=== PATIENT | male | born 1955 | race Caucasian/White ===

== ENCOUNTER 2017-12-04 11:06 | Emergency (ER) | payer OTHER ==
[2017-12-04 11:39] LABS: ADD MAN DIFF? NO
[2017-12-04 11:42] LABS: BASO % 1 % (0-3); EOS % 1 % (0-3); HEMATOCRIT 47.6 % (39.0-53.0); HEMOGLOBIN 16.3 g/dL (13.0-17.5); LYMPH # 1.1 x10^3/uL (1.0-4.8); LYMPH % 22 % (24-48); MEAN CORPUSCULAR HEMOGLOBIN 33 pg (25-35); MEAN CORPUSCULAR HGB CONC 34 g/dL (31-37); MEAN CORPUSCULAR VOLUME 95 fL (79-100); MONO # 0.4 x10^3/uL (0.0-1.1); MONO % 7 % (0-9); NEUT # 3.7 x10^3uL (1.8-7.7); NEUT % 70 % (31-73); PLATELET COUNT 193 x10^3/uL (140-400); RED BLOOD COUNT 5.01 x10^6/uL (4.30-5.70); RED CELL DISTRIBUTION WIDTH 13.4 % (11.5-14.5); WHITE BLOOD COUNT 5.3 x10^3/uL (4.0-11.0)
[2017-12-04 11:57] LABS: ANION GAP 8 (6-14); BLOOD UREA NITROGEN 10 mg/dL (8-26); CALCIUM 8.6 mg/dL (8.5-10.1); CARBON DIOXIDE 28 mmol/L (21-32); CHLORIDE 102 mmol/L (98-107); CREATININE 0.8 mg/dL (0.7-1.3); GFR 98.3; GLUCOSE 266 mg/dL (70-99); POTASSIUM 4.3 mmol/L (3.5-5.1); SODIUM 138 mmol/L (136-145)
[2017-12-04 12:11] LABS: TROPONINI < 0.017 ng/mL (0.000-0.055)
[2017-12-04 12:13] LABS: THYROID STIM HORMONE (TSH) 1.137 uIU/mL (0.358-3.74)
[2017-12-04] MEDS: IV NORMAL SALINE 1000ML BAG 1,000 ML IV (12:34)
[2017-12-04 14:24] LABS: BILIRUBIN,URINE NEGATIVE (NEG); CLARITY,URINE CLEAR; COLOR,URINE YELLOW; GLUCOSE,URINE >=1000 mg/dL (NEG); NITRITE,URINE NEGATIVE (NEG); PH,URINE 6.5; PROTEIN,URINE NEGATIVE (NEG-TRACE); UROBILINOGEN,URINE 0.2 mg/dL (0.2 mg/dL)
[2017-12-04 14:45] LABS: BACTERIA,URINE 0 /HPF (0-FEW); RBC,URINE 0 /HPF (0-2); SQUAMOUS EPITHELIAL CELL,UR FEW /LPF
[2017-12-05 03:15] LABS: HEMOGLOBIN A1C 9.2 % (4.8-5.6)
== END 2017-12-04 15:20 | disposition home or self-care (01) ==
LOC: ER 11:06
DX: R73.9 Hyperglycemia, unspecified (principal); I10 Essential (primary) hypertension; F17.200 Nicotine dependence, unspecified, uncomplicated
CPT/HCPCS: 36415; 80048; 81001; 83036; 84443; 84484; 85025; 93005; 99285-25; J7030

== ENCOUNTER 2019-06-12 09:55 | Inpatient (IN) | payer OTHER ==
[~2019-06-12] VITALS: Ht 177.8 cm; Wt 90.7 kg
[2019-06-12] MEDS ORDERED: LIDOCAINE 1%/EPI 1:100,000 20 ML VIAL. INJ ONE (10:15)
--- NOTE | 2019-06-12 10:18 | PHYS DOC ---
Past Medical History Past Medical History: Other Additional Past Medical Histor: BORDERLINE DM Past Surgical History: Appendectomy, Other Additional Past Surgical Histo: R ANKLE ORIF,R FINGERS AMPUTATION Alcohol Use: Rarely Drug Use: None Adult General Chief Complaint Chief Complaint: ABSCESS HPI HPI Patient is a 64-year-old male, with a past history of MRSA infections, who presents to the emergency department for evaluation of an increasing size abscess in his right medial thigh, which has developed over the past week. He states he has had MRSA infection similar to this in the past. He went to urgent care this past Thursday, and was placed on Bactrim, but the abscess continued to enlarge. He has had a small amount of bloody drainage. He reports having some subjective fevers but has not checked his temperature. The area is painful to palpation. There are no other alleviating or exacerbating factors to his symptoms. Review of Systems Review of Systems Constitutional: Denies lethargy or chills [] Eyes: Denies change in visual acuity, redness, or eye pain [] HENT: Denies nasal congestion or sore throat [] Respiratory: Denies cough or shortness of breath [] GI: Denies abdominal pain, nausea, vomiting, bloody stools or diarrhea [] : Denies dysuria or hematuria [] Musculoskeletal: Denies back pain or joint pain [] Integument: Denies rash or skin lesions [] Neurologic: Denies headache, focal weakness or sensory changes [] Endocrine: Denies polyuria or polydipsia [] All other systems were reviewed and found to be within normal limits, except as documented in this note. Current Medications Current Medications Current Medications Medications (Trade) Dose Ordered Sig/Ivon Start Time Stop Time Status Last Admin Dose Admin Lidocaine/ Epinephrine (LIDOCAINE 1%-EPI 1:100,000 Multi-Dose) 20 ml 1X ONCE 06/12/19 10:15 06/12/19 10:16 DC 06/12/19 10:29 20 ML Sodium Bicarbonate (Sodium Bicarb Adult 8.4% Syr) 50 meq 1X ONCE 06/12/19 10:30 06/12/19 10:31 DC 06/12/19 10:35 50 MEQ Vancomycin HCl 250 ml @ 250 mls/hr 1X ONCE 06/12/19 10:45 06/12/19 11:44 Allergies Allergies Allergies Coded Allergies Type Severity Reaction Last Updated Verified No Known Drug Allergies 12/04/17 No Physical Exam Physical Exam PHYSICAL EXAM: CONSTITUTIONAL: Well developed, well nourished HEAD: normocephalic, atraumatic EENT: PERRL, EOMI. Conjunctivae normal color, sclerae non-icteric; moist mucous membranes. NECK: Supple, non-tender; no meningismus. LUNGS: Lungs CTA, breathing even and unlabored. Normal air movement. HEART: Regular rate and rhythm, no murmur CHEST: No deformity; non-tender ABDOMEN: The abdomen is soft, and non-tender, no masses or bruits. EXTREM: Normal ROM; no deformity, no calf tenderness. Normal pulses palpable in all extremities. There is no pedal edema. SKIN: There is a large cutaneous abscess on the right medial thigh, proximally, with a small amount of eschar in the center, without active drainage. There is erythema overlying the skin of the lesion without significant surrounding erythema. The area does not involve the scrotum or the perineum. No other rash; no diaphoresis NEURO: Alert; normal speech and cognition; CN's grossly intact; strength grossly intact without focal deficit. BACK: No CVA TTP. Current Patient Data Vital Signs Vital Signs Date Time Temp Pulse Resp B/P (MAP) Pulse Ox O2 Delivery O2 Flow Rate FiO2 06/12/19 10:00 98.4 97 14 176/115 (135) 93 Room Air 98.4 Lab Values Laboratory Tests Test 06/12/19 10:50 White Blood Count 10.2 x10^3/uL (4.0-11.0) Red Blood Count 5.01 x10^6/uL (4.30-5.70) Hemoglobin 16.1 g/dL (13.0-17.5) Hematocrit 46.5 % (39.0-53.0) Mean Corpuscular Volume 93 fL (79-100) Mean Corpuscular Hemoglobin 32 pg (25-35) Mean Corpuscular Hemoglobin Concent 35 g/dL (31-37) Red Cell Distribution Width 11.8 % (11.5-14.5) Platelet Count 316 x10^3/uL (140-400) Neutrophils (%) (Auto) 80 % (31-73) H Lymphocytes (%) (Auto) 12 % (24-48) L Monocytes (%) (Auto) 8 % (0-9) Eosinophils (%) (Auto) 0 % (0-3) Basophils (%) (Auto) 1 % (0-3) Neutrophils # (Auto) 8.2 x10^3/uL (1.8-7.7) H Lymphocytes # (Auto) 1.2 x10^3/uL (1.0-4.8) Monocytes # (Auto) 0.8 x10^3/uL (0.0-1.1) Eosinophils # (Auto) 0.0 x10^3/uL (0.0-0.7) Basophils # (Auto) 0.0 x10^3/uL (0.0-0.2) Sodium Level 132 mmol/L (136-145) L Potassium Level 3.8 mmol/L (3.5-5.1) Chloride Level 94 mmol/L (98-107) L Carbon Dioxide Level 26 mmol/L (21-32) Anion Gap 12 (6-14) Blood Urea Nitrogen 19 mg/dL (8-26) Creatinine 0.9 mg/dL (0.7-1.3) Estimated GFR (Cockcroft-Gault) 85.2 Glucose Level 295 mg/dL (70-99) H Calcium Level 9.5 mg/dL (8.5-10.1) Laboratory Tests 06/12/19 10:50 Laboratory Tests 06/12/19 10:50 EKG EKG [] Radiology/Procedures Radiology/Procedures [] Course & Med Decision Making Course & Med Decision Making Pertinent Labs and Imaging studies reviewed. (See chart for details) [] 11:20 AM: Post drainage, there still remained a fair amount of fluctuance and firmness in the area, as well as cellulitis. This is likely reactive, although I cannot exclude another potentially smaller associated fluid pocket. The patient will be admitted to the hospitalist for IV antibiotics, given that he has failed outpatient oral treatment, and possible surgical consultation will be obtained. INCISION AND DRAINAGE PROCEDURE NOTE: The abscess located on the right groin was prepped with Betadine, anesthetized with 1% lidocaine with lidocaine and buffered with bicarbonate, and incised with #11 blade, in the most fluctuant area of the abscess. A small amount of pus was obtained from the wound, the wound was probed with a blunt forceps and packed with gauze packing. A wound culture was obtained. The patient tolerated procedure well. Wound care instructions were discussed with the patient. Dragon Disclaimer Dragon Disclaimer This electronic medical record was generated, in whole or in part, using a voice recognition dictation system. Departure Departure Impression: Primary Impression: Groin abscess Additional Impression: Cellulitis Disposition: 09 ADMITTED INPATIENT Admitting Physician: BRITTNEE Condition: STABLE Referrals: NO PCP (PCP) Problem Qualifiers MARILIN MUHAMMAD MD Jun 12, 2019 10:18
[2019-06-12] MEDS ORDERED: SODIUM BICARB ADULT 8.4% 50 MEQ/50 ML DISP.SYRIN. ONE (10:19)
[2019-06-12] MEDS ORDERED: SODIUM BICARB ADULT 8.4% 50 MEQ/50 ML DISP.SYRIN. SQ ONE (10:30)
[2019-06-12] MEDS ORDERED: VANCOMYCIN 1GM IVPB FOR OMNI 250 ML IV ONE (10:45)
[2019-06-12 11:15] LABS: BASO % 1 % (0-3); EOS % 0 % (0-3); HEMATOCRIT 46.5 % (39.0-53.0); HEMOGLOBIN 16.1 g/dL (13.0-17.5); LYMPH # 1.2 x10^3/uL (1.0-4.8); LYMPH % 12 % (24-48); MEAN CORPUSCULAR HEMOGLOBIN 32 pg (25-35); MEAN CORPUSCULAR HGB CONC 35 g/dL (31-37); MEAN CORPUSCULAR VOLUME 93 fL (79-100); MONO # 0.8 x10^3/uL (0.0-1.1); MONO % 8 % (0-9); NEUT # 8.2 x10^3/uL (1.8-7.7); NEUT % 80 % (31-73); PLATELET COUNT 316 x10^3/uL (140-400); RED BLOOD COUNT 5.01 x10^6/uL (4.30-5.70); RED CELL DISTRIBUTION WIDTH 11.8 % (11.5-14.5); WHITE BLOOD COUNT 10.2 x10^3/uL (4.0-11.0)
[2019-06-12 11:23] LABS: CALCIUM 9.5 mg/dL (8.5-10.1); CREATININE 0.9 mg/dL (0.7-1.3); GFR 85.2; POTASSIUM 3.8 mmol/L (3.5-5.1)
--- NOTE | 2019-06-12 11:34 | PDOC1 ---
History and Physical Date of Admission Date of Admission DATE: 06/12/19 TIME: 11:33 Identification/Chief Complaint Chief Complaint seen in er ., 64-year-old male, with a past history of MRSA infections, who presents to the emergency department for evaluation of an increasing size abscess in his right medial thigh, which has developed over the past week. He states he has had MRSA infection similar to this in the past. He went to urgent care this past Thursday, and was placed on Bactrim, but the abscess continued to enlarge. reports having some subjective fevers glucose high at 295 in er Past Medical History Past Medical History Past Medical History Past Medical History: Other Additional Past Medical Histor: BORDERLINE DM Past Surgical History: Appendectomy, Other Additional Past Surgical Histo: R ANKLE ORIF,R FINGERS AMPUTATION Alcohol Use: Rarely Drug Use: None Endocrine: Diabetes Family History Family History: High Cholestrol, Hypertension Social History Smoke: <1 pack per day ALCOHOL: other (2 beers a day) Drugs: None Current Problem List Problem List Problems Medical Problems: (1) Cellulitis Status: Acute (2) Groin abscess Status: Acute Current Medications Current Medications Current Medications Lidocaine/ Epinephrine (LIDOCAINE 1%-EPI 1:100,000 Multi-Dose) 20 ml 1X ONCE INJ Last administered on 06/12/19at 10:29; Start 06/12/19 at 10:15; Stop 06/12/19 at 10:16; Status DC Sodium Bicarbonate (Sodium Bicarb Adult 8.4% Syr) 50 meq STK-MED ONCE .ROUTE ; Start 06/12/19 at 10:19; Stop 06/12/19 at 10:19; Status DC Sodium Bicarbonate (Sodium Bicarb Adult 8.4% Syr) 50 meq 1X ONCE SQ Last administered on 06/12/19at 10:35; Start 06/12/19 at 10:30; Stop 06/12/19 at 10:31; Status DC Vancomycin HCl 250 ml @ 250 mls/hr 1X ONCE IV ; Start 06/12/19 at 10:45; Stop 06/12/19 at 11:44 Allergies Allergies: Coded Allergies: No Known Drug Allergies (Unverified , 12/04/17) ROS Review of System Review of Systems Review of Systems Constitutional: Denies lethargy or chills [] Eyes: Denies change in visual acuity, redness, or eye pain [] HENT: Denies nasal congestion or sore throat [] Respiratory: Denies cough or shortness of breath [] GI: Denies abdominal pain, nausea, vomiting, bloody stools or diarrhea [] : Denies dysuria or hematuria [] Musculoskeletal: Denies back pain or joint pain [] Integument: right groin skin lesion [] Neurologic: Denies headache, focal weakness or sensory changes [] Endocrine: Denies polyuria or polydipsia [] 14 pt systems were reviewed and found to be within normal limits, except as documented General: YES: Fatigue ALLERGY AND IMMUNOLOGY: No: Hives, Insect Bite Sensitivity, Itchy/Watery Eyes, Nasal Congestion, Post Nasal Drip, Seasonal Allergies, Other Hematological and Lymphatic: No: Bleeding Problems, Blood Clots, Blood Transfusions, Brusing, Night Sweats, Pallor, Swollen Lymph Nodes, Other Genitourinary: YES Frequency, YES Urgency Skin: Yes Skin Lesion Changes Physical Exam Physical Exam Physical Exam Physical Exam PHYSICAL EXAM: CONSTITUTIONAL: Well developed, well nourished HEAD: normocephalic, atraumatic EENT: PERRL, EOMI. Conjunctivae normal color, sclerae non-icteric; moist mucous membranes. NECK: Supple, non-tender; no meningismus. LUNGS: Lungs CTA, breathing even and unlabored. Normal air movement. HEART: Regular rate and rhythm, no murmur CHEST: No deformity; non-tender ABDOMEN: The abdomen is soft, and non-tender, no masses or bruits. EXTREM: Normal ROM; no deformity, no calf tenderness. Normal pulses palpable in all extremities. There is no pedal edema. SKIN: There is a large cutaneous abscess on the right medial thigh, proximally, with a small amount of eschar in the center, without active drainage. There is erythema overlying the skin of the lesion without significant surrounding erythema. The area does not involve the scrotum or the perineum. No other rash; no diaphoresis NEURO: Alert; normal speech and cognition; CN's grossly intact; strength grossly intact without focal deficit. BACK: No CVA TTP. General: Alert, Oriented X3, Cooperative, No acute distress HEENT: Atraumatic, PERRLA, EOMI, Mucous membr. moist/pink Lungs: Clear to auscultation, Normal air movement Heart: RRR, no thrills Abdomen: Normal bowel sounds, Soft Rectal Exam: not examined PELVIC: Examination not indicated Extremities: No cyanosis Neuro: Normal speech, Cranial nerves 3-12 NL Psych/Mental Status: Mental status NL, Mood NL Vitals Vitals Vital Signs Date Time Temp Pulse Resp B/P (MAP) Pulse Ox O2 Delivery O2 Flow Rate FiO2 06/12/19 10:00 98.4 97 14 176/115 (135) 93 Room Air 98.4 Labs Labs Laboratory Tests Test 06/12/19 10:50 White Blood Count 10.2 x10^3/uL (4.0-11.0) Red Blood Count 5.01 x10^6/uL (4.30-5.70) Hemoglobin 16.1 g/dL (13.0-17.5) Hematocrit 46.5 % (39.0-53.0) Mean Corpuscular Volume 93 fL (79-100) Mean Corpuscular Hemoglobin 32 pg (25-35) Mean Corpuscular Hemoglobin Concent 35 g/dL (31-37) Red Cell Distribution Width 11.8 % (11.5-14.5) Platelet Count 316 x10^3/uL (140-400) Neutrophils (%) (Auto) 80 % (31-73) Lymphocytes (%) (Auto) 12 % (24-48) Monocytes (%) (Auto) 8 % (0-9) Eosinophils (%) (Auto) 0 % (0-3) Basophils (%) (Auto) 1 % (0-3) Neutrophils # (Auto) 8.2 x10^3/uL (1.8-7.7) Lymphocytes # (Auto) 1.2 x10^3/uL (1.0-4.8) Monocytes # (Auto) 0.8 x10^3/uL (0.0-1.1) Eosinophils # (Auto) 0.0 x10^3/uL (0.0-0.7) Basophils # (Auto) 0.0 x10^3/uL (0.0-0.2) Sodium Level 132 mmol/L (136-145) Potassium Level 3.8 mmol/L (3.5-5.1) Chloride Level 94 mmol/L (98-107) Carbon Dioxide Level 26 mmol/L (21-32) Anion Gap 12 (6-14) Blood Urea Nitrogen 19 mg/dL (8-26) Creatinine 0.9 mg/dL (0.7-1.3) Estimated GFR (Cockcroft-Gault) 85.2 Glucose Level 295 mg/dL (70-99) Calcium Level 9.5 mg/dL (8.5-10.1) Laboratory Tests Test 06/12/19 10:50 White Blood Count 10.2 x10^3/uL (4.0-11.0) Red Blood Count 5.01 x10^6/uL (4.30-5.70) Hemoglobin 16.1 g/dL (13.0-17.5) Hematocrit 46.5 % (39.0-53.0) Mean Corpuscular Volume 93 fL (79-100) Mean Corpuscular Hemoglobin 32 pg (25-35) Mean Corpuscular Hemoglobin Concent 35 g/dL (31-37) Red Cell Distribution Width 11.8 % (11.5-14.5) Platelet Count 316 x10^3/uL (140-400) Neutrophils (%) (Auto) 80 % (31-73) Lymphocytes (%) (Auto) 12 % (24-48) Monocytes (%) (Auto) 8 % (0-9) Eosinophils (%) (Auto) 0 % (0-3) Basophils (%) (Auto) 1 % (0-3) Neutrophils # (Auto) 8.2 x10^3/uL (1.8-7.7) Lymphocytes # (Auto) 1.2 x10^3/uL (1.0-4.8) Monocytes # (Auto) 0.8 x10^3/uL (0.0-1.1) Eosinophils # (Auto) 0.0 x10^3/uL (0.0-0.7) Basophils # (Auto) 0.0 x10^3/uL (0.0-0.2) Sodium Level 132 mmol/L (136-145) Potassium Level 3.8 mmol/L (3.5-5.1) Chloride Level 94 mmol/L (98-107) Carbon Dioxide Level 26 mmol/L (21-32) Anion Gap 12 (6-14) Blood Urea Nitrogen 19 mg/dL (8-26) Creatinine 0.9 mg/dL (0.7-1.3) Estimated GFR (Cockcroft-Gault) 85.2 Glucose Level 295 mg/dL (70-99) Calcium Level 9.5 mg/dL (8.5-10.1) VTE Prophylaxis Ordered VTE Prophylaxis Devices: No VTE Pharmacological Prophylaxi: Yes Assessment/Plan Assessment/Plan Impression: Groin abscess, deep, complicated hx MRSA diabetes Cellulitis uncontrolled hypertension obesity ADMITTED BLOOD CULT SS INSULIN CONSULT GEN SURGERY CONSULT ID dvt prophylaxis iv vanc bp control blood culture NICK HANSEN MD Jun 12, 2019 11:33
[2019-06-12] MEDS ORDERED: IV NORMAL SALINE 1000ML BAG 1,000 ML IV ONE (11:45)
[2019-06-12] MEDS ORDERED: DEXTROSE 50% 25 GM / 50ML DISP.SYRIN. IV PRN (12:30)
[2019-06-12] MEDS ORDERED: 0.9 % SODIUM CHLORIDE 10 ML DISP.SYRIN. IV PRN (12:30)
[2019-06-12] MEDS ORDERED: MAG HYDROX/ALUMINUM HYD/SIMETH 30 ML ORAL.SUSP PO PRN (12:30)
[2019-06-12] MEDS ORDERED: ALBUTEROL SULFATE 2.5 MG/3 ML NEBU. NEB PRN (12:30)
[2019-06-12] MEDS ORDERED: ACETAMINOPHEN 325 MG TABLET. PO PRN (12:30)
[2019-06-12] MEDS ORDERED: DOCUSATE SODIUM 100 MG CAPSULE. PO PRN (12:30)
[2019-06-12] MEDS ORDERED: ONDANSETRON PF 4 MG/2 ML VIAL. IV PRN (12:30)
[2019-06-12] MEDS ORDERED: guaiFENesin ORAL 200 MG/10 ML LIQUID. PO PRN (12:30)
[2019-06-12] MEDS ORDERED: LORazepam 0.5 MG TABLET PO PRN (12:30)
[2019-06-12] MEDS ORDERED: ZOLPIDEM 5 MG TABLET. PO PRN (12:30)
[2019-06-12] MEDS ORDERED: VANCOMYCIN 2 GM in IV NORMAL SALINE 500ML BAG 500 ML IV ONE (13:00)
--- NOTE | 2019-06-12 13:29 | PDOC ---
Infectious Disease Note Vital Sign Vital Signs Vital Signs Date Time Temp Pulse Resp B/P (MAP) Pulse Ox O2 Delivery O2 Flow Rate FiO2 06/12/19 12:15 90 18 161/83 (109) 90 Room Air 06/12/19 10:00 98.4 98.4 Labs Lab Laboratory Tests Test 06/12/19 10:50 White Blood Count 10.2 x10^3/uL (4.0-11.0) Red Blood Count 5.01 x10^6/uL (4.30-5.70) Hemoglobin 16.1 g/dL (13.0-17.5) Hematocrit 46.5 % (39.0-53.0) Mean Corpuscular Volume 93 fL (79-100) Mean Corpuscular Hemoglobin 32 pg (25-35) Mean Corpuscular Hemoglobin Concent 35 g/dL (31-37) Red Cell Distribution Width 11.8 % (11.5-14.5) Platelet Count 316 x10^3/uL (140-400) Neutrophils (%) (Auto) 80 % (31-73) Lymphocytes (%) (Auto) 12 % (24-48) Monocytes (%) (Auto) 8 % (0-9) Eosinophils (%) (Auto) 0 % (0-3) Basophils (%) (Auto) 1 % (0-3) Neutrophils # (Auto) 8.2 x10^3/uL (1.8-7.7) Lymphocytes # (Auto) 1.2 x10^3/uL (1.0-4.8) Monocytes # (Auto) 0.8 x10^3/uL (0.0-1.1) Eosinophils # (Auto) 0.0 x10^3/uL (0.0-0.7) Basophils # (Auto) 0.0 x10^3/uL (0.0-0.2) Sodium Level 132 mmol/L (136-145) Potassium Level 3.8 mmol/L (3.5-5.1) Chloride Level 94 mmol/L (98-107) Carbon Dioxide Level 26 mmol/L (21-32) Anion Gap 12 (6-14) Blood Urea Nitrogen 19 mg/dL (8-26) Creatinine 0.9 mg/dL (0.7-1.3) Estimated GFR (Cockcroft-Gault) 85.2 Glucose Level 295 mg/dL (70-99) Calcium Level 9.5 mg/dL (8.5-10.1) Objective Assessment Soft tissue abscess right thigh s/p I and D in ER, 06/12. -Failed OP Bactrim h/o MRSA STSI Diabetes Obesity Hypertension Plan Plan of Care Continue vancomycin and add Zosyn f/u cultures results Await gen surgery eval D/w nursing Thank you Attending Co-Sign The patient was seen and interviewed as well as examined at the bedside. The chart was reviewed. The case was discussed. Agree with the plan of care. CHIP CHAPIN APRN Jun 12, 2019 13:29 JEN JACK MD Jun 12, 2019 13:30
--- NOTE | 2019-06-12 13:38 | NUR ---
Dr Melo answering service was called regarding routine new consult of right thigh abscess
[2019-06-12 13:41] VITALS: BP 186/91
--- NOTE | 2019-06-12 14:11 | CONS ---
DATE OF CONSULTATION: 06/12/2019 REQUESTING PHYSICIAN: Hugo Vizcarra MD REASON FOR CONSULTATION: Abscess. HISTORY OF PRESENT ILLNESS: This patient is a 64-year-old male with past medical history of obesity, diabetes, and previous history of methicillin-resistant Staphylococcus aureus soft tissue skin infection. About a week ago, he developed some redness, swelling, and pain of right inner thigh. He was [facility] by [facility] and prescribed Bactrim for abscess. The area worsened. He had fever, nausea, and vomiting prompting a visit to the emergency room. He underwent a bedside incision and drainage. Culture was sent. He is currently on vancomycin. General Surgery has been consulted. PAST MEDICAL HISTORY: Obesity, diabetes, and hypertension. 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 FAMILY HISTORY: High cholesterol and hypertension. SOCIAL HISTORY: The patient lives at home. He is a current smoker. He drinks alcohol. He has a dog. ALLERGIES: No known drug allergies. MEDICATIONS: Vancomycin, metformin, Colace, and clonidine. Other medications are available and have been reviewed on the SEP. REVIEW OF SYSTEMS: Per HPI; otherwise, all other review of systems negative. PHYSICAL EXAMINATION: VITAL SIGNS: Temperature is 98.4, blood pressure 161/83, heart rate 90, respiratory rate 18, pulse oximetry 90% on room air, and BMI 28. GENERAL: The patient is propped up in bed, alert, in no apparent distress. HEENT: Pupils are equally round. Oral cavity: Pharynx pink and moist. NECK: Supple. LUNGS: Clear to auscultation. HEART: S1 and S2. ABDOMEN: Obese, soft, and nontender with bowel sounds present. EXTREMITIES: No gross edema or cyanosis. SKIN: Warm to touch. No signs of rash. He has a fairly large area of induration with some fluctuance and redness on the right inner thigh with packing in place. NEUROLOGIC: Alert and oriented x3. LABORATORY DATA: WBC 2.2, hemoglobin 16.1, platelets 316,000; creatinine 0.8, BUN 19, sodium 132, potassium 3.8. Aerobic culture with gram stain is pending. IMAGING: None performed. IMPRESSION: 1. Soft tissue abscess, right thigh, status post incision and drainage in the emergency room on 06/12/2019. 2. 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 3. Diabetes. 4. Obesity. 5. Hypertension. PLAN: Continue the vancomycin per Pharmacy protocol and add Zosyn; additional antibiotic modifications pending culture results and clinical response to treatment. General Surgery has evaluated. We will continue to follow. Thank you, Dr. Vizcarra, for asking us to participate in this patient's care. Should you have further questions or concerns, please call. The patient is seen and examined and plan of care implemented by Dr. Boris Jack. BORIS JACK MD DR: EDGAR/radha JOB#: [id number] / [id number]
[2019-06-12 15:00] VITALS: BP 159/74
[2019-06-12] MEDS: VANCOMYCIN PER PHARMACY MC PRN (15:53)
--- NOTE | 2019-06-12 15:54 | NUR ---
Pharmacy Vancomycin Dosing Note S:Consulted to monitor and dose vancomycin started 06/12/19. O:FAREED LOCKHART is a 64 year old M with Abscess . Height: 5 feet, 10 inches Weight: 89.184602 kg [place] Body Weight: 73.00 Adjusted Body Weight: 79.72 Dosing Weight: Actual Other Antibiotics: ZOSYN 06/12 - LABS: Last BUN: 19 Last Creatinine: 0.9 Creatinine Clearance: 94 mL/min Last WBC: 10.2 Last Procalcitonin: - Tmax (past 24 hours): 98.4 Microbiology: 06/12 PENDING I/O: Drug Levels: Last level: on at Last dose given 06/12/19 at 1300 Vancomycin Dosing: Loading Dose: 2000 mg x1 Dosing Weight: Actual Target Trough: 10-20 A: Based on: WEIGHT, CRCL~94, SEVERITY OF INFECTION (ABSCESS), P: 1. INITIATE Vancomycin 1250 mg IV q12h AFTER 2000 MG LOADING DOSE 2. Follow up Trough level on 06/14/19 at 0030 3. Pharmacy will continue to monitor, follow and adjust therapy as needed. JAMEEL VELÁSQUEZ [facility], 06/12/19 [id number]
[2019-06-12] MEDS: LISINOPRIL 10 MG TABLET PO SCH (16:17)
[2019-06-12] MEDS: IV NORMAL SALINE 1000ML BAG 1,000 ML IV SCH ×2 (16:17→22:14)
[2019-06-12] MEDS: PIPERACILLIN/TAZOBACTAM 3.375 GM in IV NORMAL SALINE 50ML 50 ML IV SCH (16:18)
[2019-06-12] MEDS: ENOXAPARIN 40 MG/0.4 ML SYRINGE. SQ SCH (16:18)
[2019-06-12] MEDS: NICOTINE 21MG PATCH. TD SCH (16:19)
[2019-06-12] MEDS ORDERED: HYDROmorphone 2 MG/ML VIAL IV PRN (16:45)
[2019-06-12] MEDS: INSULIN LISPRO 300 UNITS/3 ML VIAL. SQ SCH (17:21)
[2019-06-12 19:00] VITALS: BP 130/86
[2019-06-12] MEDS: HYDROcodone/APAP 5/325MG 1 TAB TABLET PO PRN (19:35)
[2019-06-12 23:00] VITALS: BP 114/60
[2019-06-13] MEDS: PIPERACILLIN/TAZOBACTAM 3.375 GM in IV NORMAL SALINE 50ML 50 ML IV SCH ×4 (00:36→18:11)
[2019-06-13 01:06] LABS: HEMOGLOBIN A1C 10.3 % (4.8-5.6)
[2019-06-13] MEDS: VANCOMYCIN 1.25 GM in IV NORMAL SALINE 250ML 250 ML IV SCH ×2 (01:45→14:33)
[2019-06-13 03:00] VITALS: BP 143/59
[2019-06-13 05:02] LABS: BASO % 1 % (0-3); EOS # 0.1 x10^3/uL (0.0-0.7); EOS % 1 % (0-3); HEMATOCRIT 40.9 % (39.0-53.0); HEMOGLOBIN 14.1 g/dL (13.0-17.5); LYMPH # 1.1 x10^3/uL (1.0-4.8); LYMPH % 14 % (24-48); MEAN CORPUSCULAR HEMOGLOBIN 32 pg (25-35); MEAN CORPUSCULAR HGB CONC 34 g/dL (31-37); MEAN CORPUSCULAR VOLUME 93 fL (79-100); MONO # 0.9 x10^3/uL (0.0-1.1); MONO % 11 % (0-9); NEUT % 74 % (31-73); PLATELET COUNT 282 x10^3/uL (140-400); RED BLOOD COUNT 4.38 x10^6/uL (4.30-5.70); RED CELL DISTRIBUTION WIDTH 11.9 % (11.5-14.5); WHITE BLOOD COUNT 8.1 x10^3/uL (4.0-11.0)
[2019-06-13 05:50] LABS: CALCIUM 8.4 mg/dL (8.5-10.1); CREATININE 0.8 mg/dL (0.7-1.3); GFR 97.6; POTASSIUM 3.9 mmol/L (3.5-5.1)
[2019-06-13 05:58] LABS: ALBUMIN 2.1 g/dL (3.4-5.0); ALBUMIN/GLOBULIN RATIO 0.5 (1.0-1.7); TOTAL BILIRUBIN 0.4 mg/dL (0.2-1.0); TOTAL PROTEIN 6.4 g/dL (6.4-8.2)
[2019-06-13 07:00] VITALS: BP 124/61
[2019-06-13] MEDS: INSULIN LISPRO 300 UNITS/3 ML VIAL. SQ SCH ×3 (07:32→17:31)
[2019-06-13] MEDS: LISINOPRIL 10 MG TABLET PO SCH (08:00)
[2019-06-13] MEDS: metFORMIN XR 500 MG TAB.ER.24H PO SCH (08:00)
[2019-06-13] MEDS: NICOTINE 21MG PATCH. TD SCH (08:40)
[2019-06-13] MEDS: IV NORMAL SALINE 1000ML BAG 1,000 ML IV SCH ×2 (09:32→20:44)
--- NOTE | 2019-06-13 09:40 | NUR ---
IP: Pt has a hx of mrsa abscesses in 2008. Pt currently with recurrent abscesses. Culture pending. Pt to be in contact precautions until wound cultures verified. Recommend Nozin/CHG decolonization.
--- NOTE | 2019-06-13 09:48 | NUR ---
SW following for discharge planning. Discussed with RN, pt is from home, up adlib. RN advised no SW needs at this time. SW will continue to follow for any discharge planning needs.
[2019-06-13 11:00] VITALS: BP 140/61
--- NOTE | 2019-06-13 12:31 | PDOC ---
Infectious Disease Note Subjective: Subjective Pt has pain and swelling rt groin No fever or chills no n/v/d/abdo pain or sob no gu symptoms Vital Signs: Vital Signs Vital Signs Date Time Temp Pulse Resp B/P (MAP) Pulse Ox O2 Delivery O2 Flow Rate FiO2 06/13/19 11:00 97.7 63 16 140/61 (87) 95 Room Air 97.7 Physical Exam: PHYSICAL EXAM GENERAL: The patient is propped up in bed, alert, in no apparent distress.nontoxic appearing HEENT: Pupils are equally round. Oral cavity: Pharynx pink and moist. NECK: Supple. LUNGS: Clear to auscultation. HEART: S1 and S2. ABDOMEN: Obese, soft, and nontender with bowel sounds present. EXTREMITIES: No gross edema or cyanosis. SKIN: Warm to touch. No signs of rash. He has a fairly large area of induration with some fluctuance and redness on the right inner thigh with packing in place. NEUROLOGIC: Alert and oriented x3. Medications: Inpatient Meds: Current Medications Medications (Trade) Dose Ordered Sig/Ivon Start Time Stop Time Status Last Admin Dose Admin Acetaminophen (Tylenol) 650 mg PRN Q4HRS PRN 06/12/19 12:30 Acetaminophen/ Hydrocodone Bitart (Lortab 5/325) 2 tab PRN Q4HRS PRN 06/12/19 17:00 Al Hydroxide/Mg Hydroxide (Mylanta Plus Xs) 30 ml PRN DAILY PRN 06/12/19 12:30 Albuterol Sulfate (Ventolin Neb Soln) 2.5 mg PRN Q4HRS PRN 06/12/19 12:30 Clonidine HCl (Catapres) 0.1 mg PRN Q6HRS PRN 06/12/19 12:30 Dextrose (Dextrose 50%-Water Syringe) 12.5 gm PRN Q15MIN PRN 06/12/19 12:30 Docusate Sodium (Colace) 100 mg PRN BID PRN 06/12/19 12:30 Enoxaparin Sodium (Lovenox 40mg Syringe) 40 mg Q24H 06/12/19 13:00 06/12/19 16:18 40 MG Guaifenesin (Robitussin) 200 mg PRN Q4HRS PRN 06/12/19 12:30 Hydromorphone HCl (Dilaudid) 1 mg PRN Q3HRS PRN 06/12/19 16:45 Insulin Human Lispro (HumaLOG) 0-5 UNITS TIDWMEALS 06/12/19 17:00 06/12/19 17:21 5 UNITS Lactobacillus Rhamnosus (Culturelle) 1 cap BID 06/13/19 21:00 Lidocaine/ Epinephrine (LIDOCAINE 1%-EPI 1:100,000 Multi-Dose) 20 ml 1X ONCE 06/12/19 10:15 06/12/19 10:16 DC 06/12/19 10:29 20 ML Lisinopril (Prinivil) 10 mg DAILY08 06/12/19 12:30 06/12/19 16:17 10 MG Lorazepam (Ativan) 0.5 mg PRN Q4HRS PRN 06/12/19 12:30 Metformin HCl (Glucophage Xr) 500 mg DAILYWBKFT 06/13/19 08:00 Nicotine (Nicoderm Cq 21mg) 1 patch DAILY 06/12/19 15:30 06/13/19 08:40 1 PATCH Ondansetron HCl (Zofran) 4 mg PRN Q4HRS PRN 06/12/19 12:30 06/13/19 02:34 4 MG Piperacillin Sod/ Tazobactam Sod 3.375 gm/Sodium Chloride 50 ml @ 100 mls/hr Q6HRS 06/12/19 14:00 06/13/19 06:01 100 MLS/HR Sodium Bicarbonate (Sodium Bicarb Adult 8.4% Syr) 50 meq 1X ONCE 06/12/19 10:30 06/12/19 10:31 DC 06/12/19 10:35 50 MEQ Sodium Chloride 1,000 ml @ 100 mls/hr Q10H 06/12/19 12:18 06/13/19 09:32 100 MLS/HR Sodium Chloride (Normal Saline Flush) 3 ml QSHIFT PRN 06/12/19 12:30 Vancomycin HCl (Vanco Per Pharmacy) 1 each PRN DAILY PRN 06/12/19 12:30 06/12/19 15:53 1 EACH Vancomycin HCl (Vancomycin Trough Level) 1 each 1X ONCE 06/14/19 00:30 06/14/19 00:31 Vancomycin HCl 1.25 gm/Sodium Chloride 250 ml @ 167 mls/hr Q12H 06/13/19 01:00 06/13/19 01:45 167 MLS/HR Vancomycin HCl 2 gm/Sodium Chloride 500 ml @ 250 mls/hr 1X ONCE 06/12/19 13:00 06/12/19 14:59 DC 06/12/19 13:09 250 MLS/HR Zolpidem Tartrate (Ambien) 5 mg PRN QHS PRN 06/12/19 12:30 Labs: Lab Laboratory Tests Test 06/12/19 16:53 06/12/19 20:21 06/13/19 04:15 06/13/19 07:26 Glucose (Fingerstick) 310 mg/dL (70-99) 267 mg/dL (70-99) 244 mg/dL (70-99) White Blood Count 8.1 x10^3/uL (4.0-11.0) Red Blood Count 4.38 x10^6/uL (4.30-5.70) Hemoglobin 14.1 g/dL (13.0-17.5) Hematocrit 40.9 % (39.0-53.0) Mean Corpuscular Volume 93 fL (79-100) Mean Corpuscular Hemoglobin 32 pg (25-35) Mean Corpuscular Hemoglobin Concent 34 g/dL (31-37) Red Cell Distribution Width 11.9 % (11.5-14.5) Platelet Count 282 x10^3/uL (140-400) Neutrophils (%) (Auto) 74 % (31-73) Lymphocytes (%) (Auto) 14 % (24-48) Monocytes (%) (Auto) 11 % (0-9) Eosinophils (%) (Auto) 1 % (0-3) Basophils (%) (Auto) 1 % (0-3) Neutrophils # (Auto) 6.0 x10^3/uL (1.8-7.7) Lymphocytes # (Auto) 1.1 x10^3/uL (1.0-4.8) Monocytes # (Auto) 0.9 x10^3/uL (0.0-1.1) Eosinophils # (Auto) 0.1 x10^3/uL (0.0-0.7) Basophils # (Auto) 0.0 x10^3/uL (0.0-0.2) Sodium Level 135 mmol/L (136-145) Potassium Level 3.9 mmol/L (3.5-5.1) Chloride Level 98 mmol/L (98-107) Carbon Dioxide Level 29 mmol/L (21-32) Anion Gap 8 (6-14) Blood Urea Nitrogen 13 mg/dL (8-26) Creatinine 0.8 mg/dL (0.7-1.3) Estimated GFR (Cockcroft-Gault) 97.6 BUN/Creatinine Ratio 16 (6-20) Glucose Level 247 mg/dL (70-99) Calcium Level 8.4 mg/dL (8.5-10.1) Total Bilirubin 0.4 mg/dL (0.2-1.0) Aspartate Amino Transf (AST/SGOT) 16 U/L (15-37) Alanine Aminotransferase (ALT/SGPT) 26 U/L (16-63) Alkaline Phosphatase 66 U/L (46-116) Total Protein 6.4 g/dL (6.4-8.2) Albumin 2.1 g/dL (3.4-5.0) Albumin/Globulin Ratio 0.5 (1.0-1.7) Test 06/13/19 11:14 Glucose (Fingerstick) 232 mg/dL (70-99) Objective: Assessment: 1. Soft tissue abscess, right thigh, status post incision and drainage in the emergency room on 06/12/2019. Cult neg so far 2. 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 3. Diabetes. 4. Obesity. 5. Hypertension. Plan: Plan of Care Continue vancomycin and Zosyn f/u cultures results monitor renal func closely Gen surgery consulted D/W [employer] Gen surgery awaiting I and D D/w nursing GABINO JACK MD Jun 13, 2019 12:31
--- NOTE | 2019-06-13 13:12 | PDOC ---
PROGRESS NOTES Chief Complaint Chief Complaint Groin abscess, deep, complicated hx MRSA diabetes 2, poor control, A1c 10.3 Cellulitis uncontrolled hypertension obesity, BMI 28 History of Present Illness History of Present Illness SS INSULIN, increase to high dose, glargine 10 x1 wound care to follow CONSULT ID - broad abx dvt prophylaxis iv vanc Vitals Vitals Vital Signs Date Time Temp Pulse Resp B/P (MAP) Pulse Ox O2 Delivery O2 Flow Rate FiO2 06/13/19 11:00 97.7 63 16 140/61 (87) 95 Room Air 97.7 Physical Exam Physical Exam GENERAL: The patient is propped up in bed, alert, in no apparent distress.nontoxic appearing HEENT: Pupils are equally round. Oral cavity: Pharynx pink and moist. NECK: Supple. LUNGS: Clear to auscultation. HEART: S1 and S2. ABDOMEN: Obese, soft, and nontender with bowel sounds present. EXTREMITIES: No gross edema or cyanosis. SKIN: Warm to touch. No signs of rash. He has a fairly large area of induration with some fluctuance and redness on the right inner thigh with packing in place. NEUROLOGIC: Alert and oriented x3. General: Alert, Oriented X3, Cooperative, No acute distress Abdomen: Normal bowel sounds, Soft Extremities: No cyanosis Labs LABS Laboratory Tests Test 06/12/19 16:53 06/12/19 20:21 06/13/19 04:15 06/13/19 07:26 Glucose (Fingerstick) 310 mg/dL (70-99) 267 mg/dL (70-99) 244 mg/dL (70-99) White Blood Count 8.1 x10^3/uL (4.0-11.0) Red Blood Count 4.38 x10^6/uL (4.30-5.70) Hemoglobin 14.1 g/dL (13.0-17.5) Hematocrit 40.9 % (39.0-53.0) Mean Corpuscular Volume 93 fL (79-100) Mean Corpuscular Hemoglobin 32 pg (25-35) Mean Corpuscular Hemoglobin Concent 34 g/dL (31-37) Red Cell Distribution Width 11.9 % (11.5-14.5) Platelet Count 282 x10^3/uL (140-400) Neutrophils (%) (Auto) 74 % (31-73) Lymphocytes (%) (Auto) 14 % (24-48) Monocytes (%) (Auto) 11 % (0-9) Eosinophils (%) (Auto) 1 % (0-3) Basophils (%) (Auto) 1 % (0-3) Neutrophils # (Auto) 6.0 x10^3/uL (1.8-7.7) Lymphocytes # (Auto) 1.1 x10^3/uL (1.0-4.8) Monocytes # (Auto) 0.9 x10^3/uL (0.0-1.1) Eosinophils # (Auto) 0.1 x10^3/uL (0.0-0.7) Basophils # (Auto) 0.0 x10^3/uL (0.0-0.2) Sodium Level 135 mmol/L (136-145) Potassium Level 3.9 mmol/L (3.5-5.1) Chloride Level 98 mmol/L (98-107) Carbon Dioxide Level 29 mmol/L (21-32) Anion Gap 8 (6-14) Blood Urea Nitrogen 13 mg/dL (8-26) Creatinine 0.8 mg/dL (0.7-1.3) Estimated GFR (Cockcroft-Gault) 97.6 BUN/Creatinine Ratio 16 (6-20) Glucose Level 247 mg/dL (70-99) Calcium Level 8.4 mg/dL (8.5-10.1) Total Bilirubin 0.4 mg/dL (0.2-1.0) Aspartate Amino Transf (AST/SGOT) 16 U/L (15-37) Alanine Aminotransferase (ALT/SGPT) 26 U/L (16-63) Alkaline Phosphatase 66 U/L (46-116) Total Protein 6.4 g/dL (6.4-8.2) Albumin 2.1 g/dL (3.4-5.0) Albumin/Globulin Ratio 0.5 (1.0-1.7) Test 06/13/19 11:14 Glucose (Fingerstick) 232 mg/dL (70-99) Review of Systems Review of Systems pain better, still swollen Assessment and Plan Assessmemt and Plan Problems Medical Problems: (1) Cellulitis Status: Acute (2) Groin abscess Status: Acute Comment Review of Relevant I have reviewed the following items kellee (where applicable) has been applied. Labs Laboratory Tests Test 06/12/19 10:41 06/12/19 10:50 06/12/19 16:53 06/12/19 20:21 Hemoglobin A1c 10.3 % (4.8-5.6) White Blood Count 10.2 x10^3/uL (4.0-11.0) Red Blood Count 5.01 x10^6/uL (4.30-5.70) Hemoglobin 16.1 g/dL (13.0-17.5) Hematocrit 46.5 % (39.0-53.0) Mean Corpuscular Volume 93 fL (79-100) Mean Corpuscular Hemoglobin 32 pg (25-35) Mean Corpuscular Hemoglobin Concent 35 g/dL (31-37) Red Cell Distribution Width 11.8 % (11.5-14.5) Platelet Count 316 x10^3/uL (140-400) Neutrophils (%) (Auto) 80 % (31-73) Lymphocytes (%) (Auto) 12 % (24-48) Monocytes (%) (Auto) 8 % (0-9) Eosinophils (%) (Auto) 0 % (0-3) Basophils (%) (Auto) 1 % (0-3) Neutrophils # (Auto) 8.2 x10^3/uL (1.8-7.7) Lymphocytes # (Auto) 1.2 x10^3/uL (1.0-4.8) Monocytes # (Auto) 0.8 x10^3/uL (0.0-1.1) Eosinophils # (Auto) 0.0 x10^3/uL (0.0-0.7) Basophils # (Auto) 0.0 x10^3/uL (0.0-0.2) Sodium Level 132 mmol/L (136-145) Potassium Level 3.8 mmol/L (3.5-5.1) Chloride Level 94 mmol/L (98-107) Carbon Dioxide Level 26 mmol/L (21-32) Anion Gap 12 (6-14) Blood Urea Nitrogen 19 mg/dL (8-26) Creatinine 0.9 mg/dL (0.7-1.3) Estimated GFR (Cockcroft-Gault) 85.2 Glucose Level 295 mg/dL (70-99) Calcium Level 9.5 mg/dL (8.5-10.1) Glucose (Fingerstick) 310 mg/dL (70-99) 267 mg/dL (70-99) Test 06/13/19 04:15 06/13/19 07:26 06/13/19 11:14 White Blood Count 8.1 x10^3/uL (4.0-11.0) Red Blood Count 4.38 x10^6/uL (4.30-5.70) Hemoglobin 14.1 g/dL (13.0-17.5) Hematocrit 40.9 % (39.0-53.0) Mean Corpuscular Volume 93 fL (79-100) Mean Corpuscular Hemoglobin 32 pg (25-35) Mean Corpuscular Hemoglobin Concent 34 g/dL (31-37) Red Cell Distribution Width 11.9 % (11.5-14.5) Platelet Count 282 x10^3/uL (140-400) Neutrophils (%) (Auto) 74 % (31-73) Lymphocytes (%) (Auto) 14 % (24-48) Monocytes (%) (Auto) 11 % (0-9) Eosinophils (%) (Auto) 1 % (0-3) Basophils (%) (Auto) 1 % (0-3) Neutrophils # (Auto) 6.0 x10^3/uL (1.8-7.7) Lymphocytes # (Auto) 1.1 x10^3/uL (1.0-4.8) Monocytes # (Auto) 0.9 x10^3/uL (0.0-1.1) Eosinophils # (Auto) 0.1 x10^3/uL (0.0-0.7) Basophils # (Auto) 0.0 x10^3/uL (0.0-0.2) Sodium Level 135 mmol/L (136-145) Potassium Level 3.9 mmol/L (3.5-5.1) Chloride Level 98 mmol/L (98-107) Carbon Dioxide Level 29 mmol/L (21-32) Anion Gap 8 (6-14) Blood Urea Nitrogen 13 mg/dL (8-26) Creatinine 0.8 mg/dL (0.7-1.3) Estimated GFR (Cockcroft-Gault) 97.6 BUN/Creatinine Ratio 16 (6-20) Glucose Level 247 mg/dL (70-99) Calcium Level 8.4 mg/dL (8.5-10.1) Total Bilirubin 0.4 mg/dL (0.2-1.0) Aspartate Amino Transf (AST/SGOT) 16 U/L (15-37) Alanine Aminotransferase (ALT/SGPT) 26 U/L (16-63) Alkaline Phosphatase 66 U/L (46-116) Total Protein 6.4 g/dL (6.4-8.2) Albumin 2.1 g/dL (3.4-5.0) Albumin/Globulin Ratio 0.5 (1.0-1.7) Glucose (Fingerstick) 244 mg/dL (70-99) 232 mg/dL (70-99) Laboratory Tests Test 06/12/19 16:53 06/12/19 20:21 06/13/19 04:15 06/13/19 07:26 Glucose (Fingerstick) 310 mg/dL (70-99) 267 mg/dL (70-99) 244 mg/dL (70-99) White Blood Count 8.1 x10^3/uL (4.0-11.0) Red Blood Count 4.38 x10^6/uL (4.30-5.70) Hemoglobin 14.1 g/dL (13.0-17.5) Hematocrit 40.9 % (39.0-53.0) Mean Corpuscular Volume 93 fL (79-100) Mean Corpuscular Hemoglobin 32 pg (25-35) Mean Corpuscular Hemoglobin Concent 34 g/dL (31-37) Red Cell Distribution Width 11.9 % (11.5-14.5) Platelet Count 282 x10^3/uL (140-400) Neutrophils (%) (Auto) 74 % (31-73) Lymphocytes (%) (Auto) 14 % (24-48) Monocytes (%) (Auto) 11 % (0-9) Eosinophils (%) (Auto) 1 % (0-3) Basophils (%) (Auto) 1 % (0-3) Neutrophils # (Auto) 6.0 x10^3/uL (1.8-7.7) Lymphocytes # (Auto) 1.1 x10^3/uL (1.0-4.8) Monocytes # (Auto) 0.9 x10^3/uL (0.0-1.1) Eosinophils # (Auto) 0.1 x10^3/uL (0.0-0.7) Basophils # (Auto) 0.0 x10^3/uL (0.0-0.2) Sodium Level 135 mmol/L (136-145) Potassium Level 3.9 mmol/L (3.5-5.1) Chloride Level 98 mmol/L (98-107) Carbon Dioxide Level 29 mmol/L (21-32) Anion Gap 8 (6-14) Blood Urea Nitrogen 13 mg/dL (8-26) Creatinine 0.8 mg/dL (0.7-1.3) Estimated GFR (Cockcroft-Gault) 97.6 BUN/Creatinine Ratio 16 (6-20) Glucose Level 247 mg/dL (70-99) Calcium Level 8.4 mg/dL (8.5-10.1) Total Bilirubin 0.4 mg/dL (0.2-1.0) Aspartate Amino Transf (AST/SGOT) 16 U/L (15-37) Alanine Aminotransferase (ALT/SGPT) 26 U/L (16-63) Alkaline Phosphatase 66 U/L (46-116) Total Protein 6.4 g/dL (6.4-8.2) Albumin 2.1 g/dL (3.4-5.0) Albumin/Globulin Ratio 0.5 (1.0-1.7) Test 06/13/19 11:14 Glucose (Fingerstick) 232 mg/dL (70-99) Medications Current Medications Lidocaine/ Epinephrine (LIDOCAINE 1%-EPI 1:100,000 Multi-Dose) 20 ml 1X ONCE INJ Last administered on 06/12/19at 10:29; Start 06/12/19 at 10:15; Stop 06/12/19 at 10:16; Status DC Sodium Bicarbonate (Sodium Bicarb Adult 8.4% Syr) 50 meq STK-MED ONCE .ROUTE ; Start 06/12/19 at 10:19; Stop 06/12/19 at 10:19; Status DC Sodium Bicarbonate (Sodium Bicarb Adult 8.4% Syr) 50 meq 1X ONCE SQ Last administered on 06/12/19at 10:35; Start 06/12/19 at 10:30; Stop 06/12/19 at 10:31; Status DC Vancomycin HCl 250 ml @ 250 mls/hr 1X ONCE IV Last administered on 06/12/19at 11:48; Start 06/12/19 at 10:45; Stop 06/12/19 at 11:44; Status DC Sodium Chloride 1,000 ml @ 1,000 mls/hr 1X ONCE IV Last administered on 06/12/19at 11:45; Start 06/12/19 at 11:45; Stop 06/12/19 at 12:44; Status DC Vancomycin HCl (Vanco Per Pharmacy) 1 each PRN DAILY PRN MC SEE COMMENTS Last administered on 06/12/19at 15:53; Start 06/12/19 at 12:30 Insulin Human Lispro (HumaLOG) 0-5 UNITS TIDWMEALS SQ Last administered on 06/12/19at 17:21; Start 06/12/19 at 17:00 Dextrose (Dextrose 50%-Water Syringe) 12.5 gm PRN Q15MIN PRN IV SEE COMMENTS; Start 06/12/19 at 12:30 Vancomycin HCl 2 gm/Sodium Chloride 500 ml @ 250 mls/hr 1X ONCE IV Last administered on 06/12/19at 13:09; Start 06/12/19 at 13:00; Stop 06/12/19 at 14:59; Status DC Sodium Chloride (Normal Saline Flush) 3 ml QSHIFT PRN IV AFTER MEDS AND BLOOD DRAWS; Start 06/12/19 at 12:30 Sodium Chloride 1,000 ml @ 100 mls/hr Q10H IV Last administered on 06/13/19at 09:32; Start 06/12/19 at 12:18 Ondansetron HCl (Zofran) 4 mg PRN Q4HRS PRN IV NAUSEA/VOMITING Last administered on 06/13/19at 02:34; Start 06/12/19 at 12:30 Zolpidem Tartrate (Ambien) 5 mg PRN QHS PRN PO INSOMNIA; Start 06/12/19 at 12:30 Acetaminophen (Tylenol) 650 mg PRN Q4HRS PRN PO TEMP OVER 100.4F OR MILD PAIN; Start 06/12/19 at 12:30 Al Hydroxide/Mg Hydroxide (Mylanta Plus Xs) 30 ml PRN DAILY PRN PO HEARTBURN / GAS; Start 06/12/19 at 12:30 Clonidine HCl (Catapres) 0.1 mg PRN Q6HRS PRN PO SBP>160 OR DBP>90; Start 06/12/19 at 12:30 Docusate Sodium (Colace) 100 mg PRN BID PRN PO CONSTIPATION; Start 06/12/19 at 12:30 Albuterol Sulfate (Ventolin Neb Soln) 2.5 mg PRN Q4HRS PRN NEB SHORTNESS OF BREATH; Start 06/12/19 at 12:30 Guaifenesin (Robitussin) 200 mg PRN Q4HRS PRN PO COUGH; Start 06/12/19 at 12:30 Lorazepam (Ativan) 0.5 mg PRN Q4HRS PRN PO ANXIETY / AGITATION; Start 06/12/19 at 12:30 Enoxaparin Sodium (Lovenox 40mg Syringe) 40 mg Q24H SQ Last administered on 06/12/19at 16:18; Start 06/12/19 at 13:00 Metformin HCl (Glucophage Xr) 500 mg DAILYWBKFT PO ; Start 06/13/19 at 08:00 Lisinopril (Prinivil) 10 mg DAILY08 PO Last administered on 06/12/19at 16:17; Start 06/12/19 at 12:30 Piperacillin Sod/ Tazobactam Sod 3.375 gm/Sodium Chloride 50 ml @ 100 mls/hr Q6HRS IV Last administered on 06/13/19at 12:31; Start 06/12/19 at 14:00 Nicotine (Nicoderm Cq 21mg) 1 patch DAILY TD Last administered on 06/13/19at 08:40; Start 06/12/19 at 15:30 Vancomycin HCl 1.25 gm/Sodium Chloride 250 ml @ 167 mls/hr Q12H IV Last administered on 06/13/19at 01:45; Start 06/13/19 at 01:00 Vancomycin HCl (Vancomycin Trough Level) 1 each 1X ONCE MC ; Start 06/14/19 at 00:30; Stop 06/14/19 at 00:31 Hydromorphone HCl (Dilaudid) 1 mg PRN Q3HRS PRN IV SEVERE PAIN 7-10; Start 06/12/19 at 16:45 Acetaminophen/ Hydrocodone Bitart (Lortab 5/325) 1 tab PRN Q4HRS PRN PO MODERATE PAIN Last administered on 06/12/19at 19:35; Start 06/12/19 at 17:00 Acetaminophen/ Hydrocodone Bitart (Lortab 5/325) 2 tab PRN Q4HRS PRN PO SEVERE PAIN; Start 06/12/19 at 17:00 Lactobacillus Rhamnosus (Culturelle) 1 cap BID PO ; Start 06/13/19 at 21:00 Vitals/I & O Vital Sign - Last 24 Hours 06/12/19 06/12/19 06/12/19 06/12/19 13:41 15:00 16:17 19:00 Temp 98.7 97.9 98.3 98.7 97.9 98.3 Pulse 78 85 72 101 Resp 16 16 16 B/P (MAP) 186/91 (122) 159/74 (102) 159/76 130/86 (101) Pulse Ox 96 95 91 O2 Delivery Room Air Room Air Room Air 06/12/19 06/12/19 06/12/19 06/12/19 19:35 19:46 20:35 23:00 Temp 98.2 98.2 Pulse 70 Resp 16 B/P (MAP) 114/60 (78) Pulse Ox 95 O2 Delivery Room Air Room Air Room Air Room Air 06/13/19 06/13/19 06/13/19 06/13/19 03:00 07:00 08:00 11:00 Temp 98.0 98.2 97.7 98.0 98.2 97.7 Pulse 64 62 63 Resp 16 16 16 B/P (MAP) 143/59 (87) 124/61 (82) 140/61 (87) Pulse Ox 94 93 95 O2 Delivery Room Air Room Air Room Air Room Air Intake and Output 06/12/19 06/12/19 06/13/19 15:00 23:00 07:00 Intake Total 250 ml 800 ml Balance 250 ml 800 ml LENNOX OWUSU MD Jun 13, 2019 13:12
[2019-06-13] MEDS ORDERED: DEXTROSE 50% 25 GM / 50ML DISP.SYRIN. IV PRN (13:15)
--- NOTE | 2019-06-13 13:17 | PDOC2 ---
JENNIE JACKSON RACECOURSE BARRIER ATTENDANT 06/13/19 1317: CONSULT Date of Consult Date of Consult DATE: 06/13/19 TIME: 13:12 Reason for Consult Reason for Consult: thigh abscess Referring Physician Referring Physician: ER Identification/Chief Complaint Chief Complaint thigh abscess Source Source: Chart review, Patient History of Present Illness Reason for Visit: Admitted with abscess to right thigh/groin for 1 week, treated with oral abx, no improvement, I&D in ER last night, wound draining Hx of wounds require I&D Past Medical History Endocrine: Diabetes Past Surgical History Past Surgical History: Other (wound I&Ds) Family History Family History: High Cholestrol, Hypertension Social History 2 packs per day ALCOHOL: other (12-15 beers per week) Drugs: None Lives: Alone Current Problem List Problem List Problems Medical Problems: (1) Cellulitis Status: Acute (2) Groin abscess Status: Acute Current Medications Current Medications Current Medications Lidocaine/ Epinephrine (LIDOCAINE 1%-EPI 1:100,000 Multi-Dose) 20 ml 1X ONCE INJ Last administered on 06/12/19at 10:29; Start 06/12/19 at 10:15; Stop 06/12/19 at 10:16; Status DC Sodium Bicarbonate (Sodium Bicarb Adult 8.4% Syr) 50 meq STK-MED ONCE .ROUTE ; Start 06/12/19 at 10:19; Stop 06/12/19 at 10:19; Status DC Sodium Bicarbonate (Sodium Bicarb Adult 8.4% Syr) 50 meq 1X ONCE SQ Last administered on 06/12/19at 10:35; Start 06/12/19 at 10:30; Stop 06/12/19 at 10:31; Status DC Vancomycin HCl 250 ml @ 250 mls/hr 1X ONCE IV Last administered on 06/12/19at 11:48; Start 06/12/19 at 10:45; Stop 06/12/19 at 11:44; Status DC Sodium Chloride 1,000 ml @ 1,000 mls/hr 1X ONCE IV Last administered on 06/12/19at 11:45; Start 06/12/19 at 11:45; Stop 06/12/19 at 12:44; Status DC Vancomycin HCl (Vanco Per Pharmacy) 1 each PRN DAILY PRN MC SEE COMMENTS Last administered on 06/12/19at 15:53; Start 06/12/19 at 12:30 Insulin Human Lispro (HumaLOG) 0-5 UNITS TIDWMEALS SQ Last administered on 06/12/19at 17:21; Start 06/12/19 at 17:00; Stop 06/13/19 at 13:09; Status DC Dextrose (Dextrose 50%-Water Syringe) 12.5 gm PRN Q15MIN PRN IV SEE COMMENTS; Start 06/12/19 at 12:30 Vancomycin HCl 2 gm/Sodium Chloride 500 ml @ 250 mls/hr 1X ONCE IV Last administered on 06/12/19at 13:09; Start 06/12/19 at 13:00; Stop 06/12/19 at 14:59; Status DC Sodium Chloride (Normal Saline Flush) 3 ml QSHIFT PRN IV AFTER MEDS AND BLOOD DRAWS; Start 06/12/19 at 12:30 Sodium Chloride 1,000 ml @ 100 mls/hr Q10H IV Last administered on 06/13/19at 09:32; Start 06/12/19 at 12:18 Ondansetron HCl (Zofran) 4 mg PRN Q4HRS PRN IV NAUSEA/VOMITING Last administe red on 06/13/19at 02:34; Start 06/12/19 at 12:30 Zolpidem Tartrate (Ambien) 5 mg PRN QHS PRN PO INSOMNIA; Start 06/12/19 at 12:3 0 Acetaminophen (Tylenol) 650 mg PRN Q4HRS PRN PO TEMP OVER 100.4F OR MILD PAIN; Start 06/12/19 at 12:30 Al Hydroxide/Mg Hydroxide (Mylanta Plus Xs) 30 ml PRN DAILY PRN PO HEARTBURN / GAS; Start 06/12/19 at 12:30 Clonidine HCl (Catapres) 0.1 mg PRN Q6HRS PRN PO SBP>160 OR DBP>90; Start 06/12/19 at 12:30 Docusate Sodium (Colace) 100 mg PRN BID PRN PO CONSTIPATION; Start 06/12/19 at 12:30 Albuterol Sulfate (Ventolin Neb Soln) 2.5 mg PRN Q4HRS PRN NEB SHORTNESS OF BREATH; Start 06/12/19 at 12:30 Guaifenesin (Robitussin) 200 mg PRN Q4HRS PRN PO COUGH; Start 06/12/19 at 12:30 Lorazepam (Ativan) 0.5 mg PRN Q4HRS PRN PO ANXIETY / AGITATION; Start 06/12/19 at 12:30 Enoxaparin Sodium (Lovenox 40mg Syringe) 40 mg Q24H SQ Last administered on 06/12/19at 16:18; Start 06/12/19 at 13:00 Metformin HCl (Glucophage Xr) 500 mg DAILYWBKFT PO ; Start 06/13/19 at 08:00 Lisinopril (Prinivil) 10 mg DAILY08 PO Last administered on 06/12/19at 16:17; Start 06/12/19 at 12:30 Piperacillin Sod/ Tazobactam Sod 3.375 gm/Sodium Chloride 50 ml @ 100 mls/hr Q6HRS IV Last administered on 06/13/19at 12:31; Start 06/12/19 at 14:00 Nicotine (Nicoderm Cq 21mg) 1 patch DAILY TD Last administered on 06/13/19at 08:40; Start 06/12/19 at 15:30 Vancomycin HCl 1.25 gm/Sodium Chloride 250 ml @ 167 mls/hr Q12H IV Last administered on 06/13/19at 01:45; Start 06/13/19 at 01:00 Vancomycin HCl (Vancomycin Trough Level) 1 each 1X ONCE MC ; Start 06/14/19 at 00:30; Stop 06/14/19 at 00:31 Hydromorphone HCl (Dilaudid) 1 mg PRN Q3HRS PRN IV SEVERE PAIN 7-10; Start 06/12/19 at 16:45 Acetaminophen/ Hydrocodone Bitart (Lortab 5/325) 1 tab PRN Q4HRS PRN PO MODERATE PAIN Last administered on 06/12/19at 19:35; Start 06/12/19 at 17:00 Acetaminophen/ Hydrocodone Bitart (Lortab 5/325) 2 tab PRN Q4HRS PRN PO SEVERE PAIN; Start 06/12/19 at 17:00 Lactobacillus Rhamnosus (Culturelle) 1 cap BID PO ; Start 06/13/19 at 21:00 Insulin Human Lispro (HumaLOG) 0-9 UNITS TIDWMEALS SQ ; Start 06/13/19 at 17:00 Dextrose (Dextrose 50%-Water Syringe) 12.5 gm PRN Q15MIN PRN IV SEE COMMENTS; Start 06/13/19 at 13:15 Insulin Glargine (Lantus Syringe) 10 unit 1X ONCE SQ ; Start 06/13/19 at 14:00; Stop 06/13/19 at 14:01 Allergies Allergies: Coded Allergies: No Known Drug Allergies (Unverified , 12/04/17) ROS General: YES: Chills; No: Other (fevers ) PSYCHOLOGICAL ROS: No: Anxiety, Depression Eyes: No Blurry vision, No Double vision HEENT: No: Heacaches Hematological and Lymphatic: No: Bleeding Problems, Blood Clots Respiratory: No: Cough, SOB with excertion Cardiovascular: No Chest Pain, No Palpitations Gastrointestinal: No Nausea Genitourinary: No Dysuria, No Hematuria Musculoskeletal: No Joint Pain, No Muscle Pain Neurological: No Impaired Coord/balance, No Numbness/Tingling Skin: Yes Other (see hpi) Physical Exam General: Alert, Oriented X3, Cooperative, No acute distress HEENT: PERRLA, Mucous membr. moist/pink Lungs: Clear to auscultation, Normal air movement Heart: Regular rate, Normal S1, Normal S2, No murmurs Abdomen: Soft, No tenderness Extremities: No clubbing, No cyanosis Skin: Other (right groin with cellulitis, fluctunace, drainage, some necrotic tissue) Neuro: Normal speech, Sensation intact Psych/Mental Status: Mental status NL, Mood NL MUSCULOSKELETAL: No deformity, No swelling Vitals VITALS Vital Signs Date Time Temp Pulse Resp B/P (MAP) Pulse Ox O2 Delivery O2 Flow Rate FiO2 06/13/19 11:00 97.7 63 16 140/61 (87) 95 Room Air 97.7 Labs Labs Laboratory Tests Test 06/12/19 10:41 06/12/19 10:50 06/12/19 16:53 06/12/19 20:21 Hemoglobin A1c 10.3 % (4.8-5.6) White Blood Count 10.2 x10^3/uL (4.0-11.0) Red Blood Count 5.01 x10^6/uL (4.30-5.70) Hemoglobin 16.1 g/dL (13.0-17.5) Hematocrit 46.5 % (39.0-53.0) Mean Corpuscular Volume 93 fL (79-100) Mean Corpuscular Hemoglobin 32 pg (25-35) Mean Corpuscular Hemoglobin Concent 35 g/dL (31-37) Red Cell Distribution Width 11.8 % (11.5-14.5) Platelet Count 316 x10^3/uL (140-400) Neutrophils (%) (Auto) 80 % (31-73) Lymphocytes (%) (Auto) 12 % (24-48) Monocytes (%) (Auto) 8 % (0-9) Eosinophils (%) (Auto) 0 % (0-3) Basophils (%) (Auto) 1 % (0-3) Neutrophils # (Auto) 8.2 x10^3/uL (1.8-7.7) Lymphocytes # (Auto) 1.2 x10^3/uL (1.0-4.8) Monocytes # (Auto) 0.8 x10^3/uL (0.0-1.1) Eosinophils # (Auto) 0.0 x10^3/uL (0.0-0.7) Basophils # (Auto) 0.0 x10^3/uL (0.0-0.2) Sodium Level 132 mmol/L (136-145) Potassium Level 3.8 mmol/L (3.5-5.1) Chloride Level 94 mmol/L (98-107) Carbon Dioxide Level 26 mmol/L (21-32) Anion Gap 12 (6-14) Blood Urea Nitrogen 19 mg/dL (8-26) Creatinine 0.9 mg/dL (0.7-1.3) Estimated GFR (Cockcroft-Gault) 85.2 Glucose Level 295 mg/dL (70-99) Calcium Level 9.5 mg/dL (8.5-10.1) Glucose (Fingerstick) 310 mg/dL (70-99) 267 mg/dL (70-99) Test 06/13/19 04:15 06/13/19 07:26 06/13/19 11:14 White Blood Count 8.1 x10^3/uL (4.0-11.0) Red Blood Count 4.38 x10^6/uL (4.30-5.70) Hemoglobin 14.1 g/dL (13.0-17.5) Hematocrit 40.9 % (39.0-53.0) Mean Corpuscular Volume 93 fL (79-100) Mean Corpuscular Hemoglobin 32 pg (25-35) Mean Corpuscular Hemoglobin Concent 34 g/dL (31-37) Red Cell Distribution Width 11.9 % (11.5-14.5) Platelet Count 282 x10^3/uL (140-400) Neutrophils (%) (Auto) 74 % (31-73) Lymphocytes (%) (Auto) 14 % (24-48) Monocytes (%) (Auto) 11 % (0-9) Eosinophils (%) (Auto) 1 % (0-3) Basophils (%) (Auto) 1 % (0-3) Neutrophils # (Auto) 6.0 x10^3/uL (1.8-7.7) Lymphocytes # (Auto) 1.1 x10^3/uL (1.0-4.8) Monocytes # (Auto) 0.9 x10^3/uL (0.0-1.1) Eosinophils # (Auto) 0.1 x10^3/uL (0.0-0.7) Basophils # (Auto) 0.0 x10^3/uL (0.0-0.2) Sodium Level 135 mmol/L (136-145) Potassium Level 3.9 mmol/L (3.5-5.1) Chloride Level 98 mmol/L (98-107) Carbon Dioxide Level 29 mmol/L (21-32) Anion Gap 8 (6-14) Blood Urea Nitrogen 13 mg/dL (8-26) Creatinine 0.8 mg/dL (0.7-1.3) Estimated GFR (Cockcroft-Gault) 97.6 BUN/Creatinine Ratio 16 (6-20) Glucose Level 247 mg/dL (70-99) Calcium Level 8.4 mg/dL (8.5-10.1) Total Bilirubin 0.4 mg/dL (0.2-1.0) Aspartate Amino Transf (AST/SGOT) 16 U/L (15-37) Alanine Aminotransferase (ALT/SGPT) 26 U/L (16-63) Alkaline Phosphatase 66 U/L (46-116) Total Protein 6.4 g/dL (6.4-8.2) Albumin 2.1 g/dL (3.4-5.0) Albumin/Globulin Ratio 0.5 (1.0-1.7) Glucose (Fingerstick) 244 mg/dL (70-99) 232 mg/dL (70-99) Laboratory Tests Test 06/12/19 16:53 06/12/19 20:21 06/13/19 04:15 06/13/19 07:26 Glucose (Fingerstick) 310 mg/dL (70-99) 267 mg/dL (70-99) 244 mg/dL (70-99) White Blood Count 8.1 x10^3/uL (4.0-11.0) Red Blood Count 4.38 x10^6/uL (4.30-5.70) Hemoglobin 14.1 g/dL (13.0-17.5) Hematocrit 40.9 % (39.0-53.0) Mean Corpuscular Volume 93 fL (79-100) Mean Corpuscular Hemoglobin 32 pg (25-35) Mean Corpuscular Hemoglobin Concent 34 g/dL (31-37) Red Cell Distribution Width 11.9 % (11.5-14.5) Platelet Count 282 x10^3/uL (140-400) Neutrophils (%) (Auto) 74 % (31-73) Lymphocytes (%) (Auto) 14 % (24-48) Monocytes (%) (Auto) 11 % (0-9) Eosinophils (%) (Auto) 1 % (0-3) Basophils (%) (Auto) 1 % (0-3) Neutrophils # (Auto) 6.0 x10^3/uL (1.8-7.7) Lymphocytes # (Auto) 1.1 x10^3/uL (1.0-4.8) Monocytes # (Auto) 0.9 x10^3/uL (0.0-1.1) Eosinophils # (Auto) 0.1 x10^3/uL (0.0-0.7) Basophils # (Auto) 0.0 x10^3/uL (0.0-0.2) Sodium Level 135 mmol/L (136-145) Potassium Level 3.9 mmol/L (3.5-5.1) Chloride Level 98 mmol/L (98-107) Carbon Dioxide Level 29 mmol/L (21-32) Anion Gap 8 (6-14) Blood Urea Nitrogen 13 mg/dL (8-26) Creatinine 0.8 mg/dL (0.7-1.3) Estimated GFR (Cockcroft-Gault) 97.6 BUN/Creatinine Ratio 16 (6-20) Glucose Level 247 mg/dL (70-99) Calcium Level 8.4 mg/dL (8.5-10.1) Total Bilirubin 0.4 mg/dL (0.2-1.0) Aspartate Amino Transf (AST/SGOT) 16 U/L (15-37) Alanine Aminotransferase (ALT/SGPT) 26 U/L (16-63) Alkaline Phosphatase 66 U/L (46-116) Total Protein 6.4 g/dL (6.4-8.2) Albumin 2.1 g/dL (3.4-5.0) Albumin/Globulin Ratio 0.5 (1.0-1.7) Test 06/13/19 11:14 Glucose (Fingerstick) 232 mg/dL (70-99) Assessment/Plan Assessment/Plan thigh/groin abscess--abx, wound care NPO after MN--if not improved, I&D tomorrow AIME JIN MD 06/13/19 1714: CONSULT Assessment/Plan Assessment/Plan Agree with above JENNIE JACKSON APRN Jun 13, 2019 13:17 AIME JIN MD Jun 13, 2019 17:14
[2019-06-13] MEDS: VANCOMYCIN PER PHARMACY MC PRN (13:57)
[2019-06-13] MEDS ORDERED: INSULIN GLARGINE SYRINGE. SQ ONE (14:00)
[2019-06-13] MEDS: HYDROcodone/APAP 5/325MG 1 TAB TABLET PO PRN (14:31)
[2019-06-13] MEDS: ENOXAPARIN 40 MG/0.4 ML SYRINGE. SQ SCH (14:31)
[2019-06-13 15:00] VITALS: BP 144/46
--- NOTE | 2019-06-13 16:52 | NUR ---
Wound Care: Pt wound dressing had been changed and wound packed by JOSE Boudreaux per Jennifer Brewer APRN. Plans for OR I&D 06/14/19. Will check chart for further orders.
[2019-06-13 19:00] VITALS: BP 144/60
[2019-06-13] MEDS: LACTOBACILLUS RHAMNOSUS GG 1 CAPSULE. PO SCH (20:43)
[2019-06-13 23:00] VITALS: BP 146/56
[2019-06-14] VITALS (12 sets, daily range): BP systolic 110–179; BP diastolic 46–88
[2019-06-14] MEDS: PIPERACILLIN/TAZOBACTAM 3.375 GM in IV NORMAL SALINE 50ML 50 ML IV SCH ×4 (00:05→17:37)
[2019-06-14 00:59] LABS: VANC TR 12.5 mcg/mL (10.0-20.0)
[2019-06-14] MEDS: VANCOMYCIN 1.25 GM in IV NORMAL SALINE 250ML 250 ML IV SCH ×2 (01:09→13:05)
[2019-06-14] MEDS: VANCOMYCIN PER PHARMACY MC PRN ×2 (03:24→12:53)
--- NOTE | 2019-06-14 03:25 | NUR ---
Pharmacy Vancomycin Dosing Note S: Consulted to monitor and dose vancomycin started 06/12/19. O: FAREED LOCKHART is a 64 year old M with Abscess / CELLULITIS Other Antibiotics: ZOSYN 06/12 - LABS: Last BUN: 13 Last Creatinine: 0.8 Creatinine Clearance: >100 mL/min Last WBC: 8.1 Last Procalcitonin: - Tmax (past 24 hours): 98.2 Microbiology: 06/12 PENDING I/O: 1050/- Drug Levels: Last Trough level: 12.5 on 06/14/19 at 0030 Last dose given 06/13/19 at 1430 Vancomycin Dosing: Dosing Weight: Actual Target Trough: 10-20 A: Based on: Trough, Actual Wt and CrCl P: 1. 06/14/19 0100 Continue Vancomycin 1250 mg IV q12h 2. Follow up Trough level in 5 to 7 days as needed 3. Pharmacy will continue to monitor, follow and adjust therapy as needed. GRACIE SERVIN RPH, 06/14/19 0325 Signed: 06/14/19 at 0327 by GRACIE SERVIN RPH PHA
[2019-06-14] MEDS: IV NORMAL SALINE 1000ML BAG 1,000 ML IV SCH ×2 (04:18→12:09)
[2019-06-14 06:47] LABS: BASO # 0.1 x10^3/uL (0.0-0.2); BASO % 1 % (0-3); EOS # 0.2 x10^3/uL (0.0-0.7); EOS % 2 % (0-3); HEMATOCRIT 43.6 % (39.0-53.0); LYMPH # 1.4 x10^3/uL (1.0-4.8); LYMPH % 17 % (24-48); MEAN CORPUSCULAR HEMOGLOBIN 32 pg (25-35); MEAN CORPUSCULAR HGB CONC 34 g/dL (31-37); MEAN CORPUSCULAR VOLUME 94 fL (79-100); MONO # 0.7 x10^3/uL (0.0-1.1); MONO % 8 % (0-9); NEUT # 6.1 x10^3/uL (1.8-7.7); NEUT % 72 % (31-73); PLATELET COUNT 342 x10^3/uL (140-400); RED BLOOD COUNT 4.64 x10^6/uL (4.30-5.70); RED CELL DISTRIBUTION WIDTH 12.1 % (11.5-14.5); WHITE BLOOD COUNT 8.4 x10^3/uL (4.0-11.0)
[2019-06-14 07:10] LABS: ALBUMIN 2.4 g/dL (3.4-5.0); ALBUMIN/GLOBULIN RATIO 0.5 (1.0-1.7); CREATININE 0.8 mg/dL (0.7-1.3); GFR 97.6; POTASSIUM 3.8 mmol/L (3.5-5.1); TOTAL BILIRUBIN 0.4 mg/dL (0.2-1.0); TOTAL PROTEIN 7.1 g/dL (6.4-8.2)
[2019-06-14] MEDS: metFORMIN XR 500 MG TAB.ER.24H PO SCH (07:16)
[2019-06-14] MEDS: LACTOBACILLUS RHAMNOSUS GG 1 CAPSULE. PO SCH ×2 (07:16→20:57)
--- NOTE | 2019-06-14 07:22 | PDOC ---
Infectious Disease Note Subjective: Subjective Pt has pain and swelling rt groin No fever or chills no n/v/d/abdo pain or sob no gu symptoms Vital Signs: Vital Signs Vital Signs Date Time Temp Pulse Resp B/P (MAP) Pulse Ox O2 Delivery O2 Flow Rate FiO2 06/14/19 03:00 97.5 56 18 127/46 (73) 96 Room Air 97.5 Physical Exam: PHYSICAL EXAM GENERAL: The patient is propped up in bed, alert, in no apparent distress.nontoxic appearing HEENT: Pupils are equally round. Oral cavity: Pharynx pink and moist. NECK: Supple. LUNGS: Clear to auscultation. HEART: S1 and S2. ABDOMEN: Obese, soft, and nontender with bowel sounds present. EXTREMITIES: No gross edema or cyanosis. SKIN: Warm to touch. No signs of rash. He has a fairly large area of induration with some fluctuance and redness on the right inner thigh with packing in place. NEUROLOGIC: Alert and oriented x3. Medications: Inpatient Meds: Current Medications Medications (Trade) Dose Ordered Sig/Ivon Start Time Stop Time Status Last Admin Dose Admin Acetaminophen (Tylenol) 650 mg PRN Q4HRS PRN 06/12/19 12:30 Acetaminophen/ Hydrocodone Bitart (Lortab 5/325) 2 tab PRN Q4HRS PRN 06/12/19 17:00 06/13/19 14:31 2 TAB Al Hydroxide/Mg Hydroxide (Mylanta Plus Xs) 30 ml PRN DAILY PRN 06/12/19 12:30 Albuterol Sulfate (Ventolin Neb Soln) 2.5 mg PRN Q4HRS PRN 06/12/19 12:30 Clonidine HCl (Catapres) 0.1 mg PRN Q6HRS PRN 06/12/19 12:30 Dextrose (Dextrose 50%-Water Syringe) 12.5 gm PRN Q15MIN PRN 06/13/19 13:15 Docusate Sodium (Colace) 100 mg PRN BID PRN 06/12/19 12:30 Enoxaparin Sodium (Lovenox 40mg Syringe) 40 mg Q24H 06/12/19 13:00 06/13/19 14:31 40 MG Guaifenesin (Robitussin) 200 mg PRN Q4HRS PRN 06/12/19 12:30 Hydromorphone HCl (Dilaudid) 1 mg PRN Q3HRS PRN 06/12/19 16:45 Insulin Glargine (Lantus Syringe) 10 unit 1X ONCE 06/13/19 14:00 06/13/19 14:01 DC 06/13/19 14:39 10 UNIT Insulin Human Lispro (HumaLOG) 0-9 UNITS TIDWMEALS 06/13/19 17:00 06/13/19 17:31 7 UNITS Lactobacillus Rhamnosus (Culturelle) 1 cap BID 06/13/19 21:00 06/13/19 20:43 1 CAP Lidocaine/ Epinephrine (LIDOCAINE 1%-EPI 1:100,000 Multi-Dose) 20 ml 1X ONCE 06/12/19 10:15 06/12/19 10:16 DC 06/12/19 10:29 20 ML Lisinopril (Prinivil) 10 mg DAILY08 06/12/19 12:30 06/12/19 16:17 10 MG Lorazepam (Ativan) 0.5 mg PRN Q4HRS PRN 06/12/19 12:30 Metformin HCl (Glucophage Xr) 500 mg DAILYWBKFT 06/13/19 08:00 Nicotine (Nicoderm Cq 21mg) 1 patch DAILY 06/12/19 15:30 06/13/19 08:40 1 PATCH Ondansetron HCl (Zofran) 4 mg PRN Q4HRS PRN 06/12/19 12:30 06/13/19 02:34 4 MG Piperacillin Sod/ Tazobactam Sod 3.375 gm/Sodium Chloride 50 ml @ 100 mls/hr Q6HRS 06/12/19 14:00 06/14/19 05:40 100 MLS/HR Sodium Bicarbonate (Sodium Bicarb Adult 8.4% Syr) 50 meq 1X ONCE 06/12/19 10:30 06/12/19 10:31 DC 06/12/19 10:35 50 MEQ Sodium Chloride 1,000 ml @ 100 mls/hr Q10H 06/12/19 12:18 06/13/19 20:44 100 MLS/HR Sodium Chloride (Normal Saline Flush) 3 ml QSHIFT PRN 06/12/19 12:30 Vancomycin HCl (Vanco Per Pharmacy) 1 each PRN DAILY PRN 06/12/19 12:30 06/14/19 03:24 1 EACH Vancomycin HCl (Vancomycin Trough Level) 1 each 1X ONCE 06/15/19 08:30 06/15/19 08:31 Cancel Vancomycin HCl 1.25 gm/Sodium Chloride 250 ml @ 167 mls/hr Q12H 06/14/19 13:00 Vancomycin HCl 2 gm/Sodium Chloride 500 ml @ 250 mls/hr 1X ONCE 06/12/19 13:00 06/12/19 14:59 DC 06/12/19 13:09 250 MLS/HR Zolpidem Tartrate (Ambien) 5 mg PRN QHS PRN 06/12/19 12:30 Labs: Lab Laboratory Tests Test 06/13/19 07:26 06/13/19 11:14 06/13/19 16:52 06/13/19 20:29 Glucose (Fingerstick) 244 mg/dL (70-99) 232 mg/dL (70-99) 256 mg/dL (70-99) 203 mg/dL (70-99) Test 06/14/19 00:25 06/14/19 06:00 Vancomycin Level Trough 12.5 mcg/mL (10.0-20.0) Vancomycin Last Dose Date [id number] Vancomycin Last Dose Time 1300 White Blood Count 8.4 x10^3/uL (4.0-11.0) Red Blood Count 4.64 x10^6/uL (4.30-5.70) Hemoglobin 15.0 g/dL (13.0-17.5) Hematocrit 43.6 % (39.0-53.0) Mean Corpuscular Volume 94 fL (79-100) Mean Corpuscular Hemoglobin 32 pg (25-35) Mean Corpuscular Hemoglobin Concent 34 g/dL (31-37) Red Cell Distribution Width 12.1 % (11.5-14.5) Platelet Count 342 x10^3/uL (140-400) Neutrophils (%) (Auto) 72 % (31-73) Lymphocytes (%) (Auto) 17 % (24-48) Monocytes (%) (Auto) 8 % (0-9) Eosinophils (%) (Auto) 2 % (0-3) Basophils (%) (Auto) 1 % (0-3) Neutrophils # (Auto) 6.1 x10^3/uL (1.8-7.7) Lymphocytes # (Auto) 1.4 x10^3/uL (1.0-4.8) Monocytes # (Auto) 0.7 x10^3/uL (0.0-1.1) Eosinophils # (Auto) 0.2 x10^3/uL (0.0-0.7) Basophils # (Auto) 0.1 x10^3/uL (0.0-0.2) Sodium Level 138 mmol/L (136-145) Potassium Level 3.8 mmol/L (3.5-5.1) Chloride Level 102 mmol/L (98-107) Carbon Dioxide Level 29 mmol/L (21-32) Anion Gap 7 (6-14) Blood Urea Nitrogen 7 mg/dL (8-26) Creatinine 0.8 mg/dL (0.7-1.3) Estimated GFR (Cockcroft-Gault) 97.6 BUN/Creatinine Ratio 9 (6-20) Glucose Level 199 mg/dL (70-99) Calcium Level 9.0 mg/dL (8.5-10.1) Total Bilirubin 0.4 mg/dL (0.2-1.0) Aspartate Amino Transf (AST/SGOT) 16 U/L (15-37) Alanine Aminotransferase (ALT/SGPT) 27 U/L (16-63) Alkaline Phosphatase 64 U/L (46-116) Total Protein 7.1 g/dL (6.4-8.2) Albumin 2.4 g/dL (3.4-5.0) Albumin/Globulin Ratio 0.5 (1.0-1.7) Objective: Assessment: 1. Soft tissue abscess, right thigh, status post incision and drainage in the emergency room on 06/12/2019. Cult neg so far 2. 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 3. Diabetes. 4. Obesity. 5. Hypertension. Plan: Plan of Care Continue vancomycin and Zosyn f/u cultures results monitor renal func closely Awaiting GABINO Garcia MD Jun 14, 2019 07:22
[2019-06-14] MEDS: INSULIN LISPRO 300 UNITS/3 ML VIAL. SQ SCH ×3 (07:33→17:00)
[2019-06-14] MEDS: LISINOPRIL 10 MG TABLET PO SCH (08:00)
--- NOTE | 2019-06-14 08:22 | PDOC ---
JENNIE JACKSON ERP PROGRAMMER 06/14/19 0822: SURGICAL PROGRESS NOTE Subjective wound is drainage still with pain Vital Signs Vital Signs Date Time Temp Pulse Resp B/P (MAP) Pulse Ox O2 Delivery O2 Flow Rate FiO2 06/14/19 07:00 98.0 57 14 138/56 (83) 95 Room Air 98.0 I&O Intake and Output 06/14/19 07:00 # Voids 3 General: Alert, Oriented X3, Cooperative Skin: Other (right groin--still with erythema, edema and some fluctunance, small amount of surrounding tissue necrosis ) Labs Laboratory Tests Test 06/12/19 10:41 06/12/19 10:50 06/12/19 16:53 06/12/19 20:21 Hemoglobin A1c 10.3 % (4.8-5.6) White Blood Count 10.2 x10^3/uL (4.0-11.0) Red Blood Count 5.01 x10^6/uL (4.30-5.70) Hemoglobin 16.1 g/dL (13.0-17.5) Hematocrit 46.5 % (39.0-53.0) Mean Corpuscular Volume 93 fL (79-100) Mean Corpuscular Hemoglobin 32 pg (25-35) Mean Corpuscular Hemoglobin Concent 35 g/dL (31-37) Red Cell Distribution Width 11.8 % (11.5-14.5) Platelet Count 316 x10^3/uL (140-400) Neutrophils (%) (Auto) 80 % (31-73) Lymphocytes (%) (Auto) 12 % (24-48) Monocytes (%) (Auto) 8 % (0-9) Eosinophils (%) (Auto) 0 % (0-3) Basophils (%) (Auto) 1 % (0-3) Neutrophils # (Auto) 8.2 x10^3/uL (1.8-7.7) Lymphocytes # (Auto) 1.2 x10^3/uL (1.0-4.8) Monocytes # (Auto) 0.8 x10^3/uL (0.0-1.1) Eosinophils # (Auto) 0.0 x10^3/uL (0.0-0.7) Basophils # (Auto) 0.0 x10^3/uL (0.0-0.2) Sodium Level 132 mmol/L (136-145) Potassium Level 3.8 mmol/L (3.5-5.1) Chloride Level 94 mmol/L (98-107) Carbon Dioxide Level 26 mmol/L (21-32) Anion Gap 12 (6-14) Blood Urea Nitrogen 19 mg/dL (8-26) Creatinine 0.9 mg/dL (0.7-1.3) Estimated GFR (Cockcroft-Gault) 85.2 Glucose Level 295 mg/dL (70-99) Calcium Level 9.5 mg/dL (8.5-10.1) Glucose (Fingerstick) 310 mg/dL (70-99) 267 mg/dL (70-99) Test 06/13/19 04:15 06/13/19 07:26 06/13/19 11:14 06/13/19 16:52 White Blood Count 8.1 x10^3/uL (4.0-11.0) Red Blood Count 4.38 x10^6/uL (4.30-5.70) Hemoglobin 14.1 g/dL (13.0-17.5) Hematocrit 40.9 % (39.0-53.0) Mean Corpuscular Volume 93 fL (79-100) Mean Corpuscular Hemoglobin 32 pg (25-35) Mean Corpuscular Hemoglobin Concent 34 g/dL (31-37) Red Cell Distribution Width 11.9 % (11.5-14.5) Platelet Count 282 x10^3/uL (140-400) Neutrophils (%) (Auto) 74 % (31-73) Lymphocytes (%) (Auto) 14 % (24-48) Monocytes (%) (Auto) 11 % (0-9) Eosinophils (%) (Auto) 1 % (0-3) Basophils (%) (Auto) 1 % (0-3) Neutrophils # (Auto) 6.0 x10^3/uL (1.8-7.7) Lymphocytes # (Auto) 1.1 x10^3/uL (1.0-4.8) Monocytes # (Auto) 0.9 x10^3/uL (0.0-1.1) Eosinophils # (Auto) 0.1 x10^3/uL (0.0-0.7) Basophils # (Auto) 0.0 x10^3/uL (0.0-0.2) Sodium Level 135 mmol/L (136-145) Potassium Level 3.9 mmol/L (3.5-5.1) Chloride Level 98 mmol/L (98-107) Carbon Dioxide Level 29 mmol/L (21-32) Anion Gap 8 (6-14) Blood Urea Nitrogen 13 mg/dL (8-26) Creatinine 0.8 mg/dL (0.7-1.3) Estimated GFR (Cockcroft-Gault) 97.6 BUN/Creatinine Ratio 16 (6-20) Glucose Level 247 mg/dL (70-99) Calcium Level 8.4 mg/dL (8.5-10.1) Total Bilirubin 0.4 mg/dL (0.2-1.0) Aspartate Amino Transf (AST/SGOT) 16 U/L (15-37) Alanine Aminotransferase (ALT/SGPT) 26 U/L (16-63) Alkaline Phosphatase 66 U/L (46-116) Total Protein 6.4 g/dL (6.4-8.2) Albumin 2.1 g/dL (3.4-5.0) Albumin/Globulin Ratio 0.5 (1.0-1.7) Glucose (Fingerstick) 244 mg/dL (70-99) 232 mg/dL (70-99) 256 mg/dL (70-99) Test 06/13/19 20:29 06/14/19 00:25 06/14/19 06:00 06/14/19 07:15 Glucose (Fingerstick) 203 mg/dL (70-99) 176 mg/dL (70-99) Vancomycin Level Trough 12.5 mcg/mL (10.0-20.0) Vancomycin Last Dose Date [id number] Vancomycin Last Dose Time 1300 White Blood Count 8.4 x10^3/uL (4.0-11.0) Red Blood Count 4.64 x10^6/uL (4.30-5.70) Hemoglobin 15.0 g/dL (13.0-17.5) Hematocrit 43.6 % (39.0-53.0) Mean Corpuscular Volume 94 fL (79-100) Mean Corpuscular Hemoglobin 32 pg (25-35) Mean Corpuscular Hemoglobin Concent 34 g/dL (31-37) Red Cell Distribution Width 12.1 % (11.5-14.5) Platelet Count 342 x10^3/uL (140-400) Neutrophils (%) (Auto) 72 % (31-73) Lymphocytes (%) (Auto) 17 % (24-48) Monocytes (%) (Auto) 8 % (0-9) Eosinophils (%) (Auto) 2 % (0-3) Basophils (%) (Auto) 1 % (0-3) Neutrophils # (Auto) 6.1 x10^3/uL (1.8-7.7) Lymphocytes # (Auto) 1.4 x10^3/uL (1.0-4.8) Monocytes # (Auto) 0.7 x10^3/uL (0.0-1.1) Eosinophils # (Auto) 0.2 x10^3/uL (0.0-0.7) Basophils # (Auto) 0.1 x10^3/uL (0.0-0.2) Sodium Level 138 mmol/L (136-145) Potassium Level 3.8 mmol/L (3.5-5.1) Chloride Level 102 mmol/L (98-107) Carbon Dioxide Level 29 mmol/L (21-32) Anion Gap 7 (6-14) Blood Urea Nitrogen 7 mg/dL (8-26) Creatinine 0.8 mg/dL (0.7-1.3) Estimated GFR (Cockcroft-Gault) 97.6 BUN/Creatinine Ratio 9 (6-20) Glucose Level 199 mg/dL (70-99) Calcium Level 9.0 mg/dL (8.5-10.1) Total Bilirubin 0.4 mg/dL (0.2-1.0) Aspartate Amino Transf (AST/SGOT) 16 U/L (15-37) Alanine Aminotransferase (ALT/SGPT) 27 U/L (16-63) Alkaline Phosphatase 64 U/L (46-116) Total Protein 7.1 g/dL (6.4-8.2) Albumin 2.4 g/dL (3.4-5.0) Albumin/Globulin Ratio 0.5 (1.0-1.7) Laboratory Tests Test 06/13/19 11:14 06/13/19 16:52 06/13/19 20:29 06/14/19 00:25 Glucose (Fingerstick) 232 mg/dL (70-99) 256 mg/dL (70-99) 203 mg/dL (70-99) Vancomycin Level Trough 12.5 mcg/mL (10.0-20.0) Vancomycin Last Dose Date [id number] Vancomycin Last Dose Time 1300 Test 06/14/19 06:00 06/14/19 07:15 White Blood Count 8.4 x10^3/uL (4.0-11.0) Red Blood Count 4.64 x10^6/uL (4.30-5.70) Hemoglobin 15.0 g/dL (13.0-17.5) Hematocrit 43.6 % (39.0-53.0) Mean Corpuscular Volume 94 fL (79-100) Mean Corpuscular Hemoglobin 32 pg (25-35) Mean Corpuscular Hemoglobin Concent 34 g/dL (31-37) Red Cell Distribution Width 12.1 % (11.5-14.5) Platelet Count 342 x10^3/uL (140-400) Neutrophils (%) (Auto) 72 % (31-73) Lymphocytes (%) (Auto) 17 % (24-48) Monocytes (%) (Auto) 8 % (0-9) Eosinophils (%) (Auto) 2 % (0-3) Basophils (%) (Auto) 1 % (0-3) Neutrophils # (Auto) 6.1 x10^3/uL (1.8-7.7) Lymphocytes # (Auto) 1.4 x10^3/uL (1.0-4.8) Monocytes # (Auto) 0.7 x10^3/uL (0.0-1.1) Eosinophils # (Auto) 0.2 x10^3/uL (0.0-0.7) Basophils # (Auto) 0.1 x10^3/uL (0.0-0.2) Sodium Level 138 mmol/L (136-145) Potassium Level 3.8 mmol/L (3.5-5.1) Chloride Level 102 mmol/L (98-107) Carbon Dioxide Level 29 mmol/L (21-32) Anion Gap 7 (6-14) Blood Urea Nitrogen 7 mg/dL (8-26) Creatinine 0.8 mg/dL (0.7-1.3) Estimated GFR (Cockcroft-Gault) 97.6 BUN/Creatinine Ratio 9 (6-20) Glucose Level 199 mg/dL (70-99) Calcium Level 9.0 mg/dL (8.5-10.1) Total Bilirubin 0.4 mg/dL (0.2-1.0) Aspartate Amino Transf (AST/SGOT) 16 U/L (15-37) Alanine Aminotransferase (ALT/SGPT) 27 U/L (16-63) Alkaline Phosphatase 64 U/L (46-116) Total Protein 7.1 g/dL (6.4-8.2) Albumin 2.4 g/dL (3.4-5.0) Albumin/Globulin Ratio 0.5 (1.0-1.7) Glucose (Fingerstick) 176 mg/dL (70-99) Problem List Problems Medical Problems: (1) Cellulitis Status: Acute (2) Groin abscess Status: Acute Assessment/Plan abscess will review with Dr Simms--may still need additional operative I&D AIME SIMMS MD 06/14/19 1226: SURGICAL PROGRESS NOTE Assessment/Plan Pt seen and examined, agree that will benefit from operative drainage; pt consented, NPO, will schedule today in OR JENNIE JACKSON APRN Jun 14, 2019 08:22 AIME SIMMS MD Jun 14, 2019 12:26
--- NOTE | 2019-06-14 09:36 | PDOC ---
PROGRESS NOTES Chief Complaint Chief Complaint IMPRESSION Groin abscess, deep, complicated hx MRSA diabetes 2, poor control, A1c 10.3 Cellulitis uncontrolled hypertension obesity, BMI 28 AEROBIC RES 1 Preliminary Comment Beta hemolytic Streptococcus, group B History of Present Illness History of Present Illness SS INSULIN, increase to high dose, glargine 10 x1 wound care to follow CONSULT ID - broad abx dvt prophylaxis iv vanc Vitals Vitals Vital Signs Date Time Temp Pulse Resp B/P (MAP) Pulse Ox O2 Delivery O2 Flow Rate FiO2 06/14/19 07:00 98.0 57 14 138/56 (83) 95 Room Air 98.0 Physical Exam Physical Exam GENERAL: The patient is propped up in bed, alert, in no apparent distress.nontoxic appearing HEENT: Pupils are equally round. Oral cavity: Pharynx pink and moist. NECK: Supple. LUNGS: Clear to auscultation. HEART: S1 and S2. ABDOMEN: Obese, soft, and nontender with bowel sounds present. EXTREMITIES: No gross edema or cyanosis. SKIN: Warm to touch. No signs of rash. He has a fairly large area of induration with some fluctuance and redness on the right inner thigh with packing in place. NEUROLOGIC: Alert and oriented x3. General: Alert, Oriented X3, Cooperative Heart: Regular rate, Normal S1, Normal S2, No murmurs Abdomen: Soft, No tenderness Extremities: No clubbing, No cyanosis Skin: Other (right groin--still with erythema, edema and some fluctunance, small amount of surrounding tissue necrosis ) Labs LABS SPDESC: WOUND ORDERED: AEROBIC CULT GS COMMENTS: GROIN WOUND Procedure Result AEROBIC CULTURE Preliminary Preliminary report AEROBIC RES 1 Preliminary Comment Beta hemolytic Streptococcus, group B 4+ Penicillin and ampicillin are drugs of choice for treatment of beta-hemolytic streptococcal infections. Susceptibility testing of penicillins and other beta-lactam agents approved by the FDA for treatment of beta-hemolytic streptococcal infections need not be performed routinely because nonsusceptible isolates are extremely rare in any beta-hemolytic streptococcus and have not been reported for Streptococcus pyogenes (group A). (CLSI) Performed at: [address] [place] [id number] Chipper: JORGE LUIS Andino MD, Phone: [phone] GRAM STAIN Final Final report GRAM STAIN RESULT 1 Final Comment Few white blood cells. GRAM STAIN RESULT 2 Final Comment Gram positive cocci in pairs and chains. Few seen Performed at: [address], [place], [place] [id number] Chipper: JORGE LUIS Andino MD, Phone: [phone] Laboratory Tests Test 06/13/19 11:14 06/13/19 16:52 06/13/19 20:29 06/14/19 00:25 Glucose (Fingerstick) 232 mg/dL (70-99) 256 mg/dL (70-99) 203 mg/dL (70-99) Vancomycin Level Trough 12.5 mcg/mL (10.0-20.0) Vancomycin Last Dose Date Vancomycin Last Dose Time 1300 Test 06/14/19 06:00 06/14/19 07:15 White Blood Count 8.4 x10^3/uL (4.0-11.0) Red Blood Count 4.64 x10^6/uL (4.30-5.70) Hemoglobin 15.0 g/dL (13.0-17.5) Hematocrit 43.6 % (39.0-53.0) Mean Corpuscular Volume 94 fL (79-100) Mean Corpuscular Hemoglobin 32 pg (25-35) Mean Corpuscular Hemoglobin Concent 34 g/dL (31-37) Red Cell Distribution Width 12.1 % (11.5-14.5) Platelet Count 342 x10^3/uL (140-400) Neutrophils (%) (Auto) 72 % (31-73) Lymphocytes (%) (Auto) 17 % (24-48) Monocytes (%) (Auto) 8 % (0-9) Eosinophils (%) (Auto) 2 % (0-3) Basophils (%) (Auto) 1 % (0-3) Neutrophils # (Auto) 6.1 x10^3/uL (1.8-7.7) Lymphocytes # (Auto) 1.4 x10^3/uL (1.0-4.8) Monocytes # (Auto) 0.7 x10^3/uL (0.0-1.1) Eosinophils # (Auto) 0.2 x10^3/uL (0.0-0.7) Basophils # (Auto) 0.1 x10^3/uL (0.0-0.2) Sodium Level 138 mmol/L (136-145) Potassium Level 3.8 mmol/L (3.5-5.1) Chloride Level 102 mmol/L (98-107) Carbon Dioxide Level 29 mmol/L (21-32) Anion Gap 7 (6-14) Blood Urea Nitrogen 7 mg/dL (8-26) Creatinine 0.8 mg/dL (0.7-1.3) Estimated GFR (Cockcroft-Gault) 97.6 BUN/Creatinine Ratio 9 (6-20) Glucose Level 199 mg/dL (70-99) Calcium Level 9.0 mg/dL (8.5-10.1) Total Bilirubin 0.4 mg/dL (0.2-1.0) Aspartate Amino Transf (AST/SGOT) 16 U/L (15-37) Alanine Aminotransferase (ALT/SGPT) 27 U/L (16-63) Alkaline Phosphatase 64 U/L (46-116) Total Protein 7.1 g/dL (6.4-8.2) Albumin 2.4 g/dL (3.4-5.0) Albumin/Globulin Ratio 0.5 (1.0-1.7) Glucose (Fingerstick) 176 mg/dL (70-99) Assessment and Plan Assessmemt and Plan Problems Medical Problems: (1) Cellulitis Status: Acute (2) Groin abscess Status: Acute Comment Review of Relevant I have reviewed the following items kellee (where applicable) has been applied. Labs Laboratory Tests Test 06/12/19 10:41 06/12/19 10:50 06/12/19 16:53 06/12/19 20:21 Hemoglobin A1c 10.3 % (4.8-5.6) White Blood Count 10.2 x10^3/uL (4.0-11.0) Red Blood Count 5.01 x10^6/uL (4.30-5.70) Hemoglobin 16.1 g/dL (13.0-17.5) Hematocrit 46.5 % (39.0-53.0) Mean Corpuscular Volume 93 fL (79-100) Mean Corpuscular Hemoglobin 32 pg (25-35) Mean Corpuscular Hemoglobin Concent 35 g/dL (31-37) Red Cell Distribution Width 11.8 % (11.5-14.5) Platelet Count 316 x10^3/uL (140-400) Neutrophils (%) (Auto) 80 % (31-73) Lymphocytes (%) (Auto) 12 % (24-48) Monocytes (%) (Auto) 8 % (0-9) Eosinophils (%) (Auto) 0 % (0-3) Basophils (%) (Auto) 1 % (0-3) Neutrophils # (Auto) 8.2 x10^3/uL (1.8-7.7) Lymphocytes # (Auto) 1.2 x10^3/uL (1.0-4.8) Monocytes # (Auto) 0.8 x10^3/uL (0.0-1.1) Eosinophils # (Auto) 0.0 x10^3/uL (0.0-0.7) Basophils # (Auto) 0.0 x10^3/uL (0.0-0.2) Sodium Level 132 mmol/L (136-145) Potassium Level 3.8 mmol/L (3.5-5.1) Chloride Level 94 mmol/L (98-107) Carbon Dioxide Level 26 mmol/L (21-32) Anion Gap 12 (6-14) Blood Urea Nitrogen 19 mg/dL (8-26) Creatinine 0.9 mg/dL (0.7-1.3) Estimated GFR (Cockcroft-Gault) 85.2 Glucose Level 295 mg/dL (70-99) Calcium Level 9.5 mg/dL (8.5-10.1) Glucose (Fingerstick) 310 mg/dL (70-99) 267 mg/dL (70-99) Test 06/13/19 04:15 06/13/19 07:26 06/13/19 11:14 06/13/19 16:52 White Blood Count 8.1 x10^3/uL (4.0-11.0) Red Blood Count 4.38 x10^6/uL (4.30-5.70) Hemoglobin 14.1 g/dL (13.0-17.5) Hematocrit 40.9 % (39.0-53.0) Mean Corpuscular Volume 93 fL (79-100) Mean Corpuscular Hemoglobin 32 pg (25-35) Mean Corpuscular Hemoglobin Concent 34 g/dL (31-37) Red Cell Distribution Width 11.9 % (11.5-14.5) Platelet Count 282 x10^3/uL (140-400) Neutrophils (%) (Auto) 74 % (31-73) Lymphocytes (%) (Auto) 14 % (24-48) Monocytes (%) (Auto) 11 % (0-9) Eosinophils (%) (Auto) 1 % (0-3) Basophils (%) (Auto) 1 % (0-3) Neutrophils # (Auto) 6.0 x10^3/uL (1.8-7.7) Lymphocytes # (Auto) 1.1 x10^3/uL (1.0-4.8) Monocytes # (Auto) 0.9 x10^3/uL (0.0-1.1) Eosinophils # (Auto) 0.1 x10^3/uL (0.0-0.7) Basophils # (Auto) 0.0 x10^3/uL (0.0-0.2) Sodium Level 135 mmol/L (136-145) Potassium Level 3.9 mmol/L (3.5-5.1) Chloride Level 98 mmol/L (98-107) Carbon Dioxide Level 29 mmol/L (21-32) Anion Gap 8 (6-14) Blood Urea Nitrogen 13 mg/dL (8-26) Creatinine 0.8 mg/dL (0.7-1.3) Estimated GFR (Cockcroft-Gault) 97.6 BUN/Creatinine Ratio 16 (6-20) Glucose Level 247 mg/dL (70-99) Calcium Level 8.4 mg/dL (8.5-10.1) Total Bilirubin 0.4 mg/dL (0.2-1.0) Aspartate Amino Transf (AST/SGOT) 16 U/L (15-37) Alanine Aminotransferase (ALT/SGPT) 26 U/L (16-63) Alkaline Phosphatase 66 U/L (46-116) Total Protein 6.4 g/dL (6.4-8.2) Albumin 2.1 g/dL (3.4-5.0) Albumin/Globulin Ratio 0.5 (1.0-1.7) Glucose (Fingerstick) 244 mg/dL (70-99) 232 mg/dL (70-99) 256 mg/dL (70-99) Test 06/13/19 20:29 06/14/19 00:25 06/14/19 06:00 06/14/19 07:15 Glucose (Fingerstick) 203 mg/dL (70-99) 176 mg/dL (70-99) Vancomycin Level Trough 12.5 mcg/mL (10.0-20.0) Vancomycin Last Dose Date [id number] Vancomycin Last Dose Time 1300 White Blood Count 8.4 x10^3/uL (4.0-11.0) Red Blood Count 4.64 x10^6/uL (4.30-5.70) Hemoglobin 15.0 g/dL (13.0-17.5) Hematocrit 43.6 % (39.0-53.0) Mean Corpuscular Volume 94 fL (79-100) Mean Corpuscular Hemoglobin 32 pg (25-35) Mean Corpuscular Hemoglobin Concent 34 g/dL (31-37) Red Cell Distribution Width 12.1 % (11.5-14.5) Platelet Count 342 x10^3/uL (140-400) Neutrophils (%) (Auto) 72 % (31-73) Lymphocytes (%) (Auto) 17 % (24-48) Monocytes (%) (Auto) 8 % (0-9) Eosinophils (%) (Auto) 2 % (0-3) Basophils (%) (Auto) 1 % (0-3) Neutrophils # (Auto) 6.1 x10^3/uL (1.8-7.7) Lymphocytes # (Auto) 1.4 x10^3/uL (1.0-4.8) Monocytes # (Auto) 0.7 x10^3/uL (0.0-1.1) Eosinophils # (Auto) 0.2 x10^3/uL (0.0-0.7) Basophils # (Auto) 0.1 x10^3/uL (0.0-0.2) Sodium Level 138 mmol/L (136-145) Potassium Level 3.8 mmol/L (3.5-5.1) Chloride Level 102 mmol/L (98-107) Carbon Dioxide Level 29 mmol/L (21-32) Anion Gap 7 (6-14) Blood Urea Nitrogen 7 mg/dL (8-26) Creatinine 0.8 mg/dL (0.7-1.3) Estimated GFR (Cockcroft-Gault) 97.6 BUN/Creatinine Ratio 9 (6-20) Glucose Level 199 mg/dL (70-99) Calcium Level 9.0 mg/dL (8.5-10.1) Total Bilirubin 0.4 mg/dL (0.2-1.0) Aspartate Amino Transf (AST/SGOT) 16 U/L (15-37) Alanine Aminotransferase (ALT/SGPT) 27 U/L (16-63) Alkaline Phosphatase 64 U/L (46-116) Total Protein 7.1 g/dL (6.4-8.2) Albumin 2.4 g/dL (3.4-5.0) Albumin/Globulin Ratio 0.5 (1.0-1.7) Laboratory Tests Test 06/13/19 11:14 06/13/19 16:52 06/13/19 20:29 06/14/19 00:25 Glucose (Fingerstick) 232 mg/dL (70-99) 256 mg/dL (70-99) 203 mg/dL (70-99) Vancomycin Level Trough 12.5 mcg/mL (10.0-20.0) Vancomycin Last Dose Date [id number] Vancomycin Last Dose Time 1300 Test 06/14/19 06:00 06/14/19 07:15 White Blood Count 8.4 x10^3/uL (4.0-11.0) Red Blood Count 4.64 x10^6/uL (4.30-5.70) Hemoglobin 15.0 g/dL (13.0-17.5) Hematocrit 43.6 % (39.0-53.0) Mean Corpuscular Volume 94 fL (79-100) Mean Corpuscular Hemoglobin 32 pg (25-35) Mean Corpuscular Hemoglobin Concent 34 g/dL (31-37) Red Cell Distribution Width 12.1 % (11.5-14.5) Platelet Count 342 x10^3/uL (140-400) Neutrophils (%) (Auto) 72 % (31-73) Lymphocytes (%) (Auto) 17 % (24-48) Monocytes (%) (Auto) 8 % (0-9) Eosinophils (%) (Auto) 2 % (0-3) Basophils (%) (Auto) 1 % (0-3) Neutrophils # (Auto) 6.1 x10^3/uL (1.8-7.7) Lymphocytes # (Auto) 1.4 x10^3/uL (1.0-4.8) Monocytes # (Auto) 0.7 x10^3/uL (0.0-1.1) Eosinophils # (Auto) 0.2 x10^3/uL (0.0-0.7) Basophils # (Auto) 0.1 x10^3/uL (0.0-0.2) Sodium Level 138 mmol/L (136-145) Potassium Level 3.8 mmol/L (3.5-5.1) Chloride Level 102 mmol/L (98-107) Carbon Dioxide Level 29 mmol/L (21-32) Anion Gap 7 (6-14) Blood Urea Nitrogen 7 mg/dL (8-26) Creatinine 0.8 mg/dL (0.7-1.3) Estimated GFR (Cockcroft-Gault) 97.6 BUN/Creatinine Ratio 9 (6-20) Glucose Level 199 mg/dL (70-99) Calcium Level 9.0 mg/dL (8.5-10.1) Total Bilirubin 0.4 mg/dL (0.2-1.0) Aspartate Amino Transf (AST/SGOT) 16 U/L (15-37) Alanine Aminotransferase (ALT/SGPT) 27 U/L (16-63) Alkaline Phosphatase 64 U/L (46-116) Total Protein 7.1 g/dL (6.4-8.2) Albumin 2.4 g/dL (3.4-5.0) Albumin/Globulin Ratio 0.5 (1.0-1.7) Glucose (Fingerstick) 176 mg/dL (70-99) Microbiology 06/12/19 Blood Culture - Preliminary, Resulted NO GROWTH AFTER 1 DAY 06/12/19 Aerobic Culture, Resulted Pending 06/12/19 Aerobic Culture Result 1 (YUMI), Resulted Pending 06/12/19 Gram Stain - Final, Resulted 06/12/19 Gram Stain Result 1 (YUMI) - Final, Resulted 06/12/19 Gram Stain Result 2 (YUMI) - Final, Resulted Medications Current Medications Lidocaine/ Epinephrine (LIDOCAINE 1%-EPI 1:100,000 Multi-Dose) 20 ml 1X ONCE INJ Last administered on 06/12/19at 10:29; Start 06/12/19 at 10:15; Stop 06/12/19 at 10:16; Status DC Sodium Bicarbonate (Sodium Bicarb Adult 8.4% Syr) 50 meq STK-MED ONCE .ROUTE ; Start 06/12/19 at 10:19; Stop 06/12/19 at 10:19; Status DC Sodium Bicarbonate (Sodium Bicarb Adult 8.4% Syr) 50 meq 1X ONCE SQ Last administered on 06/12/19at 10:35; Start 06/12/19 at 10:30; Stop 06/12/19 at 10:31; Status DC Vancomycin HCl 250 ml @ 250 mls/hr 1X ONCE IV Last administered on 06/12/19at 11:48; Start 06/12/19 at 10:45; Stop 06/12/19 at 11:44; Status DC Sodium Chloride 1,000 ml @ 1,000 mls/hr 1X ONCE IV Last administered on 06/12/19at 11:45; Start 06/12/19 at 11:45; Stop 06/12/19 at 12:44; Status DC Vancomycin HCl (Vanco Per Pharmacy) 1 each PRN DAILY PRN MC SEE COMMENTS Last administered on 06/14/19at 03:24; Start 06/12/19 at 12:30 Insulin Human Lispro (HumaLOG) 0-5 UNITS TIDWMEALS SQ Last administered on 06/12/19at 17:21; Start 06/12/19 at 17:00; Stop 06/13/19 at 13:09; Status DC Dextrose (Dextrose 50%-Water Syringe) 12.5 gm PRN Q15MIN PRN IV SEE COMMENTS; Start 06/12/19 at 12:30; Stop 06/13/19 at 13:43; Status DC Vancomycin HCl 2 gm/Sodium Chloride 500 ml @ 250 mls/hr 1X ONCE IV Last administered on 06/12/19at 13:09; Start 06/12/19 at 13:00; Stop 06/12/19 at 14:59; Status DC Sodium Chloride (Normal Saline Flush) 3 ml QSHIFT PRN IV AFTER MEDS AND BLOOD DRAWS; Start 06/12/19 at 12:30 Sodium Chloride 1,000 ml @ 100 mls/hr Q10H IV Last administered on 06/13/19at 20:44; Start 06/12/19 at 12:18 Ondansetron HCl (Zofran) 4 mg PRN Q4HRS PRN IV NAUSEA/VOMITING Last administered on 06/13/19at 02:34; Start 06/12/19 at 12:30 Zolpidem Tartrate (Ambien) 5 mg PRN QHS PRN PO INSOMNIA; Start 06/12/19 at 12:30 Acetaminophen (Tylenol) 650 mg PRN Q4HRS PRN PO TEMP OVER 100.4F OR MILD PAIN; Start 06/12/19 at 12:30 Al Hydroxide/Mg Hydroxide (Mylanta Plus Xs) 30 ml PRN DAILY PRN PO HEARTBURN / GAS; Start 06/12/19 at 12:30 Clonidine HCl (Catapres) 0.1 mg PRN Q6HRS PRN PO SBP>160 OR DBP>90; Start 06/12/19 at 12:30 Docusate Sodium (Colace) 100 mg PRN BID PRN PO CONSTIPATION; Start 06/12/19 at 12:30 Albuterol Sulfate (Ventolin Neb Soln) 2.5 mg PRN Q4HRS PRN NEB SHORTNESS OF BREATH; Start 06/12/19 at 12:30 Guaifenesin (Robitussin) 200 mg PRN Q4HRS PRN PO COUGH; Start 06/12/19 at 12:30 Lorazepam (Ativan) 0.5 mg PRN Q4HRS PRN PO ANXIETY / AGITATION; Start 06/12/19 at 12:30 Enoxaparin Sodium (Lovenox 40mg Syringe) 40 mg Q24H SQ Last administered on 06/13/19at 14:31; Start 06/12/19 at 13:00 Metformin HCl (Glucophage Xr) 500 mg DAILYWBKFT PO ; Start 06/13/19 at 08:00 Lisinopril (Prinivil) 10 mg DAILY08 PO Last administered on 06/12/19at 16:17; Start 06/12/19 at 12:30 Piperacillin Sod/ Tazobactam Sod 3.375 gm/Sodium Chloride 50 ml @ 100 mls/hr Q6HRS IV Last administered on 06/14/19at 05:40; Start 06/12/19 at 14:00 Nicotine (Nicoderm Cq 21mg) 1 patch DAILY TD Last administered on 06/13/19at 08:40; Start 06/12/19 at 15:30 Vancomycin HCl 1.25 gm/Sodium Chloride 250 ml @ 167 mls/hr Q12H IV Last administered on 06/14/19at 01:09; Start 06/13/19 at 01:00; Stop 06/14/19 at 02:48; Status DC Vancomycin HCl (Vancomycin Trough Level) 1 each 1X ONCE MC Last administered on 06/14/19at 00:30; Start 06/14/19 at 00:30; Stop 06/14/19 at 00:31; Status DC Hydromorphone HCl (Dilaudid) 1 mg PRN Q3HRS PRN IV SEVERE PAIN 7-10; Start 06/12/19 at 16:45 Acetaminophen/ Hydrocodone Bitart (Lortab 5/325) 1 tab PRN Q4HRS PRN PO MODERATE PAIN Last administered on 06/12/19at 19:35; Start 06/12/19 at 17:00 Acetaminophen/ Hydrocodone Bitart (Lortab 5/325) 2 tab PRN Q4HRS PRN PO SEVERE PAIN Last administered on 06/13/19at 14:31; Start 06/12/19 at 17:00 Lactobacillus Rhamnosus (Culturelle) 1 cap BID PO Last administered on 06/13/19at 20:43; Start 06/13/19 at 21:00 Insulin Human Lispro (HumaLOG) 0-9 UNITS TIDWMEALS SQ Last administered on 06/13/19at 17:31; Start 06/13/19 at 17:00 Dextrose (Dextrose 50%-Water Syringe) 12.5 gm PRN Q15MIN PRN IV SEE COMMENTS; Start 06/13/19 at 13:15 Insulin Glargine (Lantus Syringe) 10 unit 1X ONCE SQ Last administered on 06/13/19at 14:39; Start 06/13/19 at 14:00; Stop 06/13/19 at 14:01; Status DC Vancomycin HCl 1.25 gm/Sodium Chloride 250 ml @ 167 mls/hr Q12H IV ; Start 06/14/19 at 13:00 Vancomycin HCl (Vancomycin Trough Level) 1 each 1X ONCE MC ; Start 06/15/19 at 08:30; Stop 06/15/19 at 08:31; Status Cancel Vitals/I & O Vital Sign - Last 24 Hours 06/13/19 06/13/19 06/13/19 06/13/19 08:00 11:00 14:31 15:00 Temp 97.7 98.1 97.7 98.1 Pulse 63 71 Resp 16 16 18 B/P (MAP) 140/61 (87) 144/46 (78) Pulse Ox 95 94 O2 Delivery Room Air Room Air Room Air Room Air 06/13/19 06/13/19 06/13/19 06/13/19 16:53 19:00 19:45 23:00 Temp 97.5 97.7 97.5 97.7 Pulse 55 60 Resp 16 18 18 B/P (MAP) 144/60 (88) 146/56 (86) Pulse Ox 95 95 O2 Delivery Room Air Room Air Room Air Room Air 06/14/19 06/14/19 03:00 07:00 Temp 97.5 98.0 97.5 98.0 Pulse 56 57 Resp 18 14 B/P (MAP) 127/46 (73) 138/56 (83) Pulse Ox 96 95 O2 Delivery Room Air Room Air Intake and Output 06/13/19 06/14/19 06/14/19 17:00 01:00 09:00 Intake Total 500 ml Balance 500 ml NICK HANSEN MD Jun 14, 2019 09:36
--- NOTE | 2019-06-14 11:16 | NUR ---
SW following for discharge planning. Chart reviewed, discussed with RN. Pt currently NPO, possibly having an I&D today. Wound is draining, IV/ vanc/zosyn. SW will continue to follow for any discharge planning needs.
[2019-06-14] MEDS ORDERED: IV RINGERS,LACTATED 1000ML 1,000 ML IV SCH (12:40)
[2019-06-14] MEDS ORDERED: MORPHINE SULFATE 2 MG/ML VIAL. IV PRN (12:45)
[2019-06-14] MEDS ORDERED: HYDROmorphone 2 MG/ML VIAL IV PRN (12:45)
[2019-06-14] MEDS ORDERED: fentaNYL PF VIAL 100 MCG/2 ML VIAL IV PRN (12:45)
[2019-06-14] MEDS ORDERED: PROCHLORPERAZINE 10 MG/2 ML VIAL. IV PRN (12:45)
[2019-06-14] MEDS ORDERED: LIDOCAINE 1% PF 2 ML VIAL. ID PRN (12:45)
[2019-06-14] MEDS ORDERED: ONDANSETRON PF 4 MG/2 ML VIAL. IV PRN (12:45)
[2019-06-14] MEDS: ENOXAPARIN 40 MG/0.4 ML SYRINGE. SQ SCH (13:00)
[2019-06-14] MEDS ORDERED: LIDOCAINE 1%/EPI 1:100,000 20 ML VIAL. ONE (13:31)
[2019-06-14] MEDS ORDERED: fentaNYL PF VIAL 100 MCG/2 ML VIAL ONE ×2 (13:50→14:49)
[2019-06-14] MEDS ORDERED: ONDANSETRON PF 4 MG/2 ML VIAL. ONE (13:53)
[2019-06-14] MEDS ORDERED: LIDOCAINE 2% PF 5 ML VIAL. ONE (13:53)
[2019-06-14] MEDS ORDERED: PROPOFOL 20 ML IV ONE (13:53)
[2019-06-14] MEDS ORDERED: SEVOFLURANE 31 TO 60 MINUTES. IH ONE (14:52)
[2019-06-14] MEDS: fentaNYL PF VIAL 100 MCG/2 ML VIAL IV PRN ×2 (14:55→15:07)
[2019-06-14] MEDS: NICOTINE 21MG PATCH. TD SCH (15:50)
--- NOTE | 2019-06-14 16:46 | PDOC4 ---
Operative Note Operative Note Operative Note: Preoperative Diagnosis: Right groin abscess Postoperative Diagnosis: Same Procedure: Incision and drainage of right groin abscess Surgeon: Mendez Anesthesia: Gen. EBL: 10 mL Specimen: Cultures to microbiology Drains: None Complications: None Indication: The patient is a 64-year-old male who was admitted due to a right groin abscess. He will require an incision and drainage in the operating room. The risks of surgery were discussed which include bleeding, infection, recurrence, pain, scar tissue, anesthetic risk, potential need for additional surgery or procedure. He understands and would like to proceed. Description: The patient was taken to the operating room and placed supine on the operating table. Gen. anesthesia was performed. The right groin was prepped with Betadine and draped in a standard surgical manner. There was some devitalized skin in the midportion of a larger area of induration. With a scalpel an elliptical incision was made excising the devitalized skin. There was immediate return of purulent fluid and cultures were obtained and sent to microbiology. The incision was extended to facilitate drainage of the larger abscess cavity. The entire cavity was then fully drained. All loculations were freed up with digital manipulation. The entire wound cavity was irrigated with s terile saline. The wound was then packed with sterile gauze and a dressing was applied. The patient tolerated the procedure well and was sent to the recovery room in stable condition. At the end of the case all counts were correct. AIME JIN MD Jun 14, 2019 16:46
[2019-06-14] MEDS: HYDROcodone/APAP 5/325MG 1 TAB TABLET PO PRN (20:57)
[2019-06-15] MEDS: IV NORMAL SALINE 1000ML BAG 1,000 ML IV SCH ×3 (00:10→20:43)
[2019-06-15] MEDS: PIPERACILLIN/TAZOBACTAM 3.375 GM in IV NORMAL SALINE 50ML 50 ML IV SCH ×2 (00:15→06:18)
[2019-06-15] MEDS: VANCOMYCIN 1.25 GM in IV NORMAL SALINE 250ML 250 ML IV SCH (01:18)
[2019-06-15 03:00] VITALS: BP 150/94
[2019-06-15 06:29] LABS: GFR 32.1
[2019-06-15 06:38] LABS: CREATININE 2.1 mg/dL (0.7-1.3)
[2019-06-15 08:00] VITALS: BP 163/64
[2019-06-15] MEDS: LACTOBACILLUS RHAMNOSUS GG 1 CAPSULE. PO SCH ×2 (08:14→20:43)
[2019-06-15] MEDS: metFORMIN XR 500 MG TAB.ER.24H PO SCH (08:14)
[2019-06-15] MEDS: LISINOPRIL 10 MG TABLET PO SCH (08:14)
[2019-06-15] MEDS: NICOTINE 21MG PATCH. TD SCH (08:15)
[2019-06-15] MEDS: INSULIN LISPRO 300 UNITS/3 ML VIAL. SQ SCH ×3 (08:28→17:15)
--- NOTE | 2019-06-15 09:07 | PDOC ---
Infectious Disease Note Subjective: Subjective pt says feels better No fever or chills no n/v/d/abdo pain or sob no gu symptoms Vital Signs: Vital Signs Vital Signs Date Time Temp Pulse Resp B/P (MAP) Pulse Ox O2 Delivery O2 Flow Rate FiO2 06/15/19 08:14 64 163/66 06/15/19 08:00 97.9 17 93 97.9 06/15/19 03:00 Room Air 06/14/19 15:10 10 Physical Exam: PHYSICAL EXAM GENERAL: The patient is propped up in bed, alert, in no apparent distress.nontoxic appearing HEENT: Pupils are equally round. Oral cavity: Pharynx pink and moist. NECK: Supple. LUNGS: Clear to auscultation. HEART: S1 and S2. ABDOMEN: Obese, soft, and nontender with bowel sounds present. EXTREMITIES: No gross edema or cyanosis. SKIN: Warm to touch. No signs of rash. He has a fairly large area of induration with some fluctuance and redness on the right inner thigh with packing in place. NEUROLOGIC: Alert and oriented x3. Medications: Inpatient Meds: Current Medications Medications (Trade) Dose Ordered Sig/Ivon Start Time Stop Time Status Last Admin Dose Admin Acetaminophen (Tylenol) 650 mg PRN Q4HRS PRN 06/12/19 12:30 Acetaminophen/ Hydrocodone Bitart (Lortab 5/325) 2 tab PRN Q4HRS PRN 06/12/19 17:00 06/13/19 14:31 2 TAB Al Hydroxide/Mg Hydroxide (Mylanta Plus Xs) 30 ml PRN DAILY PRN 06/12/19 12:30 Albuterol Sulfate (Ventolin Neb Soln) 2.5 mg PRN Q4HRS PRN 06/12/19 12:30 Clonidine HCl (Catapres) 0.1 mg PRN Q6HRS PRN 06/12/19 12:30 Dextrose (Dextrose 50%-Water Syringe) 12.5 gm PRN Q15MIN PRN 06/13/19 13:15 Docusate Sodium (Colace) 100 mg PRN BID PRN 06/12/19 12:30 Enoxaparin Sodium (Lovenox 40mg Syringe) 40 mg Q24H 06/12/19 13:00 06/13/19 14:31 40 MG Fentanyl Citrate (Fentanyl 2ml Vial) 100 mcg STK-MED ONCE 06/14/19 14:49 06/14/19 14:50 DC Guaifenesin (Robitussin) 200 mg PRN Q4HRS PRN 06/12/19 12:30 Hydromorphone HCl (Dilaudid) 0.5 mg PRN Q10MIN PRN 06/14/19 12:45 06/14/19 19:05 DC Insulin Glargine (Lantus Syringe) 10 unit 1X ONCE 06/13/19 14:00 06/13/19 14:01 DC 06/13/19 14:39 10 UNIT Insulin Human Lispro (HumaLOG) 0-9 UNITS TIDWMEALS 06/13/19 17:00 06/15/19 08:28 4 UNITS Lactobacillus Rhamnosus (Culturelle) 1 cap BID 06/13/19 21:00 06/15/19 08:14 1 CAP Lidocaine HCl (Lidocaine Pf 2% Vial) 5 ml STK-MED ONCE 06/14/19 13:53 06/14/19 13:53 DC Lidocaine HCl (Xylocaine-Mpf 1% 2ml Vial) 2 ml PRN 1X PRN 06/14/19 12:45 06/14/19 19:05 DC Lidocaine/ Epinephrine (LIDOCAINE 1%-EPI 1:100,000 Multi-Dose) 20 ml STK-MED ONCE 06/14/19 13:31 06/14/19 13:31 DC Lisinopril (Prinivil) 10 mg DAILY08 06/12/19 12:30 06/15/19 08:14 10 MG Lorazepam (Ativan) 0.5 mg PRN Q4HRS PRN 06/12/19 12:30 Metformin HCl (Glucophage Xr) 500 mg DAILYWBKFT 06/13/19 08:00 06/15/19 08:14 500 MG Morphine Sulfate (Morphine Sulfate) 1 mg PRN Q10MIN PRN 06/14/19 12:45 06/14/19 19:05 DC Nicotine (Nicoderm Cq 21mg) 1 patch DAILY 06/12/19 15:30 06/15/19 08:15 1 PATCH Ondansetron HCl (Zofran) 4 mg STK-MED ONCE 06/14/19 13:53 06/14/19 13:53 DC Piperacillin Sod/ Tazobactam Sod 3.375 gm/Sodium Chloride 50 ml @ 100 mls/hr Q6HRS 06/12/19 14:00 06/15/19 06:18 100 MLS/HR Prochlorperazine Edisylate (Compazine) 5 mg PACU PRN PRN 06/14/19 12:45 06/14/19 19:05 DC Propofol 20 ml @ As Directed STK-MED ONCE 06/14/19 13:53 06/14/19 13:53 DC Ringer's Solution 1,000 ml @ 30 mls/hr Q24H 06/14/19 12:40 06/14/19 19:04 DC Sevoflurane (Ultane) 30 ml STK-MED ONCE 06/14/19 14:52 06/14/19 14:52 DC Sodium Bicarbonate (Sodium Bicarb Adult 8.4% Syr) 50 meq 1X ONCE 06/12/19 10:30 06/12/19 10:31 DC 06/12/19 10:35 50 MEQ Sodium Chloride 1,000 ml @ 100 mls/hr Q10H 06/12/19 12:18 06/14/19 12:09 100 MLS/HR Sodium Chloride (Normal Saline Flush) 3 ml QSHIFT PRN 06/12/19 12:30 Vancomycin HCl (Vanco Per Pharmacy) 1 each PRN DAILY PRN 06/12/19 12:30 06/14/19 12:53 1 EACH Vancomycin HCl (Vancomycin Trough Level) 1 each 1X ONCE 06/15/19 08:30 06/15/19 08:31 Cancel Vancomycin HCl 1.25 gm/Sodium Chloride 250 ml @ 167 mls/hr Q12H 06/14/19 13:00 06/15/19 01:18 167 MLS/HR Vancomycin HCl 2 gm/Sodium Chloride 500 ml @ 250 mls/hr 1X ONCE 06/12/19 13:00 06/12/19 14:59 DC 06/12/19 13:09 250 MLS/HR Zolpidem Tartrate (Ambien) 5 mg PRN QHS PRN 06/12/19 12:30 Labs: Lab Laboratory Tests Test 06/14/19 10:57 06/14/19 14:57 06/14/19 16:40 06/14/19 20:49 Glucose (Fingerstick) 167 mg/dL (70-99) 137 mg/dL (70-99) 160 mg/dL (70-99) 189 mg/dL (70-99) Test 06/15/19 06:00 06/15/19 07:41 Creatinine 2.1 mg/dL (0.7-1.3) Estimated GFR (Cockcroft-Gault) 32.1 Glucose (Fingerstick) 179 mg/dL (70-99) Objective: Assessment: 1. Rt Groin abscess status post incision and drainage in the emergency room on 06/12/2019. B hemolytic group B 06/14 S/P Surgical Incision and drainage of right groin abscess 2. 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 3. Diabetes. 4. Obesity. 5. Hypertension. 6. RAQUEL multifactorial, vanc trough was 12 on 06/14 Plan: Plan of Care Dc vancomycin and Zosyn start cefepime renal dosing, flagyl and zyvox f/u intraop cultures results monitor renal func closely encouraged po fluid intake local wound care GABINO JACK MD Jun 15, 2019 09:07
--- NOTE | 2019-06-15 09:36 | PDOC ---
PROGRESS NOTES Subjective Subjective feeling fine Objective Objective Vital Signs Date Time Temp Pulse Resp B/P (MAP) Pulse Ox O2 Delivery O2 Flow Rate FiO2 06/15/19 08:14 64 163/66 06/15/19 08:00 97.9 17 93 97.9 06/15/19 03:00 Room Air 06/14/19 15:10 10 Intake and Output 06/15/19 07:00 Intake Total 2230 ml Output Total 10 ml Balance 2220 ml Intake Oral 180 ml IV Total 2050 ml Output Estimated Blood Loss 10 ml # Voids 2 Physical Exam Physical Exam groin dressing in place Assessment Assessment Problems Medical Problems: (1) Cellulitis Status: Acute (2) Groin abscess Status: Acute Plan Plan of Care wound care team to see today Comment Review of Relevant I have reviewed the following items kellee (where applicable) has been applied. Labs Laboratory Tests Test 06/13/19 11:14 06/13/19 16:52 06/13/19 20:29 06/14/19 00:25 Glucose (Fingerstick) 232 mg/dL (70-99) 256 mg/dL (70-99) 203 mg/dL (70-99) Vancomycin Level Trough 12.5 mcg/mL (10.0-20.0) Vancomycin Last Dose Date [id number] Vancomycin Last Dose Time 1300 Test 06/14/19 06:00 06/14/19 07:15 06/14/19 10:57 06/14/19 14:57 White Blood Count 8.4 x10^3/uL (4.0-11.0) Red Blood Count 4.64 x10^6/uL (4.30-5.70) Hemoglobin 15.0 g/dL (13.0-17.5) Hematocrit 43.6 % (39.0-53.0) Mean Corpuscular Volume 94 fL (79-100) Mean Corpuscular Hemoglobin 32 pg (25-35) Mean Corpuscular Hemoglobin Concent 34 g/dL (31-37) Red Cell Distribution Width 12.1 % (11.5-14.5) Platelet Count 342 x10^3/uL (140-400) Neutrophils (%) (Auto) 72 % (31-73) Lymphocytes (%) (Auto) 17 % (24-48) Monocytes (%) (Auto) 8 % (0-9) Eosinophils (%) (Auto) 2 % (0-3) Basophils (%) (Auto) 1 % (0-3) Neutrophils # (Auto) 6.1 x10^3/uL (1.8-7.7) Lymphocytes # (Auto) 1.4 x10^3/uL (1.0-4.8) Monocytes # (Auto) 0.7 x10^3/uL (0.0-1.1) Eosinophils # (Auto) 0.2 x10^3/uL (0.0-0.7) Basophils # (Auto) 0.1 x10^3/uL (0.0-0.2) Sodium Level 138 mmol/L (136-145) Potassium Level 3.8 mmol/L (3.5-5.1) Chloride Level 102 mmol/L (98-107) Carbon Dioxide Level 29 mmol/L (21-32) Anion Gap 7 (6-14) Blood Urea Nitrogen 7 mg/dL (8-26) Creatinine 0.8 mg/dL (0.7-1.3) Estimated GFR (Cockcroft-Gault) 97.6 BUN/Creatinine Ratio 9 (6-20) Glucose Level 199 mg/dL (70-99) Calcium Level 9.0 mg/dL (8.5-10.1) Total Bilirubin 0.4 mg/dL (0.2-1.0) Aspartate Amino Transf (AST/SGOT) 16 U/L (15-37) Alanine Aminotransferase (ALT/SGPT) 27 U/L (16-63) Alkaline Phosphatase 64 U/L (46-116) Total Protein 7.1 g/dL (6.4-8.2) Albumin 2.4 g/dL (3.4-5.0) Albumin/Globulin Ratio 0.5 (1.0-1.7) Glucose (Fingerstick) 176 mg/dL (70-99) 167 mg/dL (70-99) 137 mg/dL (70-99) Test 06/14/19 16:40 06/14/19 20:49 06/15/19 06:00 06/15/19 07:41 Glucose (Fingerstick) 160 mg/dL (70-99) 189 mg/dL (70-99) 179 mg/dL (70-99) Creatinine 2.1 mg/dL (0.7-1.3) Estimated GFR (Cockcroft-Gault) 32.1 Laboratory Tests Test 06/14/19 10:57 06/14/19 14:57 06/14/19 16:40 06/14/19 20:49 Glucose (Fingerstick) 167 mg/dL (70-99) 137 mg/dL (70-99) 160 mg/dL (70-99) 189 mg/dL (70-99) Test 06/15/19 06:00 06/15/19 07:41 Creatinine 2.1 mg/dL (0.7-1.3) Estimated GFR (Cockcroft-Gault) 32.1 Glucose (Fingerstick) 179 mg/dL (70-99) Microbiology 06/12/19 Blood Culture - Preliminary, Resulted NO GROWTH AFTER 2 DAYS 06/12/19 Aerobic Culture - Final, Complete 06/12/19 Aerobic Culture Result 1 (YUMI) - Final, Complete 06/12/19 Gram Stain - Final, Complete 06/12/19 Gram Stain Result 1 (YUMI) - Final, Complete 06/12/19 Gram Stain Result 2 (YUMI) - Final, Complete Medications Current Medications Lidocaine/ Epinephrine (LIDOCAINE 1%-EPI 1:100,000 Multi-Dose) 20 ml 1X ONCE INJ Last administered on 06/12/19at 10:29; Start 06/12/19 at 10:15; Stop 06/12/19 at 10:16; Status DC Sodium Bicarbonate (Sodium Bicarb Adult 8.4% Syr) 50 meq STK-MED ONCE .ROUTE ; Start 06/12/19 at 10:19; Stop 06/12/19 at 10:19; Status DC Sodium Bicarbonate (Sodium Bicarb Adult 8.4% Syr) 50 meq 1X ONCE SQ Last administered on 06/12/19at 10:35; Start 06/12/19 at 10:30; Stop 06/12/19 at 10:31; Status DC Vancomycin HCl 250 ml @ 250 mls/hr 1X ONCE IV Last administered on 06/12/19at 11:48; Start 06/12/19 at 10:45; Stop 06/12/19 at 11:44; Status DC Sodium Chloride 1,000 ml @ 1,000 mls/hr 1X ONCE IV Last administered on 06/12/19at 11:45; Start 06/12/19 at 11:45; Stop 06/12/19 at 12:44; Status DC Vancomycin HCl (Vanco Per Pharmacy) 1 each PRN DAILY PRN MC SEE COMMENTS Last administered on 06/14/19at 12:53; Start 06/12/19 at 12:30; Stop 06/15/19 at 09:07; Status DC Insulin Human Lispro (HumaLOG) 0-5 UNITS TIDWMEALS SQ Last administered on 06/12/19at 17:21; Start 06/12/19 at 17:00; Stop 06/13/19 at 13:09; Status DC Dextrose (Dextrose 50%-Water Syringe) 12.5 gm PRN Q15MIN PRN IV SEE COMMENTS; Start 06/12/19 at 12:30; Stop 06/13/19 at 13:43; Status DC Vancomycin HCl 2 gm/Sodium Chloride 500 ml @ 250 mls/hr 1X ONCE IV Last administered on 06/12/19at 13:09; Start 06/12/19 at 13:00; Stop 06/12/19 at 14:59; Status DC Sodium Chloride (Normal Saline Flush) 3 ml QSHIFT PRN IV AFTER MEDS AND BLOOD DRAWS; Start 06/12/19 at 12:30 Sodium Chloride 1,000 ml @ 100 mls/hr Q10H IV Last administered on 06/14/19at 12:09; Start 06/12/19 at 12:18 Ondansetron HCl (Zofran) 4 mg PRN Q4HRS PRN IV NAUSEA/VOMITING Last administered on 06/13/19at 02:34; Start 06/12/19 at 12:30 Zolpidem Tartrate (Ambien) 5 mg PRN QHS PRN PO INSOMNIA; Start 06/12/19 at 12:30 Acetaminophen (Tylenol) 650 mg PRN Q4HRS PRN PO TEMP OVER 100.4F OR MILD PAIN; Start 06/12/19 at 12:30 Al Hydroxide/Mg Hydroxide (Mylanta Plus Xs) 30 ml PRN DAILY PRN PO HEARTBURN / GAS; Start 06/12/19 at 12:30 Clonidine HCl (Catapres) 0.1 mg PRN Q6HRS PRN PO SBP>160 OR DBP>90; Start 06/12/19 at 12:30 Docusate Sodium (Colace) 100 mg PRN BID PRN PO CONSTIPATION; Start 06/12/19 at 12:30 Albuterol Sulfate (Ventolin Neb Soln) 2.5 mg PRN Q4HRS PRN NEB SHORTNESS OF BREATH; Start 06/12/19 at 12:30 Guaifenesin (Robitussin) 200 mg PRN Q4HRS PRN PO COUGH; Start 06/12/19 at 12:30 Lorazepam (Ativan) 0.5 mg PRN Q4HRS PRN PO ANXIETY / AGITATION; Start 06/12/19 at 12:30 Enoxaparin Sodium (Lovenox 40mg Syringe) 40 mg Q24H SQ Last administered on 06/13/19at 14:31; Start 06/12/19 at 13:00 Metformin HCl (Glucophage Xr) 500 mg DAILYWBKFT PO Last administered on 06/15/19at 08:14; Start 06/13/19 at 08:00 Lisinopril (Prinivil) 10 mg DAILY08 PO Last administered on 06/15/19at 08:14; Start 06/12/19 at 12:30 Piperacillin Sod/ Tazobactam Sod 3.375 gm/Sodium Chloride 50 ml @ 100 mls/hr Q6HRS IV Last administered on 06/15/19at 06:18; Start 06/12/19 at 14:00; Stop 06/15/19 at 09:07; Status DC Nicotine (Nicoderm Cq 21mg) 1 patch DAILY TD Last administered on 06/15/19at 08:15; Start 06/12/19 at 15:30 Vancomycin HCl 1.25 gm/Sodium Chloride 250 ml @ 167 mls/hr Q12H IV Last administered on 06/14/19at 01:09; Start 06/13/19 at 01:00; Stop 06/14/19 at 02:48; Status DC Vancomycin HCl (Vancomycin Trough Level) 1 each 1X ONCE MC Last administered on 06/14/19at 00:30; Start 06/14/19 at 00:30; Stop 06/14/19 at 00:31; Status DC Hydromorphone HCl (Dilaudid) 1 mg PRN Q3HRS PRN IV SEVERE PAIN 7-10; Start 06/12/19 at 16:45 Acetaminophen/ Hydrocodone Bitart (Lortab 5/325) 1 tab PRN Q4HRS PRN PO MODERATE PAIN Last administered on 06/14/19at 20:57; Start 06/12/19 at 17:00 Acetaminophen/ Hydrocodone Bitart (Lortab 5/325) 2 tab PRN Q4HRS PRN PO SEVERE PAIN Last administered on 06/13/19at 14:31; Start 06/12/19 at 17:00 Lactobacillus Rhamnosus (Culturelle) 1 cap BID PO Last administered on 06/15/19at 08:14; Start 06/13/19 at 21:00 Insulin Human Lispro (HumaLOG) 0-9 UNITS TIDWMEALS SQ Last administered on 06/15/19at 08:28; Start 06/13/19 at 17:00 Dextrose (Dextrose 50%-Water Syringe) 12.5 gm PRN Q15MIN PRN IV SEE COMMENTS; Start 06/13/19 at 13:15 Insulin Glargine (Lantus Syringe) 10 unit 1X ONCE SQ Last administered on 06/13/19at 14:39; Start 06/13/19 at 14:00; Stop 06/13/19 at 14:01; Status DC Vancomycin HCl 1.25 gm/Sodium Chloride 250 ml @ 167 mls/hr Q12H IV Last administered on 06/15/19at 01:18; Start 06/14/19 at 13:00; Stop 06/15/19 at 09:08; Status DC Vancomycin HCl (Vancomycin Trough Level) 1 each 1X ONCE MC ; Start 06/15/19 at 08:30; Stop 06/15/19 at 08:31; Status Cancel Ondansetron HCl (Zofran) 4 mg PRN Q6HRS PRN IV NAUSEA/VOMITING; Start 06/14/19 at 12:45; Stop 06/14/19 at 19:05; Status DC Fentanyl Citrate (Fentanyl 2ml Vial) 25 mcg PRN Q5MIN PRN IV MILD PAIN 1-3; Start 06/14/19 at 12:45; Stop 06/14/19 at 19:05; Status DC Fentanyl Citrate (Fentanyl 2ml Vial) 50 mcg PRN Q5MIN PRN IV MODERATE TO SEVERE PAIN Last administered on 06/14/19at 15:07; Start 06/14/19 at 12:45; Stop 06/14/19 at 19:05; Status DC Morphine Sulfate (Morphine Sulfate) 1 mg PRN Q10MIN PRN IV SEVERE PAIN 7-10; Start 06/14/19 at 12:45; Stop 06/14/19 at 19:05; Status DC Ringer's Solution 1,000 ml @ 30 mls/hr Q24H IV ; Start 06/14/19 at 12:40; Stop 06/14/19 at 19:04; Status DC Lidocaine HCl (Xylocaine-Mpf 1% 2ml Vial) 2 ml PRN 1X PRN ID PRIOR TO IV START; Start 06/14/19 at 12:45; Stop 06/14/19 at 19:05; Status DC Hydromorphone HCl (Dilaudid) 0.5 mg PRN Q10MIN PRN IV SEV PAIN, Second choice; Start 06/14/19 at 12:45; Stop 06/14/19 at 19:05; Status DC Prochlorperazine Edisylate (Compazine) 5 mg PACU PRN PRN IV NAUSEA, MRX1; Start 06/14/19 at 12:45; Stop 06/14/19 at 19:05; Status DC Lidocaine/ Epinephrine (LIDOCAINE 1%-EPI 1:100,000 Multi-Dose) 20 ml STK-MED ONCE .ROUTE ; Start 06/14/19 at 13:31; Stop 06/14/19 at 13:31; Status DC Fentanyl Citrate (Fentanyl 2ml Vial) 100 mcg STK-MED ONCE .ROUTE ; Start 06/14/19 at 13:50; Stop 06/14/19 at 13:50; Status DC Propofol 20 ml @ As Directed STK-MED ONCE IV ; Start 06/14/19 at 13:53; Stop 06/14/19 at 13:53; Status DC Lidocaine HCl (Lidocaine Pf 2% Vial) 5 ml STK-MED ONCE .ROUTE ; Start 06/14/19 at 13:53; Stop 06/14/19 at 13:53; Status DC Ondansetron HCl (Zofran) 4 mg STK-MED ONCE .ROUTE ; Start 06/14/19 at 13:53; Stop 06/14/19 at 13:53; Status DC Fentanyl Citrate (Fentanyl 2ml Vial) 100 mcg STK-MED ONCE .ROUTE ; Start 06/14/19 at 14:49; Stop 06/14/19 at 14:50; Status DC Sevoflurane (Ultane) 30 ml STK-MED ONCE IH ; Start 06/14/19 at 14:52; Stop 06/14/19 at 14:52; Status DC Cefepime HCl (Maxipime) 1 gm Q12HR IVP ; Start 06/15/19 at 10:00 Metronidazole (Flagyl) 500 mg Q12HR PO ; Start 06/15/19 at 10:00 Linezolid (Zyvox) 600 mg BID PO ; Start 06/15/19 at 10:00 Vitals/I & O Vital Sign - Last 24 Hours 06/14/19 06/14/19 06/14/19 06/14/19 11:00 12:54 14:25 14:30 Temp 97.9 98.5 98.1 97.9 98.5 98.1 Pulse 68 69 64 Resp 16 16 18 B/P (MAP) 120/59 (79) 187/87 168/75 Pulse Ox 97 97 100 O2 Delivery Room Air Room Air Simple Mask Mask O2 Flow Rate 10 10 06/14/19 06/14/19 06/14/19 06/14/19 14:40 14:55 14:55 15:07 Temp 98.1 98.1 98.1 98.1 Pulse 60 59 Resp 19 20 21 22 B/P (MAP) 105/88 156/76 Pulse Ox 100 94 94 O2 Delivery Room Air Room Air Room Air Room Air 06/14/19 06/14/19 06/14/19 06/14/19 15:10 15:25 15:40 15:45 Temp 98.1 98.1 98.2 98.1 98.1 98.2 Pulse 58 60 58 59 Resp 21 21 19 14 B/P (MAP) 154/82 166/71 135/73 150/65 (93) Pulse Ox 97 94 94 93 O2 Delivery Room Air Room Air Room Air Room Air O2 Flow Rate 10 06/14/19 06/14/19 06/14/19 06/14/19 16:00 16:15 16:30 16:45 Pulse 61 59 65 59 Resp 14 16 14 12 B/P (MAP) 141/69 (93) 157/70 (99) 168/78 (108) 162/69 (100) Pulse Ox 95 96 96 96 O2 Delivery Room Air Room Air Room Air Room Air 06/14/19 06/14/19 06/14/19 06/14/19 17:15 17:45 19:00 23:00 Temp 98.1 97.9 98.1 97.9 Pulse 75 65 68 58 Resp B/P (MAP) 110/88 (95) 158/65 (96) 179/76 (110) 140/56 (84) Pulse Ox 96 95 97 93 O2 Delivery Room Air Room Air Room Air Room Air 06/15/19 06/15/19 06/15/19 03:00 08:00 08:14 Temp 97.9 97.9 97.9 97.9 Pulse 71 64 64 Resp B/P (MAP) 150/94 (112) 163/64 (97) 163/66 Pulse Ox 96 93 O2 Delivery Room Air Intake and Output 06/14/19 06/14/19 06/15/19 15:00 23:00 07:00 Intake Total 800 ml 1130 ml 300 ml Output Total 10 ml Balance 790 ml 1130 ml 300 ml AIME JIN MD Jun 15, 2019 09:36
[2019-06-15 11:00] VITALS: BP 162/70
--- NOTE | 2019-06-15 11:13 | PDOC ---
PROGRESS NOTES Chief Complaint Chief Complaint IMPRESSION Groin abscess, deep, complicated hx MRSA diabetes 2, poor control, A1c 10.3 Cellulitis uncontrolled hypertension obesity, BMI 28 AEROBIC RES 1 Preliminary Comment Beta hemolytic Streptococcus, group B start cefepime renal dosing, flagyl and zyvox f/u intraop cultures History of Present Illness History of Present Illness SS INSULIN, increase to high dose, glargine 10 x1 wound care to follow CONSULT ID - broad abx dvt prophylaxis iv vanc Vitals Vitals Vital Signs Date Time Temp Pulse Resp B/P (MAP) Pulse Ox O2 Delivery O2 Flow Rate FiO2 06/15/19 08:14 64 163/66 06/15/19 08:00 97.9 17 93 97.9 06/15/19 03:00 Room Air 06/14/19 15:10 10 Physical Exam Physical Exam GENERAL: The patient is propped up in bed, alert, in no apparent distress.nontoxic appearing HEENT: Pupils are equally round. Oral cavity: Pharynx pink and moist. NECK: Supple. LUNGS: Clear to auscultation. HEART: S1 and S2. ABDOMEN: Obese, soft, and nontender with bowel sounds present. EXTREMITIES: No gross edema or cyanosis. SKIN: Warm to touch. No signs of rash. He has a fairly large area of induration with some fluctuance and redness on the right inner thigh with packing in place. NEUROLOGIC: Alert and oriented x3. General: Alert, Oriented X3, Cooperative Heart: Regular rate, Normal S1, Normal S2, No murmurs Lungs: Clear Abdomen: Soft, No tenderness Extremities: No clubbing, No cyanosis Skin: Other (right groin--still with erythema, edema and some fluctunance, small amount of surrounding tissue necrosis ) Labs LABS Laboratory Tests Test 06/14/19 14:57 06/14/19 16:40 06/14/19 20:49 06/15/19 06:00 Glucose (Fingerstick) 137 mg/dL (70-99) 160 mg/dL (70-99) 189 mg/dL (70-99) Creatinine 2.1 mg/dL (0.7-1.3) Estimated GFR (Cockcroft-Gault) 32.1 Test 06/15/19 07:41 Glucose (Fingerstick) 179 mg/dL (70-99) Assessment and Plan Assessmemt and Plan Problems Medical Problems: (1) Cellulitis Status: Acute (2) Groin abscess Status: Acute Comment Review of Relevant I have reviewed the following items kellee (where applicable) has been applied. Labs Laboratory Tests Test 06/13/19 11:14 06/13/19 16:52 06/13/19 20:29 06/14/19 00:25 Glucose (Fingerstick) 232 mg/dL (70-99) 256 mg/dL (70-99) 203 mg/dL (70-99) Vancomycin Level Trough 12.5 mcg/mL (10.0-20.0) Vancomycin Last Dose Date [id number] Vancomycin Last Dose Time 1300 Test 06/14/19 06:00 06/14/19 07:15 06/14/19 10:57 06/14/19 14:57 White Blood Count 8.4 x10^3/uL (4.0-11.0) Red Blood Count 4.64 x10^6/uL (4.30-5.70) Hemoglobin 15.0 g/dL (13.0-17.5) Hematocrit 43.6 % (39.0-53.0) Mean Corpuscular Volume 94 fL (79-100) Mean Corpuscular Hemoglobin 32 pg (25-35) Mean Corpuscular Hemoglobin Concent 34 g/dL (31-37) Red Cell Distribution Width 12.1 % (11.5-14.5) Platelet Count 342 x10^3/uL (140-400) Neutrophils (%) (Auto) 72 % (31-73) Lymphocytes (%) (Auto) 17 % (24-48) Monocytes (%) (Auto) 8 % (0-9) Eosinophils (%) (Auto) 2 % (0-3) Basophils (%) (Auto) 1 % (0-3) Neutrophils # (Auto) 6.1 x10^3/uL (1.8-7.7) Lymphocytes # (Auto) 1.4 x10^3/uL (1.0-4.8) Monocytes # (Auto) 0.7 x10^3/uL (0.0-1.1) Eosinophils # (Auto) 0.2 x10^3/uL (0.0-0.7) Basophils # (Auto) 0.1 x10^3/uL (0.0-0.2) Sodium Level 138 mmol/L (136-145) Potassium Level 3.8 mmol/L (3.5-5.1) Chloride Level 102 mmol/L (98-107) Carbon Dioxide Level 29 mmol/L (21-32) Anion Gap 7 (6-14) Blood Urea Nitrogen 7 mg/dL (8-26) Creatinine 0.8 mg/dL (0.7-1.3) Estimated GFR (Cockcroft-Gault) 97.6 BUN/Creatinine Ratio 9 (6-20) Glucose Level 199 mg/dL (70-99) Calcium Level 9.0 mg/dL (8.5-10.1) Total Bilirubin 0.4 mg/dL (0.2-1.0) Aspartate Amino Transf (AST/SGOT) 16 U/L (15-37) Alanine Aminotransferase (ALT/SGPT) 27 U/L (16-63) Alkaline Phosphatase 64 U/L (46-116) Total Protein 7.1 g/dL (6.4-8.2) Albumin 2.4 g/dL (3.4-5.0) Albumin/Globulin Ratio 0.5 (1.0-1.7) Glucose (Fingerstick) 176 mg/dL (70-99) 167 mg/dL (70-99) 137 mg/dL (70-99) Test 06/14/19 16:40 06/14/19 20:49 06/15/19 06:00 06/15/19 07:41 Glucose (Fingerstick) 160 mg/dL (70-99) 189 mg/dL (70-99) 179 mg/dL (70-99) Creatinine 2.1 mg/dL (0.7-1.3) Estimated GFR (Cockcroft-Gault) 32.1 Laboratory Tests Test 06/14/19 14:57 06/14/19 16:40 06/14/19 20:49 06/15/19 06:00 Glucose (Fingerstick) 137 mg/dL (70-99) 160 mg/dL (70-99) 189 mg/dL (70-99) Creatinine 2.1 mg/dL (0.7-1.3) Estimated GFR (Cockcroft-Gault) 32.1 Test 06/15/19 07:41 Glucose (Fingerstick) 179 mg/dL (70-99) Microbiology 06/12/19 Blood Culture - Preliminary, Resulted NO GROWTH AFTER 2 DAYS 06/12/19 Aerobic Culture - Final, Complete 06/12/19 Aerobic Culture Result 1 (YUMI) - Final, Complete 06/12/19 Gram Stain - Final, Complete 06/12/19 Gram Stain Result 1 (YUMI) - Final, Complete 06/12/19 Gram Stain Result 2 (YUMI) - Final, Complete Medications Current Medications Lidocaine/ Epinephrine (LIDOCAINE 1%-EPI 1:100,000 Multi-Dose) 20 ml 1X ONCE INJ Last administered on 06/12/19at 10:29; Start 06/12/19 at 10:15; Stop 06/12/19 at 10:16; Status DC Sodium Bicarbonate (Sodium Bicarb Adult 8.4% Syr) 50 meq STK-MED ONCE .ROUTE ; Start 06/12/19 at 10:19; Stop 06/12/19 at 10:19; Status DC Sodium Bicarbonate (Sodium Bicarb Adult 8.4% Syr) 50 meq 1X ONCE SQ Last administered on 06/12/19at 10:35; Start 06/12/19 at 10:30; Stop 06/12/19 at 10:31; Status DC Vancomycin HCl 250 ml @ 250 mls/hr 1X ONCE IV Last administered on 06/12/19at 11:48; Start 06/12/19 at 10:45; Stop 06/12/19 at 11:44; Status DC Sodium Chloride 1,000 ml @ 1,000 mls/hr 1X ONCE IV Last administered on 06/12/19at 11:45; Start 06/12/19 at 11:45; Stop 06/12/19 at 12:44; Status DC Vancomycin HCl (Vanco Per Pharmacy) 1 each PRN DAILY PRN MC SEE COMMENTS Last administered on 06/14/19at 12:53; Start 06/12/19 at 12:30; Stop 06/15/19 at 09:07; Status DC Insulin Human Lispro (HumaLOG) 0-5 UNITS TIDWMEALS SQ Last administered on 06/12/19at 17:21; Start 06/12/19 at 17:00; Stop 06/13/19 at 13:09; Status DC Dextrose (Dextrose 50%-Water Syringe) 12.5 gm PRN Q15MIN PRN IV SEE COMMENTS; Start 06/12/19 at 12:30; Stop 06/13/19 at 13:43; Status DC Vancomycin HCl 2 gm/Sodium Chloride 500 ml @ 250 mls/hr 1X ONCE IV Last administered on 06/12/19at 13:09; Start 06/12/19 at 13:00; Stop 06/12/19 at 14:59; Status DC Sodium Chloride (Normal Saline Flush) 3 ml QSHIFT PRN IV AFTER MEDS AND BLOOD DRAWS; Start 06/12/19 at 12:30 Sodium Chloride 1,000 ml @ 100 mls/hr Q10H IV Last administered on 06/14/19at 12:09; Start 06/12/19 at 12:18 Ondansetron HCl (Zofran) 4 mg PRN Q4HRS PRN IV NAUSEA/VOMITING Last administered on 06/13/19at 02:34; Start 06/12/19 at 12:30 Zolpidem Tartrate (Ambien) 5 mg PRN QHS PRN PO INSOMNIA; Start 06/12/19 at 12:30 Acetaminophen (Tylenol) 650 mg PRN Q4HRS PRN PO TEMP OVER 100.4F OR MILD PAIN; Start 06/12/19 at 12:30 Al Hydroxide/Mg Hydroxide (Mylanta Plus Xs) 30 ml PRN DAILY PRN PO HEARTBURN / GAS; Start 06/12/19 at 12:30 Clonidine HCl (Catapres) 0.1 mg PRN Q6HRS PRN PO SBP>160 OR DBP>90; Start 06/12/19 at 12:30 Docusate Sodium (Colace) 100 mg PRN BID PRN PO CONSTIPATION; Start 06/12/19 at 12:30 Albuterol Sulfate (Ventolin Neb Soln) 2.5 mg PRN Q4HRS PRN NEB SHORTNESS OF BREATH; Start 06/12/19 at 12:30 Guaifenesin (Robitussin) 200 mg PRN Q4HRS PRN PO COUGH; Start 06/12/19 at 12:30 Lorazepam (Ativan) 0.5 mg PRN Q4HRS PRN PO ANXIETY / AGITATION; Start 06/12/19 at 12:30 Enoxaparin Sodium (Lovenox 40mg Syringe) 40 mg Q24H SQ Last administered on 06/13/19at 14:31; Start 06/12/19 at 13:00 Metformin HCl (Glucophage Xr) 500 mg [id number] PO Last administered on 06/15/19 08:14; Start 06/13/19 at 08:00 Lisinopril (Prinivil) 10 mg DAILY08 PO Last administered on 06/15/19 08:14; Start 06/12/19 at 12:30 Piperacillin Sod/ Tazobactam Sod 3.375 gm/Sodium Chloride 50 ml @ 100 mls/hr Q6HRS IV Last administered on 06/15/19 06:18; Start 06/12/19 at 14:00; Stop 06/15/19 at 09:07; Status DC Nicotine (Nicoderm Cq 21mg) 1 patch DAILY TD Last administered on 06/15/19 08:15; Start 06/12/19 at 15:30 Vancomycin HCl 1.25 gm/Sodium Chloride 250 ml @ 167 mls/hr Q12H IV Last administered on 06/14/19 01:09; Start 06/13/19 at 01:00; Stop 06/14/19 at 02:48; Status DC Vancomycin HCl (Vancomycin Trough Level) 1 each 1X ONCE MC Last administered on 06/14/19 00:30; Start 06/14/19 at 00:30; Stop 06/14/19 at 00:31; Status DC Hydromorphone HCl (Dilaudid) 1 mg PRN Q3HRS PRN IV SEVERE PAIN 7-10; Start 06/12/19 at 16:45 Acetaminophen/ Hydrocodone Bitart (Lortab 5/325) 1 tab PRN Q4HRS PRN PO MODERA TE PAIN Last administered on 06/14/19 20:57; Start 06/12/19 at 17:00 Acetaminophen/ Hydrocodone Bitart (Lortab 5/325) 2 tab PRN Q4HRS PRN PO SEVERE PAIN Last administered on 06/13/19 14:31; Start 06/12/19 at 17:00 Lactobacillus Rhamnosus (Culturelle) 1 cap BID PO Last administered on 06/15/19 08:14; Start 06/13/19 at 21:00 Insulin Human Lispro (HumaLOG) 0-9 UNITS TIDWMEALS SQ Last administered on 06/15/19 08:28; Start 06/13/19 at 17:00 Dextrose (Dextrose 50%-Water Syringe) 12.5 gm PRN Q15MIN PRN IV SEE COMMENTS; Start 06/13/19 at 13:15 Insulin Glargine (Lantus Syringe) 10 unit 1X ONCE SQ Last administered on 06/13/19at 14:39; Start 06/13/19 at 14:00; Stop 06/13/19 at 14:01; Status DC Vancomycin HCl 1.25 gm/Sodium Chloride 250 ml @ 167 mls/hr Q12H IV Last administered on 06/15/19at 01:18; Start 06/14/19 at 13:00; Stop 06/15/19 at 09:08; Status DC Vancomycin HCl (Vancomycin Trough Level) 1 each 1X ONCE MC ; Start 06/15/19 at 08:30; Stop 06/15/19 at 08:31; Status Cancel Ondansetron HCl (Zofran) 4 mg PRN Q6HRS PRN IV NAUSEA/VOMITING; Start 06/14/19 at 12:45; Stop 06/14/19 at 19:05; Status DC Fentanyl Citrate (Fentanyl 2ml Vial) 25 mcg PRN Q5MIN PRN IV MILD PAIN 1-3; Start 06/14/19 at 12:45; Stop 06/14/19 at 19:05; Status DC Fentanyl Citrate (Fentanyl 2ml Vial) 50 mcg PRN Q5MIN PRN IV MODERATE TO SEVERE PAIN Last administered on 06/14/19at 15:07; Start 06/14/19 at 12:45; Stop 06/14/19 at 19:05; Status DC Morphine Sulfate (Morphine Sulfate) 1 mg PRN Q10MIN PRN IV SEVERE PAIN 7-10; Start 06/14/19 at 12:45; Stop 06/14/19 at 19:05; Status DC Ringer's Solution 1,000 ml @ 30 mls/hr Q24H IV ; Start 06/14/19 at 12:40; Stop 06/14/19 at 19:04; Status DC Lidocaine HCl (Xylocaine-Mpf 1% 2ml Vial) 2 ml PRN 1X PRN ID PRIOR TO IV START; Start 06/14/19 at 12:45; Stop 06/14/19 at 19:05; Status DC Hydromorphone HCl (Dilaudid) 0.5 mg PRN Q10MIN PRN IV SEV PAIN, Second choice; Start 06/14/19 at 12:45; Stop 06/14/19 at 19:05; Status DC Prochlorperazine Edisylate (Compazine) 5 mg PACU PRN PRN IV NAUSEA, MRX1; S tart 06/14/19 at 12:45; Stop 06/14/19 at 19:05; Status DC Lidocaine/ Epinephrine (LIDOCAINE 1%-EPI 1:100,000 Multi-Dose) 20 ml STK-MED ONCE .ROUTE ; Start 06/14/19 at 13:31; Stop 06/14/19 at 13:31; Status DC Fentanyl Citrate (Fentanyl 2ml Vial) 100 mcg STK-MED ONCE .ROUTE ; Start 06/14/19 at 13:50; Stop 06/14/19 at 13:50; Status DC Propofol 20 ml @ As Directed STK-MED ONCE IV ; Start 06/14/19 at 13:53; Stop 06/14/19 at 13:53; Status DC Lidocaine HCl (Lidocaine Pf 2% Vial) 5 ml STK-MED ONCE .ROUTE ; Start 06/14/19 at 13:53; Stop 06/14/19 at 13:53; Status DC Ondansetron HCl (Zofran) 4 mg STK-MED ONCE .ROUTE ; Start 06/14/19 at 13:53; Stop 06/14/19 at 13:53; Status DC Fentanyl Citrate (Fentanyl 2ml Vial) 100 mcg STK-MED ONCE .ROUTE ; Start 06/14/19 at 14:49; Stop 06/14/19 at 14:50; Status DC Sevoflurane (Ultane) 30 ml STK-MED ONCE IH ; Start 06/14/19 at 14:52; Stop 06/14/19 at 14:52; Status DC Cefepime HCl (Maxipime) 1 gm Q12HR IVP ; Start 06/15/19 at 10:00 Metronidazole (Flagyl) 500 mg Q12HR PO ; Start 06/15/19 at 10:00 Linezolid (Zyvox) 600 mg BID PO ; Start 06/15/19 at 10:00 Vitals/I & O Vital Sign - Last 24 Hours 12/3/19 12/3/19 12/3/19 12/3/19 12:54 14:25 14:30 14:40 Temp 98.5 98.1 98.1 98.5 98.1 98.1 Pulse 69 64 60 Resp 16 18 19 B/P (MAP) 187/87 168/75 105/88 Pulse Ox 97 100 100 O2 Delivery Room Air Simple Mask Mask Room Air O2 Flow Rate 10 10 06/14/19 06/14/19 06/14/19 06/14/19 14:55 14:55 15:07 15:10 Temp 98.1 98.1 98.1 98.1 Pulse 59 58 Resp 20 21 22 21 B/P (MAP) 156/76 154/82 Pulse Ox 94 94 97 O2 Delivery Room Air Room Air Room Air Room Air O2 Flow Rate 10 06/14/19 06/14/19 06/14/19 06/14/19 15:25 15:40 15:45 16:00 Temp 98.1 98.2 98.1 98.2 Pulse 60 58 59 61 Resp 21 19 14 14 B/P (MAP) 166/71 135/73 150/65 (93) 141/69 (93) Pulse Ox 94 94 93 95 O2 Delivery Room Air Room Air Room Air Room Air 06/14/19 06/14/19 06/14/19 06/14/19 16:15 16:30 16:45 17:15 Pulse 59 65 59 75 Resp 16 14 12 12 B/P (MAP) 157/70 (99) 168/78 (108) 162/69 (100) 110/88 (95) Pulse Ox 96 96 96 96 O2 Delivery Room Air Room Air Room Air Room Air 06/14/19 06/14/19 06/14/19 06/15/19 17:45 19:00 23:00 03:00 Temp 98.1 97.9 97.9 98.1 97.9 97.9 Pulse 65 68 58 71 Resp 12 18 18 18 B/P (MAP) 158/65 (96) 179/76 (110) 140/56 (84) 150/94 (112) Pulse Ox 95 97 93 96 O2 Delivery Room Air Room Air Room Air Room Air 06/15/19 06/15/19 08:00 08:14 Temp 97.9 97.9 Pulse 64 64 Resp 17 B/P (MAP) 163/64 (97) 163/66 Pulse Ox 93 Intake and Output 06/14/19 06/14/19 06/15/19 15:00 23:00 07:00 Intake Total 800 ml 1130 ml 300 ml Output Total 10 ml Balance 790 ml 1130 ml 300 ml NICK HANSEN MD Jun 15, 2019 11:13
[2019-06-15] MEDS: ENOXAPARIN 40 MG/0.4 ML SYRINGE. SQ SCH (12:21)
[2019-06-15] MEDS: CEFEPIME HCL IV Push 1 GM VIAL. IVP SCH ×2 (12:22→20:43)
[2019-06-15] MEDS: metroNIDAZOLE 500 MG TABLET PO SCH ×2 (12:24→20:43)
[2019-06-15] MEDS: LINEZOLID 600 MG TABLET PO SCH ×2 (12:25→20:43)
[2019-06-15 15:00] VITALS: BP 145/95
[2019-06-15] MEDS: HYDROcodone/APAP 5/325MG 1 TAB TABLET PO PRN (17:22)
--- NOTE | 2019-06-15 17:51 | NUR ---
Wound Care Pt seen for R groin abscess, s/p surgical I&D on 06/14/19. Pt given pain medication by JOSE Shaw, then surgical dressing soaked with saline wash to help loosen, prior to removing packing. All surgical packing removed, wound cleaned, measured and photographed. Wound bed beefy red, with significant undermining from 12-4, periwound bright red and indurated, no odor noted. Wound repacked with 1/4 strength Dakins solution soaked kerlix roll and covered with ABD and tape, pt tolerated well with moderate amount of pain. Spoke with pt re: daily dressing changes and if he had anyone to help him, pt stated his daughter is an RN and could help. With [employer] as pt's insurance, he would be out of network in the [facility] wound clinic. Will continue to follow for wound care needs.
[2019-06-15] MEDS: SODIUM HYPOCHLORITE 0.125% 473 ML BOTTLE. TP SCH (18:00)
[2019-06-15 19:28] VITALS: BP 151/58
[2019-06-15 22:53] VITALS: BP 154/62
[2019-06-16] VITALS (7 sets, daily range): BP systolic 134–182; BP diastolic 40–85
[2019-06-16 04:48] LABS: BASO % 0 % (0-3); EOS # 0.1 x10^3/uL (0.0-0.7); EOS % 1 % (0-3); HEMATOCRIT 41.2 % (39.0-53.0); LYMPH # 0.8 x10^3/uL (1.0-4.8); LYMPH % 8 % (24-48); MEAN CORPUSCULAR HEMOGLOBIN 32 pg (25-35); MEAN CORPUSCULAR HGB CONC 34 g/dL (31-37); MEAN CORPUSCULAR VOLUME 94 fL (79-100); MONO # 0.8 x10^3/uL (0.0-1.1); MONO % 8 % (0-9); NEUT # 8.3 x10^3/uL (1.8-7.7); NEUT % 83 % (31-73); PLATELET COUNT 323 x10^3/uL (140-400); RED BLOOD COUNT 4.37 x10^6/uL (4.30-5.70); RED CELL DISTRIBUTION WIDTH 12.3 % (11.5-14.5); WHITE BLOOD COUNT 10.1 x10^3/uL (4.0-11.0)
[2019-06-16 05:06] LABS: ALBUMIN 2.1 g/dL (3.4-5.0); ALBUMIN/GLOBULIN RATIO 0.5 (1.0-1.7); CALCIUM 8.5 mg/dL (8.5-10.1); CREATININE 2.9 mg/dL (0.7-1.3); GFR 22.1; POTASSIUM 3.5 mmol/L (3.5-5.1); TOTAL BILIRUBIN 0.3 mg/dL (0.2-1.0); TOTAL PROTEIN 6.5 g/dL (6.4-8.2)
[2019-06-16] MEDS: IV NORMAL SALINE 1000ML BAG 1,000 ML IV SCH ×2 (06:15→16:31)
--- NOTE | 2019-06-16 08:56 | PDOC ---
JENNIE JACKSON [employer] 06/16/19 0856: SURGICAL PROGRESS NOTE Subjective no complaints wants to go home Vital Signs Vital Signs Date Time Temp Pulse Resp B/P (MAP) Pulse Ox O2 Delivery O2 Flow Rate FiO2 06/16/19 07:00 98.1 79 16 182/85 (117) 99 Room Air 98.1 I&O Intake and Output 06/16/19 07:00 Intake Total 690 ml Balance 690 ml Intake Oral 690 ml # Voids 6 General: Alert, Oriented X3, Cooperative Extremities: Other (wound clean, packed) Labs Laboratory Tests Test 06/14/19 10:57 06/14/19 14:57 06/14/19 16:40 06/14/19 20:49 Glucose (Fingerstick) 167 mg/dL (70-99) 137 mg/dL (70-99) 160 mg/dL (70-99) 189 mg/dL (70-99) Test 06/15/19 06:00 06/15/19 07:41 06/15/19 11:46 06/15/19 16:34 Creatinine 2.1 mg/dL (0.7-1.3) Estimated GFR (Cockcroft-Gault) 32.1 Glucose (Fingerstick) 179 mg/dL (70-99) 226 mg/dL (70-99) 182 mg/dL (70-99) Test 06/15/19 20:38 06/16/19 04:05 06/16/19 07:25 Glucose (Fingerstick) 186 mg/dL (70-99) 186 mg/dL (70-99) White Blood Count 10.1 x10^3/uL (4.0-11.0) Red Blood Count 4.37 x10^6/uL (4.30-5.70) Hemoglobin 14.0 g/dL (13.0-17.5) Hematocrit 41.2 % (39.0-53.0) Mean Corpuscular Volume 94 fL (79-100) Mean Corpuscular Hemoglobin 32 pg (25-35) Mean Corpuscular Hemoglobin Concent 34 g/dL (31-37) Red Cell Distribution Width 12.3 % (11.5-14.5) Platelet Count 323 x10^3/uL (140-400) Neutrophils (%) (Auto) 83 % (31-73) Lymphocytes (%) (Auto) 8 % (24-48) Monocytes (%) (Auto) 8 % (0-9) Eosinophils (%) (Auto) 1 % (0-3) Basophils (%) (Auto) 0 % (0-3) Neutrophils # (Auto) 8.3 x10^3/uL (1.8-7.7) Lymphocytes # (Auto) 0.8 x10^3/uL (1.0-4.8) Monocytes # (Auto) 0.8 x10^3/uL (0.0-1.1) Eosinophils # (Auto) 0.1 x10^3/uL (0.0-0.7) Basophils # (Auto) 0.0 x10^3/uL (0.0-0.2) Sodium Level 139 mmol/L (136-145) Potassium Level 3.5 mmol/L (3.5-5.1) Chloride Level 105 mmol/L (98-107) Carbon Dioxide Level 21 mmol/L (21-32) Anion Gap 13 (6-14) Blood Urea Nitrogen 19 mg/dL (8-26) Creatinine 2.9 mg/dL (0.7-1.3) Estimated GFR (Cockcroft-Gault) 22.1 BUN/Creatinine Ratio 7 (6-20) Glucose Level 193 mg/dL (70-99) Calcium Level 8.5 mg/dL (8.5-10.1) Total Bilirubin 0.3 mg/dL (0.2-1.0) Aspartate Amino Transf (AST/SGOT) 28 U/L (15-37) Alanine Aminotransferase (ALT/SGPT) 27 U/L (16-63) Alkaline Phosphatase 53 U/L (46-116) Total Protein 6.5 g/dL (6.4-8.2) Albumin 2.1 g/dL (3.4-5.0) Albumin/Globulin Ratio 0.5 (1.0-1.7) Laboratory Tests Test 06/15/19 11:46 06/15/19 16:34 06/15/19 20:38 06/16/19 04:05 Glucose (Fingerstick) 226 mg/dL (70-99) 182 mg/dL (70-99) 186 mg/dL (70-99) White Blood Count 10.1 x10^3/uL (4.0-11.0) Red Blood Count 4.37 x10^6/uL (4.30-5.70) Hemoglobin 14.0 g/dL (13.0-17.5) Hematocrit 41.2 % (39.0-53.0) Mean Corpuscular Volume 94 fL (79-100) Mean Corpuscular Hemoglobin 32 pg (25-35) Mean Corpuscular Hemoglobin Concent 34 g/dL (31-37) Red Cell Distribution Width 12.3 % (11.5-14.5) Platelet Count 323 x10^3/uL (140-400) Neutrophils (%) (Auto) 83 % (31-73) Lymphocytes (%) (Auto) 8 % (24-48) Monocytes (%) (Auto) 8 % (0-9) Eosinophils (%) (Auto) 1 % (0-3) Basophils (%) (Auto) 0 % (0-3) Neutrophils # (Auto) 8.3 x10^3/uL (1.8-7.7) Lymphocytes # (Auto) 0.8 x10^3/uL (1.0-4.8) Monocytes # (Auto) 0.8 x10^3/uL (0.0-1.1) Eosinophils # (Auto) 0.1 x10^3/uL (0.0-0.7) Basophils # (Auto) 0.0 x10^3/uL (0.0-0.2) Sodium Level 139 mmol/L (136-145) Potassium Level 3.5 mmol/L (3.5-5.1) Chloride Level 105 mmol/L (98-107) Carbon Dioxide Level 21 mmol/L (21-32) Anion Gap 13 (6-14) Blood Urea Nitrogen 19 mg/dL (8-26) Creatinine 2.9 mg/dL (0.7-1.3) Estimated GFR (Cockcroft-Gault) 22.1 BUN/Creatinine Ratio 7 (6-20) Glucose Level 193 mg/dL (70-99) Calcium Level 8.5 mg/dL (8.5-10.1) Total Bilirubin 0.3 mg/dL (0.2-1.0) Aspartate Amino Transf (AST/SGOT) 28 U/L (15-37) Alanine Aminotransferase (ALT/SGPT) 27 U/L (16-63) Alkaline Phosphatase 53 U/L (46-116) Total Protein 6.5 g/dL (6.4-8.2) Albumin 2.1 g/dL (3.4-5.0) Albumin/Globulin Ratio 0.5 (1.0-1.7) Test 06/16/19 07:25 Glucose (Fingerstick) 186 mg/dL (70-99) Problem List Problems Medical Problems: (1) Cellulitis Status: Acute (2) Groin abscess Status: Acute Assessment/Plan continue wound care, abx dc when plan in place AIME JIN MD 06/16/19 1528: SURGICAL PROGRESS NOTE Assessment/Plan Agree with above JENNIE JACKSON APRN Jun 16, 2019 08:56 AIME JIN MD Jun 16, 2019 15:28
[2019-06-16] MEDS: metroNIDAZOLE 500 MG TABLET PO SCH ×2 (08:57→20:44)
[2019-06-16] MEDS: LINEZOLID 600 MG TABLET PO SCH ×2 (08:57→20:44)
[2019-06-16] MEDS: LACTOBACILLUS RHAMNOSUS GG 1 CAPSULE. PO SCH ×2 (08:57→20:44)
[2019-06-16] MEDS: LISINOPRIL 10 MG TABLET PO SCH (08:57)
[2019-06-16] MEDS: metFORMIN XR 500 MG TAB.ER.24H PO SCH (08:57)
[2019-06-16] MEDS: NICOTINE 21MG PATCH. TD SCH (08:57)
[2019-06-16] MEDS: CEFEPIME HCL IV Push 1 GM VIAL. IVP SCH ×2 (08:58→20:44)
[2019-06-16] MEDS: SODIUM HYPOCHLORITE 0.125% 473 ML BOTTLE. TP SCH (09:00)
[2019-06-16] MEDS: INSULIN LISPRO 300 UNITS/3 ML VIAL. SQ SCH ×3 (09:05→17:00)
--- NOTE | 2019-06-16 09:08 | PDOC ---
Infectious Disease Note Subjective: Subjective pt says feels better No fever or chills no n/v/d/abdo pain or sob no gu symptoms Vital Signs: Vital Signs Vital Signs Date Time Temp Pulse Resp B/P (MAP) Pulse Ox O2 Delivery O2 Flow Rate FiO2 06/16/19 08:57 79 182/85 06/16/19 07:00 98.1 16 99 Room Air 98.1 Physical Exam: PHYSICAL EXAM GENERAL: The patient is propped up in bed, alert, in no apparent distress.nontoxic appearing HEENT: Pupils are equally round. Oral cavity: Pharynx pink and moist. NECK: Supple. LUNGS: Clear to auscultation. HEART: S1 and S2. ABDOMEN: Obese, soft, and nontender with bowel sounds present. EXTREMITIES: No gross edema or cyanosis. SKIN: Warm to touch. No signs of rash. He has a fairly large area of induration with some fluctuance and redness on the right inner thigh with packing in place. NEUROLOGIC: Alert and oriented x3. Medications: Inpatient Meds: Current Medications Medications (Trade) Dose Ordered Sig/Ivon Start Time Stop Time Status Last Admin Dose Admin Acetaminophen (Tylenol) 650 mg PRN Q4HRS PRN 06/12/19 12:30 Acetaminophen/ Hydrocodone Bitart (Lortab 5/325) 2 tab PRN Q4HRS PRN 06/12/19 17:00 06/15/19 17:22 2 TAB Al Hydroxide/Mg Hydroxide (Mylanta Plus Xs) 30 ml PRN DAILY PRN 06/12/19 12:30 Albuterol Sulfate (Ventolin Neb Soln) 2.5 mg PRN Q4HRS PRN 06/12/19 12:30 Cefepime HCl (Maxipime) 1 gm Q12HR 06/15/19 10:00 06/16/19 08:58 1 GM Clonidine HCl (Catapres) 0.1 mg PRN Q6HRS PRN 06/12/19 12:30 Dextrose (Dextrose 50%-Water Syringe) 12.5 gm PRN Q15MIN PRN 06/13/19 13:15 Docusate Sodium (Colace) 100 mg PRN BID PRN 06/12/19 12:30 Enoxaparin Sodium (Lovenox 40mg Syringe) 40 mg Q24H 06/12/19 13:00 06/15/19 12:21 40 MG Fentanyl Citrate (Fentanyl 2ml Vial) 100 mcg STK-MED ONCE 06/14/19 14:49 06/14/19 14:50 DC Guaifenesin (Robitussin) 200 mg PRN Q4HRS PRN 06/12/19 12:30 Hydromorphone HCl (Dilaudid) 0.5 mg PRN Q10MIN PRN 06/14/19 12:45 06/14/19 19:05 DC Insulin Glargine (Lantus Syringe) 10 unit 1X ONCE 06/13/19 14:00 06/13/19 14:01 DC 06/13/19 14:39 10 UNIT Insulin Human Lispro (HumaLOG) 0-9 UNITS TIDWMEALS 06/13/19 17:00 06/16/19 09:05 4 UNITS Lactobacillus Rhamnosus (Culturelle) 1 cap BID 06/13/19 21:00 06/16/19 08:57 1 CAP Lidocaine HCl (Lidocaine Pf 2% Vial) 5 ml STK-MED ONCE 06/14/19 13:53 06/14/19 13:53 DC Lidocaine HCl (Xylocaine-Mpf 1% 2ml Vial) 2 ml PRN 1X PRN 06/14/19 12:45 06/14/19 19:05 DC Lidocaine/ Epinephrine (LIDOCAINE 1%-EPI 1:100,000 Multi-Dose) 20 ml STK-MED ONCE 06/14/19 13:31 06/14/19 13:31 DC Linezolid (Zyvox) 600 mg BID 06/15/19 10:00 06/16/19 08:57 600 MG Lisinopril (Prinivil) 10 mg DAILY08 06/12/19 12:30 06/16/19 08:57 10 MG Lorazepam (Ativan) 0.5 mg PRN Q4HRS PRN 06/12/19 12:30 Metformin HCl (Glucophage Xr) 500 mg DAILYWBKFT 06/13/19 08:00 06/16/19 08:57 500 MG Metronidazole (Flagyl) 500 mg Q12HR 06/15/19 10:00 06/16/19 08:57 500 MG Morphine Sulfate (Morphine Sulfate) 1 mg PRN Q10MIN PRN 06/14/19 12:45 06/14/19 19:05 DC Nicotine (Nicoderm Cq 21mg) 1 patch DAILY 06/12/19 15:30 06/16/19 08:57 1 PATCH Ondansetron HCl (Zofran) 4 mg STK-MED ONCE 06/14/19 13:53 06/14/19 13:53 DC Piperacillin Sod/ Tazobactam Sod 3.375 gm/Sodium Chloride 50 ml @ 100 mls/hr Q6HRS 06/12/19 14:00 06/15/19 09:07 DC 06/15/19 06:18 100 MLS/HR Prochlorperazine Edisylate (Compazine) 5 mg PACU PRN PRN 06/14/19 12:45 06/14/19 19:05 DC Propofol 20 ml @ As Directed STK-MED ONCE 06/14/19 13:53 06/14/19 13:53 DC Ringer's Solution 1,000 ml @ 30 mls/hr Q24H 06/14/19 12:40 06/14/19 19:04 DC Sevoflurane (Ultane) 30 ml STK-MED ONCE 06/14/19 14:52 06/14/19 14:52 DC Sodium Hypochlorite (Dakin'S 1/4 Strength) 1 emilee DAILY 06/15/19 18:00 Sodium Bicarbonate (Sodium Bicarb Adult 8.4% Syr) 50 meq 1X ONCE 06/12/19 10:30 06/12/19 10:31 DC 06/12/19 10:35 50 MEQ Sodium Chloride 1,000 ml @ 100 mls/hr Q10H 06/12/19 12:18 06/16/19 06:15 100 MLS/HR Sodium Chloride (Normal Saline Flush) 3 ml QSHIFT PRN 06/12/19 12:30 Vancomycin HCl (Vanco Per Pharmacy) 1 each PRN DAILY PRN 06/12/19 12:30 06/15/19 09:07 DC 06/14/19 12:53 1 EACH Vancomycin HCl (Vancomycin Trough Level) 1 each 1X ONCE 06/15/19 08:30 06/15/19 08:31 Cancel Vancomycin HCl 1.25 gm/Sodium Chloride 250 ml @ 167 mls/hr Q12H 06/14/19 13:00 06/15/19 09:08 DC 06/15/19 01:18 167 MLS/HR Vancomycin HCl 2 gm/Sodium Chloride 500 ml @ 250 mls/hr 1X ONCE 06/12/19 13:00 06/12/19 14:59 DC 06/12/19 13:09 250 MLS/HR Zolpidem Tartrate (Ambien) 5 mg PRN QHS PRN 06/12/19 12:30 Labs: Lab Laboratory Tests Test 06/15/19 11:46 06/15/19 16:34 06/15/19 20:38 06/16/19 04:05 Glucose (Fingerstick) 226 mg/dL (70-99) 182 mg/dL (70-99) 186 mg/dL (70-99) White Blood Count 10.1 x10^3/uL (4.0-11.0) Red Blood Count 4.37 x10^6/uL (4.30-5.70) Hemoglobin 14.0 g/dL (13.0-17.5) Hematocrit 41.2 % (39.0-53.0) Mean Corpuscular Volume 94 fL (79-100) Mean Corpuscular Hemoglobin 32 pg (25-35) Mean Corpuscular Hemoglobin Concent 34 g/dL (31-37) Red Cell Distribution Width 12.3 % (11.5-14.5) Platelet Count 323 x10^3/uL (140-400) Neutrophils (%) (Auto) 83 % (31-73) Lymphocytes (%) (Auto) 8 % (24-48) Monocytes (%) (Auto) 8 % (0-9) Eosinophils (%) (Auto) 1 % (0-3) Basophils (%) (Auto) 0 % (0-3) Neutrophils # (Auto) 8.3 x10^3/uL (1.8-7.7) Lymphocytes # (Auto) 0.8 x10^3/uL (1.0-4.8) Monocytes # (Auto) 0.8 x10^3/uL (0.0-1.1) Eosinophils # (Auto) 0.1 x10^3/uL (0.0-0.7) Basophils # (Auto) 0.0 x10^3/uL (0.0-0.2) Sodium Level 139 mmol/L (136-145) Potassium Level 3.5 mmol/L (3.5-5.1) Chloride Level 105 mmol/L (98-107) Carbon Dioxide Level 21 mmol/L (21-32) Anion Gap 13 (6-14) Blood Urea Nitrogen 19 mg/dL (8-26) Creatinine 2.9 mg/dL (0.7-1.3) Estimated GFR (Cockcroft-Gault) 22.1 BUN/Creatinine Ratio 7 (6-20) Glucose Level 193 mg/dL (70-99) Calcium Level 8.5 mg/dL (8.5-10.1) Total Bilirubin 0.3 mg/dL (0.2-1.0) Aspartate Amino Transf (AST/SGOT) 28 U/L (15-37) Alanine Aminotransferase (ALT/SGPT) 27 U/L (16-63) Alkaline Phosphatase 53 U/L (46-116) Total Protein 6.5 g/dL (6.4-8.2) Albumin 2.1 g/dL (3.4-5.0) Albumin/Globulin Ratio 0.5 (1.0-1.7) Test 06/16/19 07:25 Glucose (Fingerstick) 186 mg/dL (70-99) Objective: Assessment: 1. Rt Groin abscess status post incision and drainage in the emergency room on 06/12/2019. B hemolytic group B 06/14 S/P Surgical Incision and drainage of right groin abscess cult neg so far 2. 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 3. Diabetes. 4. Obesity. 5. Hypertension. 6. RAQUEL Plan: Plan of Care adjust dose of cefepime with renal func cont flagyl and zyvox off vanc and zosyn, last vanc trough 12 consult renal team f/u intraop cultures results monitor renal func closely cont local wound /vac care GABINO JACK MD Jun 16, 2019 09:08
--- NOTE | 2019-06-16 10:27 | PDOC2 ---
CONSULT Date of Consult Date of Consult DATE: 06/16/19 TIME: :19 Reason for Consult Reason for Consult: RAQUEL Identification/Chief Complaint Chief Complaint No complaints currently , wants to go home Source Source: Chart review, Patient History of Present Illness Reason for Visit: This patient is a 64-year-old male with past medical history of obesity, diabetes, and previous history of methicillin-resistant Staphylococcus aureus soft tissue skin infection, admitted on 06/12/2019 with c/o redness, swelling, and pain of right inner thigh 1 week prior to admission He was seen by [facility] and prescribed Bactrim for abscess. The area worsened and he was c/o fever, nausea, and vomiting and decided to come to ER He underwent a bedside incision and drainage initially S/P Surgical Incision and drainage of right groin abscess ON 06/14 . Currently denies any complaints. No F/C/N/V. Denies any urinary complaints, denies retention No past Hx of CKD , Cr was normal at presentation . Noted increase in Cr acutely since 06/15 . No LE edema PAST MEDICAL HISTORY: Obesity, diabetes, and hypertension. 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 Past Medical History Endocrine: Diabetes Past Surgical History Past Surgical History: Other (wound I&Ds) Family History Family History: High Cholestrol, Hypertension Social History 2 packs per day ALCOHOL: other (12-15 beers per week) Drugs: None Lives: Alone Current Problem List Problem List Problems Medical Problems: (1) Cellulitis Status: Acute (2) Groin abscess Status: Acute Current Medications Current Medications Current Medications Lidocaine/ Epinephrine (LIDOCAINE 1%-EPI 1:100,000 Multi-Dose) 20 ml 1X ONCE INJ Last administered on 06/12/19at 10:29; Start 06/12/19 at 10:15; Stop 06/12/19 at 10:16; Status DC Sodium Bicarbonate (Sodium Bicarb Adult 8.4% Syr) 50 meq STK-MED ONCE .ROUTE ; Start 06/12/19 at 10:19; Stop 06/12/19 at 10:19; Status DC Sodium Bicarbonate (Sodium Bicarb Adult 8.4% Syr) 50 meq 1X ONCE SQ Last admi nistered on 06/12/19at 10:35; Start 06/12/19 at 10:30; Stop 06/12/19 at 10:31; Status DC Vancomycin HCl 250 ml @ 250 mls/hr 1X ONCE IV Last administered on 06/12/19at 11:48; Start 06/12/19 at 10:45; Stop 06/12/19 at 11:44; Status DC Sodium Chloride 1,000 ml @ 1,000 mls/hr 1X ONCE IV Last administered on 06/12/19at 11:45; Start 06/12/19 at 11:45; Stop 06/12/19 at 12:44; Status DC Vancomycin HCl (Vanco Per Pharmacy) 1 each PRN DAILY PRN MC SEE COMMENTS Last administered on 06/14/19at 12:53; Start 06/12/19 at 12:30; Stop 06/15/19 at 09:07; Status DC Insulin Human Lispro (HumaLOG) 0-5 UNITS TIDWMEALS SQ Last administered on 06/12at 17:21; Start 06/12/19 at 17:00; Stop 06/13/19 at 13:09; Status DC Dextrose (Dextrose 50%-Water Syringe) 12.5 gm PRN Q15MIN PRN IV SEE COMMENTS; Start 06/12/19 at 12:30; Stop 06/13/19 at 13:43; Status DC Vancomycin HCl 2 gm/Sodium Chloride 500 ml @ 250 mls/hr 1X ONCE IV Last administered on 06/12/19at 13:09; Start 06/12/19 at 13:00; Stop 06/12/19 at 14:59; Status DC Sodium Chloride (Normal Saline Flush) 3 ml QSHIFT PRN IV AFTER MEDS AND BLOOD DRAWS; Start 06/12/19 at 12:30 Sodium Chloride 1,000 ml @ 100 mls/hr Q10H IV Last administered on 06/16/19at 06:15; Start 06/12/19 at 12:18 Ondansetron HCl (Zofran) 4 mg PRN Q4HRS PRN IV NAUSEA/VOMITING Last administered on 06/13/19at 02:34; Start 06/12/19 at 12:30 Zolpidem Tartrate (Ambien) 5 mg PRN QHS PRN PO INSOMNIA; Start 06/12/19 at 12:30 Acetaminophen (Tylenol) 650 mg PRN Q4HRS PRN PO TEMP OVER 100.4F OR MILD PAIN; Start 06/12/19 at 12:30 Al Hydroxide/Mg Hydroxide (Mylanta Plus Xs) 30 ml PRN DAILY PRN PO HEARTBURN / GAS; Start 06/12/19 at 12:30 Clonidine HCl (Catapres) 0.1 mg PRN Q6HRS PRN PO SBP>160 OR DBP>90; Start 06/12/19 at 12:30 Docusate Sodium (Colace) 100 mg PRN BID PRN PO CONSTIPATION; Start 06/12/19 at 12:30 Albuterol Sulfate (Ventolin Neb Soln) 2.5 mg PRN Q4HRS PRN NEB SHORTNESS OF LINETTE ATH; Start 06/12/19 at 12:30 Guaifenesin (Robitussin) 200 mg PRN Q4HRS PRN PO COUGH; Start 06/12/19 at 12:30 Lorazepam (Ativan) 0.5 mg PRN Q4HRS PRN PO ANXIETY / AGITATION; Start 06/12/19 at 12:30 Enoxaparin Sodium (Lovenox 40mg Syringe) 40 mg Q24H SQ Last administered on 06/15/19at 12:21; Start 06/12/19 at 13:00 Metformin HCl (Glucophage Xr) 500 mg DAILYWBKFT PO Last administered on 06/16/19at 08:57; Start 06/13/19 at 08:00 Lisinopril (Prinivil) 10 mg DAILY08 PO Last administered on 06/16/19at 08:57; Start 06/12/19 at 12:30 Piperacillin Sod/ Tazobactam Sod 3.375 gm/Sodium Chloride 50 ml @ 100 mls/hr Q6HRS IV Last administered on 06/15/19at 06:18; Start 06/12/19 at 14:00; Stop 06/15/19 at 09:07; Status DC Nicotine (Nicoderm Cq 21mg) 1 patch DAILY TD Last administered on 06/16/19at 08:57; Start 06/12/19 at 15:30 Vancomycin HCl 1.25 gm/Sodium Chloride 250 ml @ 167 mls/hr Q12H IV Last administered on 06/14/19at 01:09; Start 06/13/19 at 01:00; Stop 06/14/19 at 02:48; Status DC Vancomycin HCl (Vancomycin Trough Level) 1 each 1X ONCE MC Last administered on 06/14/19at 00:30; Start 06/14/19 at 00:30; Stop 06/14/19 at 00:31; Status DC Hydromorphone HCl (Dilaudid) 1 mg PRN Q3HRS PRN IV SEVERE PAIN 7-10; Start 06/12/19 at 16:45 Acetaminophen/ Hydrocodone Bitart (Lortab 5/325) 1 tab PRN Q4HRS PRN PO MODERATE PAIN Last administered on 06/14/19at 20:57; Start 06/12/19 at 17:00 Acetaminophen/ Hydrocodone Bitart (Lortab 5/325) 2 tab PRN Q4HRS PRN PO SEVERE PAIN Last administered on 06/15/19at 17:22; Start 06/12/19 at 17:00 Lactobacillus Rhamnosus (Culturelle) 1 cap BID PO Last administered on 06/16/19at 08:57; Start 06/13/19 at 21:00 Insulin Human Lispro (HumaLOG) 0-9 UNITS TIDWMEALS SQ Last administered on 06/16/19at 09:05; Start 06/13/19 at 17:00 Dextrose (Dextrose 50%-Water Syringe) 12.5 gm PRN Q15MIN PRN IV SEE COMMENTS; Start 06/13/19 at 13:15 Insulin Glargine (Lantus Syringe) 10 unit 1X ONCE SQ Last administered on 06/13/19at 14:39; Start 06/13/19 at 14:00; Stop 06/13/19 at 14:01; Status DC Vancomycin HCl 1.25 gm/Sodium Chloride 250 ml @ 167 mls/hr Q12H IV Last administered on 06/15/19at 01:18; Start 06/14/19 at 13:00; Stop 06/15/19 at 09:08; Status DC Vancomycin HCl (Vancomycin Trough Level) 1 each 1X ONCE MC ; Start 06/15/19 at 08:30; Stop 06/15/19 at 08:31; Status Cancel Ondansetron HCl (Zofran) 4 mg PRN Q6HRS PRN IV NAUSEA/VOMITING; Start 06/14/19 at 12:45; Stop 06/14/19 at 19:05; Status DC Fentanyl Citrate (Fentanyl 2ml Vial) 25 mcg PRN Q5MIN PRN IV MILD PAIN 1-3; Start 06/14/19 at 12:45; Stop 06/14/19 at 19:05; Status DC Fentanyl Citrate (Fentanyl 2ml Vial) 50 mcg PRN Q5MIN PRN IV MODERATE TO SEVERE PAIN Last administered on 06/14/19at 15:07; Start 06/14/19 at 12:45; Stop 06/14/19 at 19:05; Status DC Morphine Sulfate (Morphine Sulfate) 1 mg PRN Q10MIN PRN IV SEVERE PAIN 7-10; Start 06/14/19 at 12:45; Stop 06/14/19 at 19:05; Status DC Ringer's Solution 1,000 ml @ 30 mls/hr Q24H IV ; Start 06/14/19 at 12:40; Stop 06/14/19 at 19:04; Status DC Lidocaine HCl (Xylocaine-Mpf 1% 2ml Vial) 2 ml PRN 1X PRN ID PRIOR TO IV START; Start 06/14/19 at 12:45; Stop 06/14/19 at 19:05; Status DC Hydromorphone HCl (Dilaudid) 0.5 mg PRN Q10MIN PRN IV SEV PAIN, Second choice; Start 06/14/19 at 12:45; Stop 06/14/19 at 19:05; Status DC Prochlorperazine Edisylate (Compazine) 5 mg PACU PRN PRN IV NAUSEA, MRX1; Start 06/14/19 at 12:45; Stop 06/14/19 at 19:05; Status DC Lidocaine/ Epinephrine (LIDOCAINE 1%-EPI 1:100,000 Multi-Dose) 20 ml STK-MED ONCE .ROUTE ; Start 06/14/19 at 13:31; Stop 06/14/19 at 13:31; Status DC Fentanyl Citrate (Fentanyl 2ml Vial) 100 mcg STK-MED ONCE .ROUTE ; Start 06/14/19 at 13:50; Stop 06/14/19 at 13:50; Status DC Propofol 20 ml @ As Directed STK-MED ONCE IV ; Start 06/14/19 at 13:53; Stop 06/14/19 at 13:53; Status DC Lidocaine HCl (Lidocaine Pf 2% Vial) 5 ml STK-MED ONCE .ROUTE ; Start 06/14/19 at 13:53; Stop 06/14/19 at 13:53; Status DC Ondansetron HCl (Zofran) 4 mg STK-MED ONCE .ROUTE ; Start 06/14/19 at 13:53; Stop 06/14/19 at 13:53; Status DC Fentanyl Citrate (Fentanyl 2ml Vial) 100 mcg STK-MED ONCE .ROUTE ; Start 06/14/19 at 14:49; Stop 06/14/19 at 14:50; Status DC Sevoflurane (Ultane) 30 ml STK-MED ONCE IH ; Start 06/14/19 at 14:52; Stop 06/14/19 at 14:52; Status DC Cefepime HCl (Maxipime) 1 gm Q12HR IVP Last administered on 06/16/19at 08:58; Start 06/15/19 at 10:00 Metronidazole (Flagyl) 500 mg Q12HR PO Last administered on 06/16/19at 08:57; Start 06/15/19 at 10:00 Linezolid (Zyvox) 600 mg BID PO Last administered on 06/16/19at 08:57; Start 06/15/19 at 10:00 Sodium Hypochlorite (Dakin'S 1/4 Strength) 1 emilee DAILY TP ; Start 06/15/19 at 18:00 Allergies Allergies: Coded Allergies: No Known Drug Allergies (Unverified , 12/04/17) ROS Review of System Per HPI Physical Exam Physical Exam GENERAL: no apparent distress HEENT: Pupils are equally round. Oral cavity: Pharynx pink and moist. NECK: Supple. LUNGS: Clear to auscultation. HEART: S1 and S2. ABDOMEN: Obese, soft, and nontender with bowel sounds present. EXTREMITIES: No gross edema or cyanosis. SKIN: Warm to touch. No signs of rash. NEUROLOGIC: Alert and oriented x3 No Vivar, No CVA or SP tenderness . Vital Signs Vital Signs Date Time Temp Pulse Resp B/P (MAP) Pulse Ox O2 Delivery O2 Flow Rate FiO2 06/16/19 08:57 79 182/85 06/16/19 08:00 Room Air 06/16/19 07:00 98.1 16 99 98.1 Assessment & Plan RAQUEL --ATN vs AIN , Vanc was 12, Dced , Zosyn dced as well ,No Hypotension Check UA, Renal US with PVR,IVF, Supportive care, Strict I/O , Monitor , Daily labs Rt Groin abscess - status post incision and drainage in the emergency room on 06/12/2019. B hemolytic group B 06/14 S/P surgical drainage on 06/14 Diabetes- on Metformin Recommend DC Metformin - has RAQUEL Hypertension- BP Uncontrolled Antihypertensives to optimize BP Discussed with Pt at great length Labs Labs Laboratory Tests Test 06/14/19 10:57 06/14/19 14:57 06/14/19 16:40 06/14/19 20:49 Glucose (Fingerstick) 167 mg/dL (70-99) 137 mg/dL (70-99) 160 mg/dL (70-99) 189 mg/dL (70-99) Test 06/15/19 06:00 06/15/19 07:41 06/15/19 11:46 06/15/19 16:34 Creatinine 2.1 mg/dL (0.7-1.3) Estimated GFR (Cockcroft-Gault) 32.1 Glucose (Fingerstick) 179 mg/dL (70-99) 226 mg/dL (70-99) 182 mg/dL (70-99) Test 06/15/19 20:38 06/16/19 04:05 06/16/19 07:25 Glucose (Fingerstick) 186 mg/dL (70-99) 186 mg/dL (70-99) White Blood Count 10.1 x10^3/uL (4.0-11.0) Red Blood Count 4.37 x10^6/uL (4.30-5.70) Hemoglobin 14.0 g/dL (13.0-17.5) Hematocrit 41.2 % (39.0-53.0) Mean Corpuscular Volume 94 fL (79-100) Mean Corpuscular Hemoglobin 32 pg (25-35) Mean Corpuscular Hemoglobin Concent 34 g/dL (31-37) Red Cell Distribution Width 12.3 % (11.5-14.5) Platelet Count 323 x10^3/uL (140-400) Neutrophils (%) (Auto) 83 % (31-73) Lymphocytes (%) (Auto) 8 % (24-48) Monocytes (%) (Auto) 8 % (0-9) Eosinophils (%) (Auto) 1 % (0-3) Basophils (%) (Auto) 0 % (0-3) Neutrophils # (Auto) 8.3 x10^3/uL (1.8-7.7) Lymphocytes # (Auto) 0.8 x10^3/uL (1.0-4.8) Monocytes # (Auto) 0.8 x10^3/uL (0.0-1.1) Eosinophils # (Auto) 0.1 x10^3/uL (0.0-0.7) Basophils # (Auto) 0.0 x10^3/uL (0.0-0.2) Sodium Level 139 mmol/L (136-145) Potassium Level 3.5 mmol/L (3.5-5.1) Chloride Level 105 mmol/L (98-107) Carbon Dioxide Level 21 mmol/L (21-32) Anion Gap 13 (6-14) Blood Urea Nitrogen 19 mg/dL (8-26) Creatinine 2.9 mg/dL (0.7-1.3) Estimated GFR (Cockcroft-Gault) 22.1 BUN/Creatinine Ratio 7 (6-20) Glucose Level 193 mg/dL (70-99) Calcium Level 8.5 mg/dL (8.5-10.1) Total Bilirubin 0.3 mg/dL (0.2-1.0) Aspartate Amino Transf (AST/SGOT) 28 U/L (15-37) Alanine Aminotransferase (ALT/SGPT) 27 U/L (16-63) Alkaline Phosphatase 53 U/L (46-116) Total Protein 6.5 g/dL (6.4-8.2) Albumin 2.1 g/dL (3.4-5.0) Albumin/Globulin Ratio 0.5 (1.0-1.7) Laboratory Tests Test 06/15/19 11:46 06/15/19 16:34 06/15/19 20:38 06/16/19 04:05 Glucose (Fingerstick) 226 mg/dL (70-99) 182 mg/dL (70-99) 186 mg/dL (70-99) White Blood Count 10.1 x10^3/uL (4.0-11.0) Red Blood Count 4.37 x10^6/uL (4.30-5.70) Hemoglobin 14.0 g/dL (13.0-17.5) Hematocrit 41.2 % (39.0-53.0) Mean Corpuscular Volume 94 fL (79-100) Mean Corpuscular Hemoglobin 32 pg (25-35) Mean Corpuscular Hemoglobin Concent 34 g/dL (31-37) Red Cell Distribution Width 12.3 % (11.5-14.5) Platelet Count 323 x10^3/uL (140-400) Neutrophils (%) (Auto) 83 % (31-73) Lymphocytes (%) (Auto) 8 % (24-48) Monocytes (%) (Auto) 8 % (0-9) Eosinophils (%) (Auto) 1 % (0-3) Basophils (%) (Auto) 0 % (0-3) Neutrophils # (Auto) 8.3 x10^3/uL (1.8-7.7) Lymphocytes # (Auto) 0.8 x10^3/uL (1.0-4.8) Monocytes # (Auto) 0.8 x10^3/uL (0.0-1.1) Eosinophils # (Auto) 0.1 x10^3/uL (0.0-0.7) Basophils # (Auto) 0.0 x10^3/uL (0.0-0.2) Sodium Level 139 mmol/L (136-145) Potassium Level 3.5 mmol/L (3.5-5.1) Chloride Level 105 mmol/L (98-107) Carbon Dioxide Level 21 mmol/L (21-32) Anion Gap 13 (6-14) Blood Urea Nitrogen 19 mg/dL (8-26) Creatinine 2.9 mg/dL (0.7-1.3) Estimated GFR (Cockcroft-Gault) 22.1 BUN/Creatinine Ratio 7 (6-20) Glucose Level 193 mg/dL (70-99) Calcium Level 8.5 mg/dL (8.5-10.1) Total Bilirubin 0.3 mg/dL (0.2-1.0) Aspartate Amino Transf (AST/SGOT) 28 U/L (15-37) Alanine Aminotransferase (ALT/SGPT) 27 U/L (16-63) Alkaline Phosphatase 53 U/L (46-116) Total Protein 6.5 g/dL (6.4-8.2) Albumin 2.1 g/dL (3.4-5.0) Albumin/Globulin Ratio 0.5 (1.0-1.7) Test 06/16/19 07:25 Glucose (Fingerstick) 186 mg/dL (70-99) Review All relevant outside records, renal labs, imaging studies, telemetry/EKG's were reviewed. JANETT ESPINO MD Jun 16, 2019 10:27
--- NOTE | 2019-06-16 10:46 | PDOC ---
PROGRESS NOTES Chief Complaint Chief Complaint IMPRESSION Groin abscess, deep, complicated hx MRSA diabetes 2, poor control, A1c 10.3 Cellulitis uncontrolled hypertension obesity, BMI 28 acute renal injury AEROBIC RES 1 Preliminary Comment Beta hemolytic Streptococcus, group B f/u intraop cultures nephrology consult cont flagyl and zyvox History of Present Illness History of Present Illness SS INSULIN, increase to high dose, glargine 10 x1 wound care to follow CONSULT ID - broad abx dvt prophylaxis iv vanc d/c nephrology consulted Vitals Vitals Vital Signs Date Time Temp Pulse Resp B/P (MAP) Pulse Ox O2 Delivery O2 Flow Rate FiO2 06/16/19 08:57 79 182/85 06/16/19 08:00 Room Air 06/16/19 07:00 98.1 16 99 98.1 Physical Exam Physical Exam GENERAL: The patient is propped up in bed, alert, in no apparent distress.nontoxic appearing HEENT: Pupils are equally round. Oral cavity: Pharynx pink and moist. NECK: Supple. LUNGS: Clear to auscultation. HEART: S1 and S2. ABDOMEN: Obese, soft, and nontender with bowel sounds present. EXTREMITIES: No gross edema or cyanosis. SKIN: Warm to touch. No signs of rash. He has a fairly large area of induration with some fluctuance and redness on the right inner thigh with packing in place. NEUROLOGIC: Alert and oriented x3. General: Alert, Oriented X3, Cooperative, No acute distress Heart: Regular rate, Normal S1, Normal S2, No murmurs Lungs: Clear Abdomen: Normal bowel sounds, Soft, No tenderness Extremities: No cyanosis, Other (wound clean, packed) Skin: Other (right groin--still with erythema, edema and some fluctunance, small amount of surrounding tissue necrosis ) Labs LABS Laboratory Tests Test 06/15/19 11:46 06/15/19 16:34 06/15/19 20:38 06/16/19 04:05 Glucose (Fingerstick) 226 mg/dL (70-99) 182 mg/dL (70-99) 186 mg/dL (70-99) White Blood Count 10.1 x10^3/uL (4.0-11.0) Red Blood Count 4.37 x10^6/uL (4.30-5.70) Hemoglobin 14.0 g/dL (13.0-17.5) Hematocrit 41.2 % (39.0-53.0) Mean Corpuscular Volume 94 fL (79-100) Mean Corpuscular Hemoglobin 32 pg (25-35) Mean Corpuscular Hemoglobin Concent 34 g/dL (31-37) Red Cell Distribution Width 12.3 % (11.5-14.5) Platelet Count 323 x10^3/uL (140-400) Neutrophils (%) (Auto) 83 % (31-73) Lymphocytes (%) (Auto) 8 % (24-48) Monocytes (%) (Auto) 8 % (0-9) Eosinophils (%) (Auto) 1 % (0-3) Basophils (%) (Auto) 0 % (0-3) Neutrophils # (Auto) 8.3 x10^3/uL (1.8-7.7) Lymphocytes # (Auto) 0.8 x10^3/uL (1.0-4.8) Monocytes # (Auto) 0.8 x10^3/uL (0.0-1.1) Eosinophils # (Auto) 0.1 x10^3/uL (0.0-0.7) Basophils # (Auto) 0.0 x10^3/uL (0.0-0.2) Sodium Level 139 mmol/L (136-145) Potassium Level 3.5 mmol/L (3.5-5.1) Chloride Level 105 mmol/L (98-107) Carbon Dioxide Level 21 mmol/L (21-32) Anion Gap 13 (6-14) Blood Urea Nitrogen 19 mg/dL (8-26) Creatinine 2.9 mg/dL (0.7-1.3) Estimated GFR (Cockcroft-Gault) 22.1 BUN/Creatinine Ratio 7 (6-20) Glucose Level 193 mg/dL (70-99) Calcium Level 8.5 mg/dL (8.5-10.1) Total Bilirubin 0.3 mg/dL (0.2-1.0) Aspartate Amino Transf (AST/SGOT) 28 U/L (15-37) Alanine Aminotransferase (ALT/SGPT) 27 U/L (16-63) Alkaline Phosphatase 53 U/L (46-116) Total Protein 6.5 g/dL (6.4-8.2) Albumin 2.1 g/dL (3.4-5.0) Albumin/Globulin Ratio 0.5 (1.0-1.7) Test 06/16/19 07:25 Glucose (Fingerstick) 186 mg/dL (70-99) Assessment and Plan Assessmemt and Plan Problems Medical Problems: (1) Cellulitis Status: Acute (2) Groin abscess Status: Acute Comment Review of Relevant I have reviewed the following items kellee (where applicable) has been applied. Labs Laboratory Tests Test 06/14/19 10:57 06/14/19 14:57 06/14/19 16:40 06/14/19 20:49 Glucose (Fingerstick) 167 mg/dL (70-99) 137 mg/dL (70-99) 160 mg/dL (70-99) 189 mg/dL (70-99) Test 06/15/19 06:00 06/15/19 07:41 06/15/19 11:46 06/15/19 16:34 Creatinine 2.1 mg/dL (0.7-1.3) Estimated GFR (Cockcroft-Gault) 32.1 Glucose (Fingerstick) 179 mg/dL (70-99) 226 mg/dL (70-99) 182 mg/dL (70-99) Test 06/15/19 20:38 06/16/19 04:05 06/16/19 07:25 Glucose (Fingerstick) 186 mg/dL (70-99) 186 mg/dL (70-99) White Blood Count 10.1 x10^3/uL (4.0-11.0) Red Blood Count 4.37 x10^6/uL (4.30-5.70) Hemoglobin 14.0 g/dL (13.0-17.5) Hematocrit 41.2 % (39.0-53.0) Mean Corpuscular Volume 94 fL (79-100) Mean Corpuscular Hemoglobin 32 pg (25-35) Mean Corpuscular Hemoglobin Concent 34 g/dL (31-37) Red Cell Distribution Width 12.3 % (11.5-14.5) Platelet Count 323 x10^3/uL (140-400) Neutrophils (%) (Auto) 83 % (31-73) Lymphocytes (%) (Auto) 8 % (24-48) Monocytes (%) (Auto) 8 % (0-9) Eosinophils (%) (Auto) 1 % (0-3) Basophils (%) (Auto) 0 % (0-3) Neutrophils # (Auto) 8.3 x10^3/uL (1.8-7.7) Lymphocytes # (Auto) 0.8 x10^3/uL (1.0-4.8) Monocytes # (Auto) 0.8 x10^3/uL (0.0-1.1) Eosinophils # (Auto) 0.1 x10^3/uL (0.0-0.7) Basophils # (Auto) 0.0 x10^3/uL (0.0-0.2) Sodium Level 139 mmol/L (136-145) Potassium Level 3.5 mmol/L (3.5-5.1) Chloride Level 105 mmol/L (98-107) Carbon Dioxide Level 21 mmol/L (21-32) Anion Gap 13 (6-14) Blood Urea Nitrogen 19 mg/dL (8-26) Creatinine 2.9 mg/dL (0.7-1.3) Estimated GFR (Cockcroft-Gault) 22.1 BUN/Creatinine Ratio 7 (6-20) Glucose Level 193 mg/dL (70-99) Calcium Level 8.5 mg/dL (8.5-10.1) Total Bilirubin 0.3 mg/dL (0.2-1.0) Aspartate Amino Transf (AST/SGOT) 28 U/L (15-37) Alanine Aminotransferase (ALT/SGPT) 27 U/L (16-63) Alkaline Phosphatase 53 U/L (46-116) Total Protein 6.5 g/dL (6.4-8.2) Albumin 2.1 g/dL (3.4-5.0) Albumin/Globulin Ratio 0.5 (1.0-1.7) Laboratory Tests Test 06/15/19 11:46 06/15/19 16:34 06/15/19 20:38 06/16/19 04:05 Glucose (Fingerstick) 226 mg/dL (70-99) 182 mg/dL (70-99) 186 mg/dL (70-99) White Blood Count 10.1 x10^3/uL (4.0-11.0) Red Blood Count 4.37 x10^6/uL (4.30-5.70) Hemoglobin 14.0 g/dL (13.0-17.5) Hematocrit 41.2 % (39.0-53.0) Mean Corpuscular Volume 94 fL (79-100) Mean Corpuscular Hemoglobin 32 pg (25-35) Mean Corpuscular Hemoglobin Concent 34 g/dL (31-37) Red Cell Distribution Width 12.3 % (11.5-14.5) Platelet Count 323 x10^3/uL (140-400) Neutrophils (%) (Auto) 83 % (31-73) Lymphocytes (%) (Auto) 8 % (24-48) Monocytes (%) (Auto) 8 % (0-9) Eosinophils (%) (Auto) 1 % (0-3) Basophils (%) (Auto) 0 % (0-3) Neutrophils # (Auto) 8.3 x10^3/uL (1.8-7.7) Lymphocytes # (Auto) 0.8 x10^3/uL (1.0-4.8) Monocytes # (Auto) 0.8 x10^3/uL (0.0-1.1) Eosinophils # (Auto) 0.1 x10^3/uL (0.0-0.7) Basophils # (Auto) 0.0 x10^3/uL (0.0-0.2) Sodium Level 139 mmol/L (136-145) Potassium Level 3.5 mmol/L (3.5-5.1) Chloride Level 105 mmol/L (98-107) Carbon Dioxide Level 21 mmol/L (21-32) Anion Gap 13 (6-14) Blood Urea Nitrogen 19 mg/dL (8-26) Creatinine 2.9 mg/dL (0.7-1.3) Estimated GFR (Cockcroft-Gault) 22.1 BUN/Creatinine Ratio 7 (6-20) Glucose Level 193 mg/dL (70-99) Calcium Level 8.5 mg/dL (8.5-10.1) Total Bilirubin 0.3 mg/dL (0.2-1.0) Aspartate Amino Transf (AST/SGOT) 28 U/L (15-37) Alanine Aminotransferase (ALT/SGPT) 27 U/L (16-63) Alkaline Phosphatase 53 U/L (46-116) Total Protein 6.5 g/dL (6.4-8.2) Albumin 2.1 g/dL (3.4-5.0) Albumin/Globulin Ratio 0.5 (1.0-1.7) Test 06/16/19 07:25 Glucose (Fingerstick) 186 mg/dL (70-99) Microbiology 06/14/19 Anaerobic/Aerobic Culture, Resulted Pending 06/14/19 Anaerobic Culture Result 1 (YUMI), Resulted Pending 06/14/19 Aerobic Culture, Resulted Pending 06/14/19 Aerobic Culture Result 1 (YUMI), Resulted Pending 06/14/19 Gram Stain - Final, Resulted 06/14/19 Gram Stain Result 1 (YUMI) - Final, Resulted 06/14/19 Gram Stain Result 2 (YUMI) - Final, Resulted 06/12/19 Blood Culture - Preliminary, Resulted NO GROWTH AFTER 3 DAYS Medications Current Medications Lidocaine/ Epinephrine (LIDOCAINE 1%-EPI 1:100,000 Multi-Dose) 20 ml 1X ONCE INJ Last administered on 06/12/19at 10:29; Start 06/12/19 at 10:15; Stop 06/12/19 at 10:16; Status DC Sodium Bicarbonate (Sodium Bicarb Adult 8.4% Syr) 50 meq STK-MED ONCE .ROUTE ; Start 06/12/19 at 10:19; Stop 06/12/19 at 10:19; Status DC Sodium Bicarbonate (Sodium Bicarb Adult 8.4% Syr) 50 meq 1X ONCE SQ Last administered on 06/12/19at 10:35; Start 06/12/19 at 10:30; Stop 06/12/19 at 10:31; Status DC Vancomycin HCl 250 ml @ 250 mls/hr 1X ONCE IV Last administered on 06/12/19at 11:48; Start 06/12/19 at 10:45; Stop 06/12/19 at 11:44; Status DC Sodium Chloride 1,000 ml @ 1,000 mls/hr 1X ONCE IV Last administered on 06/12/19at 11:45; Start 06/12/19 at 11:45; Stop 06/12/19 at 12:44; Status DC Vancomycin HCl (Vanco Per Pharmacy) 1 each PRN DAILY PRN MC SEE COMMENTS Last administered on 06/14/19at 12:53; Start 06/12/19 at 12:30; Stop 06/15/19 at 09:07; Status DC Insulin Human Lispro (HumaLOG) 0-5 UNITS TIDWMEALS SQ Last administered on 06/12/19at 17:21; Start 06/12/19 at 17:00; Stop 06/13/19 at 13:09; Status DC Dextrose (Dextrose 50%-Water Syringe) 12.5 gm PRN Q15MIN PRN IV SEE COMMENTS; Start 06/12/19 at 12:30; Stop 06/13/19 at 13:43; Status DC Vancomycin HCl 2 gm/Sodium Chloride 500 ml @ 250 mls/hr 1X ONCE IV Last administered on 06/12/19at 13:09; Start 06/12/19 at 13:00; Stop 06/12/19 at 14:59; Status DC Sodium Chloride (Normal Saline Flush) 3 ml QSHIFT PRN IV AFTER MEDS AND BLOOD DRAWS; Start 06/12/19 at 12:30 Sodium Chloride 1,000 ml @ 100 mls/hr Q10H IV Last administered on 06/16/19at 06:15; Start 06/12/19 at 12:18 Ondansetron HCl (Zofran) 4 mg PRN Q4HRS PRN IV NAUSEA/VOMITING Last administered on 06/13/19at 02:34; Start 06/12/19 at 12:30 Zolpidem Tartrate (Ambien) 5 mg PRN QHS PRN PO INSOMNIA; Start 06/12/19 at 12:30 Acetaminophen (Tylenol) 650 mg PRN Q4HRS PRN PO TEMP OVER 100.4F OR MILD PAIN; Start 06/12/19 at 12:30 Al Hydroxide/Mg Hydroxide (Mylanta Plus Xs) 30 ml PRN DAILY PRN PO HEARTBURN / GAS; Start 06/12/19 at 12:30 Clonidine HCl (Catapres) 0.1 mg PRN Q6HRS PRN PO SBP>160 OR DBP>90; Start 06/12/19 at 12:30 Docusate Sodium (Colace) 100 mg PRN BID PRN PO CONSTIPATION; Start 06/12/19 at 12:30 Albuterol Sulfate (Ventolin Neb Soln) 2.5 mg PRN Q4HRS PRN NEB SHORTNESS OF BREATH; Start 06/12/19 at 12:30 Guaifenesin (Robitussin) 200 mg PRN Q4HRS PRN PO COUGH; Start 06/12/19 at 12:30 Lorazepam (Ativan) 0.5 mg PRN Q4HRS PRN PO ANXIETY / AGITATION; Start 06/12/19 at 12:30 Enoxaparin Sodium (Lovenox 40mg Syringe) 40 mg Q24H SQ Last administered on 06/15/19at 12:21; Start 06/12/19 at 13:00 Metformin HCl (Glucophage Xr) 500 mg [id number] PO Last administered on 06/16/19 08:57; Start 06/13/19 at 08:00 Lisinopril (Prinivil) 10 mg DAILY08 PO Last administered on 06/16/19 08:57; Start 06/12/19 at 12:30 Piperacillin Sod/ Tazobactam Sod 3.375 gm/Sodium Chloride 50 ml @ 100 mls/hr Q6HRS IV Last administered on 06/15/19at 06:18; Start 06/12/19 at 14:00; Stop 06/15/19 at 09:07; Status DC Nicotine (Nicoderm Cq 21mg) 1 patch DAILY TD Last administered on 06/16/19at 08:57; Start 06/12/19 at 15:30 Vancomycin HCl 1.25 gm/Sodium Chloride 250 ml @ 167 mls/hr Q12H IV Last administered on 06/14/19 01:09; Start 06/13/19 at 01:00; Stop 06/14/19 at 02:48; Status DC Vancomycin HCl (Vancomycin Trough Level) 1 each 1X ONCE MC Last administered on 06/14/19at 00:30; Start 06/14/19 at 00:30; Stop 06/14/19 at 00:31; Status DC Hydromorphone HCl (Dilaudid) 1 mg PRN Q3HRS PRN IV SEVERE PAIN 7-10; Start 06/12/19 at 16:45 Acetaminophen/ Hydrocodone Bitart (Lortab 5/325) 1 tab PRN Q4HRS PRN PO MODERATE PAIN Last administered on 06/14/19at 20:57; Start 06/12/19 at 17:00 Acetaminophen/ Hydrocodone Bitart (Lortab 5/325) 2 tab PRN Q4HRS PRN PO SEVERE PAIN Last administered on 06/15/19at 17:22; Start 06/12/19 at 17:00 Lactobacillus Rhamnosus (Culturelle) 1 cap BID PO Last administered on 06/16/19at 08:57; Start 06/13/19 at 21:00 Insulin Human Lispro (HumaLOG) 0-9 UNITS TIDWMEALS SQ Last administered on 06/16/19at 09:05; Start 06/13/19 at 17:00 Dextrose (Dextrose 50%-Water Syringe) 12.5 gm PRN Q15MIN PRN IV SEE COMMENTS; Start 06/13/19 at 13:15 Insulin Glargine (Lantus Syringe) 10 unit 1X ONCE SQ Last administered on 06/13/19at 14:39; Start 06/13/19 at 14:00; Stop 06/13/19 at 14:01; Status DC Vancomycin HCl 1.25 gm/Sodium Chloride 250 ml @ 167 mls/hr Q12H IV Last administered on 06/15/19at 01:18; Start 06/14/19 at 13:00; Stop 06/15/19 at 09:08; Status DC Vancomycin HCl (Vancomycin Trough Level) 1 each 1X ONCE MC ; Start 06/15/19 at 08:30; Stop 06/15/19 at 08:31; Status Cancel Ondansetron HCl (Zofran) 4 mg PRN Q6HRS PRN IV NAUSEA/VOMITING; Start 06/14/19 at 12:45; Stop 06/14/19 at 19:05; Status DC Fentanyl Citrate (Fentanyl 2ml Vial) 25 mcg PRN Q5MIN PRN IV MILD PAIN 1-3; Start 06/14/19 at 12:45; Stop 06/14/19 at 19:05; Status DC Fentanyl Citrate (Fentanyl 2ml Vial) 50 mcg PRN Q5MIN PRN IV MODERATE TO SEVERE PAIN Last administered on 06/14/19at 15:07; Start 06/14/19 at 12:45; Stop 06/14/19 at 19:05; Status DC Morphine Sulfate (Morphine Sulfate) 1 mg PRN Q10MIN PRN IV SEVERE PAIN 7-10; Start 06/14/19 at 12:45; Stop 06/14/19 at 19:05; Status DC Ringer's Solution 1,000 ml @ 30 mls/hr Q24H IV ; Start 06/14/19 at 12:40; Stop 06/14/19 at 19:04; Status DC Lidocaine HCl (Xylocaine-Mpf 1% 2ml Vial) 2 ml PRN 1X PRN ID PRIOR TO IV START; Start 06/14/19 at 12:45; Stop 06/14/19 at 19:05; Status DC Hydromorphone HCl (Dilaudid) 0.5 mg PRN Q10MIN PRN IV SEV PAIN, Second choice; Start 06/14/19 at 12:45; Stop 06/14/19 at 19:05; Status DC Prochlorperazine Edisylate (Compazine) 5 mg PACU PRN PRN IV NAUSEA, MRX1; Start 06/14/19 at 12:45; Stop 06/14/19 at 19:05; Status DC Lidocaine/ Epinephrine (LIDOCAINE 1%-EPI 1:100,000 Multi-Dose) 20 ml STK-MED ONCE .ROUTE ; Start 06/14/19 at 13:31; Stop 06/14/19 at 13:31; Status DC Fentanyl Citrate (Fentanyl 2ml Vial) 100 mcg STK-MED ONCE .ROUTE ; Start 06/14/19 at 13:50; Stop 06/14/19 at 13:50; Status DC Propofol 20 ml @ As Directed STK-MED ONCE IV ; Start 06/14/19 at 13:53; Stop 06/14/19 at 13:53; Status DC Lidocaine HCl (Lidocaine Pf 2% Vial) 5 ml STK-MED ONCE .ROUTE ; Start 06/14/19 at 13:53; Stop 06/14/19 at 13:53; Status DC Ondansetron HCl (Zofran) 4 mg STK-MED ONCE .ROUTE ; Start 06/14/19 at 13:53; Stop 06/14/19 at 13:53; Status DC Fentanyl Citrate (Fentanyl 2ml Vial) 100 mcg STK-MED ONCE .ROUTE ; Start 06/14/19 at 14:49; Stop 06/14/19 at 14:50; Status DC Sevoflurane (Ultane) 30 ml STK-MED ONCE IH ; Start 06/14/19 at 14:52; Stop 06/14/19 at 14:52; Status DC Cefepime HCl (Maxipime) 1 gm Q12HR IVP Last administered on 06/16/19at 08:58; Start 06/15/19 at 10:00 Metronidazole (Flagyl) 500 mg Q12HR PO Last administered on 06/16/19at 08:57; Start 06/15/19 at 10:00 Linezolid (Zyvox) 600 mg BID PO Last administered on 06/16/19at 08:57; Start 06/15/19 at 10:00 Sodium Hypochlorite (Dakin'S /4 Strength) 1 emilee DAILY TP ; Start 06/15/19 at 18:00 Vitals/I & O Vital Sign - Last 24 Hours 06/15/19 06/15/19 06/15/19 06/15/19 11:00 15:00 17:22 18:22 Temp 98.8 98.5 98.8 98.5 Pulse 68 65 Resp 16 16 22 20 B/P (MAP) 162/70 (100) 145/95 (112) Pulse Ox 96 96 96 O2 Delivery Room Air Room Air Room Air Room Air 06/15/19 06/15/19 06/15/19 06/16/19 19:28 19:30 22:53 02:23 Temp 97.9 97.7 97.9 97.9 97.7 97.9 Pulse 62 60 75 Resp 16 16 16 B/P (MAP) 151/58 (89) 154/62 (92) 151/40 (77) Pulse Ox 96 95 94 O2 Delivery Room Air Room Air Room Air Room Air 06/16/19 06/16/19 06/16/19 07:00 08:00 08:57 Temp 98.1 98.1 Pulse 79 79 Resp 16 B/P (MAP) 182/85 (117) 182/85 Pulse Ox 99 O2 Delivery Room Air Room Air Intake and Output 06/15/19 06/15/19 06/16/19 15:00 23:00 07:00 Intake Total 240 ml 450 ml Balance 240 ml 450 ml NICK HANSEN MD Jun 16, 2019 10:46
--- NOTE | 2019-06-16 13:29 | NUR ---
SS following for discharge planning. PT/OT recommended home independent. SS will continue to follow for discharge planning.
[2019-06-16] MEDS: ENOXAPARIN 40 MG/0.4 ML SYRINGE. SQ SCH (13:47)
--- NOTE | 2019-06-16 16:17 | EKG ---
[facility] [address] [place] [address] Test Date: 2019-06-16 Test Time: 16:13:50 Pat Name: FAREED LOCKHART Department: Room: 430 Gender: M [employer] Process Auditor: ZEN : [id number] Requested By: NICK HANSEN Order Number: [id number] Reading MD: Measurements Intervals [place] Rate: 67 P: MD: QRS: 27 QRSD: 90 T: 42 QT: 390 QTc: 415 Interpretive Statements ATRIAL FLUTTER ABNORMAL ECG RI6.02 Compared to ECG 12/04/2017 14:33:56 Sinus rhythm no longer present
--- NOTE | 2019-06-16 16:33 | RAD ---
EXAM: Renal sonogram. HISTORY: Renal insufficiency. TECHNIQUE: Sonographic imaging of the kidneys and bladder was performed. COMPARISON: None. FINDINGS: The kidneys are normal in size. There is a 2.6 cm simple appearing cyst within the superior left kidney. No solid renal lesion is seen. There is no hydronephrosis. There is urinary bladder wall thickening. The post void bladder residual residual is 44 cc. IMPRESSION: 1. 2.6 cm simple appearing left renal cyst. 2. Urinary bladder wall thickening. Correlate for cystitis or chronic outlet obstruction. There is a 44 cc post void bladder residual. Electronically signed by: Margie Enciso MD (06/16/2019 4:30 PM) [id number]
[2019-06-16] MEDS: cloNIDine HCL 0.1 MG TABLET PO PRN (17:36)
[2019-06-17] MEDS: IV NORMAL SALINE 1000ML BAG 1,000 ML IV SCH ×3 (02:25→22:15)
[2019-06-17 03:06] VITALS: BP 155/72
[2019-06-17 04:52] LABS: BASO % 1 % (0-3); EOS # 0.1 x10^3/uL (0.0-0.7); EOS % 1 % (0-3); HEMATOCRIT 39.2 % (39.0-53.0); HEMOGLOBIN 13.1 g/dL (13.0-17.5); LYMPH # 0.7 x10^3/uL (1.0-4.8); LYMPH % 9 % (24-48); MEAN CORPUSCULAR HEMOGLOBIN 31 pg (25-35); MEAN CORPUSCULAR HGB CONC 34 g/dL (31-37); MEAN CORPUSCULAR VOLUME 94 fL (79-100); MONO # 0.6 x10^3/uL (0.0-1.1); MONO % 7 % (0-9); NEUT # 6.7 x10^3/uL (1.8-7.7); NEUT % 82 % (31-73); PLATELET COUNT 322 x10^3/uL (140-400); RED BLOOD COUNT 4.19 x10^6/uL (4.30-5.70); RED CELL DISTRIBUTION WIDTH 12.5 % (11.5-14.5); WHITE BLOOD COUNT 8.2 x10^3/uL (4.0-11.0)
[2019-06-17 05:13] LABS: ALBUMIN 1.9 g/dL (3.4-5.0); ALBUMIN/GLOBULIN RATIO 0.5 (1.0-1.7); CALCIUM 8.4 mg/dL (8.5-10.1); CREATININE 3.2 mg/dL (0.7-1.3); GFR 19.7; PHOSPHORUS 3.5 mg/dL (2.6-4.7); POTASSIUM 4.4 mmol/L (3.5-5.1); TOTAL BILIRUBIN 0.2 mg/dL (0.2-1.0); TOTAL PROTEIN 6.1 g/dL (6.4-8.2)
[2019-06-17 07:00] VITALS: BP 178/74
[2019-06-17] MEDS: INSULIN LISPRO 300 UNITS/3 ML VIAL. SQ SCH ×3 (08:00→16:59)
[2019-06-17] MEDS: SODIUM HYPOCHLORITE 0.125% 473 ML BOTTLE. TP SCH (09:00)
--- NOTE | 2019-06-17 09:08 | PDOC ---
JENNIE JACKSON [employer] MANAGER 06/17/19 0908: SURGICAL PROGRESS NOTE Subjective resting no complaints Vital Signs Vital Signs Date Time Temp Pulse Resp B/P (MAP) Pulse Ox O2 Delivery O2 Flow Rate FiO2 06/17/19 03:06 98.4 58 18 155/72 (99) 96 Room Air 98.4 I&O Intake and Output 06/17/19 07:00 Intake Total 2720 ml Output Total 450 ml Balance 2270 ml Intake Oral 1720 ml IV Total 1000 ml Output Urine Total 450 ml # Voids 5 General: Alert, Oriented X3, Cooperative Skin: Other (groin wound clean, packed) Labs Laboratory Tests Test 06/15/19 11:46 06/15/19 16:34 06/15/19 20:38 06/16/19 04:05 Glucose (Fingerstick) 226 mg/dL (70-99) 182 mg/dL (70-99) 186 mg/dL (70-99) White Blood Count 10.1 x10^3/uL (4.0-11.0) Red Blood Count 4.37 x10^6/uL (4.30-5.70) Hemoglobin 14.0 g/dL (13.0-17.5) Hematocrit 41.2 % (39.0-53.0) Mean Corpuscular Volume 94 fL (79-100) Mean Corpuscular Hemoglobin 32 pg (25-35) Mean Corpuscular Hemoglobin Concent 34 g/dL (31-37) Red Cell Distribution Width 12.3 % (11.5-14.5) Platelet Count 323 x10^3/uL (140-400) Neutrophils (%) (Auto) 83 % (31-73) Lymphocytes (%) (Auto) 8 % (24-48) Monocytes (%) (Auto) 8 % (0-9) Eosinophils (%) (Auto) 1 % (0-3) Basophils (%) (Auto) 0 % (0-3) Neutrophils # (Auto) 8.3 x10^3/uL (1.8-7.7) Lymphocytes # (Auto) 0.8 x10^3/uL (1.0-4.8) Monocytes # (Auto) 0.8 x10^3/uL (0.0-1.1) Eosinophils # (Auto) 0.1 x10^3/uL (0.0-0.7) Basophils # (Auto) 0.0 x10^3/uL (0.0-0.2) Sodium Level 139 mmol/L (136-145) Potassium Level 3.5 mmol/L (3.5-5.1) Chloride Level 105 mmol/L (98-107) Carbon Dioxide Level 21 mmol/L (21-32) Anion Gap 13 (6-14) Blood Urea Nitrogen 19 mg/dL (8-26) Creatinine 2.9 mg/dL (0.7-1.3) Estimated GFR (Cockcroft-Gault) 22.1 BUN/Creatinine Ratio 7 (6-20) Glucose Level 193 mg/dL (70-99) Calcium Level 8.5 mg/dL (8.5-10.1) Total Bilirubin 0.3 mg/dL (0.2-1.0) Aspartate Amino Transf (AST/SGOT) 28 U/L (15-37) Alanine Aminotransferase (ALT/SGPT) 27 U/L (16-63) Alkaline Phosphatase 53 U/L (46-116) Total Protein 6.5 g/dL (6.4-8.2) Albumin 2.1 g/dL (3.4-5.0) Albumin/Globulin Ratio 0.5 (1.0-1.7) Test 06/16/19 07:25 06/16/19 10:55 06/16/19 17:06 06/16/19 20:55 Glucose (Fingerstick) 186 mg/dL (70-99) 191 mg/dL (70-99) 148 mg/dL (70-99) 194 mg/dL (70-99) Test 06/17/19 04:25 06/17/19 07:51 White Blood Count 8.2 x10^3/uL (4.0-11.0) Red Blood Count 4.19 x10^6/uL (4.30-5.70) Hemoglobin 13.1 g/dL (13.0-17.5) Hematocrit 39.2 % (39.0-53.0) Mean Corpuscular Volume 94 fL (79-100) Mean Corpuscular Hemoglobin 31 pg (25-35) Mean Corpuscular Hemoglobin Concent 34 g/dL (31-37) Red Cell Distribution Width 12.5 % (11.5-14.5) Platelet Count 322 x10^3/uL (140-400) Neutrophils (%) (Auto) 82 % (31-73) Lymphocytes (%) (Auto) 9 % (24-48) Monocytes (%) (Auto) 7 % (0-9) Eosinophils (%) (Auto) 1 % (0-3) Basophils (%) (Auto) 1 % (0-3) Neutrophils # (Auto) 6.7 x10^3/uL (1.8-7.7) Lymphocytes # (Auto) 0.7 x10^3/uL (1.0-4.8) Monocytes # (Auto) 0.6 x10^3/uL (0.0-1.1) Eosinophils # (Auto) 0.1 x10^3/uL (0.0-0.7) Basophils # (Auto) 0.0 x10^3/uL (0.0-0.2) Sodium Level 142 mmol/L (136-145) Potassium Level 4.4 mmol/L (3.5-5.1) Chloride Level 110 mmol/L (98-107) Carbon Dioxide Level 22 mmol/L (21-32) Anion Gap 10 (6-14) Blood Urea Nitrogen 21 mg/dL (8-26) Creatinine 3.2 mg/dL (0.7-1.3) Estimated GFR (Cockcroft-Gault) 19.7 BUN/Creatinine Ratio 7 (6-20) Glucose Level 175 mg/dL (70-99) Calcium Level 8.4 mg/dL (8.5-10.1) Phosphorus Level 3.5 mg/dL (2.6-4.7) Total Bilirubin 0.2 mg/dL (0.2-1.0) Aspartate Amino Transf (AST/SGOT) 21 U/L (15-37) Alanine Aminotransferase (ALT/SGPT) 25 U/L (16-63) Alkaline Phosphatase 46 U/L (46-116) Total Protein 6.1 g/dL (6.4-8.2) Albumin 1.9 g/dL (3.4-5.0) Albumin/Globulin Ratio 0.5 (1.0-1.7) Glucose (Fingerstick) 176 mg/dL (70-99) Laboratory Tests Test 12/5/19 10:55 06/16/19 17:06 06/16/19 20:55 06/17/19 04:25 Glucose (Fingerstick) 191 mg/dL (70-99) 148 mg/dL (70-99) 194 mg/dL (70-99) White Blood Count 8.2 x10^3/uL (4.0-11.0) Red Blood Count 4.19 x10^6/uL (4.30-5.70) Hemoglobin 13.1 g/dL (13.0-17.5) Hematocrit 39.2 % (39.0-53.0) Mean Corpuscular Volume 94 fL (79-100) Mean Corpuscular Hemoglobin 31 pg (25-35) Mean Corpuscular Hemoglobin Concent 34 g/dL (31-37) Red Cell Distribution Width 12.5 % (11.5-14.5) Platelet Count 322 x10^3/uL (140-400) Neutrophils (%) (Auto) 82 % (31-73) Lymphocytes (%) (Auto) 9 % (24-48) Monocytes (%) (Auto) 7 % (0-9) Eosinophils (%) (Auto) 1 % (0-3) Basophils (%) (Auto) 1 % (0-3) Neutrophils # (Auto) 6.7 x10^3/uL (1.8-7.7) Lymphocytes # (Auto) 0.7 x10^3/uL (1.0-4.8) Monocytes # (Auto) 0.6 x10^3/uL (0.0-1.1) Eosinophils # (Auto) 0.1 x10^3/uL (0.0-0.7) Basophils # (Auto) 0.0 x10^3/uL (0.0-0.2) Sodium Level 142 mmol/L (136-145) Potassium Level 4.4 mmol/L (3.5-5.1) Chloride Level 110 mmol/L (98-107) Carbon Dioxide Level 22 mmol/L (21-32) Anion Gap 10 (6-14) Blood Urea Nitrogen 21 mg/dL (8-26) Creatinine 3.2 mg/dL (0.7-1.3) Estimated GFR (Cockcroft-Gault) 19.7 BUN/Creatinine Ratio 7 (6-20) Glucose Level 175 mg/dL (70-99) Calcium Level 8.4 mg/dL (8.5-10.1) Phosphorus Level 3.5 mg/dL (2.6-4.7) Total Bilirubin 0.2 mg/dL (0.2-1.0) Aspartate Amino Transf (AST/SGOT) 21 U/L (15-37) Alanine Aminotransferase (ALT/SGPT) 25 U/L (16-63) Alkaline Phosphatase 46 U/L (46-116) Total Protein 6.1 g/dL (6.4-8.2) Albumin 1.9 g/dL (3.4-5.0) Albumin/Globulin Ratio 0.5 (1.0-1.7) Test 06/17/19 07:51 Glucose (Fingerstick) 176 mg/dL (70-99) Problem List Problems Medical Problems: (1) Cellulitis Status: Acute (2) Groin abscess Status: Acute Assessment/Plan continue wound care medical management, noted elevated cr will sign off, please call with questions AIME JIN MD 06/17/19 1116: SURGICAL PROGRESS NOTE Assessment/Plan agree with above JENNIE JACKSON [employer] Jun 17, 2019 09:08 AIME JIN MD Jun 17, 2019 11:16
--- NOTE | 2019-06-17 09:35 | PDOC ---
Infectious Disease Note Subjective: Subjective pt says feels better No fever or chills no n/v/d/abdo pain or sob no gu symptoms Vital Signs: Vital Signs Vital Signs Date Time Temp Pulse Resp B/P (MAP) Pulse Ox O2 Delivery O2 Flow Rate FiO2 06/17/19 07:00 97.8 54 16 178/74 (108) 95 Room Air 97.8 Physical Exam: PHYSICAL EXAM GENERAL: The patient is propped up in bed, alert, in no apparent distress.nontoxic appearing HEENT: Pupils are equally round. Oral cavity: Pharynx pink and moist. NECK: Supple. LUNGS: Clear to auscultation. HEART: S1 and S2. ABDOMEN: Obese, soft, and nontender with bowel sounds present. EXTREMITIES: No gross edema or cyanosis. SKIN: Warm to touch. No signs of rash. He has a fairly large area of induration with some fluctuance and redness on the right inner thigh with packing in place. NEUROLOGIC: Alert and oriented x3. Medications: Inpatient Meds: Current Medications Medications (Trade) Dose Ordered Sig/Ivon Start Time Stop Time Status Last Admin Dose Admin Acetaminophen (Tylenol) 650 mg PRN Q4HRS PRN 06/12/19 12:30 Acetaminophen/ Hydrocodone Bitart (Lortab 5/325) 2 tab PRN Q4HRS PRN 06/12/19 17:00 06/15/19 17:22 2 TAB Al Hydroxide/Mg Hydroxide (Mylanta Plus Xs) 30 ml PRN DAILY PRN 06/12/19 12:30 Albuterol Sulfate (Ventolin Neb Soln) 2.5 mg PRN Q4HRS PRN 06/12/19 12:30 Cefepime HCl (Maxipime) 1 gm Q12HR 06/15/19 10:00 06/16/19 20:44 1 GM Clonidine HCl (Catapres) 0.1 mg PRN Q6HRS PRN 06/12/19 12:30 06/16/19 17:36 0.1 MG Dextrose (Dextrose 50%-Water Syringe) 12.5 gm PRN Q15MIN PRN 06/13/19 13:15 Docusate Sodium (Colace) 100 mg PRN BID PRN 06/12/19 12:30 Enoxaparin Sodium (Lovenox 40mg Syringe) 40 mg Q24H 06/12/19 13:00 06/16/19 13:47 40 MG Fentanyl Citrate (Fentanyl 2ml Vial) 100 mcg STK-MED ONCE 06/14/19 14:49 06/14/19 14:50 DC Guaifenesin (Robitussin) 200 mg PRN Q4HRS PRN 06/12/19 12:30 Hydromorphone HCl (Dilaudid) 0.5 mg PRN Q10MIN PRN 06/14/19 12:45 06/14/19 19:05 DC Insulin Glargine (Lantus Syringe) 10 unit 1X ONCE 06/13/19 14:00 06/13/19 14:01 DC 06/13/19 14:39 10 UNIT Insulin Human Lispro (HumaLOG) 0-9 UNITS TIDWMEALS 06/13/19 17:00 06/16/19 12:31 4 UNITS Lactobacillus Rhamnosus (Culturelle) 1 cap BID 06/13/19 21:00 06/16/19 20:44 1 CAP Lidocaine HCl (Lidocaine Pf 2% Vial) 5 ml STK-MED ONCE 06/14/19 13:53 06/14/19 13:53 DC Lidocaine HCl (Xylocaine-Mpf 1% 2ml Vial) 2 ml PRN 1X PRN 06/14/19 12:45 06/14/19 19:05 DC Lidocaine/ Epinephrine (LIDOCAINE 1%-EPI 1:100,000 Multi-Dose) 20 ml STK-MED ONCE 06/14/19 13:31 06/14/19 13:31 DC Linezolid (Zyvox) 600 mg BID 06/15/19 10:00 06/16/19 20:44 600 MG Lisinopril (Prinivil) 10 mg DAILY08 06/12/19 12:30 06/16/19 08:57 10 MG Lorazepam (Ativan) 0.5 mg PRN Q4HRS PRN 06/12/19 12:30 Metformin HCl (Glucophage Xr) 500 mg DAILYWBKFT 06/13/19 08:00 06/16/19 08:57 500 MG Metronidazole (Flagyl) 500 mg Q12HR 06/15/19 10:00 06/16/19 20:44 500 MG Morphine Sulfate (Morphine Sulfate) 1 mg PRN Q10MIN PRN 06/14/19 12:45 06/14/19 19:05 DC Nicotine (Nicoderm Cq 21mg) 1 patch DAILY 06/12/19 15:30 06/16/19 08:57 1 PATCH Ondansetron HCl (Zofran) 4 mg STK-MED ONCE 06/14/19 13:53 06/14/19 13:53 DC Piperacillin Sod/ Tazobactam Sod 3.375 gm/Sodium Chloride 50 ml @ 100 mls/hr Q6HRS 06/12/19 14:00 06/15/19 09:07 DC 06/15/19 06:18 100 MLS/HR Prochlorperazine Edisylate (Compazine) 5 mg PACU PRN PRN 06/14/19 12:45 06/14/19 19:05 DC Propofol 20 ml @ As Directed STK-MED ONCE 06/14/19 13:53 06/14/19 13:53 DC Ringer's Solution 1,000 ml @ 30 mls/hr Q24H 06/14/19 12:40 06/14/19 19:04 DC Sevoflurane (Ultane) 30 ml STK-MED ONCE 06/14/19 14:52 06/14/19 14:52 DC Sodium Hypochlorite (Dakin'S 1/4 Strength) 1 emilee DAILY 06/15/19 18:00 06/16/19 09:00 1 EMILEE Sodium Bicarbonate (Sodium Bicarb Adult 8.4% Syr) 50 meq 1X ONCE 06/12/19 10:30 06/12/19 10:31 DC 06/12/19 10:35 50 MEQ Sodium Chloride 1,000 ml @ 100 mls/hr Q10H 06/12/19 12:18 06/17/19 02:25 100 MLS/HR Sodium Chloride (Normal Saline Flush) 3 ml QSHIFT PRN 06/12/19 12:30 Vancomycin HCl (Vanco Per Pharmacy) 1 each PRN DAILY PRN 06/12/19 12:30 06/15/19 09:07 DC 06/14/19 12:53 1 EACH Vancomycin HCl (Vancomycin Trough Level) 1 each 1X ONCE 06/15/19 08:30 06/15/19 08:31 Cancel Vancomycin HCl 1.25 gm/Sodium Chloride 250 ml @ 167 mls/hr Q12H 06/14/19 13:00 06/15/19 09:08 DC 06/15/19 01:18 167 MLS/HR Vancomycin HCl 2 gm/Sodium Chloride 500 ml @ 250 mls/hr 1X ONCE 06/12/19 13:00 06/12/19 14:59 DC 06/12/19 13:09 250 MLS/HR Zolpidem Tartrate (Ambien) 5 mg PRN QHS PRN 06/12/19 12:30 Labs: Lab Laboratory Tests Test 06/16/19 10:55 06/16/19 17:06 06/16/19 20:55 06/17/19 04:25 Glucose (Fingerstick) 191 mg/dL (70-99) 148 mg/dL (70-99) 194 mg/dL (70-99) White Blood Count 8.2 x10^3/uL (4.0-11.0) Red Blood Count 4.19 x10^6/uL (4.30-5.70) Hemoglobin 13.1 g/dL (13.0-17.5) Hematocrit 39.2 % (39.0-53.0) Mean Corpuscular Volume 94 fL (79-100) Mean Corpuscular Hemoglobin 31 pg (25-35) Mean Corpuscular Hemoglobin Concent 34 g/dL (31-37) Red Cell Distribution Width 12.5 % (11.5-14.5) Platelet Count 322 x10^3/uL (140-400) Neutrophils (%) (Auto) 82 % (31-73) Lymphocytes (%) (Auto) 9 % (24-48) Monocytes (%) (Auto) 7 % (0-9) Eosinophils (%) (Auto) 1 % (0-3) Basophils (%) (Auto) 1 % (0-3) Neutrophils # (Auto) 6.7 x10^3/uL (1.8-7.7) Lymphocytes # (Auto) 0.7 x10^3/uL (1.0-4.8) Monocytes # (Auto) 0.6 x10^3/uL (0.0-1.1) Eosinophils # (Auto) 0.1 x10^3/uL (0.0-0.7) Basophils # (Auto) 0.0 x10^3/uL (0.0-0.2) Sodium Level 142 mmol/L (136-145) Potassium Level 4.4 mmol/L (3.5-5.1) Chloride Level 110 mmol/L (98-107) Carbon Dioxide Level 22 mmol/L (21-32) Anion Gap 10 (6-14) Blood Urea Nitrogen 21 mg/dL (8-26) Creatinine 3.2 mg/dL (0.7-1.3) Estimated GFR (Cockcroft-Gault) 19.7 BUN/Creatinine Ratio 7 (6-20) Glucose Level 175 mg/dL (70-99) Calcium Level 8.4 mg/dL (8.5-10.1) Phosphorus Level 3.5 mg/dL (2.6-4.7) Total Bilirubin 0.2 mg/dL (0.2-1.0) Aspartate Amino Transf (AST/SGOT) 21 U/L (15-37) Alanine Aminotransferase (ALT/SGPT) 25 U/L (16-63) Alkaline Phosphatase 46 U/L (46-116) Total Protein 6.1 g/dL (6.4-8.2) Albumin 1.9 g/dL (3.4-5.0) Albumin/Globulin Ratio 0.5 (1.0-1.7) Test 06/17/19 07:51 Glucose (Fingerstick) 176 mg/dL (70-99) Objective: Assessment: 1. Rt Groin abscess status post incision and drainage in the emergency room on 06/12/2019. B hemolytic group B / S/P Surgical Incision and drainage of right groin abscess cult grp b strep 2. 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 3. Diabetes. 4. Obesity. 5. Hypertension. 6. RAQUEL creat worsening, ATN vs other Plan: Plan of Care start rocephin cont flagyl for now dc cefepime and zyvox d/w Dr Aguilar cont local wound /vac care awaiting further studies for renal GABINO JACK MD Jun 17, 2019 09:35
--- NOTE | 2019-06-17 10:07 | PDOC ---
PROGRESS NOTES Chief Complaint Chief Complaint IMPRESSION Groin abscess, deep, complicated hx MRSA diabetes 2, poor control, A1c 10.3 Cellulitis uncontrolled hypertension obesity, BMI 28 acute renal injury cr 3.2 06/17 AEROBIC RES 1 Preliminary Comment Beta hemolytic Streptococcus, group B f/u intraop cultures nephrology consult renal sono Urinary bladder wall thickening. Correlate for cystitis or chronic outlet obstruction. There is a 44 cc post void bladder residual. cont flagyl and zyvox 38 min pt exam, chart review, > 50% of time spent with exam, chart review, pt care coordination History of Present Illness History of Present Illness SS INSULIN, increase to high dose, glargine 10 x1 wound care to follow CONSULT ID - broad abx dvt prophylaxis iv vanc d/c nephrology consulted Vitals Vitals Vital Signs Date Time Temp Pulse Resp B/P (MAP) Pulse Ox O2 Delivery O2 Flow Rate FiO2 06/17/19 07:00 97.8 54 16 178/74 (108) 95 Room Air 97.8 Physical Exam Physical Exam GENERAL: The patient is propped up in bed, alert, in no apparent distress.nontoxic appearing HEENT: Pupils are equally round. Oral cavity: Pharynx pink and moist. NECK: Supple. LUNGS: Clear to auscultation. HEART: S1 and S2. ABDOMEN: Obese, soft, and nontender with bowel sounds present. EXTREMITIES: No gross edema or cyanosis. SKIN: Warm to touch. No signs of rash. He has a fairly large area of induration with some fluctuance and redness on the right inner thigh with packing in place. NEUROLOGIC: Alert and oriented x3. General: Alert, Oriented X3, Cooperative Heart: Regular rate, Normal S1, Normal S2, No murmurs Lungs: Clear Abdomen: Normal bowel sounds, Soft, No tenderness Extremities: No cyanosis, Other (wound clean, packed) Skin: Other (groin wound clean, packed) Labs LABS EXAM: Renal sonogram. HISTORY: Renal insufficiency. TECHNIQUE: Sonographic imaging of the kidneys and bladder was performed. COMPARISON: None. FINDINGS: The kidneys are normal in size. There is a 2.6 cm simple appearing cyst within the superior left kidney. No solid renal lesion is seen. There is no hydronephrosis. There is urinary bladder wall thickening. The post void bladder residual residual is 44 cc. IMPRESSION: 1. 2.6 cm simple appearing left renal cyst. 2. Urinary bladder wall thickening. Correlate for cystitis or chronic outlet obstruction. There is a 44 cc post void bladder residual. Electronically signed by: Margie Enciso MD (06/16/2019 4:30 PM) [place] [id number] DICTATED and SIGNED BY: MARGIE ENCISO MD DATE: 06/16/19 0074 Laboratory Tests Test 06/16/19 10:55 06/16/19 17:06 06/16/19 20:55 06/17/19 04:25 Glucose (Fingerstick) 191 mg/dL (70-99) 148 mg/dL (70-99) 194 mg/dL (70-99) White Blood Count 8.2 x10^3/uL (4.0-11.0) Red Blood Count 4.19 x10^6/uL (4.30-5.70) Hemoglobin 13.1 g/dL (13.0-17.5) Hematocrit 39.2 % (39.0-53.0) Mean Corpuscular Volume 94 fL (79-100) Mean Corpuscular Hemoglobin 31 pg (25-35) Mean Corpuscular Hemoglobin Concent 34 g/dL (31-37) Red Cell Distribution Width 12.5 % (11.5-14.5) Platelet Count 322 x10^3/uL (140-400) Neutrophils (%) (Auto) 82 % (31-73) Lymphocytes (%) (Auto) 9 % (24-48) Monocytes (%) (Auto) 7 % (0-9) Eosinophils (%) (Auto) 1 % (0-3) Basophils (%) (Auto) 1 % (0-3) Neutrophils # (Auto) 6.7 x10^3/uL (1.8-7.7) Lymphocytes # (Auto) 0.7 x10^3/uL (1.0-4.8) Monocytes # (Auto) 0.6 x10^3/uL (0.0-1.1) Eosinophils # (Auto) 0.1 x10^3/uL (0.0-0.7) Basophils # (Auto) 0.0 x10^3/uL (0.0-0.2) Sodium Level 142 mmol/L (136-145) Potassium Level 4.4 mmol/L (3.5-5.1) Chloride Level 110 mmol/L (98-107) Carbon Dioxide Level 22 mmol/L (21-32) Anion Gap 10 (6-14) Blood Urea Nitrogen 21 mg/dL (8-26) Creatinine 3.2 mg/dL (0.7-1.3) Estimated GFR (Cockcroft-Gault) 19.7 BUN/Creatinine Ratio 7 (6-20) Glucose Level 175 mg/dL (70-99) Calcium Level 8.4 mg/dL (8.5-10.1) Phosphorus Level 3.5 mg/dL (2.6-4.7) Total Bilirubin 0.2 mg/dL (0.2-1.0) Aspartate Amino Transf (AST/SGOT) 21 U/L (15-37) Alanine Aminotransferase (ALT/SGPT) 25 U/L (16-63) Alkaline Phosphatase 46 U/L (46-116) Total Protein 6.1 g/dL (6.4-8.2) Albumin 1.9 g/dL (3.4-5.0) Albumin/Globulin Ratio 0.5 (1.0-1.7) Test 06/17/19 07:51 Glucose (Fingerstick) 176 mg/dL (70-99) Assessment and Plan Assessmemt and Plan Problems Medical Problems: (1) Cellulitis Status: Acute (2) Groin abscess Status: Acute Comment Review of Relevant I have reviewed the following items kellee (where applicable) has been applied. Labs Laboratory Tests Test 06/15/19 11:46 06/15/19 16:34 06/15/19 20:38 06/16/19 04:05 Glucose (Fingerstick) 226 mg/dL (70-99) 182 mg/dL (70-99) 186 mg/dL (70-99) White Blood Count 10.1 x10^3/uL (4.0-11.0) Red Blood Count 4.37 x10^6/uL (4.30-5.70) Hemoglobin 14.0 g/dL (13.0-17.5) Hematocrit 41.2 % (39.0-53.0) Mean Corpuscular Volume 94 fL (79-100) Mean Corpuscular Hemoglobin 32 pg (25-35) Mean Corpuscular Hemoglobin Concent 34 g/dL (31-37) Red Cell Distribution Width 12.3 % (11.5-14.5) Platelet Count 323 x10^3/uL (140-400) Neutrophils (%) (Auto) 83 % (31-73) Lymphocytes (%) (Auto) 8 % (24-48) Monocytes (%) (Auto) 8 % (0-9) Eosinophils (%) (Auto) 1 % (0-3) Basophils (%) (Auto) 0 % (0-3) Neutrophils # (Auto) 8.3 x10^3/uL (1.8-7.7) Lymphocytes # (Auto) 0.8 x10^3/uL (1.0-4.8) Monocytes # (Auto) 0.8 x10^3/uL (0.0-1.1) Eosinophils # (Auto) 0.1 x10^3/uL (0.0-0.7) Basophils # (Auto) 0.0 x10^3/uL (0.0-0.2) Sodium Level 139 mmol/L (136-145) Potassium Level 3.5 mmol/L (3.5-5.1) Chloride Level 105 mmol/L (98-107) Carbon Dioxide Level 21 mmol/L (21-32) Anion Gap 13 (6-14) Blood Urea Nitrogen 19 mg/dL (8-26) Creatinine 2.9 mg/dL (0.7-1.3) Estimated GFR (Cockcroft-Gault) 22.1 BUN/Creatinine Ratio 7 (6-20) Glucose Level 193 mg/dL (70-99) Calcium Level 8.5 mg/dL (8.5-10.1) Total Bilirubin 0.3 mg/dL (0.2-1.0) Aspartate Amino Transf (AST/SGOT) 28 U/L (15-37) Alanine Aminotransferase (ALT/SGPT) 27 U/L (16-63) Alkaline Phosphatase 53 U/L (46-116) Total Protein 6.5 g/dL (6.4-8.2) Albumin 2.1 g/dL (3.4-5.0) Albumin/Globulin Ratio 0.5 (1.0-1.7) Test 06/16/19 07:25 06/16/19 10:55 06/16/19 17:06 06/16/19 20:55 Glucose (Fingerstick) 186 mg/dL (70-99) 191 mg/dL (70-99) 148 mg/dL (70-99) 194 mg/dL (70-99) Test 06/17/19 04:25 06/17/19 07:51 White Blood Count 8.2 x10^3/uL (4.0-11.0) Red Blood Count 4.19 x10^6/uL (4.30-5.70) Hemoglobin 13.1 g/dL (13.0-17.5) Hematocrit 39.2 % (39.0-53.0) Mean Corpuscular Volume 94 fL (79-100) Mean Corpuscular Hemoglobin 31 pg (25-35) Mean Corpuscular Hemoglobin Concent 34 g/dL (31-37) Red Cell Distribution Width 12.5 % (11.5-14.5) Platelet Count 322 x10^3/uL (140-400) Neutrophils (%) (Auto) 82 % (31-73) Lymphocytes (%) (Auto) 9 % (24-48) Monocytes (%) (Auto) 7 % (0-9) Eosinophils (%) (Auto) 1 % (0-3) Basophils (%) (Auto) 1 % (0-3) Neutrophils # (Auto) 6.7 x10^3/uL (1.8-7.7) Lymphocytes # (Auto) 0.7 x10^3/uL (1.0-4.8) Monocytes # (Auto) 0.6 x10^3/uL (0.0-1.1) Eosinophils # (Auto) 0.1 x10^3/uL (0.0-0.7) Basophils # (Auto) 0.0 x10^3/uL (0.0-0.2) Sodium Level 142 mmol/L (136-145) Potassium Level 4.4 mmol/L (3.5-5.1) Chloride Level 110 mmol/L (98-107) Carbon Dioxide Level 22 mmol/L (21-32) Anion Gap 10 (6-14) Blood Urea Nitrogen 21 mg/dL (8-26) Creatinine 3.2 mg/dL (0.7-1.3) Estimated GFR (Cockcroft-Gault) 19.7 BUN/Creatinine Ratio 7 (6-20) Glucose Level 175 mg/dL (70-99) Calcium Level 8.4 mg/dL (8.5-10.1) Phosphorus Level 3.5 mg/dL (2.6-4.7) Total Bilirubin 0.2 mg/dL (0.2-1.0) Aspartate Amino Transf (AST/SGOT) 21 U/L (15-37) Alanine Aminotransferase (ALT/SGPT) 25 U/L (16-63) Alkaline Phosphatase 46 U/L (46-116) Total Protein 6.1 g/dL (6.4-8.2) Albumin 1.9 g/dL (3.4-5.0) Albumin/Globulin Ratio 0.5 (1.0-1.7) Glucose (Fingerstick) 176 mg/dL (70-99) Laboratory Tests Test 06/16/19 10:55 06/16/19 17:06 06/16/19 20:55 06/17/19 04:25 Glucose (Fingerstick) 191 mg/dL (70-99) 148 mg/dL (70-99) 194 mg/dL (70-99) White Blood Count 8.2 x10^3/uL (4.0-11.0) Red Blood Count 4.19 x10^6/uL (4.30-5.70) Hemoglobin 13.1 g/dL (13.0-17.5) Hematocrit 39.2 % (39.0-53.0) Mean Corpuscular Volume 94 fL (79-100) Mean Corpuscular Hemoglobin 31 pg (25-35) Mean Corpuscular Hemoglobin Concent 34 g/dL (31-37) Red Cell Distribution Width 12.5 % (11.5-14.5) Platelet Count 322 x10^3/uL (140-400) Neutrophils (%) (Auto) 82 % (31-73) Lymphocytes (%) (Auto) 9 % (24-48) Monocytes (%) (Auto) 7 % (0-9) Eosinophils (%) (Auto) 1 % (0-3) Basophils (%) (Auto) 1 % (0-3) Neutrophils # (Auto) 6.7 x10^3/uL (1.8-7.7) Lymphocytes # (Auto) 0.7 x10^3/uL (1.0-4.8) Monocytes # (Auto) 0.6 x10^3/uL (0.0-1.1) Eosinophils # (Auto) 0.1 x10^3/uL (0.0-0.7) Basophils # (Auto) 0.0 x10^3/uL (0.0-0.2) Sodium Level 142 mmol/L (136-145) Potassium Level 4.4 mmol/L (3.5-5.1) Chloride Level 110 mmol/L (98-107) Carbon Dioxide Level 22 mmol/L (21-32) Anion Gap 10 (6-14) Blood Urea Nitrogen 21 mg/dL (8-26) Creatinine 3.2 mg/dL (0.7-1.3) Estimated GFR (Cockcroft-Gault) 19.7 BUN/Creatinine Ratio 7 (6-20) Glucose Level 175 mg/dL (70-99) Calcium Level 8.4 mg/dL (8.5-10.1) Phosphorus Level 3.5 mg/dL (2.6-4.7) Total Bilirubin 0.2 mg/dL (0.2-1.0) Aspartate Amino Transf (AST/SGOT) 21 U/L (15-37) Alanine Aminotransferase (ALT/SGPT) 25 U/L (16-63) Alkaline Phosphatase 46 U/L (46-116) Total Protein 6.1 g/dL (6.4-8.2) Albumin 1.9 g/dL (3.4-5.0) Albumin/Globulin Ratio 0.5 (1.0-1.7) Test 06/17/19 07:51 Glucose (Fingerstick) 176 mg/dL (70-99) Microbiology 06/14/19 Anaerobic/Aerobic Culture, Resulted Pending 06/14/19 Anaerobic Culture Result 1 (YUMI), Resulted Pending 06/14/19 Aerobic Culture - Preliminary, Resulted 06/14/19 Aerobic Culture Result 1 (YUMI) - Preliminary, Resulted 06/14/19 Gram Stain - Final, Resulted 06/14/19 Gram Stain Result 1 (YUMI) - Final, Resulted 06/14/19 Gram Stain Result 2 (YUMI) - Final, Resulted 06/12/19 Blood Culture - Preliminary, Resulted NO GROWTH AFTER 4 DAYS Medications Current Medications Lidocaine/ Epinephrine (LIDOCAINE 1%-EPI 1:100,000 Multi-Dose) 20 ml 1X ONCE INJ Last administered on 06/12/19at 10:29; Start 06/12/19 at 10:15; Stop 06/12/19 at 10:16; Status DC Sodium Bicarbonate (Sodium Bicarb Adult 8.4% Syr) 50 meq STK-MED ONCE .ROUTE ; Start 06/12/19 at 10:19; Stop 06/12/19 at 10:19; Status DC Sodium Bicarbonate (Sodium Bicarb Adult 8.4% Syr) 50 meq 1X ONCE SQ Last administered on 06/12/19at 10:35; Start 06/12/19 at 10:30; Stop 06/12/19 at 10:31; Status DC Vancomycin HCl 250 ml @ 250 mls/hr 1X ONCE IV Last administered on 06/12/19at 11:48; Start 06/12/19 at 10:45; Stop 06/12/19 at 11:44; Status DC Sodium Chloride 1,000 ml @ 1,000 mls/hr 1X ONCE IV Last administered on 06/12/19at 11:45; Start 06/12/19 at 11:45; Stop 06/12/19 at 12:44; Status DC Vancomycin HCl (Vanco Per Pharmacy) 1 each PRN DAILY PRN MC SEE COMMENTS Last administered on 06/14/19at 12:53; Start 06/12/19 at 12:30; Stop 06/15/19 at 09:07; Status DC Insulin Human Lispro (HumaLOG) 0-5 UNITS TIDWMEALS SQ Last administered on 06/12/19at 17:21; Start 06/12/19 at 17:00; Stop 06/13/19 at 13:09; Status DC Dextrose (Dextrose 50%-Water Syringe) 12.5 gm PRN Q15MIN PRN IV SEE COMMENTS; Start 06/12/19 at 12:30; Stop 06/13/19 at 13:43; Status DC Vancomycin HCl 2 gm/Sodium Chloride 500 ml @ 250 mls/hr 1X ONCE IV Last administered on 06/12/19at 13:09; Start 06/12/19 at 13:00; Stop 06/12/19 at 14:59; Status DC Sodium Chloride (Normal Saline Flush) 3 ml QSHIFT PRN IV AFTER MEDS AND BLOOD DRAWS; Start 06/12/19 at 12:30 Sodium Chloride 1,000 ml @ 100 mls/hr Q10H IV Last administered on 06/17/19at 02:25; Start 06/12/19 at 12:18 Ondansetron HCl (Zofran) 4 mg PRN Q4HRS PRN IV NAUSEA/VOMITING Last administered on 06/13/19at 02:34; Start 06/12/19 at 12:30 Zolpidem Tartrate (Ambien) 5 mg PRN QHS PRN PO INSOMNIA; Start 06/12/19 at 12:30 Acetaminophen (Tylenol) 650 mg PRN Q4HRS PRN PO TEMP OVER 100.4F OR MILD PAIN; Start 06/12/19 at 12:30 Al Hydroxide/Mg Hydroxide (Mylanta Plus Xs) 30 ml PRN DAILY PRN PO HEARTBURN / GAS; Start 06/12/19 at 12:30 Clonidine HCl (Catapres) 0.1 mg PRN Q6HRS PRN PO SBP>160 OR DBP>90 Last administered on 06/16/19at 17:36; Start 06/12/19 at 12:30 Docusate Sodium (Colace) 100 mg PRN BID PRN PO CONSTIPATION; Start 06/12/19 at 12:30 Albuterol Sulfate (Ventolin Neb Soln) 2.5 mg PRN Q4HRS PRN NEB SHORTNESS OF BREATH; Start 06/12/19 at 12:30 Guaifenesin (Robitussin) 200 mg PRN Q4HRS PRN PO COUGH; Start 06/12/19 at 12:30 Lorazepam (Ativan) 0.5 mg PRN Q4HRS PRN PO ANXIETY / AGITATION; Start 06/12/19 at 12:30 Enoxaparin Sodium (Lovenox 40mg Syringe) 40 mg Q24H SQ Last administered on 06/16/19at 13:47; Start 06/12/19 at 13:00 Metformin HCl (Glucophage Xr) 500 mg DAILYWBKFT PO Last administered on 06/16/19at 08:57; Start 06/13/19 at 08:00 Lisinopril (Prinivil) 10 mg DAILY08 PO Last administered on 06/16/19at 08:57; Start 06/12/19 at 12:30 Piperacillin Sod/ Tazobactam Sod 3.375 gm/Sodium Chloride 50 ml @ 100 mls/hr Q6HRS IV Last administered on 06/15/19 06:18; Start 06/12/19 at 14:00; Stop 06/15/19 at 09:07; Status DC Nicotine (Nicoderm Cq 21mg) 1 patch DAILY TD Last administered on 06/16/19 08:57; Start 06/12/19 at 15:30 Vancomycin HCl 1.25 gm/Sodium Chloride 250 ml @ 167 mls/hr Q12H IV Last administered on 06/14/19 01:09; Start 06/13/19 at 01:00; Stop 06/14/19 at 02:48; Status DC Vancomycin HCl (Vancomycin Trough Level) 1 each 1X ONCE MC Last administered on 06/14/19 00:30; Start 06/14/19 at 00:30; Stop 06/14/19 at 00:31; Status DC Hydromorphone HCl (Dilaudid) 1 mg PRN Q3HRS PRN IV SEVERE PAIN 7-10; Start at 16:45 Acetaminophen/ Hydrocodone Bitart (Lortab 5/325) 1 tab PRN Q4HRS PRN PO MODERATE PAIN Last administered on 06/14/19 20:57; Start 06/12/19 at 17:00 Acetaminophen/ Hydrocodone Bitart (Lortab 5/325) 2 tab PRN Q4HRS PRN PO SEVERE PAIN Last administered on 06/15/19 17:22; Start 06/12/19 at 17:00 Lactobacillus Rhamnosus (Culturelle) 1 cap BID PO Last administered on 08/17/18at 20:44; Start 06/13/19 at 21:00 Insulin Human Lispro (HumaLOG) 0-9 UNITS TIDWMEALS SQ Last administered on 06/16/19 12:31; Start 06/13/19 at 17:00 Dextrose (Dextrose 50%-Water Syringe) 12.5 gm PRN Q15MIN PRN IV SEE COMMENTS; Start 06/13/19 at 13:15 Insulin Glargine (Lantus Syringe) 10 unit 1X ONCE SQ Last administered on 06/13/19at 14:39; Start 06/13/19 at 14:00; Stop 06/13/19 at 14:01; Status DC Vancomycin HCl 1.25 gm/Sodium Chloride 250 ml @ 167 mls/hr Q12H IV Last administered on 06/15/19at 01:18; Start 06/14/19 at 13:00; Stop 06/15/19 at 09:08; Status DC Vancomycin HCl (Vancomycin Trough Level) 1 each 1X ONCE MC ; Start 06/15/19 at 08:30; Stop 06/15/19 at 08:31; Status Cancel Ondansetron HCl (Zofran) 4 mg PRN Q6HRS PRN IV NAUSEA/VOMITING; Start 06/14/19 at 12:45; Stop 06/14/19 at 19:05; Status DC Fentanyl Citrate (Fentanyl 2ml Vial) 25 mcg PRN Q5MIN PRN IV MILD PAIN 1-3; Start 06/14/19 at 12:45; Stop 06/14/19 at 19:05; Status DC Fentanyl Citrate (Fentanyl 2ml Vial) 50 mcg PRN Q5MIN PRN IV MODERATE TO SEVERE PAIN Last administered on 06/14/19at 15:07; Start 06/14/19 at 12:45; Stop 06/14/19 at 19:05; Status DC Morphine Sulfate (Morphine Sulfate) 1 mg PRN Q10MIN PRN IV SEVERE PAIN 7-10; Start 06/14/19 at 12:45; Stop 06/14/19 at 19:05; Status DC Ringer's Solution 1,000 ml @ 30 mls/hr Q24H IV ; Start 06/14/19 at 12:40; Stop 06/14/19 at 19:04; Status DC Lidocaine HCl (Xylocaine-Mpf 1% 2ml Vial) 2 ml PRN 1X PRN ID PRIOR TO IV START; Start 06/14/19 at 12:45; Stop 06/14/19 at 19:05; Status DC Hydromorphone HCl (Dilaudid) 0.5 mg PRN Q10MIN PRN IV SEV PAIN, Second choice; Start 06/14/19 at 12:45; Stop 06/14/19 at 19:05; Status DC Prochlorperazine Edisylate (Compazine) 5 mg PACU PRN PRN IV NAUSEA, MRX1; Start 06/14/19 at 12:45; Stop 06/14/19 at 19:05; Status DC Lidocaine/ Epinephrine (LIDOCAINE 1%-EPI 1:100,000 Multi-Dose) 20 ml STK-MED ONCE .ROUTE ; Start 06/14/19 at 13:31; Stop 06/14/19 at 13:31; Status DC Fentanyl Citrate (Fentanyl 2ml Vial) 100 mcg STK-MED ONCE .ROUTE ; Start 06/14/19 at 13:50; Stop 06/14/19 at 13:50; Status DC Propofol 20 ml @ As Directed STK-MED ONCE IV ; Start 06/14/19 at 13:53; Stop 06/14/19 at 13:53; Status DC Lidocaine HCl (Lidocaine Pf 2% Vial) 5 ml STK-MED ONCE .ROUTE ; Start 06/14/19 at 13:53; Stop 06/14/19 at 13:53; Status DC Ondansetron HCl (Zofran) 4 mg STK-MED ONCE .ROUTE ; Start 06/14/19 at 13:53; Stop 06/14/19 at 13:53; Status DC Fentanyl Citrate (Fentanyl 2ml Vial) 100 mcg STK-MED ONCE .ROUTE ; Start 06/14/19 at 14:49; Stop 06/14/19 at 14:50; Status DC Sevoflurane (Ultane) 30 ml STK-MED ONCE IH ; Start 06/14/19 at 14:52; Stop 06/14/19 at 14:52; Status DC Cefepime HCl (Maxipime) 1 gm Q12HR IVP Last administered on 06/16/19at 20:44; Start 06/15/19 at 10:00; Stop 06/17/19 at 09:33; Status DC Metronidazole (Flagyl) 500 mg Q12HR PO Last administered on 06/16/19at 20:44; Start 06/15/19 at 10:00 Linezolid (Zyvox) 600 mg BID PO Last administered on 06/16/19at 20:44; Start 06/15/19 at 10:00; Stop 06/17/19 at 09:33; Status DC Sodium Hypochlorite (Dakin'S 1/4 Strength) 1 emilee DAILY TP Last administered on 06/16/19at 09:00; Start 06/15/19 at 18:00 Ceftriaxone Sodium (Rocephin) 2 gm Q24H IVP ; Start 06/17/19 at 10:00 Vitals/I & O Vital Sign - Last 24 Hours 06/16/19 06/16/19 06/16/19 06/16/19 11:00 13:56 15:00 17:36 Temp 97.9 98.1 97.9 98.1 Pulse 71 76 65 65 Resp 16 16 B/P (MAP) 170/72 (104) 134/83 (100) 161/78 (105) 161/78 Pulse Ox 97 97 O2 Delivery Room Air Room Air 06/16/19 06/16/19 06/16/19 06/17/19 19:20 20:00 23:19 03:06 Temp 98.1 98.2 98.4 98.1 98.2 98.4 Pulse 57 60 58 Resp 18 18 18 B/P (MAP) 163/70 (101) 158/68 (98) 155/72 (99) Pulse Ox 95 95 96 O2 Delivery Room Air Room Air Room Air Room Air 06/17/19 07:00 Temp 97.8 97.8 Pulse 54 Resp 16 B/P (MAP) 178/74 (108) Pulse Ox 95 O2 Delivery Room Air Intake and Output 06/16/19 06/16/19 06/17/19 15:00 23:00 07:00 Intake Total 680 ml 1320 ml 720 ml Output Total 450 ml Balance 680 ml 870 ml 720 ml NICK HANSEN MD Jun 17, 2019 10:07
[2019-06-17] MEDS: cefTRIAXone IV Push 2 GM VIAL. IVP SCH (10:29)
[2019-06-17] MEDS: metFORMIN XR 500 MG TAB.ER.24H PO SCH (10:30)
[2019-06-17] MEDS: NICOTINE 21MG PATCH. TD SCH (10:30)
[2019-06-17] MEDS: LACTOBACILLUS RHAMNOSUS GG 1 CAPSULE. PO SCH ×2 (10:30→21:30)
[2019-06-17] MEDS: LISINOPRIL 10 MG TABLET PO SCH (10:30)
[2019-06-17] MEDS: metroNIDAZOLE 500 MG TABLET PO SCH ×2 (10:31→21:30)
[2019-06-17 11:00] VITALS: BP 182/77
--- NOTE | 2019-06-17 12:58 | PDOC ---
SUBJECTIVE ROS Pt denies any complaints, reports good uop, states 4-5 time/day , good amount. OBJECTIVE Vital Signs Vital Signs Date Time Temp Pulse Resp B/P (MAP) Pulse Ox O2 Delivery O2 Flow Rate FiO2 06/17/19 11:00 97.7 63 18 182/77 (112) 96 Room Air 97.7 I & 0 Intake and Output 06/17/19 07:00 Intake Total 2720 ml Output Total 450 ml Balance 2270 ml Intake Oral 1720 ml IV Total 1000 ml Output Urine Total 450 ml # Voids 5 PHYSICAL EXAM Physical Exam GENERAL: no apparent distress HEENT: Pupils are equally round. Oral cavity: Pharynx pink and moist. NECK: Supple. LUNGS: Clear to auscultation. HEART: S1 and S2. ABDOMEN: Obese, soft, and nontender with bowel sounds present. EXTREMITIES: No gross edema or cyanosis. SKIN: Warm to touch. No signs of rash. NEUROLOGIC: Alert and oriented x3 No Vivar, No CVA or SP tenderness . DIAGNOSIS/ASSESSMENT Assessment & Plan RAQUEL --ATN vs AIN , Vanc was 12, Dced , Zosyn dced as well ,No Hypotension Renal US - no hydronephrosis, No urinary retention UA ordered yesterday -not done, dw RN again earlier today Renal function might have Pltaeued, check BMP in am Supportive care, Strict I/O , Monitor , Daily labs Left renal cyst- 2.6 cm simple appearing Urinary bladder wall thickening. Correlate for cystitis or chronic outlet obstruction. There is a 44 cc post void bladder residual Will need to follow with Urology - defer to primary Rt Groin abscess - status post incision and drainage in the emergency room on 06/12/2019. B hemolytic group B 06/14 S/P surgical drainage on 06/14 Diabetes- on Metformin Metformin dced has RAQUEL Hypertension- BP Uncontrolled Antihypertensives to optimize BP Discussed with Pt and RN at bedside COMMENT/RELEVANT DATA Meds Current Medications Medications (Trade) Dose Ordered Sig/Ivon Start Time Stop Time Status Last Admin Dose Admin Acetaminophen (Tylenol) 650 mg PRN Q4HRS PRN 06/12/19 12:30 Acetaminophen/ Hydrocodone Bitart (Lortab 5/325) 2 tab PRN Q4HRS PRN 06/12/19 17:00 06/15/19 17:22 2 TAB Al Hydroxide/Mg Hydroxide (Mylanta Plus Xs) 30 ml PRN DAILY PRN 06/12/19 12:30 Albuterol Sulfate (Ventolin Neb Soln) 2.5 mg PRN Q4HRS PRN 06/12/19 12:30 Cefepime HCl (Maxipime) 1 gm Q12HR 06/15/19 10:00 06/17/19 09:33 DC 06/16/19 20:44 1 GM Ceftriaxone Sodium (Rocephin) 2 gm Q24H 06/17/19 10:00 06/17/19 10:29 2 GM Clonidine HCl (Catapres) 0.1 mg PRN Q6HRS PRN 06/12/19 12:30 06/16/19 17:36 0.1 MG Dextrose (Dextrose 50%-Water Syringe) 12.5 gm PRN Q15MIN PRN 06/13/19 13:15 Docusate Sodium (Colace) 100 mg PRN BID PRN 06/12/19 12:30 Enoxaparin Sodium (Lovenox 40mg Syringe) 40 mg Q24H 06/12/19 13:00 06/16/19 13:47 40 MG Fentanyl Citrate (Fentanyl 2ml Vial) 100 mcg STK-MED ONCE 06/14/19 14:49 06/14/19 14:50 DC Guaifenesin (Robitussin) 200 mg PRN Q4HRS PRN 06/12/19 12:30 Hydromorphone HCl (Dilaudid) 0.5 mg PRN Q10MIN PRN 06/14/19 12:45 06/14/19 19:05 DC Insulin Glargine (Lantus Syringe) 10 unit 1X ONCE 06/13/19 14:00 06/13/19 14:01 DC 06/13/19 14:39 10 UNIT Insulin Human Lispro (HumaLOG) 0-9 UNITS TIDWMEALS 06/13/19 17:00 06/17/19 12:46 5 UNITS Lactobacillus Rhamnosus (Culturelle) 1 cap BID 06/13/19 21:00 06/17/19 10:30 1 CAP Lidocaine HCl (Lidocaine Pf 2% Vial) 5 ml STK-MED ONCE 06/14/19 13:53 06/14/19 13:53 DC Lidocaine HCl (Xylocaine-Mpf 1% 2ml Vial) 2 ml PRN 1X PRN 06/14/19 12:45 06/14/19 19:05 DC Lidocaine/ Epinephrine (LIDOCAINE 1%-EPI 1:100,000 Multi-Dose) 20 ml STK-MED ONCE 06/14/19 13:31 06/14/19 13:31 DC Linezolid (Zyvox) 600 mg BID 06/15/19 10:00 06/17/19 09:33 DC 06/16/19 20:44 600 MG Lisinopril (Prinivil) 10 mg DAILY08 06/12/19 12:30 06/17/19 10:30 10 MG Lorazepam (Ativan) 0.5 mg PRN Q4HRS PRN 06/12/19 12:30 Metformin HCl (Glucophage Xr) 500 mg DAILYWBKFT 06/13/19 08:00 06/17/19 10:30 500 MG Metronidazole (Flagyl) 500 mg Q12HR 06/15/19 10:00 06/17/19 10:31 500 MG Morphine Sulfate (Morphine Sulfate) 1 mg PRN Q10MIN PRN 06/14/19 12:45 06/14/19 19:05 DC Nicotine (Nicoderm Cq 21mg) 1 patch DAILY 06/12/19 15:30 06/17/19 10:30 1 PATCH Ondansetron HCl (Zofran) 4 mg STK-MED ONCE 06/14/19 13:53 06/14/19 13:53 DC Piperacillin Sod/ Tazobactam Sod 3.375 gm/Sodium Chloride 50 ml @ 100 mls/hr Q6HRS 06/12/19 14:00 06/15/19 09:07 DC 06/15/19 06:18 100 MLS/HR Prochlorperazine Edisylate (Compazine) 5 mg PACU PRN PRN 06/14/19 12:45 06/14/19 19:05 DC Propofol 20 ml @ As Directed STK-MED ONCE 06/14/19 13:53 06/14/19 13:53 DC Ringer's Solution 1,000 ml @ 30 mls/hr Q24H 06/14/19 12:40 06/14/19 19:04 DC Sevoflurane (Ultane) 30 ml STK-MED ONCE 06/14/19 14:52 06/14/19 14:52 DC Sodium Hypochlorite (Dakin'S 1/4 Strength) 1 emilee DAILY 06/15/19 18:00 06/17/19 09:00 1 EMILEE Sodium Bicarbonate (Sodium Bicarb Adult 8.4% Syr) 50 meq 1X ONCE 06/12/19 10:30 06/12/19 10:31 DC 06/12/19 10:35 50 MEQ Sodium Chloride 1,000 ml @ 100 mls/hr Q10H 06/12/19 12:18 06/17/19 12:43 100 MLS/HR Sodium Chloride (Normal Saline Flush) 3 ml QSHIFT PRN 06/12/19 12:30 Vancomycin HCl (Vanco Per Pharmacy) 1 each PRN DAILY PRN 06/12/19 12:30 06/15/19 09:07 DC 06/14/19 12:53 1 EACH Vancomycin HCl (Vancomycin Trough Level) 1 each 1X ONCE 06/15/19 08:30 06/15/19 08:31 Cancel Vancomycin HCl 1.25 gm/Sodium Chloride 250 ml @ 167 mls/hr Q12H 06/14/19 13:00 06/15/19 09:08 DC 06/15/19 01:18 167 MLS/HR Vancomycin HCl 2 gm/Sodium Chloride 500 ml @ 250 mls/hr 1X ONCE 06/12/19 13:00 06/12/19 14:59 DC 06/12/19 13:09 250 MLS/HR Zolpidem Tartrate (Ambien) 5 mg PRN QHS PRN 06/12/19 12:30 Lab Laboratory Tests Test 06/16/19 17:06 06/16/19 20:55 06/17/19 04:25 06/17/19 07:51 Glucose (Fingerstick) 148 mg/dL (70-99) 194 mg/dL (70-99) 176 mg/dL (70-99) White Blood Count 8.2 x10^3/uL (4.0-11.0) Red Blood Count 4.19 x10^6/uL (4.30-5.70) Hemoglobin 13.1 g/dL (13.0-17.5) Hematocrit 39.2 % (39.0-53.0) Mean Corpuscular Volume 94 fL (79-100) Mean Corpuscular Hemoglobin 31 pg (25-35) Mean Corpuscular Hemoglobin Concent 34 g/dL (31-37) Red Cell Distribution Width 12.5 % (11.5-14.5) Platelet Count 322 x10^3/uL (140-400) Neutrophils (%) (Auto) 82 % (31-73) Lymphocytes (%) (Auto) 9 % (24-48) Monocytes (%) (Auto) 7 % (0-9) Eosinophils (%) (Auto) 1 % (0-3) Basophils (%) (Auto) 1 % (0-3) Neutrophils # (Auto) 6.7 x10^3/uL (1.8-7.7) Lymphocytes # (Auto) 0.7 x10^3/uL (1.0-4.8) Monocytes # (Auto) 0.6 x10^3/uL (0.0-1.1) Eosinophils # (Auto) 0.1 x10^3/uL (0.0-0.7) Basophils # (Auto) 0.0 x10^3/uL (0.0-0.2) Sodium Level 142 mmol/L (136-145) Potassium Level 4.4 mmol/L (3.5-5.1) Chloride Level 110 mmol/L (98-107) Carbon Dioxide Level 22 mmol/L (21-32) Anion Gap 10 (6-14) Blood Urea Nitrogen 21 mg/dL (8-26) Creatinine 3.2 mg/dL (0.7-1.3) Estimated GFR (Cockcroft-Gault) 19.7 BUN/Creatinine Ratio 7 (6-20) Glucose Level 175 mg/dL (70-99) Calcium Level 8.4 mg/dL (8.5-10.1) Phosphorus Level 3.5 mg/dL (2.6-4.7) Total Bilirubin 0.2 mg/dL (0.2-1.0) Aspartate Amino Transf (AST/SGOT) 21 U/L (15-37) Alanine Aminotransferase (ALT/SGPT) 25 U/L (16-63) Alkaline Phosphatase 46 U/L (46-116) Total Protein 6.1 g/dL (6.4-8.2) Albumin 1.9 g/dL (3.4-5.0) Albumin/Globulin Ratio 0.5 (1.0-1.7) Results All relevant outside records, renal labs, imaging studies, telemetry/EKG's were reviewed. JANETT ESPINO MD Jun 17, 2019 12:58
[2019-06-17] MEDS: ENOXAPARIN 40 MG/0.4 ML SYRINGE. SQ SCH (13:15)
[2019-06-17 15:00] VITALS: BP 171/71
[2019-06-17 15:09] LABS: BILIRUBIN,URINE NEGATIVE (NEG); CLARITY,URINE CLEAR; COLOR,URINE YELLOW; NITRITE,URINE NEGATIVE (NEG); PH,URINE 5.5; PROTEIN,URINE NEGATIVE (NEG-TRACE); UROBILINOGEN,URINE 0.2 mg/dL (0.2 mg/dL)
[2019-06-17 15:18] LABS: BACTERIA,URINE 0 /HPF (0-FEW); RBC,URINE 0 /HPF (0-2); SQUAMOUS EPITHELIAL CELL,UR OCC /LPF
[2019-06-17 19:00] VITALS: BP 186/78
[2019-06-17 23:00] VITALS: BP 178/79
[2019-06-18 03:00] VITALS: BP 181/76
[2019-06-18 07:00] VITALS: BP 183/77
[2019-06-18] MEDS: LACTOBACILLUS RHAMNOSUS GG 1 CAPSULE. PO SCH ×2 (08:45→20:38)
[2019-06-18] MEDS: NICOTINE 21MG PATCH. TD SCH (08:45)
[2019-06-18] MEDS: SODIUM HYPOCHLORITE 0.125% 473 ML BOTTLE. TP SCH (08:46)
[2019-06-18] MEDS: metroNIDAZOLE 500 MG TABLET PO SCH ×2 (08:46→20:38)
[2019-06-18] MEDS: LISINOPRIL 10 MG TABLET PO SCH (08:46)
[2019-06-18] MEDS: cefTRIAXone IV Push 2 GM VIAL. IVP SCH (08:47)
[2019-06-18] MEDS: INSULIN LISPRO 300 UNITS/3 ML VIAL. SQ SCH ×3 (08:58→17:39)
[2019-06-18] MEDS: IV NORMAL SALINE 1000ML BAG 1,000 ML IV SCH (08:58)
--- NOTE | 2019-06-18 10:18 | PDOC ---
PROGRESS NOTES Chief Complaint Chief Complaint Groin abscess, deep, complicated hx MRSA diabetes 2, poor control, A1c 10.3 Cellulitis uncontrolled hypertension obesity, BMI 28 acute renal injury cr 3.2 06/17 Beta hemolytic Streptococcus, group B wound History of Present Illness History of Present Illness ON flagyl PO and rocephin by ID WOund looks ok, seems to be improving bUT CREAT 3 plus still REnal on board and ordered studies Thursday' Has gotten 12 bags of IVF Pt otherwise has no complaints PLAN: COnt NS per renal Avoid nephrotoxins Will likely be here over weekend COnt IV and PO abx per iD Dw him (Why he is still in hosp)- he understands Vitals Vitals Vital Signs Date Time Temp Pulse Resp B/P (MAP) Pulse Ox O2 Delivery O2 Flow Rate FiO2 06/18/19 08:46 58 183/77 06/18/19 07:00 98.0 16 94 Room Air 98.0 Physical Exam Physical Exam GENERAL: The patient is propped up in bed, alert, in no apparent dist ress.nontoxic appearing HEENT: Pupils are equally round. Oral cavity: Pharynx pink and moist. NECK: Supple. LUNGS: Clear to auscultation. HEART: S1 and S2. ABDOMEN: Obese, soft, and nontender with bowel sounds present. EXTREMITIES: No gross edema or cyanosis. SKIN: Warm to touch. No signs of rash. He has a fairly large area of induration with some fluctuance and redness on the right inner thigh with packing in place. NEUROLOGIC: Alert and oriented x3. General: Alert, Oriented X3, Cooperative Heart: Regular rate, Normal S1, Normal S2, No murmurs Lungs: Clear Abdomen: Normal bowel sounds, Soft, No tenderness Extremities: No cyanosis, Other (wound clean, packed) Skin: Other (groin wound clean, packed) Labs LABS Laboratory Tests Test 06/17/19 11:18 06/17/19 14:30 06/17/19 16:57 06/17/19 20:44 Glucose (Fingerstick) 208 mg/dL (70-99) 136 mg/dL (70-99) 171 mg/dL (70-99) Urine Color Yellow Urine Clarity Clear Urine pH 5.5 Urine Specific [place] 1.010 Urine Protein Negative mg/dL (NEG-TRACE) Urine Glucose (UA) 100 mg/dL (NEG) Urine Ketones (Stick) Negative mg/dL (NEG) Urine Blood Negative (NEG) Urine Nitrite Negative (NEG) Urine Bilirubin Negative (NEG) Urine Urobilinogen Dipstick 0.2 mg/dL (0.2 mg/dL) Urine Leukocyte Esterase Negative (NEG) Urine RBC 0 /HPF (0-2) Urine WBC 1-4 /HPF (0-4) Urine Squamous Epithelial Cells Occ /LPF Urine Bacteria 0 /HPF (0-FEW) Urine Eosinophils Eos not observed Test 06/18/19 07:27 Glucose (Fingerstick) 179 mg/dL (70-99) Review of Systems Review of Systems neg 14 pt reviewed with him Assessment and Plan Assessmemt and Plan Problems Medical Problems: (1) Cellulitis Status: Acute (2) Groin abscess Status: Acute Comment Review of Relevant I have reviewed the following items kellee (where applicable) has been applied. Labs Laboratory Tests Test 06/16/19 10:55 06/16/19 17:06 06/16/19 20:55 06/17/19 04:25 Glucose (Fingerstick) 191 mg/dL (70-99) 148 mg/dL (70-99) 194 mg/dL (70-99) White Blood Count 8.2 x10^3/uL (4.0-11.0) Red Blood Count 4.19 x10^6/uL (4.30-5.70) Hemoglobin 13.1 g/dL (13.0-17.5) Hematocrit 39.2 % (39.0-53.0) Mean Corpuscular Volume 94 fL (79-100) Mean Corpuscular Hemoglobin 31 pg (25-35) Mean Corpuscular Hemoglobin Concent 34 g/dL (31-37) Red Cell Distribution Width 12.5 % (11.5-14.5) Platelet Count 322 x10^3/uL (140-400) Neutrophils (%) (Auto) 82 % (31-73) Lymphocytes (%) (Auto) 9 % (24-48) Monocytes (%) (Auto) 7 % (0-9) Eosinophils (%) (Auto) 1 % (0-3) Basophils (%) (Auto) 1 % (0-3) Neutrophils # (Auto) 6.7 x10^3/uL (1.8-7.7) Lymphocytes # (Auto) 0.7 x10^3/uL (1.0-4.8) Monocytes # (Auto) 0.6 x10^3/uL (0.0-1.1) Eosinophils # (Auto) 0.1 x10^3/uL (0.0-0.7) Basophils # (Auto) 0.0 x10^3/uL (0.0-0.2) Sodium Level 142 mmol/L (136-145) Potassium Level 4.4 mmol/L (3.5-5.1) Chloride Level 110 mmol/L (98-107) Carbon Dioxide Level 22 mmol/L (21-32) Anion Gap 10 (6-14) Blood Urea Nitrogen 21 mg/dL (8-26) Creatinine 3.2 mg/dL (0.7-1.3) Estimated GFR (Cockcroft-Gault) 19.7 BUN/Creatinine Ratio 7 (6-20) Glucose Level 175 mg/dL (70-99) Calcium Level 8.4 mg/dL (8.5-10.1) Phosphorus Level 3.5 mg/dL (2.6-4.7) Total Bilirubin 0.2 mg/dL (0.2-1.0) Aspartate Amino Transf (AST/SGOT) 21 U/L (15-37) Alanine Aminotransferase (ALT/SGPT) 25 U/L (16-63) Alkaline Phosphatase 46 U/L (46-116) Total Protein 6.1 g/dL (6.4-8.2) Albumin 1.9 g/dL (3.4-5.0) Albumin/Globulin Ratio 0.5 (1.0-1.7) Test 06/17/19 07:51 06/17/19 11:18 06/17/19 14:30 06/17/19 16:57 Glucose (Fingerstick) 176 mg/dL (70-99) 208 mg/dL (70-99) 136 mg/dL (70-99) Urine Color Yellow Urine Clarity Clear Urine pH 5.5 Urine Specific [place] 1.010 Urine Protein Negative mg/dL (NEG-TRACE) Urine Glucose (UA) 100 mg/dL (NEG) Urine Ketones (Stick) Negative mg/dL (NEG) Urine Blood Negative (NEG) Urine Nitrite Negative (NEG) Urine Bilirubin Negative (NEG) Urine Urobilinogen Dipstick 0.2 mg/dL (0.2 mg/dL) Urine Leukocyte Esterase Negative (NEG) Urine RBC 0 /HPF (0-2) Urine WBC 1-4 /HPF (0-4) Urine Squamous Epithelial Cells Occ /LPF Urine Bacteria 0 /HPF (0-FEW) Urine Eosinophils Eos not observed Test 06/17/19 20:44 06/18/19 07:27 Glucose (Fingerstick) 171 mg/dL (70-99) 179 mg/dL (70-99) Laboratory Tests Test 06/17/19 11:18 06/17/19 14:30 06/17/19 16:57 06/17/19 20:44 Glucose (Fingerstick) 208 mg/dL (70-99) 136 mg/dL (70-99) 171 mg/dL (70-99) Urine Color Yellow Urine Clarity Clear Urine pH 5.5 Urine Specific [place] 1.010 Urine Protein Negative mg/dL (NEG-TRACE) Urine Glucose (UA) 100 mg/dL (NEG) Urine Ketones (Stick) Negative mg/dL (NEG) Urine Blood Negative (NEG) Urine Nitrite Negative (NEG) Urine Bilirubin Negative (NEG) Urine Urobilinogen Dipstick 0.2 mg/dL (0.2 mg/dL) Urine Leukocyte Esterase Negative (NEG) Urine RBC 0 /HPF (0-2) Urine WBC 1-4 /HPF (0-4) Urine Squamous Epithelial Cells Occ /LPF Urine Bacteria 0 /HPF (0-FEW) Urine Eosinophils Eos not observed Test 06/18/19 07:27 Glucose (Fingerstick) 179 mg/dL (70-99) Microbiology 06/14/19 Anaerobic/Aerobic Culture - Final, Complete 06/14/19 Anaerobic Culture Result 1 (YUMI) - Final, Complete 06/14/19 Aerobic Culture - Final, Complete 06/14/19 Aerobic Culture Result 1 (YUMI) - Final, Complete 06/14/19 Gram Stain - Final, Complete 06/14/19 Gram Stain Result 1 (YUMI) - Final, Complete 06/14/19 Gram Stain Result 2 (YUMI) - Final, Complete 06/12/19 Blood Culture - Final, Complete NO GROWTH AFTER 5 DAYS Medications Current Medications Lidocaine/ Epinephrine (LIDOCAINE 1%-EPI 1:100,000 Multi-Dose) 20 ml 1X ONCE INJ Last administered on 06/12/19at 10:29; Start 06/12/19 at 10:15; Stop 06/12/19 at 10:16; Status DC Sodium Bicarbonate (Sodium Bicarb Adult 8.4% Syr) 50 meq STK-MED ONCE .ROUTE ; Start 06/12/19 at 10:19; Stop 06/12/19 at 10:19; Status DC Sodium Bicarbonate (Sodium Bicarb Adult 8.4% Syr) 50 meq 1X ONCE SQ Last administered on 06/12/19at 10:35; Start 06/12/19 at 10:30; Stop 06/12/19 at 10:31; Status DC Vancomycin HCl 250 ml @ 250 mls/hr 1X ONCE IV Last administered on 06/12/19at 11:48; Start 06/12/19 at 10:45; Stop 06/12/19 at 11:44; Status DC Sodium Chloride 1,000 ml @ 1,000 mls/hr 1X ONCE IV Last administered on 06/12/19at 11:45; Start 06/12/19 at 11:45; Stop 06/12/19 at 12:44; Status DC Vancomycin HCl (Vanco Per Pharmacy) 1 each PRN DAILY PRN MC SEE COMMENTS Last administered on 06/14/19at 12:53; Start 06/12/19 at 12:30; Stop 06/15/19 at 09:07; Status DC Insulin Human Lispro (HumaLOG) 0-5 UNITS TIDWMEALS SQ Last administered on 06/12/19at 17:21; Start 06/12/19 at 17:00; Stop 06/13/19 at 13:09; Status DC Dextrose (Dextrose 50%-Water Syringe) 12.5 gm PRN Q15MIN PRN IV SEE COMMENTS; Start 06/12/19 at 12:30; Stop 06/13/19 at 13:43; Status DC Vancomycin HCl 2 gm/Sodium Chloride 500 ml @ 250 mls/hr 1X ONCE IV Last administered on 06/12/19at 13:09; Start 06/12/19 at 13:00; Stop 06/12/19 at 14:59; Status DC Sodium Chloride (Normal Saline Flush) 3 ml QSHIFT PRN IV AFTER MEDS AND BLOOD DRAWS; Start 06/12/19 at 12:30 Sodium Chloride 1,000 ml @ 100 mls/hr Q10H IV Last administered on 06/18/19at 08:58; Start 06/12/19 at 12:18 Ondansetron HCl (Zofran) 4 mg PRN Q4HRS PRN IV NAUSEA/VOMITING Last administered on 06/13/19at 02:34; Start 06/12/19 at 12:30 Zolpidem Tartrate (Ambien) 5 mg PRN QHS PRN PO INSOMNIA; Start 06/12/19 at 12:30 Acetaminophen (Tylenol) 650 mg PRN Q4HRS PRN PO TEMP OVER 100.4F OR MILD PAIN; Start 06/12/19 at 12:30 Al Hydroxide/Mg Hydroxide (Mylanta Plus Xs) 30 ml PRN DAILY PRN PO HEARTBURN / GAS; Start 06/12/19 at 12:30 Clonidine HCl (Catapres) 0.1 mg PRN Q6HRS PRN PO SBP>160 OR DBP>90 Last administered on 06/16/19at 17:36; Start 06/12/19 at 12:30 Docusate Sodium (Colace) 100 mg PRN BID PRN PO CONSTIPATION; Start 06/12/19 at 12:30 Albuterol Sulfate (Ventolin Neb Soln) 2.5 mg PRN Q4HRS PRN NEB SHORTNESS OF BREATH; Start 06/12/19 at 12:30 Guaifenesin (Robitussin) 200 mg PRN Q4HRS PRN PO COUGH; Start 06/12/19 at 12:30 Lorazepam (Ativan) 0.5 mg PRN Q4HRS PRN PO ANXIETY / AGITATION; Start 06/12/19 at 12:30 Enoxaparin Sodium (Lovenox 40mg Syringe) 40 mg Q24H SQ Last administered on 06/17/19at 13:15; Start 06/12/19 at 13:00; Stop 06/17/19 at 14:17; Status DC Metformin HCl (Glucophage Xr) 500 mg DAILYWBKFT PO Last administered on 06/17/19at 10:30; Start 06/13/19 at 08:00; Stop 06/17/19 at 14:15; Status DC Lisinopril (Prinivil) 10 mg DAILY08 PO Last administered on 06/18/19at 08:46; Start 06/12/19 at 12:30 Piperacillin Sod/ Tazobactam Sod 3.375 gm/Sodium Chloride 50 ml @ 100 mls/hr Q6HRS IV Last administered on 06/15/19 06:18; Start 06/12/19 at 14:00; Stop 06/15/19 at 09:07; Status DC Nicotine (Nicoderm Cq 21mg) 1 patch DAILY TD Last administered on 06/18/19 08:45; Start 06/12/19 at 15:30 Vancomycin HCl 1.25 gm/Sodium Chloride 250 ml @ 167 mls/hr Q12H IV Last administered on 06/14/19 01:09; Start 06/13/19 at 01:00; Stop 06/14/19 at 02:48; Status DC Vancomycin HCl (Vancomycin Trough Level) 1 each 1X ONCE MC Last administered on 06/14/19at 00:30; Start 06/14/19 at 00:30; Stop 06/14/19 at 00:31; Status DC Hydromorphone HCl (Dilaudid) 1 mg PRN Q3HRS PRN IV SEVERE PAIN 7-10; Start 06/12/19 at 16:45 Acetaminophen/ Hydrocodone Bitart (Lortab 5/325) 1 tab PRN Q4HRS PRN PO MODERATE PAIN Last administered on 06/14/19at 20:57; Start 06/12/19 at 17:00 Acetaminophen/ Hydrocodone Bitart (Lortab 5/325) 2 tab PRN Q4HRS PRN PO SEVERE PAIN Last administered on 06/15/19at 17:22; Start 06/12/19 at 17:00 Lactobacillus Rhamnosus (Culturelle) 1 cap BID PO Last administered on 06/18/19at 08:45; Start 06/13/19 at 21:00 Insulin Human Lispro (HumaLOG) 0-9 UNITS TIDWMEALS SQ Last administered on 06/18/19at 08:58; Start 06/13/19 at 17:00 Dextrose (Dextrose 50%-Water Syringe) 12.5 gm PRN Q15MIN PRN IV SEE COMMENTS; Start 06/13/19 at 13:15 Insulin Glargine (Lantus Syringe) 10 unit 1X ONCE SQ Last administered on 06/13/19at 14:39; Start 06/13/19 at 14:00; Stop 06/13/19 at 14:01; Status DC Vancomycin HCl 1.25 gm/Sodium Chloride 250 ml @ 167 mls/hr Q12H IV Last administered on 06/15/19at 01:18; Start 06/14/19 at 13:00; Stop 06/15/19 at 09:08; Status DC Vancomycin HCl (Vancomycin Trough Level) 1 each 1X ONCE MC ; Start 06/15/19 at 08:30; Stop 06/15/19 at 08:31; Status Cancel Ondansetron HCl (Zofran) 4 mg PRN Q6HRS PRN IV NAUSEA/VOMITING; Start 06/14/19 at 12:45; Stop 06/14/19 at 19:05; Status DC Fentanyl Citrate (Fentanyl 2ml Vial) 25 mcg PRN Q5MIN PRN IV MILD PAIN 1-3; Start 06/14/19 at 12:45; Stop 06/14/19 at 19:05; Status DC Fentanyl Citrate (Fentanyl 2ml Vial) 50 mcg PRN Q5MIN PRN IV MODERATE TO SEVERE PAIN Last administered on 06/14/19at 15:07; Start 06/14/19 at 12:45; Stop 06/14/19 at 19:05; Status DC Morphine Sulfate (Morphine Sulfate) 1 mg PRN Q10MIN PRN IV SEVERE PAIN 7-10; Start 06/14/19 at 12:45; Stop 06/14/19 at 19:05; Status DC Ringer's Solution 1,000 ml @ 30 mls/hr Q24H IV ; Start 06/14/19 at 12:40; Stop 06/14/19 at 19:04; Status DC Lidocaine HCl (Xylocaine-Mpf 1% 2ml Vial) 2 ml PRN 1X PRN ID PRIOR TO IV START; Start 06/14/19 at 12:45; Stop 06/14/19 at 19:05; Status DC Hydromorphone HCl (Dilaudid) 0.5 mg PRN Q10MIN PRN IV SEV PAIN, Second choice; Start 06/14/19 at 12:45; Stop 06/14/19 at 19:05; Status DC Prochlorperazine Edisylate (Compazine) 5 mg PACU PRN PRN IV NAUSEA, MRX1; Start 06/14/19 at 12:45; Stop 06/14/19 at 19:05; Status DC Lidocaine/ Epinephrine (LIDOCAINE 1%-EPI 1:100,000 Multi-Dose) 20 ml STK-MED ONCE .ROUTE ; Start 06/14/19 at 13:31; Stop 06/14/19 at 13:31; Status DC Fentanyl Citrate (Fentanyl 2ml Vial) 100 mcg STK-MED ONCE .ROUTE ; Start 06/14/19 at 13:50; Stop 06/14/19 at 13:50; Status DC Propofol 20 ml @ As Directed STK-MED ONCE IV ; Start 06/14/19 at 13:53; Stop 06/14/19 at 13:53; Status DC Lidocaine HCl (Lidocaine Pf 2% Vial) 5 ml STK-MED ONCE .ROUTE ; Start 06/14/19 at 13:53; Stop 06/14/19 at 13:53; Status DC Ondansetron HCl (Zofran) 4 mg STK-MED ONCE .ROUTE ; Start 06/14/19 at 13:53; Stop 06/14/19 at 13:53; Status DC Fentanyl Citrate (Fentanyl 2ml Vial) 100 mcg STK-MED ONCE .ROUTE ; Start 06/14/19 at 14:49; Stop 06/14/19 at 14:50; Status DC Sevoflurane (Ultane) 30 ml STK-MED ONCE IH ; Start 06/14/19 at 14:52; Stop 06/14/19 at 14:52; Status DC Cefepime HCl (Maxipime) 1 gm Q12HR IVP Last administered on 06/16/19at 20:44; Start 06/15/19 at 10:00; Stop 06/17/19 at 09:33; Status DC Metronidazole (Flagyl) 500 mg Q12HR PO Last administered on 06/18/19at 08:46; Start 06/15/19 at 10:00 Linezolid (Zyvox) 600 mg BID PO Last administered on 06/16/19at 20:44; Start 06/15/19 at 10:00; Stop 06/17/19 at 09:33; Status DC Sodium Hypochlorite (Dakin'S 1/4 Strength) 1 emilee DAILY TP Last administered on 06/18/19at 08:46; Start 06/15/19 at 18:00 Ceftriaxone Sodium (Rocephin) 2 gm Q24H IVP Last administered on 06/18/19at 08:47; Start 06/17/19 at 10:00 Enoxaparin Sodium (Lovenox 30mg Syringe) 30 mg Q24H SQ ; Start 06/18/19 at 13:00 Vitals/I & O Vital Sign - Last 24 Hours 06/17/19 06/17/19 06/17/19 06/17/19 10:30 11:00 15:00 19:00 Temp 97.7 98.7 98.1 97.7 98.7 98.1 Pulse 54 63 56 63 Resp 18 18 16 B/P (MAP) 178/74 182/77 (112) 171/71 (104) 186/78 (114) Pulse Ox 96 97 97 O2 Delivery Room Air Room Air Room Air 06/17/19 06/17/19 06/18/19 06/18/19 19:45 23:00 03:00 07:00 Temp 97.9 98.2 98.0 97.9 98.2 98.0 Pulse 62 80 58 Resp 16 16 16 B/P (MAP) 178/79 (112) 181/76 (111) 183/77 (112) Pulse Ox 94 97 94 O2 Delivery Room Air Room Air Room Air Room Air 06/18/19 08:46 Pulse 58 B/P (MAP) 183/77 Intake and Output 0 06/17/19 06/17/19 06/18/19 15:00 23:00 07:00 Intake Total 500 ml 2340 ml Output Total 1 ml 700 ml Balance -1 ml 500 ml 1640 ml MENDY RAMSAY MD Jun 18, 2019 10:18
[2019-06-18 11:00] VITALS: BP 192/72
[2019-06-18 12:11] LABS: CALCIUM 8.5 mg/dL (8.5-10.1); CREATININE 3.2 mg/dL (0.7-1.3); GFR 19.7; POTASSIUM 4.6 mmol/L (3.5-5.1)
[2019-06-18] MEDS: ENOXAPARIN 30 MG/0.3 ML SYRINGE. SQ SCH (12:48)
--- NOTE | 2019-06-18 13:58 | PDOC ---
SUBJECTIVE ROS Pt denies any complaints OBJECTIVE Vital Signs Vital Signs Date Time Temp Pulse Resp B/P (MAP) Pulse Ox O2 Delivery O2 Flow Rate FiO2 06/18/19 11:00 98.0 64 16 192/72 (112) 94 Room Air 98.0 I & 0 Intake and Output 06/18/19 07:00 Intake Total 2840 ml Output Total 701 ml Balance 2139 ml Intake Oral 940 ml IV Total 1200 ml Other 700 ml Output Urine Total 700 ml Stool Total 1 ml # Voids 2 PHYSICAL EXAM Physical Exam GENERAL: no apparent distress HEENT: Pupils are equally round. Oral cavity: Pharynx pink and moist. NECK: Supple. LUNGS: Clear to auscultation. HEART: S1 and S2. ABDOMEN: Obese, soft, and nontender with bowel sounds present. EXTREMITIES: No gross edema or cyanosis. SKIN: Warm to touch. No signs of rash. NEUROLOGIC: Alert and oriented x3 No Vivar, No CVA or SP tenderness . DIAGNOSIS/ASSESSMENT Assessment & Plan RAQUEL --ATN vs AIN , Vanc was 12, Dced , Zosyn dced as well ,No Hypotension Renal US - no hydronephrosis, No urinary retention UA No Micr hematuria, No casts, No eosinophils Renal function might have Pltaeued, check BMP in am , Stop Lisinopril Supportive care, Strict I/O , Monitor , Daily labs Left renal cyst- 2.6 cm simple appearing Urinary bladder wall thickening. Correlate for cystitis or chronic outlet obstruction. There is a 44 cc post void bladder residual Will need to follow with Urology - defer to primary Rt Groin abscess - status post incision and drainage in the emergency room on 06/12/2019. B hemolytic group B 06/14 S/P surgical drainage on 06/14 Diabetes- on Metformin Metformin dced has RAQUEL Hypertension- BP Uncontrolled Not on any Antihypertensives except Lisinopril, DC lisinopril, Start Hydralzine. Will consider HARDEEP with Doppler tomorrow after re-evaluating clinically and Labs in am Discussed with Pt and RN COMMENT/RELEVANT DATA Meds Current Medications Medications (Trade) Dose Ordered Sig/Ivon Start Time Stop Time Status Last Admin Dose Admin Acetaminophen (Tylenol) 650 mg PRN Q4HRS PRN 06/12/19 12:30 Acetaminophen/ Hydrocodone Bitart (Lortab 5/325) 2 tab PRN Q4HRS PRN 06/12/19 17:00 06/15/19 17:22 2 TAB Al Hydroxide/Mg Hydroxide (Mylanta Plus Xs) 30 ml PRN DAILY PRN 06/12/19 12:30 Albuterol Sulfate (Ventolin Neb Soln) 2.5 mg PRN Q4HRS PRN 06/12/19 12:30 Cefepime HCl (Maxipime) 1 gm Q12HR 06/15/19 10:00 06/17/19 09:33 DC 06/16/19 20:44 1 GM Ceftriaxone Sodium (Rocephin) 2 gm Q24H 06/17/19 10:00 06/18/19 08:47 2 GM Clonidine HCl (Catapres) 0.1 mg PRN Q6HRS PRN 06/12/19 12:30 06/16/19 17:36 0.1 MG Dextrose (Dextrose 50%-Water Syringe) 12.5 gm PRN Q15MIN PRN 06/13/19 13:15 Docusate Sodium (Colace) 100 mg PRN BID PRN 06/12/19 12:30 Enoxaparin Sodium (Lovenox 30mg Syringe) 30 mg Q24H 06/18/19 13:00 06/18/19 12:48 30 MG Enoxaparin Sodium (Lovenox 40mg Syringe) 40 mg Q24H 06/12/19 13:00 06/17/19 14:17 DC 06/17/19 13:15 40 MG Fentanyl Citrate (Fentanyl 2ml Vial) 100 mcg STK-MED ONCE 06/14/19 14:49 06/14/19 14:50 DC Guaifenesin (Robitussin) 200 mg PRN Q4HRS PRN 06/12/19 12:30 Hydromorphone HCl (Dilaudid) 0.5 mg PRN Q10MIN PRN 06/14/19 12:45 06/14/19 19:05 DC Insulin Glargine (Lantus Syringe) 10 unit 1X ONCE 06/13/19 14:00 06/13/19 14:01 DC 06/13/19 14:39 10 UNIT Insulin Human Lispro (HumaLOG) 0-9 UNITS TIDWMEALS 06/13/19 17:00 06/18/19 12:52 4 UNITS Lactobacillus Rhamnosus (Culturelle) 1 cap BID 06/13/19 21:00 06/18/19 08:45 1 CAP Lidocaine HCl (Lidocaine Pf 2% Vial) 5 ml STK-MED ONCE 06/14/19 13:53 06/14/19 13:53 DC Lidocaine HCl (Xylocaine-Mpf 1% 2ml Vial) 2 ml PRN 1X PRN 06/14/19 12:45 06/14/19 19:05 DC Lidocaine/ Epinephrine (LIDOCAINE 1%-EPI 1:100,000 Multi-Dose) 20 ml STK-MED ONCE 06/14/19 13:31 06/14/19 13:31 DC Linezolid (Zyvox) 600 mg BID 06/15/19 10:00 06/17/19 09:33 DC 06/16/19 20:44 600 MG Lisinopril (Prinivil) 10 mg DAILY08 06/12/19 12:30 06/18/19 08:46 10 MG Lorazepam (Ativan) 0.5 mg PRN Q4HRS PRN 06/12/19 12:30 Metformin HCl (Glucophage Xr) 500 mg DAILYWBKFT 06/13/19 08:00 06/17/19 14:15 DC 06/17/19 10:30 500 MG Metronidazole (Flagyl) 500 mg Q12HR 06/15/19 10:00 06/18/19 08:46 500 MG Morphine Sulfate (Morphine Sulfate) 1 mg PRN Q10MIN PRN 06/14/19 12:45 06/14/19 19:05 DC Nicotine (Nicoderm Cq 21mg) 1 patch DAILY 06/12/19 15:30 06/18/19 08:45 1 PATCH Ondansetron HCl (Zofran) 4 mg STK-MED ONCE 06/14/19 13:53 06/14/19 13:53 DC Piperacillin Sod/ Tazobactam Sod 3.375 gm/Sodium Chloride 50 ml @ 100 mls/hr Q6HRS 06/12/19 14:00 06/15/19 09:07 DC 06/15/19 06:18 100 MLS/HR Prochlorperazine Edisylate (Compazine) 5 mg PACU PRN PRN 06/14/19 12:45 06/14/19 19:05 DC Propofol 20 ml @ As Directed STK-MED ONCE 06/14/19 13:53 06/14/19 13:53 DC Ringer's Solution 1,000 ml @ 30 mls/hr Q24H 06/14/19 12:40 06/14/19 19:04 DC Sevoflurane (Ultane) 30 ml STK-MED ONCE 06/14/19 14:52 06/14/19 14:52 DC Sodium Hypochlorite (Dakin'S 1/4 Strength) 1 emilee DAILY 06/15/19 18:00 06/18/19 08:46 1 EMILEE Sodium Bicarbonate (Sodium Bicarb Adult 8.4% Syr) 50 meq 1X ONCE 06/12/19 10:30 06/12/19 10:31 DC 06/12/19 10:35 50 MEQ Sodium Chloride 1,000 ml @ 100 mls/hr Q10H 06/12/19 12:18 06/18/19 08:58 100 MLS/HR Sodium Chloride (Normal Saline Flush) 3 ml QSHIFT PRN 06/12/19 12:30 Vancomycin HCl (Vanco Per Pharmacy) 1 each PRN DAILY PRN 06/12/19 12:30 06/15/19 09:07 DC 06/14/19 12:53 1 EACH Vancomycin HCl (Vancomycin Trough Level) 1 each 1X ONCE 06/15/19 08:30 06/15/19 08:31 Cancel Vancomycin HCl 1.25 gm/Sodium Chloride 250 ml @ 167 mls/hr Q12H 06/14/19 13:00 06/15/19 09:08 DC 06/15/19 01:18 167 MLS/HR Vancomycin HCl 2 gm/Sodium Chloride 500 ml @ 250 mls/hr 1X ONCE 06/12/19 13:00 06/12/19 14:59 DC 06/12/19 13:09 250 MLS/HR Zolpidem Tartrate (Ambien) 5 mg PRN QHS PRN 06/12/19 12:30 Lab Laboratory Tests Test 06/17/19 14:30 06/17/19 16:57 06/17/19 20:44 06/18/19 07:27 Urine Color Yellow Urine Clarity Clear Urine pH 5.5 Urine Specific [place] 1.010 Urine Protein Negative mg/dL (NEG-TRACE) Urine Glucose (UA) 100 mg/dL (NEG) Urine Ketones (Stick) Negative mg/dL (NEG) Urine Blood Negative (NEG) Urine Nitrite Negative (NEG) Urine Bilirubin Negative (NEG) Urine Urobilinogen Dipstick 0.2 mg/dL (0.2 mg/dL) Urine Leukocyte Esterase Negative (NEG) Urine RBC 0 /HPF (0-2) Urine WBC 1-4 /HPF (0-4) Urine Squamous Epithelial Cells Occ /LPF Urine Bacteria 0 /HPF (0-FEW) Urine Eosinophils Eos not observed Glucose (Fingerstick) 136 mg/dL (70-99) 171 mg/dL (70-99) 179 mg/dL (70-99) Test 06/18/19 11:45 06/18/19 11:57 Glucose (Fingerstick) 166 mg/dL (70-99) Sodium Level 144 mmol/L (136-145) Potassium Level 4.6 mmol/L (3.5-5.1) Chloride Level 110 mmol/L (98-107) Carbon Dioxide Level 25 mmol/L (21-32) Anion Gap 9 (6-14) Blood Urea Nitrogen 27 mg/dL (8-26) Creatinine 3.2 mg/dL (0.7-1.3) Estimated GFR (Cockcroft-Gault) 19.7 Glucose Level 186 mg/dL (70-99) Calcium Level 8.5 mg/dL (8.5-10.1) Results All relevant outside records, renal labs, imaging studies, telemetry/EKG's were reviewed. JANETT ESPINO MD Jun 18, 2019 13:58
[2019-06-18 15:00] VITALS: BP 202/84
[2019-06-18] MEDS: hydrALAZINE 25 MG TABLET PO SCH ×2 (15:39→20:39)
[2019-06-18] MEDS: cloNIDine HCL 0.1 MG TABLET PO PRN (18:10)
--- NOTE | 2019-06-18 18:14 | PDOC ---
Infectious Disease Note Subjective Subjective Comfortable Denies pain/F/C/N/V/D/altered taste ROS ROS per HPI Vital Sign Vital Signs Vital Signs Date Time Temp Pulse Resp B/P (MAP) Pulse Ox O2 Delivery O2 Flow Rate FiO2 06/18/19 15:39 67 202/84 06/18/19 15:00 97.9 16 97 Room Air 97.9 Physical Exam PHYSICAL EXAM GENERAL: Propped up in bed, alert, NAD HEENT: Pupils are equally round. Oral cavity, pharynx pink and moist. Dentures NECK: Supple. LUNGS: Clear to auscultation. HEART: S1 and S2. ABDOMEN: Obese, soft, and nontender with bowel sounds present. EXTREMITIES: No gross edema or cyanosis. SKIN: Warm to touch. No signs of rash. Right groin dressing in place, no area redness NEUROLOGIC: Alert and oriented x3. Labs Lab Laboratory Tests Test 06/17/19 20:44 06/18/19 07:27 06/18/19 11:45 06/18/19 11:57 Glucose (Fingerstick) 171 mg/dL (70-99) 179 mg/dL (70-99) 166 mg/dL (70-99) Sodium Level 144 mmol/L (136-145) Potassium Level 4.6 mmol/L (3.5-5.1) Chloride Level 110 mmol/L (98-107) Carbon Dioxide Level 25 mmol/L (21-32) Anion Gap 9 (6-14) Blood Urea Nitrogen 27 mg/dL (8-26) Creatinine 3.2 mg/dL (0.7-1.3) Estimated GFR (Cockcroft-Gault) 19.7 Glucose Level 186 mg/dL (70-99) Calcium Level 8.5 mg/dL (8.5-10.1) Test 06/18/19 17:06 Glucose (Fingerstick) 189 mg/dL (70-99) US 1. 2.6 cm simple appearing left renal cyst. 2. Urinary bladder wall thickening. Correlate for cystitis or chronic outlet obstruction. There is a 44 cc post void bladder residual. Micro Objective Assessment Right Groin abscess s/p I and D in ER 06/12, then s/p surgical I and D 06/14. cultures positive for group B strep History of MRSA infection. RAQUEL Diabetes. Obesity. Hypertension. Plan Plan of Care Andreas (06/17) and Flagyl Previously on vanc, Zosyn, Cefepime and Zyvox cont local wound as directed Renal following D/w nursing Change to po soon and d/c Flagyl if cult remain neg Attending Co-Sign Attending Co-Sign The patient was seen and interviewed as well as examined at the bedside. The chart was reviewed. The case was discussed. Agree with the plan of care. CHIP CHAPIN APRN Jun 18, 2019 18:14 EMELI WEBSTER MD Jun 18, 2019 19:04
[2019-06-18 19:00] VITALS: BP 199/68
[2019-06-18 23:00] VITALS: BP 176/77
[2019-06-19] MEDS: cloNIDine HCL 0.1 MG TABLET PO PRN ×3 (00:27→20:44)
[2019-06-19 03:00] VITALS: BP 174/76
[2019-06-19 06:06] LABS: CALCIUM 9.5 mg/dL (8.5-10.1); CREATININE 3.1 mg/dL (0.7-1.3); GFR 20.5; POTASSIUM 4.6 mmol/L (3.5-5.1)
[2019-06-19 07:00] VITALS: BP 205/76
[2019-06-19] MEDS: NICOTINE 21MG PATCH. TD SCH (08:11)
[2019-06-19] MEDS: metroNIDAZOLE 500 MG TABLET PO SCH (08:11)
[2019-06-19] MEDS: hydrALAZINE 25 MG TABLET PO SCH (08:11)
[2019-06-19] MEDS: INSULIN LISPRO 300 UNITS/3 ML VIAL. SQ SCH ×3 (08:17→16:57)
[2019-06-19] MEDS: LACTOBACILLUS RHAMNOSUS GG 1 CAPSULE. PO SCH ×2 (08:18→20:44)
[2019-06-19] MEDS: SODIUM HYPOCHLORITE 0.125% 473 ML BOTTLE. TP SCH (08:18)
[2019-06-19] MEDS ORDERED: hydrALAZINE 25 MG TABLET PO ONE (08:30)
[2019-06-19] MEDS: cefTRIAXone IV Push 2 GM VIAL. IVP SCH (08:47)
[2019-06-19] MEDS: amLODIPine BESYLATE 10 MG TABLET PO SCH (08:47)
--- NOTE | 2019-06-19 11:21 | PDOC ---
Infectious Disease Note Subjective Subjective Doing well, no complaints Denies pain/F/C/N/V/D/altered taste ROS ROS per HPI Vital Sign Vital Signs Vital Signs Date Time Temp Pulse Resp B/P (MAP) Pulse Ox O2 Delivery O2 Flow Rate FiO2 06/19/19 08:47 51 205/76 06/19/19 08:00 Room Air 10.0 06/19/19 07:00 98.1 18 94 98.1 Physical Exam PHYSICAL EXAM GENERAL: Propped up in bed, alert, NAD HEENT: Pupils are equally round. Oral cavity, pharynx pink and moist. Dentures NECK: Supple. LUNGS: Clear to auscultation. HEART: S1 and S2. ABDOMEN: Obese, soft, and nontender with bowel sounds present. EXTREMITIES: No gross edema or cyanosis. SKIN: Warm to touch. No signs of rash. Wound packing right groin area in place, some drainage and induration, nontender, no redness. Over-all improved NEUROLOGIC: Alert and oriented x3. Labs Lab Laboratory Tests Test 06/18/19 11:45 06/18/19 11:57 06/18/19 17:06 06/18/19 20:11 Glucose (Fingerstick) 166 mg/dL (70-99) 189 mg/dL (70-99) 175 mg/dL (70-99) Sodium Level 144 mmol/L (136-145) Potassium Level 4.6 mmol/L (3.5-5.1) Chloride Level 110 mmol/L (98-107) Carbon Dioxide Level 25 mmol/L (21-32) Anion Gap 9 (6-14) Blood Urea Nitrogen 27 mg/dL (8-26) Creatinine 3.2 mg/dL (0.7-1.3) Estimated GFR (Cockcroft-Gault) 19.7 Glucose Level 186 mg/dL (70-99) Calcium Level 8.5 mg/dL (8.5-10.1) Test 06/19/19 05:00 06/19/19 07:47 Sodium Level 142 mmol/L (136-145) Potassium Level 4.6 mmol/L (3.5-5.1) Chloride Level 110 mmol/L (98-107) Carbon Dioxide Level 22 mmol/L (21-32) Anion Gap 10 (6-14) Blood Urea Nitrogen 31 mg/dL (8-26) Creatinine 3.1 mg/dL (0.7-1.3) Estimated GFR (Cockcroft-Gault) 20.5 Glucose Level 186 mg/dL (70-99) Calcium Level 9.5 mg/dL (8.5-10.1) Glucose (Fingerstick) 183 mg/dL (70-99) Micro ANAEROBIC RES 1 Final No anaerobic growth in 72 hours AEROBIC RES 1 Final Beta hemolytic Streptococcus, group B Objective Assessment Right Groin abscess s/p I and D in ER 06/12, then s/p surgical I and D 06/14. cultures positive for group B strep History of MRSA infection. RAQUEL Diabetes. Obesity. Hypertension. Plan Plan of Care Rocephin (06/17) d/c flagyl Previously on vanc, Zosyn, Cefepime & Zyvox cont local wound as directed Renal following D/w nursing D/c Rocephin and begin po Augmentin Attending Co-Sign Attending Co-Sign The patient was seen and interviewed as well as examined at the bedside. The chart was reviewed. The case was discussed. Agree with the plan of care. CHIP CHAPIN APRN Jun 19, 2019 11:21 EMELI WEBSTER MD Jun 19, 2019 16:26
--- NOTE | 2019-06-19 11:34 | PDOC ---
PROGRESS NOTES Chief Complaint Chief Complaint Groin abscess, deep, complicated hx MRSA diabetes 2, poor control, A1c 10.3 Cellulitis uncontrolled hypertension- HTN EMERGENCY SBP 200 (06/19) obesity, BMI 28 acute renal injury cr 3.2 06/17 - CREAT STABLE AT STAGE 3 (NOW HIS BASELINE) Beta hemolytic Streptococcus, group B wound History of Present Illness History of Present Illness cleared from renal and ID for home' Has gotten 12 bags IVF for creat 3 and has leveled off ID also seems ok pO abx BUT SBP 200s AND ASYMPTIMATIC Wants to go home PLAn: cant dc INc hydralazine from 25 BID to 50 TID cant do rodrigo inhib or diuretic - came in for renal failure Can further inc hydralazine tmr if still high norvasc 10 Add prn clonidine Check echo heart IF SBP still 200s, later, might need cardene gtt CVC floor transfer donita fontanez Vitals Vitals Vital Signs Date Time Temp Pulse Resp B/P (MAP) Pulse Ox O2 Delivery O2 Flow Rate FiO2 06/19/19 08:47 51 205/76 06/19/19 08:00 Room Air 10.0 06/19/19 07:00 98.1 18 94 98.1 Physical Exam Physical Exam GENERAL: Propped up in bed, alert, NAD HEENT: Pupils are equally round. Oral cavity, pharynx pink and moist. Dentures NECK: Supple. LUNGS: Clear to auscultation. HEART: S1 and S2. ABDOMEN: Obese, soft, and nontender with bowel sounds present. EXTREMITIES: No gross edema or cyanosis. SKIN: Warm to touch. No signs of rash. Wound packing right groin area in place, some drainage and induration, nontender, no redness. Over-all improved NEUROLOGIC: Alert and oriented x3. General: Alert, Oriented X3, Cooperative Heart: Regular rate, Normal S1, Normal S2, No murmurs Lungs: Clear Abdomen: Normal bowel sounds, Soft, No tenderness Extremities: No cyanosis, Other (wound clean, packed) Skin: Other (groin wound clean, packed) Labs LABS Laboratory Tests Test 06/18/19 11:45 06/18/19 11:57 06/18/19 17:06 06/18/19 20:11 Glucose (Fingerstick) 166 mg/dL (70-99) 189 mg/dL (70-99) 175 mg/dL (70-99) Sodium Level 144 mmol/L (136-145) Potassium Level 4.6 mmol/L (3.5-5.1) Chloride Level 110 mmol/L (98-107) Carbon Dioxide Level 25 mmol/L (21-32) Anion Gap 9 (6-14) Blood Urea Nitrogen 27 mg/dL (8-26) Creatinine 3.2 mg/dL (0.7-1.3) Estimated GFR (Cockcroft-Gault) 19.7 Glucose Level 186 mg/dL (70-99) Calcium Level 8.5 mg/dL (8.5-10.1) Test 06/19/19 05:00 06/19/19 07:47 06/19/19 10:58 Sodium Level 142 mmol/L (136-145) Potassium Level 4.6 mmol/L (3.5-5.1) Chloride Level 110 mmol/L (98-107) Carbon Dioxide Level 22 mmol/L (21-32) Anion Gap 10 (6-14) Blood Urea Nitrogen 31 mg/dL (8-26) Creatinine 3.1 mg/dL (0.7-1.3) Estimated GFR (Cockcroft-Gault) 20.5 Glucose Level 186 mg/dL (70-99) Calcium Level 9.5 mg/dL (8.5-10.1) Glucose (Fingerstick) 183 mg/dL (70-99) 247 mg/dL (70-99) Review of Systems Review of Systems neg 14 pt reviewed Assessment and Plan Assessmemt and Plan Problems Medical Problems: (1) Cellulitis Status: Acute (2) Groin abscess Status: Acute Comment Review of Relevant I have reviewed the following items kellee (where applicable) has been applied. Labs Laboratory Tests Test 06/17/19 14:30 06/17/19 16:57 06/17/19 20:44 06/18/19 07:27 Urine Color Yellow Urine Clarity Clear Urine pH 5.5 Urine Specific [place] 1.010 Urine Protein Negative mg/dL (NEG-TRACE) Urine Glucose (UA) 100 mg/dL (NEG) Urine Ketones (Stick) Negative mg/dL (NEG) Urine Blood Negative (NEG) Urine Nitrite Negative (NEG) Urine Bilirubin Negative (NEG) Urine Urobilinogen Dipstick 0.2 mg/dL (0.2 mg/dL) Urine Leukocyte Esterase Negative (NEG) Urine RBC 0 /HPF (0-2) Urine WBC 1-4 /HPF (0-4) Urine Squamous Epithelial Cells Occ /LPF Urine Bacteria 0 /HPF (0-FEW) Urine Eosinophils Eos not observed Glucose (Fingerstick) 136 mg/dL (70-99) 171 mg/dL (70-99) 179 mg/dL (70-99) Test 06/18/19 11:45 06/18/19 11:57 06/18/19 17:06 06/18/19 20:11 Glucose (Fingerstick) 166 mg/dL (70-99) 189 mg/dL (70-99) 175 mg/dL (70-99) Sodium Level 144 mmol/L (136-145) Potassium Level 4.6 mmol/L (3.5-5.1) Chloride Level 110 mmol/L (98-107) Carbon Dioxide Level 25 mmol/L (21-32) Anion Gap 9 (6-14) Blood Urea Nitrogen 27 mg/dL (8-26) Creatinine 3.2 mg/dL (0.7-1.3) Estimated GFR (Cockcroft-Gault) 19.7 Glucose Level 186 mg/dL (70-99) Calcium Level 8.5 mg/dL (8.5-10.1) Test 06/19/19 05:00 06/19/19 07:47 06/19/19 10:58 Sodium Level 142 mmol/L (136-145) Potassium Level 4.6 mmol/L (3.5-5.1) Chloride Level 110 mmol/L (98-107) Carbon Dioxide Level 22 mmol/L (21-32) Anion Gap 10 (6-14) Blood Urea Nitrogen 31 mg/dL (8-26) Creatinine 3.1 mg/dL (0.7-1.3) Estimated GFR (Cockcroft-Gault) 20.5 Glucose Level 186 mg/dL (70-99) Calcium Level 9.5 mg/dL (8.5-10.1) Glucose (Fingerstick) 183 mg/dL (70-99) 247 mg/dL (70-99) Laboratory Tests Test 06/18/19 11:45 06/18/19 11:57 06/18/19 17:06 06/18/19 20:11 Glucose (Fingerstick) 166 mg/dL (70-99) 189 mg/dL (70-99) 175 mg/dL (70-99) Sodium Level 144 mmol/L (136-145) Potassium Level 4.6 mmol/L (3.5-5.1) Chloride Level 110 mmol/L (98-107) Carbon Dioxide Level 25 mmol/L (21-32) Anion Gap 9 (6-14) Blood Urea Nitrogen 27 mg/dL (8-26) Creatinine 3.2 mg/dL (0.7-1.3) Estimated GFR (Cockcroft-Gault) 19.7 Glucose Level 186 mg/dL (70-99) Calcium Level 8.5 mg/dL (8.5-10.1) Test 06/19/19 05:00 06/19/19 07:47 06/19/19 10:58 Sodium Level 142 mmol/L (136-145) Potassium Level 4.6 mmol/L (3.5-5.1) Chloride Level 110 mmol/L (98-107) Carbon Dioxide Level 22 mmol/L (21-32) Anion Gap 10 (6-14) Blood Urea Nitrogen 31 mg/dL (8-26) Creatinine 3.1 mg/dL (0.7-1.3) Estimated GFR (Cockcroft-Gault) 20.5 Glucose Level 186 mg/dL (70-99) Calcium Level 9.5 mg/dL (8.5-10.1) Glucose (Fingerstick) 183 mg/dL (70-99) 247 mg/dL (70-99) Microbiology 06/14/19 Anaerobic/Aerobic Culture - Final, Complete 06/14/19 Anaerobic Culture Result 1 (YUMI) - Final, Complete 06/14/19 Aerobic Culture - Final, Complete 06/14/19 Aerobic Culture Result 1 (YUMI) - Final, Complete 06/14/19 Gram Stain - Final, Complete 06/14/19 Gram Stain Result 1 (YUMI) - Final, Complete 06/14/19 Gram Stain Result 2 (YUMI) - Final, Complete 06/12/19 Blood Culture - Final, Complete NO GROWTH AFTER 5 DAYS Medications Current Medications Lidocaine/ Epinephrine (LIDOCAINE 1%-EPI 1:100,000 Multi-Dose) 20 ml 1X ONCE INJ Last administered on 06/12/19at 10:29; Start 06/12/19 at 10:15; Stop 06/12/19 at 10:16; Status DC Sodium Bicarbonate (Sodium Bicarb Adult 8.4% Syr) 50 meq STK-MED ONCE .ROUTE ; Start 06/12/19 at 10:19; Stop 06/12/19 at 10:19; Status DC Sodium Bicarbonate (Sodium Bicarb Adult 8.4% Syr) 50 meq 1X ONCE SQ Last administered on 06/12/19at 10:35; Start 06/12/19 at 10:30; Stop 06/12/19 at 10:31; Status DC Vancomycin HCl 250 ml @ 250 mls/hr 1X ONCE IV Last administered on 06/12/19at 11:48; Start 06/12/19 at 10:45; Stop 06/12/19 at 11:44; Status DC Sodium Chloride 1,000 ml @ 1,000 mls/hr 1X ONCE IV Last administered on 06/12/19at 11:45; Start 06/12/19 at 11:45; Stop 06/12/19 at 12:44; Status DC Vancomycin HCl (Vanco Per Pharmacy) 1 each PRN DAILY PRN MC SEE COMMENTS Last administered on 06/14/19at 12:53; Start 06/12/19 at 12:30; Stop 06/15/19 at 09:07; Status DC Insulin Human Lispro (HumaLOG) 0-5 UNITS TIDWMEALS SQ Last administered on 06/12/19at 17:21; Start 06/12/19 at 17:00; Stop 06/13/19 at 13:09; Status DC Dextrose (Dextrose 50%-Water Syringe) 12.5 gm PRN Q15MIN PRN IV SEE COMMENTS; Start 06/12/19 at 12:30; Stop 06/13/19 at 13:43; Status DC Vancomycin HCl 2 gm/Sodium Chloride 500 ml @ 250 mls/hr 1X ONCE IV Last administered on 06/12/19at 13:09; Start 06/12/19 at 13:00; Stop 06/12/19 at 14:59; Status DC Sodium Chloride (Normal Saline Flush) 3 ml QSHIFT PRN IV AFTER MEDS AND BLOOD DRAWS; Start 06/12/19 at 12:30 Sodium Chloride 1,000 ml @ 100 mls/hr Q10H IV Last administered on 06/18/19at 08:58; Start 06/12/19 at 12:18; Stop 06/18/19 at 13:54; Status DC Ondansetron HCl (Zofran) 4 mg PRN Q4HRS PRN IV NAUSEA/VOMITING Last administered on 06/13/19at 02:34; Start 06/12/19 at 12:30 Zolpidem Tartrate (Ambien) 5 mg PRN QHS PRN PO INSOMNIA; Start 06/12/19 at 12:30 Acetaminophen (Tylenol) 650 mg PRN Q4HRS PRN PO TEMP OVER 100.4F OR MILD PAIN; Start 06/12/19 at 12:30 Al Hydroxide/Mg Hydroxide (Mylanta Plus Xs) 30 ml PRN DAILY PRN PO HEARTBURN / GAS; Start 06/12/19 at 12:30 Clonidine HCl (Catapres) 0.1 mg PRN Q6HRS PRN PO SBP>160 OR DBP>90 Last administered on 06/19/19at 08:13; Start 06/12/19 at 12:30 Docusate Sodium (Colace) 100 mg PRN BID PRN PO CONSTIPATION; Start 06/12/19 at 12:30 Albuterol Sulfate (Ventolin Neb Soln) 2.5 mg PRN Q4HRS PRN NEB SHORTNESS OF BREATH; Start 06/12/19 at 12:30 Guaifenesin (Robitussin) 200 mg PRN Q4HRS PRN PO COUGH; Start 06/12/19 at 12:30 Lorazepam (Ativan) 0.5 mg PRN Q4HRS PRN PO ANXIETY / AGITATION; Start 06/12/19 at 12:30 Enoxaparin Sodium (Lovenox 40mg Syringe) 40 mg Q24H SQ Last administered on 06/17/19at 13:15; Start 06/12/19 at 13:00; Stop 06/17/19 at 14:17; Status DC Metformin HCl (Glucophage Xr) 500 mg DAILYWBKFT PO Last administered on 06/17/19at 10:30; Start 06/13/19 at 08:00; Stop 06/17/19 at 14:15; Status DC Lisinopril (Prinivil) 10 mg DAILY08 PO Last administered on 06/18/19at 08:46; Start 06/12/19 at 12:30; Stop 06/18/19 at 13:53; Status DC Piperacillin Sod/ Tazobactam Sod 3.375 gm/Sodium Chloride 50 ml @ 100 mls/hr Q6HRS IV Last administered on 06/15/19 06:18; Start 06/12/19 at 14:00; Stop 06/15/19 at 09:07; Status DC Nicotine (Nicoderm Cq 21mg) 1 patch DAILY TD Last administered on 06/19/19 08:11; Start 06/12/19 at 15:30 Vancomycin HCl 1.25 gm/Sodium Chloride 250 ml @ 167 mls/hr Q12H IV Last administered on 06/14/19 01:09; Start 06/13/19 at 01:00; Stop 06/14/19 at 02:48; Status DC Vancomycin HCl (Vancomycin Trough Level) 1 each 1X ONCE MC Last administered on 06/14/19 00:30; Start 06/14/19 at 00:30; Stop 06/14/19 at 00:31; Status DC Hydromorphone HCl (Dilaudid) 1 mg PRN Q3HRS PRN IV SEVERE PAIN 7-10; Start 06/12/19 at 16:45 Acetaminophen/ Hydrocodone Bitart (Lortab 5/325) 1 tab PRN Q4HRS PRN PO MODERATE PAIN Last administered on 06/14/19at 20:57; Start 06/12/19 at 17:00 Acetaminophen/ Hydrocodone Bitart (Lortab 5/325) 2 tab PRN Q4HRS PRN PO SEVERE PAIN Last administered on 06/15/19 17:22; Start 06/12/19 at 17:00 Lactobacillus Rhamnosus (Culturelle) 1 cap BID PO Last administered on 06/18/19at 20:38; Start 06/13/19 at 21:00 Insulin Human Lispro (HumaLOG) 0-9 UNITS TIDWMEALS SQ Last administered on 06/19/19at 08:17; Start 06/13/19 at 17:00 Dextrose (Dextrose 50%-Water Syringe) 12.5 gm PRN Q15MIN PRN IV SEE COMMENTS; Start 06/13/19 at 13:15 Insulin Glargine (Lantus Syringe) 10 unit 1X ONCE SQ Last administered on 06/13/19at 14:39; Start 06/13/19 at 14:00; Stop 06/13/19 at 14:01; Status DC Vancomycin HCl 1.25 gm/Sodium Chloride 250 ml @ 167 mls/hr Q12H IV Last administered on 06/15/19at 01:18; Start 06/14/19 at 13:00; Stop 06/15/19 at 09:08; Status DC Vancomycin HCl (Vancomycin Trough Level) 1 each 1X ONCE MC ; Start 06/15/19 at 08:30; Stop 06/15/19 at 08:31; Status Cancel Ondansetron HCl (Zofran) 4 mg PRN Q6HRS PRN IV NAUSEA/VOMITING; Start 06/14/19 at 12:45; Stop 06/14/19 at 19:05; Status DC Fentanyl Citrate (Fentanyl 2ml Vial) 25 mcg PRN Q5MIN PRN IV MILD PAIN 1-3; Start 06/14/19 at 12:45; Stop 06/14/19 at 19:05; Status DC Fentanyl Citrate (Fentanyl 2ml Vial) 50 mcg PRN Q5MIN PRN IV MODERATE TO SEVERE PAIN Last administered on 06/14/19at 15:07; Start 06/14/19 at 12:45; Stop 06/14/19 at 19:05; Status DC Morphine Sulfate (Morphine Sulfate) 1 mg PRN Q10MIN PRN IV SEVERE PAIN 7-10; Start 06/14/19 at 12:45; Stop 06/14/19 at 19:05; Status DC Ringer's Solution 1,000 ml @ 30 mls/hr Q24H IV ; Start 06/14/19 at 12:40; Stop 06/14/19 at 19:04; Status DC Lidocaine HCl (Xylocaine-Mpf 1% 2ml Vial) 2 ml PRN 1X PRN ID PRIOR TO IV START; Start 06/14/19 at 12:45; Stop 06/14/19 at 19:05; Status DC Hydromorphone HCl (Dilaudid) 0.5 mg PRN Q10MIN PRN IV SEV PAIN, Second choice; Start 06/14/19 at 12:45; Stop 06/14/19 at 19:05; Status DC Prochlorperazine Edisylate (Compazine) 5 mg PACU PRN PRN IV NAUSEA, MRX1; Start 06/14/19 at 12:45; Stop 06/14/19 at 19:05; Status DC Lidocaine/ Epinephrine (LIDOCAINE 1%-EPI 1:100,000 Multi-Dose) 20 ml STK-MED ONCE .ROUTE ; Start 06/14/19 at 13:31; Stop 06/14/19 at 13:31; Status DC Fentanyl Citrate (Fentanyl 2ml Vial) 100 mcg STK-MED ONCE .ROUTE ; Start 06/14/19 at 13:50; Stop 06/14/19 at 13:50; Status DC Propofol 20 ml @ As Directed STK-MED ONCE IV ; Start 06/14/19 at 13:53; Stop 06/14/19 at 13:53; Status DC Lidocaine HCl (Lidocaine Pf 2% Vial) 5 ml STK-MED ONCE .ROUTE ; Start 06/14/19 at 13:53; Stop 06/14/19 at 13:53; Status DC Ondansetron HCl (Zofran) 4 mg STK-MED ONCE .ROUTE ; Start 06/14/19 at 13:53; Stop 06/14/19 at 13:53; Status DC Fentanyl Citrate (Fentanyl 2ml Vial) 100 mcg STK-MED ONCE .ROUTE ; Start 06/14/19 at 14:49; Stop 06/14/19 at 14:50; Status DC Sevoflurane (Ultane) 30 ml STK-MED ONCE IH ; Start 06/14/19 at 14:52; Stop 06/14/19 at 14:52; Status DC Cefepime HCl (Maxipime) 1 gm Q12HR IVP Last administered on 06/16/19at 20:44; Start 06/15/19 at 10:00; Stop 06/17/19 at 09:33; Status DC Metronidazole (Flagyl) 500 mg Q12HR PO Last administered on 06/19/19at 08:11; Start 06/15/19 at 10:00; Stop 06/19/19 at 11:20; Status DC Linezolid (Zyvox) 600 mg BID PO Last administered on 06/16/19at 20:44; Start 06/15/19 at 10:00; Stop 06/17/19 at 09:33; Status DC Sodium Hypochlorite (Dakin'S 1/4 Strength) 1 emilee DAILY TP Last administered on 06/19/19at 08:18; Start 06/15/19 at 18:00 Ceftriaxone Sodium (Rocephin) 2 gm Q24H IVP Last administered on 06/19/19at 08:47; Start 06/17/19 at 10:00 Enoxaparin Sodium (Lovenox 30mg Syringe) 30 mg Q24H SQ Last administered on 06/18/19at 12:48; Start 06/18/19 at 13:00 Hydralazine HCl (Apresoline) 25 mg TID PO Last administered on 06/19/19at 08:11; Start 06/18/19 at 14:00; Stop 06/19/19 at 08:18; Status DC Hydralazine HCl (Apresoline) 50 mg TID PO ; Start 06/19/19 at 14:00 Amlodipine Besylate (Norvasc) 10 mg DAILY PO Last administered on 06/19/19at 08:47; Start 06/19/19 at 09:00 Hydralazine HCl (Apresoline) 25 mg 1X ONCE PO Last administered on 06/19/19at 08:47; Start 06/19/19 at 08:30; Stop 06/19/19 at 08:31; Status DC Vitals/I & O Vital Sign - Last 24 Hours 06/18/19 06/18/19 06/18/19 06/18/19 15:00 15:39 18:10 19:00 Temp 97.9 98.2 97.9 98.2 Pulse 67 67 63 70 Resp 16 18 B/P (MAP) 202/84 (123) 202/84 188/81 199/68 (111) Pulse Ox 97 94 O2 Delivery Room Air Room Air 06/18/19 06/18/19 06/18/19 06/19/19 20:00 20:39 23:00 00:27 Temp 98.1 98.1 Pulse 70 67 67 Resp 18 B/P (MAP) 199/68 176/77 (110) 176/77 Pulse Ox 96 O2 Delivery Room Air Room Air 06/19/19 06/19/19 06/19/19 06/19/19 03:00 07:00 08:00 08:11 Temp 98.2 98.1 98.2 98.1 Pulse 67 51 51 Resp 18 18 B/P (MAP) 174/76 (108) 205/76 (119) 205/76 Pulse Ox 96 94 O2 Delivery Room Air Room Air Room Air O2 Flow Rate 10.0 06/19/19 06/19/19 06/19/19 08:13 08:47 08:47 Pulse 51 51 51 B/P (MAP) Intake and Output 06/18/19 06/18/19 06/19/19 15:00 23:00 07:00 Intake Total 1490 ml 100 ml 250 ml Output Total 750 ml Balance 740 ml 100 ml 250 ml MENDY RAMSAY MD Jun 19, 2019 11:34
[2019-06-19 11:42] VITALS: BP 179/75
[2019-06-19] MEDS ORDERED: hydrALAZINE 20 MG/ML VIAL. IVP ONE (11:45)
[2019-06-19] MEDS: ENOXAPARIN 30 MG/0.3 ML SYRINGE. SQ SCH (13:12)
[2019-06-19 15:00] VITALS: BP 168/82
[2019-06-19 19:00] VITALS: BP 176/72
[2019-06-19] MEDS: AMOXICILLIN/K CLAV 500/125MG TABLET. PO SCH (20:44)
[2019-06-19 23:00] VITALS: BP 160/67
[2019-06-20] VITALS (7 sets, daily range): BP systolic 154–181; BP diastolic 55–89
[2019-06-20] MEDS: IV NORMAL SALINE 1000ML BAG 1,000 ML IV SCH ×2 (01:05→10:00)
[2019-06-20] MEDS: hydrALAZINE 20 MG/ML VIAL. IVP PRN ×2 (03:47→20:04)
--- NOTE | 2019-06-20 06:14 | RAD ---
Examination: Ultrasound renal duplex HISTORY: History of new onset hypertension COMPARISON: None available TECHNIQUE: Grayscale, color 2-D, spectral response of the renal arteries are performed FINDINGS: The right renal artery velocity is 150 cm/s. The left renal artery velocity is 146 cm/s. The proximal right and left renal artery could not be visualized. The velocity in the aorta is 160 cm/s. The right renal artery to aorta ratio is 0.9. The left renal artery to aorta velocity ratio is 0.9. The right kidney measures 14.2 cm in length. The left kidney measures 14.8 cm in length. IMPRESSION: No evidence of hemodynamically significant stenosis by velocity criteria Electronically signed by: Uvaldo Amezcua MD (06/20/2019 6:11 AM) [facility]
[2019-06-20] MEDS: SODIUM HYPOCHLORITE 0.125% 473 ML BOTTLE. TP SCH (09:00)
[2019-06-20] MEDS: LACTOBACILLUS RHAMNOSUS GG 1 CAPSULE. PO SCH ×2 (09:00→21:00)
[2019-06-20] MEDS: AMOXICILLIN/K CLAV 500/125MG TABLET. PO SCH ×2 (09:05→21:07)
[2019-06-20] MEDS: amLODIPine BESYLATE 10 MG TABLET PO SCH (09:05)
[2019-06-20] MEDS: INSULIN LISPRO 300 UNITS/3 ML VIAL. SQ SCH ×3 (09:10→17:56)
--- NOTE | 2019-06-20 09:18 | PDOC ---
Infectious Disease Note Subjective Subjective Doing well, no complaint. Wants to go home Denies pain/F/C/N/V/D/altered taste ROS ROS o/w neg Vital Sign Vital Signs Vital Signs Date Time Temp Pulse Resp B/P (MAP) Pulse Ox O2 Delivery O2 Flow Rate FiO2 06/20/19 09:06 75 175/73 06/20/19 07:00 97.9 16 94 Room Air 97.9 06/19/19 08:00 10.0 Physical Exam PHYSICAL EXAM GENERAL: Propped up in bed, alert, NAD In chair HEENT: Pupils are equally round. Oral cavity, pharynx pink and moist. Dentures NECK: Supple. LUNGS: Clear to auscultation. HEART: S1 and S2. ABDOMEN: Obese, soft, and nontender with bowel sounds present. EXTREMITIES: No gross edema or cyanosis. SKIN: Warm to touch. No signs of rash. Wound packing right groin area in place, no gorss drainage but still induration but less, nontender, no redness. Over-all improved NEUROLOGIC: Alert and oriented x3. Labs Lab Laboratory Tests Test 06/19/19 10:58 06/19/19 16:39 06/19/19 19:31 06/20/19 07:37 Glucose (Fingerstick) 247 mg/dL (70-99) 201 mg/dL (70-99) 136 mg/dL (70-99) 191 mg/dL (70-99) Micro No anaerobic growth in 72 hours. AEROBIC CULT Final Preliminary report Final report AEROBIC RES 1 Final Comment Beta hemolytic Streptococcus, group B 1+ Penicillin and ampicillin are drugs of choice for treatment of beta-hemolytic streptococcal infections. Susceptibility testing of penicillins and other beta-lactam agents approved by the FDA for treatment of beta-hemolytic streptococcal infections need not be performed routinely because nonsusceptible isolates are extremely rare in any beta-hemolytic streptococcus and have not been reported for Streptococcus pyogenes (group A). (CLSI) Microbiology 06/14/19 Anaerobic/Aerobic Culture - Final, Complete 06/14/19 Anaerobic Culture Result 1 (YUMI) - Final, Complete 06/14/19 Aerobic Culture - Final, Complete 06/14/19 Aerobic Culture Result 1 (YUMI) - Final, Complete 06/14/19 Gram Stain - Final, Complete 06/14/19 Gram Stain Result 1 (YUMI) - Final, Complete 06/14/19 Gram Stain Result 2 (YUMI) - Final, Complete 06/12/19 Blood Culture - Final, Complete NO GROWTH AFTER 5 DAYS Objective Assessment Right Groin abscess s/p I and D in ER 06/12, then s/p surgical I and D 06/14. cultures positive for group B strep History of MRSA infection. RAQUEL - D/w Dr. Santos - ? ATN Diabetes. Obesity. Hypertension. Plan Plan of Care Cont Augmentin 06/19 previous Rocephin (06/17) Previously on vanc, Zosyn, Cefepime & Zyvox cont local wound as directed Renal following D/w nursing EMELI WEBSTER MD Jun 20, 2019 09:18
[2019-06-20] MEDS: NICOTINE 21MG PATCH. TD SCH (09:46)
--- NOTE | 2019-06-20 10:34 | PDOC ---
Renal-Progress Notes Subjective Notes Notes NOTHING NEW History of Present Illness Hx of present illness STABLE Vitals Vitals Vital Signs Date Time Temp Pulse Resp B/P (MAP) Pulse Ox O2 Delivery O2 Flow Rate FiO2 06/20/19 09:06 75 175/73 06/20/19 08:00 Room Air 10.0 06/20/19 07:00 97.9 16 94 97.9 Weight Weight [ ] I.O. Intake and Output Intake and Output 06/20/19 07:00 Intake Total 1800 ml Output Total 400 ml Balance 1400 ml Intake Oral 1800 ml Output Urine Total 400 ml # Voids 3 # Bowel Movements 1 Labs Labs Laboratory Tests Test 06/19/19 10:58 06/19/19 16:39 06/19/19 19:31 06/20/19 07:37 Glucose (Fingerstick) 247 mg/dL (70-99) 201 mg/dL (70-99) 136 mg/dL (70-99) 191 mg/dL (70-99) Micro Micro Microbiology 06/14/19 Anaerobic/Aerobic Culture - Final, Complete 06/14/19 Anaerobic Culture Result 1 (YUMI) - Final, Complete 06/14/19 Aerobic Culture - Final, Complete 06/14/19 Aerobic Culture Result 1 (YUMI) - Final, Complete 06/14/19 Gram Stain - Final, Complete 06/14/19 Gram Stain Result 1 (YUMI) - Final, Complete 06/14/19 Gram Stain Result 2 (YUMI) - Final, Complete 06/12/19 Blood Culture - Final, Complete NO GROWTH AFTER 5 DAYS Review of Systems Constitutional: yes: alert, oriented Ears/Nose/Throat: Yes: no symptom reported Eyes: Yes: no symptom reported Pulmonary: Yes no symptom reported Cardiovascular: Yes no symptom reported Gastrointestional: Yes: no symptom reported Genitourinary: Yes: no symptom reported Musculoskeletal: Yes: no symptom reported Skin: Yes no symptom reported Psychiatric/Neurological: Yes: no symptom reported Endocrine: Yes: no symptom reported Physical Exam General Appearance: no apparent distress Heart: S1S2 Abdomen: soft, bowel sounds present Genitourinary: bladder flat Extremities: pulses present Neurology: alert Assessment Assessment IMP RAQUEL-ATN BENIGN LEFT RENAL CYST RIGHT GROIN ABSCESS LABILE HTN DM II PLAN START IVF'S ONCE CR TRENDS DOWN OK TO D/C WITH OP FOLLOW UP D/W ID-NO SIGNS OF AIN CONT TO HOLD METFORMIN AND RODOLFO-I WILL FOLLOW SUNSHINE SCHMIDT MD Jun 20, 2019 10:34
[2019-06-20 10:58] LABS: CALCIUM 9.4 mg/dL (8.5-10.1); CREATININE 2.9 mg/dL (0.7-1.3); GFR 22.1; POTASSIUM 4.1 mmol/L (3.5-5.1)
--- NOTE | 2019-06-20 11:45 | PDOC ---
[employer] PROGRESS NOTE Chief Complaint Chief Complaint Groin abscess, deep, complicated hx MRSA diabetes 2, poor control, A1c 10.3 Cellulitis uncontrolled hypertension- HTN EMERGENCY SBP 200 (06/19) obesity, BMI 28 acute renal injury cr 3.2 06/17 - CREAT STABLE AT STAGE 3 (NOW HIS BASELINE) Beta hemolytic Streptococcus, group B wound History of Present Illness History of Present Illness Pt seen and examined Chart reviewed Discussed with RN Patient still seems to be in a lot of pain Vitals/I&O Vitals/I&O: Vital Signs Date Time Temp Pulse Resp B/P (MAP) Pulse Ox O2 Delivery O2 Flow Rate FiO2 06/20/19 09:06 75 175/73 06/20/19 08:00 Room Air 10.0 06/20/19 07:00 97.9 16 94 97.9 I & O 06/19/19 06/19/19 06/20/19 14:59 22:59 06:59 Intake Total 900 ml 900 ml Output Total 400 ml Balance 900 ml -400 ml 900 ml Physical Exam Physical Exam: GENERAL: Propped up in bed, alert, in pain In chair HEENT: Pupils are equally round. Oral cavity, pharynx pink and moist. Dentures NECK: Supple. LUNGS: Clear to auscultation. HEART: S1 and S2. ABDOMEN: Obese, soft, and nontender with bowel sounds present. EXTREMITIES: No gross edema or cyanosis. SKIN: Warm to touch. No signs of rash. Wound packing right groin area in place, no gorss drainage but still induration but less, nontender, no redness. Over-all improved NEUROLOGIC: Alert and oriented x3. General: Alert, Oriented X3, Cooperative Heart: Regular rate, Normal S1, Normal S2, No murmurs Lungs: Clear Abdomen: Normal bowel sounds, Soft, No tenderness Extremities: No cyanosis, Other (wound clean, packed) Skin: Other (groin wound clean, packed) Labs Labs: Laboratory Tests Test 06/19/19 16:39 06/19/19 19:31 06/20/19 07:37 06/20/19 10:15 Glucose (Fingerstick) 201 mg/dL (70-99) 136 mg/dL (70-99) 191 mg/dL (70-99) Sodium Level 141 mmol/L (136-145) Potassium Level 4.1 mmol/L (3.5-5.1) Chloride Level 107 mmol/L (98-107) Carbon Dioxide Level 25 mmol/L (21-32) Anion Gap 9 (6-14) Blood Urea Nitrogen 31 mg/dL (8-26) Creatinine 2.9 mg/dL (0.7-1.3) Estimated GFR (Cockcroft-Gault) 22.1 Glucose Level 241 mg/dL (70-99) Calcium Level 9.4 mg/dL (8.5-10.1) Test 06/20/19 11:29 Glucose (Fingerstick) 207 mg/dL (70-99) Review of Systems Review of Systems: Complains of pain Complains of weakness Assessment and Plan Assessmemt and Plan Problems Medical Problems: (1) Cellulitis Status: Acute (2) Groin abscess Status: Acute Postop day #3 perirectal abscess drained Groin abscess, deep, complicated hx MRSA diabetes 2, poor control, A1c 10.3 Cellulitis uncontrolled hypertension- HTN EMERGENCY SBP 200 (06/19) obesity, BMI 28 acute renal injury cr 3.2 06/17 - CREAT STABLE AT STAGE 3 (NOW HIS BASELINE) Beta hemolytic Streptococcus, group B wound Plan IV antibiotics Wound care When necessary antihypertensives When necessary narcotics Labs Discharge when okay with subspecialist Comment Review of Relevant I have reviewed the following items kellee (where applicable) has been applied. Medications: Current Medications Medications (Trade) Dose Ordered Sig/Ivon Route PRN Reason Start Time Stop Time Status Last Admin Dose Admin Hydralazine HCl (Apresoline) 50 mg TID PO 06/19/19 14:00 06/20/19 09:06 Hydralazine HCl (Apresoline Inj) 10 mg 1X ONCE IVP 06/19/19 11:45 06/19/19 11:46 DC 06/19/19 11:48 Hydralazine HCl (Apresoline Inj) 10 mg PRN Q4HRS PRN IVP ELEVATED BP, SEE COMMENTS 06/19/19 11:45 06/20/19 03:47 Amoxicillin/ Clavulanate Potassium (Augmentin 500/ 125mg) 1 tab BID PO 06/19/19 21:00 06/20/19 09:05 Sodium Chloride 1,000 ml @ 100 mls/hr Q10H IV 06/20/19 10:00 06/20/19 10:00 HAYDEN DUENAS III DO Jun 20, 2019 11:45
[2019-06-20] MEDS: ENOXAPARIN 30 MG/0.3 ML SYRINGE. SQ SCH (12:52)
--- NOTE | 2019-06-20 14:37 | CARD ---
MR#: [id number] Date of Study: 06/20/2019 Ordering Physician: MENDY RAMSAY, Referring Physician: MENDY RAMSAY Tech: Sigrid Quan [facility] APPROVED REPORT EXAM: Two-dimensional and M-mode echocardiogram with Doppler and color Doppler. Other Information Quality : Good INDICATION Hypertension/HCVD Heart Disease 2D DIMENSIONS RVDd2.1 (2.9-3.5cm)Left Atrium(2D)4.3 (1.6-4.0cm) IVSd0.8 (0.7-1.1cm)Aortic Root(2D)2.5 (2.0-3.7cm) LVDd4.7 (3.9-5.9cm)LVOT Diameter2.0 (1.8-2.4cm) PWd1.1 (0.7-1.1cm)LVDs2.4 (2.5-4.0cm) FS (%) 30.0 %SV82.6 ml LVEF(%)60.0 (>50%) Aortic Valve AoV Peak Dirk.194.5cm/sAoV VTI31.6cm AO Peak GR.15.1mmHgLVOT Peak Dirk.150.0cm/s AO Mean GR.8mmHgAVA (VMAX)2.46cm2 JORGE (VTI)2.70cm2 Mitral Valve MV E Nurgotpp801.8cm/sMV DECEL CHCC343kd MV A Zxiknqqe83.8cm/sE/A Ratio1.2 Pulmonary Vein S1 Qadzifty47.9cm/sD2 Orvxiwvu23.2cm/s LEFT VENTRICLE The left ventricle is normal size. There is normal left ventricular wall thickness. The left ventricu lar systolic function is normal and the ejection fraction is within normal range. The Ejection Fracti on is 55-60%. There is normal LV segmental wall motion. Transmitral Doppler flow pattern is Grade I-a bnormal relaxation pattern. RIGHT VENTRICLE The right ventricle is normal size. The right ventricular systolic function is normal. ATRIA The left atrium is mildly dilated. The right atrium size is normal. The interatrial septum is intact with no evidence for an atrial septal defect or patent foramen ovale as noted on 2-D or Doppler imagi ng. AORTIC VALVE The aortic valve is calcified but opens well. Doppler and Color Flow revealed no significant aortic r egurgitation. There is no significant aortic valvular stenosis. MITRAL VALVE The mitral valve is calcified but opens well. Mitral annular calcification is mild. There is no evide nce of mitral valve prolapse. There is no mitral valve stenosis. Doppler and Color Flow revealed no m itral valve regurgitation noted. TRICUSPID VALVE The tricuspid valve is normal in structure and function. Doppler and Color Flow revealed no tricuspid valve regurgitation noted. There is no tricuspid valve stenosis. PULMONIC VALVE The pulmonic valve is not well visualized. Doppler and Color Flow revealed no pulmonic valvular regur gitation. There is no pulmonic valvular stenosis. GREAT VESSELS The aortic root is normal in size. The ascending aorta is not well seen. The IVC is normal in size an d collapses >50% with inspiration. PERICARDIAL EFFUSION There is no evidence of significant pericardial effusion. Critical Notification Critical Value: No <Conclusion> The left ventricular systolic function is normal and the ejection fraction is within normal range. Th e Ejection Fraction is 55-60%. There is normal LV segmental wall motion. Signed by : Prieto Low, Electronically Approved : 06/20/2019 14:37:08
--- NOTE | 2019-06-20 15:45 | NUR ---
Wound Care Pt seen for R groin abscess, s/p surgical I&D on 06/14/19. All packing removed, wound cleaned and redressed. Wound bed beefy red, with significant undermining from 12-4, periwound bright red and indurated, no odor noted. Wound repacked with 1/4 strength Dakins solution soaked kerlix roll and covered with ABD and tape, pt tolerated well with small amount of pain. WC will continue to follow for possible changes. Pt daughter is RN and will do dressing changes at home.
[2019-06-21 03:17] VITALS: BP 170/72
[2019-06-21 05:05] LABS: CREATININE 2.9 mg/dL (0.7-1.3); GFR 22.1; POTASSIUM 4.1 mmol/L (3.5-5.1)
[2019-06-21] MEDS: IV NORMAL SALINE 1000ML BAG 1,000 ML IV SCH (06:00)
[2019-06-21 07:00] VITALS: BP 169/71
[2019-06-21] MEDS: LACTOBACILLUS RHAMNOSUS GG 1 CAPSULE. PO SCH (09:00)
[2019-06-21] MEDS: amLODIPine BESYLATE 10 MG TABLET PO SCH (09:01)
[2019-06-21] MEDS: NICOTINE 21MG PATCH. TD SCH (09:01)
[2019-06-21] MEDS: AMOXICILLIN/K CLAV 500/125MG TABLET. PO SCH (09:01)
[2019-06-21] MEDS: INSULIN LISPRO 300 UNITS/3 ML VIAL. SQ SCH (09:06)
[2019-06-21] MEDS ORDERED: AMLO10TA8 PO (09:26)
[2019-06-21] MEDS ORDERED: HYDR-2761 PO (09:26)
[2019-06-21] MEDS ORDERED: AMOX1TAB10 PO (09:26)
[2019-06-21] MEDS ORDERED: HYDR-2869 PO (09:26)
[2019-06-21] MEDS ORDERED: DOCU-153 PO (09:26)
--- NOTE | 2019-06-21 09:55 | PDOC ---
Renal-Progress Notes Subjective Notes Notes NO NEW COMPLAINTS History of Present Illness Hx of present illness STABLE Vitals Vitals Vital Signs Date Time Temp Pulse Resp B/P (MAP) Pulse Ox O2 Delivery O2 Flow Rate FiO2 06/21/19 09:01 78 169/71 06/21/19 07:00 98.3 18 95 Room Air 98.3 06/20/19 08:00 10.0 Weight Weight [ ] I.O. Intake and Output Intake and Output 06/21/19 07:00 Intake Total 4280 ml Output Total 400 ml Balance 3880 ml Intake Oral 1880 ml IV Total 1200 ml Other 1200 ml Output Urine Total 400 ml Labs Labs Laboratory Tests Test 06/20/19 10:15 06/20/19 11:29 06/20/19 16:45 06/20/19 20:15 Sodium Level 141 mmol/L (136-145) Potassium Level 4.1 mmol/L (3.5-5.1) Chloride Level 107 mmol/L (98-107) Carbon Dioxide Level 25 mmol/L (21-32) Anion Gap 9 (6-14) Blood Urea Nitrogen 31 mg/dL (8-26) Creatinine 2.9 mg/dL (0.7-1.3) Estimated GFR (Cockcroft-Gault) 22.1 Glucose Level 241 mg/dL (70-99) Calcium Level 9.4 mg/dL (8.5-10.1) Glucose (Fingerstick) 207 mg/dL (70-99) 222 mg/dL (70-99) 184 mg/dL (70-99) Test 06/21/19 04:15 06/21/19 07:52 Sodium Level 145 mmol/L (136-145) Potassium Level 4.1 mmol/L (3.5-5.1) Chloride Level 110 mmol/L (98-107) Carbon Dioxide Level 22 mmol/L (21-32) Anion Gap 13 (6-14) Blood Urea Nitrogen 29 mg/dL (8-26) Creatinine 2.9 mg/dL (0.7-1.3) Estimated GFR (Cockcroft-Gault) 22.1 Glucose Level 200 mg/dL (70-99) Calcium Level 9.0 mg/dL (8.5-10.1) Glucose (Fingerstick) 209 mg/dL (70-99) Micro Micro Microbiology 06/14/19 Anaerobic/Aerobic Culture - Final, Complete 06/14/19 Anaerobic Culture Result 1 (YUMI) - Final, Complete 06/14/19 Aerobic Culture - Final, Complete 06/14/19 Aerobic Culture Result 1 (YUMI) - Final, Complete 06/14/19 Gram Stain - Final, Complete 06/14/19 Gram Stain Result 1 (YUMI) - Final, Complete 06/14/19 Gram Stain Result 2 (YUMI) - Final, Complete 06/12/19 Blood Culture - Final, Complete NO GROWTH AFTER 5 DAYS Review of Systems Constitutional: yes: alert, oriented Ears/Nose/Throat: Yes: no symptom reported Eyes: Yes: no symptom reported Pulmonary: Yes no symptom reported Cardiovascular: Yes no symptom reported Gastrointestional: Yes: no symptom reported Genitourinary: Yes: no symptom reported Musculoskeletal: Yes: no symptom reported Skin: Yes no symptom reported Psychiatric/Neurological: Yes: no symptom reported Endocrine: Yes: no symptom reported Physical Exam General Appearance: no apparent distress Heart: S1S2 Abdomen: soft, bowel sounds present Genitourinary: bladder flat Extremities: pulses present Neurology: alert Assessment Assessment IMP RAQUEL-ATN-CR DOWN TO 2.9 BENIGN LEFT RENAL CYST RIGHT GROIN ABSCESS LABILE HTN DM II PLAN CONT TO HOLD METFORMIN AND RODOLFO-I WANTS TO GO HOME - STATES HE IS OUT OF NETWORK EATING AND DRINKING WELL CURRENTLY AGREED TO D/C HIM PROVIDED F/U IN OFFICE IN 1-2 WEEKS ASKED PT TO PUSH FLUIDS AND TO AVOID NEPHROTOXINS D/W ATTENDING SUNSHINE SCHMIDT MD Jun 21, 2019 09:55
--- NOTE | 2019-06-21 10:21 | PDOC ---
Infectious Disease Note Subjective Subjective Doing well, no complaint. Wants to go home Denies pain/F/C/N/V/D/altered taste Vital Sign Vital Signs Vital Signs Date Time Temp Pulse Resp B/P (MAP) Pulse Ox O2 Delivery O2 Flow Rate FiO2 06/21/19 09:01 78 169/71 06/21/19 08:00 Room Air 06/21/19 07:00 98.3 18 95 98.3 06/20/19 08:00 10.0 Physical Exam PHYSICAL EXAM GENERAL: Propped up in bed, alert, in pain In chair HEENT: Pupils are equally round. Oral cavity, pharynx pink and moist. Dentures NECK: Supple. LUNGS: Clear to auscultation. HEART: S1 and S2. ABDOMEN: Obese, soft, and nontender with bowel sounds present. EXTREMITIES: No gross edema or cyanosis. SKIN: Warm to touch. No signs of rash. Wound packing right groin area in place, no gross drainage and induration continues to improve, nontender, no redness. Over-all improved NEUROLOGIC: Alert and oriented x3. Labs Lab Laboratory Tests Test 06/20/19 11:29 06/20/19 16:45 06/20/19 20:15 06/21/19 04:15 Glucose (Fingerstick) 207 mg/dL (70-99) 222 mg/dL (70-99) 184 mg/dL (70-99) Sodium Level 145 mmol/L (136-145) Potassium Level 4.1 mmol/L (3.5-5.1) Chloride Level 110 mmol/L (98-107) Carbon Dioxide Level 22 mmol/L (21-32) Anion Gap 13 (6-14) Blood Urea Nitrogen 29 mg/dL (8-26) Creatinine 2.9 mg/dL (0.7-1.3) Estimated GFR (Cockcroft-Gault) 22.1 Glucose Level 200 mg/dL (70-99) Calcium Level 9.0 mg/dL (8.5-10.1) Test 06/21/19 07:52 Glucose (Fingerstick) 209 mg/dL (70-99) Micro No anaerobic growth in 72 hours. AEROBIC CULT Final Preliminary report Final report AEROBIC RES 1 Final Comment Beta hemolytic Streptococcus, group B 1+ Penicillin and ampicillin are drugs of choice for treatment of beta-hemolytic streptococcal infections. Susceptibility testing of penicillins and other beta-lactam agents approved by the FDA for treatment of beta-hemolytic streptococcal infections need not be performed routinely because nonsusceptible isolates are extremely rare in any beta-hemolytic streptococcus and have not been reported for Streptococcus pyogenes (group A). (CLSI) Microbiology 06/14/19 Anaerobic/Aerobic Culture - Final, Complete 06/14/19 Anaerobic Culture Result 1 (YUMI) - Final, Complete 06/14/19 Aerobic Culture - Final, Complete 06/14/19 Aerobic Culture Result 1 (YUMI) - Final, Complete 06/14/19 Gram Stain - Final, Complete 06/14/19 Gram Stain Result 1 (YUMI) - Final, Complete 06/14/19 Gram Stain Result 2 (YUMI) - Final, Complete 06/12/19 Blood Culture - Final, Complete NO GROWTH AFTER 5 DAYS Objective Assessment Right Groin abscess s/p I and D in ER 06/12, then s/p surgical I and D 06/14. c ultures positive for group B strep History of MRSA infection. RAQUEL - D/w Dr. Santos - ? ATN Diabetes. Obesity. Hypertension. Plan Plan of Care Cont Augmentin 06/19 previous Rocephin (06/17) would treat another 7 days given induration Previously on vanc, Zosyn, Cefepime & Zyvox cont local wound as directed Renal following D/w nursing F/u wound care ID to sign off EMELI WEBSTER MD Jun 21, 2019 10:21
[2019-06-21 11:00] VITALS: BP 186/69
--- NOTE | 2019-06-21 12:40 | PDOC ---
PROGRESS NOTES Chief Complaint Chief Complaint Groin abscess, deep, complicated hx MRSA diabetes 2, poor control, A1c 10.3 Cellulitis uncontrolled hypertension- HTN EMERGENCY SBP 200 (06/19) obesity, BMI 28 acute renal injury cr 3.2 06/17 - CREAT STABLE AT STAGE 3 (NOW HIS BASELINE) Beta hemolytic Streptococcus, group B wound History of Present Illness History of Present Illness DC home discussed with renal Chart reviewed Discussed with RN Vitals Vitals Vital Signs Date Time Temp Pulse Resp B/P (MAP) Pulse Ox O2 Delivery O2 Flow Rate FiO2 06/21/19 11:00 97.9 82 16 186/69 (108) 96 Room Air 97.9 06/20/19 08:00 10.0 Physical Exam Physical Exam GENERAL: Propped up in bed, alert, in pain In chair HEENT: Pupils are equally round. Oral cavity, pharynx pink and moist. Dentures NECK: Supple. LUNGS: Clear to auscultation. HEART: S1 and S2. ABDOMEN: Obese, soft, and nontender with bowel sounds present. EXTREMITIES: No gross edema or cyanosis. SKIN: Warm to touch. No signs of rash. Wound packing right groin area in place, no gross drainage and induration continues to improve, nontender, no redness. Over-all improved NEUROLOGIC: Alert and oriented x3. General: Alert, Oriented X3, Cooperative Heart: Regular rate, Normal S1, Normal S2, No murmurs Lungs: Clear Abdomen: Normal bowel sounds, Soft, No tenderness Extremities: No cyanosis, Other (wound clean, packed) Skin: Other (groin wound clean, packed) Labs LABS Laboratory Tests Test 06/20/19 16:45 06/20/19 20:15 06/21/19 04:15 06/21/19 07:52 Glucose (Fingerstick) 222 mg/dL (70-99) 184 mg/dL (70-99) 209 mg/dL (70-99) Sodium Level 145 mmol/L (136-145) Potassium Level 4.1 mmol/L (3.5-5.1) Chloride Level 110 mmol/L (98-107) Carbon Dioxide Level 22 mmol/L (21-32) Anion Gap 13 (6-14) Blood Urea Nitrogen 29 mg/dL (8-26) Creatinine 2.9 mg/dL (0.7-1.3) Estimated GFR (Cockcroft-Gault) 22.1 Glucose Level 200 mg/dL (70-99) Calcium Level 9.0 mg/dL (8.5-10.1) Test 06/21/19 10:48 Glucose (Fingerstick) 253 mg/dL (70-99) Assessment and Plan Assessmemt and Plan Problems Medical Problems: (1) Cellulitis Status: Acute (2) Groin abscess Status: Acute Comment Review of Relevant I have reviewed the following items kellee (where applicable) has been applied. Labs Laboratory Tests Test 06/19/19 16:39 06/19/19 19:31 06/20/19 07:37 06/20/19 10:15 Glucose (Fingerstick) 201 mg/dL (70-99) 136 mg/dL (70-99) 191 mg/dL (70-99) Sodium Level 141 mmol/L (136-145) Potassium Level 4.1 mmol/L (3.5-5.1) Chloride Level 107 mmol/L (98-107) Carbon Dioxide Level 25 mmol/L (21-32) Anion Gap 9 (6-14) Blood Urea Nitrogen 31 mg/dL (8-26) Creatinine 2.9 mg/dL (0.7-1.3) Estimated GFR (Cockcroft-Gault) 22.1 Glucose Level 241 mg/dL (70-99) Calcium Level 9.4 mg/dL (8.5-10.1) Test 06/20/19 11:29 06/20/19 16:45 06/20/19 20:15 06/21/19 04:15 Glucose (Fingerstick) 207 mg/dL (70-99) 222 mg/dL (70-99) 184 mg/dL (70-99) Sodium Level 145 mmol/L (136-145) Potassium Level 4.1 mmol/L (3.5-5.1) Chloride Level 110 mmol/L (98-107) Carbon Dioxide Level 22 mmol/L (21-32) Anion Gap 13 (6-14) Blood Urea Nitrogen 29 mg/dL (8-26) Creatinine 2.9 mg/dL (0.7-1.3) Estimated GFR (Cockcroft-Gault) 22.1 Glucose Level 200 mg/dL (70-99) Calcium Level 9.0 mg/dL (8.5-10.1) Test 06/21/19 07:52 06/21/19 10:48 Glucose (Fingerstick) 209 mg/dL (70-99) 253 mg/dL (70-99) Laboratory Tests Test 06/20/19 16:45 06/20/19 20:15 06/21/19 04:15 06/21/19 07:52 Glucose (Fingerstick) 222 mg/dL (70-99) 184 mg/dL (70-99) 209 mg/dL (70-99) Sodium Level 145 mmol/L (136-145) Potassium Level 4.1 mmol/L (3.5-5.1) Chloride Level 110 mmol/L (98-107) Carbon Dioxide Level 22 mmol/L (21-32) Anion Gap 13 (6-14) Blood Urea Nitrogen 29 mg/dL (8-26) Creatinine 2.9 mg/dL (0.7-1.3) Estimated GFR (Cockcroft-Gault) 22.1 Glucose Level 200 mg/dL (70-99) Calcium Level 9.0 mg/dL (8.5-10.1) Test 06/21/19 10:48 Glucose (Fingerstick) 253 mg/dL (70-99) Microbiology 06/14/19 Anaerobic/Aerobic Culture - Final, Complete 06/14/19 Anaerobic Culture Result 1 (YUMI) - Final, Complete 06/14/19 Aerobic Culture - Final, Complete 06/14/19 Aerobic Culture Result 1 (YUMI) - Final, Complete 06/14/19 Gram Stain - Final, Complete 06/14/19 Gram Stain Result 1 (YUMI) - Final, Complete 06/14/19 Gram Stain Result 2 (YUMI) - Final, Complete 06/12/19 Blood Culture - Final, Complete NO GROWTH AFTER 5 DAYS Medications Current Medications Lidocaine/ Epinephrine (LIDOCAINE 1%-EPI 1:100,000 Multi-Dose) 20 ml 1X ONCE INJ Last administered on 06/12/19at 10:29; Start 06/12/19 at 10:15; Stop 06/12/19 at 10:16; Status DC Sodium Bicarbonate (Sodium Bicarb Adult 8.4% Syr) 50 meq STK-MED ONCE .ROUTE ; Start 06/12/19 at 10:19; Stop 06/12/19 at 10:19; Status DC Sodium Bicarbonate (Sodium Bicarb Adult 8.4% Syr) 50 meq 1X ONCE SQ Last administered on 06/12/19at 10:35; Start 06/12/19 at 10:30; Stop 06/12/19 at 10:31; Status DC Vancomycin HCl 250 ml @ 250 mls/hr 1X ONCE IV Last administered on 06/12/19at 11:48; Start 06/12/19 at 10:45; Stop 06/12/19 at 11:44; Status DC Sodium Chloride 1,000 ml @ 1,000 mls/hr 1X ONCE IV Last administered on 06/12/19at 11:45; Start 06/12/19 at 11:45; Stop 06/12/19 at 12:44; Status DC Vancomycin HCl (Vanco Per Pharmacy) 1 each PRN DAILY PRN MC SEE COMMENTS Last administered on 06/14/19at 12:53; Start 06/12/19 at 12:30; Stop 06/15/19 at 09:07; Status DC Insulin Human Lispro (HumaLOG) 0-5 UNITS TIDWMEALS SQ Last administered on 06/12/19at 17:21; Start 06/12/19 at 17:00; Stop 06/13/19 at 13:09; Status DC Dextrose (Dextrose 50%-Water Syringe) 12.5 gm PRN Q15MIN PRN IV SEE COMMENTS; Start 06/12/19 at 12:30; Stop 06/13/19 at 13:43; Status DC Vancomycin HCl 2 gm/Sodium Chloride 500 ml @ 250 mls/hr 1X ONCE IV Last administered on 06/12/19at 13:09; Start 06/12/19 at 13:00; Stop 06/12/19 at 14:59; Status DC Sodium Chloride (Normal Saline Flush) 3 ml QSHIFT PRN IV AFTER MEDS AND BLOOD DRAWS; Start 06/12/19 at 12:30 Sodium Chloride 1,000 ml @ 100 mls/hr Q10H IV Last administered on 06/18/19at 08:58; Start 06/12/19 at 12:18; Stop 06/18/19 at 13:54; Status DC Ondansetron HCl (Zofran) 4 mg PRN Q4HRS PRN IV NAUSEA/VOMITING Last administered on 06/13/19at 02:34; Start 06/12/19 at 12:30 Zolpidem Tartrate (Ambien) 5 mg PRN QHS PRN PO INSOMNIA; Start 06/12/19 at 12:30 Acetaminophen (Tylenol) 650 mg PRN Q4HRS PRN PO TEMP OVER 100.4F OR MILD PAIN; Start 06/12/19 at 12:30 Al Hydroxide/Mg Hydroxide (Mylanta Plus Xs) 30 ml PRN DAILY PRN PO HEARTBURN / GAS; Start 06/12/19 at 12:30 Clonidine HCl (Catapres) 0.1 mg PRN Q6HRS PRN PO SBP>160 OR DBP>90 Last administered on 06/19/19at 20:44; Start 06/12/19 at 12:30 Docusate Sodium (Colace) 100 mg PRN BID PRN PO CONSTIPATION; Start 06/12/19 at 12:30 Albuterol Sulfate (Ventolin Neb Soln) 2.5 mg PRN Q4HRS PRN NEB SHORTNESS OF BREATH; Start 06/12/19 at 12:30 Guaifenesin (Robitussin) 200 mg PRN Q4HRS PRN PO COUGH; Start 06/12/19 at 12:30 Lorazepam (Ativan) 0.5 mg PRN Q4HRS PRN PO ANXIETY / AGITATION; Start 06/12/19 at 12:30 Enoxaparin Sodium (Lovenox 40mg Syringe) 40 mg Q24H SQ Last administered on 06/17/19at 13:15; Start 06/12/19 at 13:00; Stop 06/17/19 at 14:17; Status DC Metformin HCl (Glucophage Xr) 500 mg DAILYWBKFT PO Last administered on 06/17/19at 10:30; Start 06/13/19 at 08:00; Stop 06/17/19 at 14:15; Status DC Lisinopril (Prinivil) 10 mg DAILY08 PO Last administered on 06/18/19at 08:46; Start 06/12/19 at 12:30; Stop 06/18/19 at 13:53; Status DC Piperacillin Sod/ Tazobactam Sod 3.375 gm/Sodium Chloride 50 ml @ 100 mls/hr Q6HRS IV Last administered on 06/15/19at 06:18; Start 06/12/19 at 14:00; Stop 06/15/19 at 09:07; Status DC Nicotine (Nicoderm Cq 21mg) 1 patch DAILY TD Last administered on 06/21/19 09:01; Start 06/12/19 at 15:30 Vancomycin HCl 1.25 gm/Sodium Chloride 250 ml @ 167 mls/hr Q12H IV Last administered on 06/14/19 01:09; Start 06/13/19 at 01:00; Stop 06/14/19 at 0 2:48; Status DC Vancomycin HCl (Vancomycin Trough Level) 1 each 1X ONCE MC Last administered on 06/14/19at 00:30; Start 06/14/19 at 00:30; Stop 06/14/19 at 00:31; Status DC Hydromorphone HCl (Dilaudid) 1 mg PRN Q3HRS PRN IV SEVERE PAIN 7-10; Start 06/12/19 at 16:45 Acetaminophen/ Hydrocodone Bitart (Lortab 5/325) 1 tab PRN Q4HRS PRN PO MODERATE PAIN Last administered on 06/14/19at 20:57; Start 06/12/19 at 17:00 Acetaminophen/ Hydrocodone Bitart (Lortab 5/325) 2 tab PRN Q4HRS PRN PO SEVERE PAIN Last administered on 06/15/19at 17:22; Start 06/12/19 at 17:00 Lactobacillus Rhamnosus (Culturelle) 1 cap BID PO Last administered on at 20:44; Start 06/13/19 at 21:00 Insulin Human Lispro (HumaLOG) 0-9 UNITS TIDWMEALS SQ Last administered on 06/21/19at 09:06; Start 06/13/19 at 17:00 Dextrose (Dextrose 50%-Water Syringe) 12.5 gm PRN Q15MIN PRN IV SEE COMMENTS; Start 06/13/19 at 13:15 Insulin Glargine (Lantus Syringe) 10 unit 1X ONCE SQ Last administered on 06/13/19at 14:39; Start 06/13/19 at 14:00; Stop 06/13/19 at 14:01; Status DC Vancomycin HCl 1.25 gm/Sodium Chloride 250 ml @ 167 mls/hr Q12H IV Last administered on 06/15/19at 01:18; Start 06/14/19 at 13:00; Stop 06/15/19 at 09:08; Status DC Vancomycin HCl (Vancomycin Trough Level) 1 each 1X ONCE MC ; Start 06/15/19 at 08:30; Stop 06/15/19 at 08:31; Status Cancel Ondansetron HCl (Zofran) 4 mg PRN Q6HRS PRN IV NAUSEA/VOMITING; Start 06/14/19 at 12:45; Stop 06/14/19 at 19:05; Status DC Fentanyl Citrate (Fentanyl 2ml Vial) 25 mcg PRN Q5MIN PRN IV MILD PAIN 1-3; Start 06/14/19 at 12:45; Stop 06/14/19 at 19:05; Status DC Fentanyl Citrate (Fentanyl 2ml Vial) 50 mcg PRN Q5MIN PRN IV MODERATE TO SEVERE PAIN Last administered on 06/14/19at 15:07; Start 06/14/19 at 12:45; Stop 06/14/19 at 19:05; Status DC Morphine Sulfate (Morphine Sulfate) 1 mg PRN Q10MIN PRN IV SEVERE PAIN 7-10; Start 06/14/19 at 12:45; Stop 06/14/19 at 19:05; Status DC Ringer's Solution 1,000 ml @ 30 mls/hr Q24H IV ; Start 06/14/19 at 12:40; Stop 06/14/19 at 19:04; Status DC Lidocaine HCl (Xylocaine-Mpf 1% 2ml Vial) 2 ml PRN 1X PRN ID PRIOR TO IV START; Start 06/14/19 at 12:45; Stop 06/14/19 at 19:05; Status DC Hydromorphone HCl (Dilaudid) 0.5 mg PRN Q10MIN PRN IV SEV PAIN, Second choice; Start 06/14/19 at 12:45; Stop 06/14/19 at 19:05; Status DC Prochlorperazine Edisylate (Compazine) 5 mg PACU PRN PRN IV NAUSEA, MRX1; Start 06/14/19 at 12:45; Stop 06/14/19 at 19:05; Status DC Lidocaine/ Epinephrine (LIDOCAINE 1%-EPI 1:100,000 Multi-Dose) 20 ml STK-MED ONCE .ROUTE ; Start 06/14/19 at 13:31; Stop 06/14/19 at 13:31; Status DC Fentanyl Citrate (Fentanyl 2ml Vial) 100 mcg STK-MED ONCE .ROUTE ; Start 06/14/19 at 13:50; Stop 06/14/19 at 13:50; Status DC Propofol 20 ml @ As Directed STK-MED ONCE IV ; Start 06/14/19 at 13:53; Stop 06/14/19 at 13:53; Status DC Lidocaine HCl (Lidocaine Pf 2% Vial) 5 ml STK-MED ONCE .ROUTE ; Start 06/14/19 at 13:53; Stop 06/14/19 at 13:53; Status DC Ondansetron HCl (Zofran) 4 mg STK-MED ONCE .ROUTE ; Start 06/14/19 at 13:53; Stop 06/14/19 at 13:53; Status DC Fentanyl Citrate (Fentanyl 2ml Vial) 100 mcg STK-MED ONCE .ROUTE ; Start 06/14/19 at 14:49; Stop 06/14/19 at 14:50; Status DC Sevoflurane (Ultane) 30 ml STK-MED ONCE IH ; Start 06/14/19 at 14:52; Stop 06/14/19 at 14:52; Status DC Cefepime HCl (Maxipime) 1 gm Q12HR IVP Last administered on 06/16/19at 20:44; Start 06/15/19 at 10:00; Stop 06/17/19 at 09:33; Status DC Metronidazole (Flagyl) 500 mg Q12HR PO Last administered on 06/19/19at 08:11; Start 06/15/19 at 10:00; Stop 06/19/19 at 11:20; Status DC Linezolid (Zyvox) 600 mg BID PO Last administered on 06/16/19at 20:44; Start 06/15/19 at 10:00; Stop 06/17/19 at 09:33; Status DC Sodium Hypochlorite (Dakin'S 1/4 Strength) 1 emilee DAILY TP Last administered on 06/20/19at 09:00; Start 06/15/19 at 18:00 Ceftriaxone Sodium (Rocephin) 2 gm Q24H IVP Last administered on 06/19/19at 08:47; Start 06/17/19 at 10:00; Stop 06/19/19 at 16:26; Status DC Enoxaparin Sodium (Lovenox 30mg Syringe) 30 mg Q24H SQ Last administered on 06/20/19 12:52; Start 06/18/19 at 13:00 Hydralazine HCl (Apresoline) 25 mg TID PO Last administered on 06/19/19 08:11; Start 06/18/19 at 14:00; Stop 06/19/19 at 08:18; Status DC Hydralazine HCl (Apresoline) 50 mg TID PO Last administered on 06/21/19 09:01; Start 06/19/19 at 14:00 Amlodipine Besylate (Norvasc) 10 mg DAILY PO Last administered on 06/21/19 09:01; Start 06/19/19 at 09:00 Hydralazine HCl (Apresoline) 25 mg 1X ONCE PO Last administered on 06/19/19 08:47; Start 06/19/19 at 08:30; Stop 06/19/19 at 08:31; Status DC Hydralazine HCl (Apresoline Inj) 10 mg 1X ONCE IVP Last administered on 06/19/19at 11:48; Start 06/19/19 at 11:45; Stop 06/19/19 at 11:46; Status DC Hydralazine HCl (Apresoline Inj) 10 mg PRN Q4HRS PRN IVP ELEVATED BP, SEE COMMENTS Last administered on 06/20/19at 20:04; Start 06/19/19 at 11:45 Amoxicillin/ Clavulanate Potassium (Augmentin 500/ 125mg) 1 tab BID PO Last administered on 06/21/19 09:01; Start 06/19/19 at 21:00 Sodium Chloride 1,000 ml @ 100 mls/hr Q10H IV Last administered on 06/20/19 01:05; Start 06/20/19 at 10:00 Active Scripts Active Amox Tr-K Clv 500-125 Mg Tab (Amoxicillin/Potassium Clav) 1 Each Tablet 1 Tab PO BID Dok (Docusate Sodium) 100 Mg Capsule 100 Mg PO PRN BID PRN Amlodipine Besylate 10 Mg Tablet 10 Mg PO DAILY Hydrocodone-Apap 5-325 (Hydrocodone Bit/Acetaminophen) 1 Tab Tablet 1 Tab PO PRN Q4HRS PRN Hydralazine Hcl 50 Mg Tablet 50 Mg PO TID Vitals/I & O Vital Sign - Last 24 Hours 06/20/19 06/20/19 06/20/19 06/20/19 12:52 15:00 19:53 20:00 Temp 98.0 98.1 98.0 98.1 Pulse 69 80 95 Resp 16 18 B/P (MAP) 175/74 173/55 (94) 181/89 (119) Pulse Ox 95 93 O2 Delivery Room Air Room Air Room Air 06/20/19 06/20/19 06/20/19 06/21/19 20:04 21:07 23:08 03:17 Temp 97.9 97.7 97.9 97.7 Pulse 95 95 94 87 Resp 18 18 B/P (MAP) 181/89 181/89 159/60 (93) 170/72 (104) Pulse Ox 93 94 O2 Delivery Room Air Room Air 06/21/19 06/21/19 06/21/19 06/21/19 07:00 08:00 09:01 09:01 Temp 98.3 98.3 Pulse 78 78 78 Resp 18 B/P (MAP) 169/71 (103) 169/71 169/71 Pulse Ox 95 O2 Delivery Room Air Room Air 06/21/19 11:00 Temp 97.9 97.9 Pulse 82 Resp 16 B/P (MAP) 186/69 (108) Pulse Ox 96 O2 Delivery Room Air Intake and Output 06/20/19 06/20/19 06/21/19 15:00 23:00 07:00 Intake Total 820 ml 760 ml 2700 ml Output Total 400 ml Balance 420 ml 760 ml 2700 ml LENNOX OWUSU MD Jun 21, 2019 12:40
--- NOTE | 2019-06-21 12:42 | PDOC3 ---
Discharge Summary Visit Information Date of Admission: Jun 12, 2019 Date of Discharge: Jun 21, 2019 Final Diagnosis Groin abscess, deep, complicated, with strep infection in wound hx MRSA diabetes 2, poor control, A1c 10.3 Cellulitis uncontrolled hypertension- HTN EMERGENCY SBP 200 (06/19) obesity, BMI 28 acute renal injury cr 3.2 06/17 improving slowly, History of Present Illness History of Present Illness DC home discussed with renal Chart reviewed Discussed with RN Problems Medical Problems: (1) Cellulitis Status: Acute (2) Groin abscess Status: Acute Brief Hospital Course Allergies Allergies Coded Allergies Type Severity Reaction Last Updated Verified No Known Drug Allergies 12/04/17 No Vital Signs Vital Signs Date Time Temp Pulse Resp B/P (MAP) Pulse Ox O2 Delivery O2 Flow Rate FiO2 06/21/19 11:00 97.9 82 16 186/69 (108) 96 Room Air 97.9 06/20/19 08:00 10.0 Lab Results Laboratory Tests Test 06/19/19 16:39 06/19/19 19:31 06/20/19 07:37 06/20/19 10:15 Glucose (Fingerstick) 201 mg/dL (70-99) 136 mg/dL (70-99) 191 mg/dL (70-99) Sodium Level 141 mmol/L (136-145) Potassium Level 4.1 mmol/L (3.5-5.1) Chloride Level 107 mmol/L (98-107) Carbon Dioxide Level 25 mmol/L (21-32) Anion Gap 9 (6-14) Blood Urea Nitrogen 31 mg/dL (8-26) Creatinine 2.9 mg/dL (0.7-1.3) Estimated GFR (Cockcroft-Gault) 22.1 Glucose Level 241 mg/dL (70-99) Calcium Level 9.4 mg/dL (8.5-10.1) Test 06/20/19 11:29 06/20/19 16:45 06/20/19 20:15 06/21/19 04:15 Glucose (Fingerstick) 207 mg/dL (70-99) 222 mg/dL (70-99) 184 mg/dL (70-99) Sodium Level 145 mmol/L (136-145) Potassium Level 4.1 mmol/L (3.5-5.1) Chloride Level 110 mmol/L (98-107) Carbon Dioxide Level 22 mmol/L (21-32) Anion Gap 13 (6-14) Blood Urea Nitrogen 29 mg/dL (8-26) Creatinine 2.9 mg/dL (0.7-1.3) Estimated GFR (Cockcroft-Gault) 22.1 Glucose Level 200 mg/dL (70-99) Calcium Level 9.0 mg/dL (8.5-10.1) Test 06/21/19 07:52 06/21/19 10:48 Glucose (Fingerstick) 209 mg/dL (70-99) 253 mg/dL (70-99) Laboratory Tests Test 06/20/19 16:45 06/20/19 20:15 06/21/19 04:15 06/21/19 07:52 Glucose (Fingerstick) 222 mg/dL (70-99) 184 mg/dL (70-99) 209 mg/dL (70-99) Sodium Level 145 mmol/L (136-145) Potassium Level 4.1 mmol/L (3.5-5.1) Chloride Level 110 mmol/L (98-107) Carbon Dioxide Level 22 mmol/L (21-32) Anion Gap 13 (6-14) Blood Urea Nitrogen 29 mg/dL (8-26) Creatinine 2.9 mg/dL (0.7-1.3) Estimated GFR (Cockcroft-Gault) 22.1 Glucose Level 200 mg/dL (70-99) Calcium Level 9.0 mg/dL (8.5-10.1) Test 06/21/19 10:48 Glucose (Fingerstick) 253 mg/dL (70-99) Brief Hospital Course Mr. Morris is a 64 old a admit iw deep groin would and cellulitis IV abx, tapered over days pain better BP better poor Dm2 control acute renal injury, cont current, needs f/u, was not following with physicians Discharge Information Condition at Discharge: Improved Follow Up: Weeks Disposition/Orders: D/C to Home Scheduled Amlodipine Besylate (Amlodipine Besylate) 10 Mg Tablet, 10 MG PO DAILY for hypertension, #30 Prescribed by: LENNOX OWUSU on 06/21/19 0926 Amoxicillin/Potassium Clav (Amox Tr-K Clv 500-125 Mg Tab) 1 Each Tablet, 1 TAB PO BID for groin abcess, #10 Prescribed by: LENNOX OWUSU on 06/21/19925 Hydralazine Hcl (Hydralazine Hcl) 50 Mg Tablet, 50 MG PO TID for hypertension, #90 Prescribed by: LENNOX OWUSU on 06/21/19925 Scheduled PRN Docusate Sodium (Dok) 100 Mg Capsule, 100 MG PO PRN BID PRN for CONSTIPATION, #30 Prescribed by: LENNOX OWUSU on 06/21/19925 Hydrocodone Bit/Acetaminophen (Hydrocodone-Apap 5-325 ) 1 Tab Tablet, 1 TAB PO PRN Q4HRS PRN for MODERATE PAIN, #20 Prescribed by: LENNOX OWUSU on 06/21/19925 Patient Instructions Patient Instructions > 30 min face to face, needs close f/u LENNOX OWUSU MD Jun 21, 2019 12:42
--- NOTE | 2019-06-21 13:00 | NUR ---
Discharge Note: FAREED LOCKHART [address] [place] [address] Discharge instructions and discharge home medications reviewed with Patient and a copy given. All questions have been answered and understanding verbalized. The following instructions and handouts were given: Diet, activity, medication list and follow up instructions provided to patient and patient's daughter. Wound care instructions and supplies provided to patient. Dressing changed prior to discharge. Discontinued lines and drains: Peripheral IV discontinued and catheter intact. Patient discharged to Home or Self Care with Family Member via [facility]
== END 2019-06-21 13:05 | disposition home or self-care (01) | DRG 356 ==
LOC: ER 09:55 → 4 NORTH 11:15 → UNDOADMIN 12:33
PROVIDERS: ADMIT Family Medicine; ATTEND Family Medicine
PROC: 0Y950ZZ Drainage of Right Inguinal Region, Open Approach (ICD-10-PCS; principal; 2019-06-14 13:45)
DX: K61.1 Rectal abscess (principal); N17.0 Acute kidney failure with tubular necrosis; I16.1 Hypertensive emergency; L02.214 Cutaneous abscess of groin; L02.415 Cutaneous abscess of right lower limb; E11.65 Type 2 diabetes mellitus with hyperglycemia; E66.9 Obesity, unspecified; F17.210 Nicotine dependence, cigarettes, uncomplicated; I10 Essential (primary) hypertension; N28.1 Cyst of kidney, acquired; Z68.28 Body mass index [BMI] 28.0-28.9, adult; Z82.49 Family history of ischemic heart disease and other diseases of the circulatory system; Z86.14 Personal history of Methicillin resistant Staphylococcus aureus infection; Z90.49 Acquired absence of other specified parts of digestive tract; Z79.899 Other long term (current) drug therapy
CPT/HCPCS: 10060; 36415; 76770; 80048; 80053; 80202; 81001; 82565; 82962; 83036; 84100; 85025; 87040; 87070; 87071; 87075; 87077; 89050; 93005; 93306; 96365; 96372; A7015; J0360; J0692; J0696; J1650; J1815; J2001; J2405; J2543; J2704; J3010; J3370; J3490; J7030; J7040; J7050; 97110; 97535; 99285-25; A4461; G0378